=== PATIENT | female | born 1955 | race Caucasian/White ===

== ENCOUNTER 2016-08-13 11:50 | Outpatient (CLI) | payer MEDICARE, MEDICAID | END 2016-08-13 11:51 | disposition home or self-care (01) | DX: R10.9 Unspecified abdominal pain (principal); R11.0 Nausea ==

== ENCOUNTER 2016-09-14 15:40 | Outpatient (CLI) | payer MEDICARE, MEDICAID | END 2016-09-14 15:41 | disposition home or self-care (01) | DX: Z12.31 Encounter for screening mammogram for malignant neoplasm of breast (principal) ==

== ENCOUNTER 2016-11-23 16:10 | Outpatient (CLI) | payer MEDICARE, MEDICAID ==
[2016-11-23 16:45] LABS: ALBUMIN/GLOBULIN RATIO 1.3 (1.0-2.2); BILIRUBIN,TOTAL 0.2 mg/dL (0.2-1.0); CALCIUM 9.1 mg/dL (8.5-10.3); CREATININE 0.9 mg/dL (0.4-1.0); EOSINOPHILS # (AUTO) 0.2 10^3/uL (0.0-0.7); EOSINOPHILS % (AUTO) 5.1 %; HCT - HEMATOCRIT 35.8 % (37.0-47.0); HGB - HEMOGLOBIN 11.8 g/dL (12.0-16.0); LYMPHOCYTES # (AUTO) 1.1 10^3/uL (1.5-3.5); LYMPHOCYTES % (AUTO) 24.5 %; MEAN CORPUSCULAR HGB CONC 33.1 g/dL (32.0-36.0); MEAN CORPUSCULAR VOLUME 87.8 fL (81.0-99.0); MEAN PLATELET VOLUME 9.3 fL (7.9-10.8); MONOCYTES # (AUTO) 0.7 10^3/uL (0.0-1.0); MONOCYTES % (AUTO) 14.9 %; NEUTROPHILS # (AUTO) 2.5 10^3/uL (1.5-6.6); NEUTROPHILS % (AUTO) 54.5 %; POTASSIUM 3.9 mmol/L (3.5-5.0); RED BLOOD COUNT 4.08 10^6/uL (4.20-5.40); RED CELL DISTRIBUTION WIDTH 13.9 % (12.0-15.0); UNCORRECTED WHITE BLOOD COUNT 4.6 x10^3/uL; WHITE BLOOD COUNT 4.6 x10^3/uL (4.8-10.8)
== END 2016-11-23 16:11 | disposition home or self-care (01) ==
LOC: LAB 16:10
PROVIDERS: ATTEND Physician Assistant Medical
DX: B35.1 Tinea unguium (principal); Z79.899 Other long term (current) drug therapy
CPT/HCPCS: 36415; 80053; 85025

== ENCOUNTER 2017-01-08 16:54 | Outpatient (CLI) | payer MEDICARE, MEDICAID | END 2017-01-08 16:55 | disposition home or self-care (01) | LOC: LAB 16:54 | PROVIDERS: ATTEND Physician Assistant Medical | DX: B35.1 Tinea unguium (principal); Z79.899 Other long term (current) drug therapy | CPT/HCPCS: 84450; 84460 ==

== ENCOUNTER 2017-10-18 23:40 | Emergency (ER) | payer MEDICARE, MEDICAID ==
[2017-10-18 23:55] VITALS: BP 111/58
[2017-10-19 01:05] LABS: BASOPHILS % (AUTO) 0.5 %; EOSINOPHILS # (AUTO) 0.2 10^3/uL (0.0-0.7); EOSINOPHILS % (AUTO) 2.9 %; HGB - HEMOGLOBIN 11.9 g/dL (12.0-16.0); LYMPHOCYTES % (AUTO) 17.1 %; MEAN CORPUSCULAR HEMOGLOBIN 29.1 pg (27.0-31.0); MEAN CORPUSCULAR HGB CONC 32.6 g/dL (32.0-36.0); MEAN CORPUSCULAR VOLUME 89.3 fL (81.0-99.0); MEAN PLATELET VOLUME 9.6 fL (7.9-10.8); MONOCYTES # (AUTO) 0.8 10^3/uL (0.0-1.0); MONOCYTES % (AUTO) 13.7 %; NEUTROPHILS # (AUTO) 3.8 10^3/uL (1.5-6.6); NEUTROPHILS % (AUTO) 65.8 %; PLT - PLATELET COUNT 166 10^3/uL (130-450); RED BLOOD COUNT 4.09 10^6/uL (4.20-5.40); RED CELL DISTRIBUTION WIDTH 13.6 % (12.0-15.0); WHITE BLOOD COUNT 5.8 x10^3/uL (4.8-10.8)
[2017-10-19 01:16] LABS: ALBUMIN 4.2 g/dL (3.2-5.5); ALBUMIN/GLOBULIN RATIO 1.2 (1.0-2.2); BILIRUBIN,TOTAL 0.3 mg/dL (0.2-1.0); CALCIUM 9.3 mg/dL (8.5-10.3); TOTAL PROTEIN 7.7 g/dL (6.7-8.2)
--- NOTE | 2017-10-19 01:55 | ED Physician Documentation ---
PD HPI ABD PAIN - Stated complaint Stated Complaint: ABDOMINAL PAIN,DIARRHEA - Chief complaint Chief Complaint: Abd Pain - History obtained from History obtained from: Patient - History of Present Illness Timing - onset: How many days ago (2-3) Timing - duration: Days Timing - details: Abrupt onset, Intermittant Pain level max: 0 Pain level now: 0 Quality: Cramping Location: All over / everywhere Improved by: Other (no ameliorating factors) Worsened by: Other (no exacerbating factors) Associated symptoms: Nausea (mild), Diarrhea. No: Fever, Vomiting, Constipation Similar symptoms before: Diagnosis (similar to previous bout of c. diff colitis) - Additional information Additional information: c/o diarrhea with mild abdominal cramping x 2-3 days. tonight she noticed small amt. blood in stool and she feels this is increasingly similar to bout of c. diff she had in the past Review of Systems Constitutional: reports: Reviewed and negative Cardiac: reports: Reviewed and negative Respiratory: reports: Reviewed and negative GI: reports: Nausea, Diarrhea, Bloody / black stool. 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, Endometrial ablation, Tubal ligation - Present Medications Home Medications: Ambulatory Orders Medication Instructions Recorded Confirmed Albuterol [Ventolin Hfa] 2 puffs INH Q4H PRN 08/30/13 03/11/14 Ascorbic Acid [Vitamin C] 100 mg PO 08/30/13 03/11/14 Baclofen [Lioresal] 10 mg PO TID 08/30/13 03/11/14 Calcium Carbonate [Calcium] 250 mg PO 08/30/13 03/11/14 Cholecalciferol (Vitamin D3) 5,000 unit PO DAILY 08/30/13 03/11/14 [Vitamin D-3] Ciclesonide [Omnaris] 12.5 gm NS DAILY 08/30/13 03/11/14 Gabapentin [Neurontin] 400 mg PO TID 08/30/13 03/11/14 Hydrocodone/Acetaminophen 1 each PO PRN 08/30/13 03/11/14 [Hydrocodon-Acetaminophen 5-500] Interferon Beta-1A [Avonex] 30 mcg IM 08/30/13 03/11/14 Magnesium Oxide/Mag Aa Chelate 300 mg PO DAILY 08/30/13 03/11/14 [Magnesium 300 mg Capsule] Montelukast [Singulair] 10 mg PO QPM 08/30/13 03/11/14 Multivitamin [Multivitamins] 1 each PO 08/30/13 03/11/14 Omeprazole [PriLOSEC] 20 mg PO DAILY 08/30/13 03/11/14 Pregabalin [Lyrica] 50 mg PO TID 08/30/13 03/11/14 Vitamin B Complex [B Complete] 1 each PO BID 08/30/13 03/11/14 tiZANidine [Zanaflex] 4 mg PO DAILY 08/30/13 03/11/14 predniSONE [Deltasone] 40 mg PO DAILY 2 Days tablet 03/11/14 Vancomycin [Vancocin] 125 mg PO QID #39 capsule 10/19/17 - Allergies Allergies/Adverse Reactions: Allergies Allergy/AdvReac Type Severity Reaction Status Date / Time Penicillins Allergy Mild Rash Verified 10/18/17 23:55 Sulfa (Sulfonamide Allergy Mild Rash Verified 10/18/17 23:55 Antibiotics) - Social History Does the pt smoke?: No Smoking Status: Never smoker Does the pt drink ETOH?: No Does the pt have substance abuse?: No - Immunizations Immunizations are current?: Yes - POLST Patient has POLST: No PD ED PE NORMAL - Vitals Vital signs reviewed: Yes - General General: Alert and oriented X 3, No acute distress, Well developed/nourished - HEENT HEENT: Moist mucous membranes - Cardiac Cardiac: RRR, No murmur - Respiratory Respiratory: No respiratory distress, Clear bilaterally - Abdomen Abdomen: Normal bowel sounds, Soft, Non tender, Non distended Results - Vitals Vitals: Vital Signs - 24 hr 10/18/17 10/19/17 23:53 01:05 Temperature 36.1 C L Heart Rate 58 L Respiratory 18 16 Rate Blood Pressure 111/58 L O2 Saturation 97 Oxygen O2 Source Room air - Labs Labs: Microbiology 10/18/17 22:45 Clostridium difficile (PCR) - Final Stool Laboratory Tests 10/19/17 10/19/17 00:35 00:35 WBC 5.8 RBC 4.09 L Hgb 11.9 L Hct 36.5 L MCV 89.3 MCH 29.1 MCHC 32.6 RDW 13.6 Plt Count 166 MPV 9.6 Neut # 3.8 Lymph # 1.0 L Starr # 0.8 Eos # 0.2 Baso # 0.0 Absolute Nucleated RBC 0.00 Nucleated RBC % 0.0 Sodium 139 Potassium 3.6 Chloride 101 Carbon Dioxide 30 Anion Gap 8.0 BUN 13 Creatinine 1.0 Estimated GFR (MDRD) 56 L Glucose 78 Calcium 9.3 Total Bilirubin 0.3 AST 45 H ALT 37 Alkaline Phosphatase 91 Total Protein 7.7 Albumin 4.2 Globulin 3.5 Albumin/Globulin Ratio 1.2 Lipase 46 PD MEDICAL DECISION MAKING - ED course Complexity details: reviewed results, re-evaluated patient, considered differential, d/w patient Departure - Departure Disposition: 01 Home, Self Care Clinical Impression: Clostridium difficile diarrhea Condition: Good Instructions: ED Gastroenteritis Bacterial Follow-Up: Siena Hoffman MD [Primary Care Provider] - Prescriptions: Vancomycin [Vancocin] 125 mg PO QID #39 capsule Discharge Date/Time: 10/19/17 02:47
[2017-10-19] MEDS ORDERED: VANCOMYCIN 125 MG CAPSULE PO STA (02:24)
== END 2017-10-19 02:47 | disposition home or self-care (01) ==
LOC: ED 23:40
DX: A04.72 Enterocolitis due to Clostridium difficile, not specified as recurrent (principal); J45.909 Unspecified asthma, uncomplicated
CPT/HCPCS: 36415; 80053; 83690; 85025; 87493; 99283; J8499

== ENCOUNTER 2017-10-29 08:00 | Outpatient (CLI) | payer MEDICARE, MEDICAID | END 2017-10-29 08:01 | disposition home or self-care (01) | LOC: LAB.R 08:00 | PROVIDERS: ATTEND Internal Medicine | DX: R19.7 Diarrhea, unspecified (principal) | CPT/HCPCS: 87493 ==

== ENCOUNTER 2017-11-02 08:00 | Outpatient (CLI) | payer MEDICARE, MEDICAID | END 2017-11-02 08:01 | disposition home or self-care (01) | LOC: LAB.R 08:00 | PROVIDERS: ATTEND Internal Medicine | DX: R19.5 Other fecal abnormalities (principal) | CPT/HCPCS: 87493 ==

== ENCOUNTER 2017-11-16 11:56 | Emergency (ER) | payer MEDICARE, MEDICAID ==
[2017-11-16 12:10] VITALS: BP 132/72
--- NOTE | 2017-11-16 13:04 | ED Physician Documentation ---
PD HPI HEENT - Stated complaint Stated Complaint: MOUTH PAIN - Chief complaint Chief Complaint: Heent - History obtained from History obtained from: Patient - History of Present Illness Timing - onset: How many days ago (5) Timing - duration: Days (5) Timing - details: Gradual onset, Still present Location: Mouth Improves: Nothing Associated symptoms: Facial swelling Similar symptoms before: Diagnosis (dental abscess) Recently seen: Surgery - Additional information Additional information: 62-year-old female has had a recent gum graft to her left lower gums she has subsequently developed swelling, pain and a foul taste in her mouth. She relates that she was not put on antibiotic because she developed C. Diff with the clindamycin previously prescribed. She recovered with the use of vancomycin. Review of Systems Constitutional: reports: Fatigue. 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, Endometrial ablation, Tubal ligation - Present Medications Home Medications: Ambulatory Orders Medication Instructions Recorded Confirmed Albuterol [Ventolin Hfa] 2 puffs INH Q4H PRN 08/30/13 03/11/14 Cholecalciferol (Vitamin D3) 5,000 unit PO DAILY 08/30/13 03/11/14 [Vitamin D-3] Gabapentin [Neurontin] 400 mg PO TID 08/30/13 03/11/14 Interferon Beta-1A [Avonex] 30 mcg IM 08/30/13 03/11/14 Magnesium Oxide/Mag Aa Chelate 300 mg PO DAILY 08/30/13 03/11/14 [Magnesium 300 mg Capsule] Multivitamin [Multivitamins] 1 each PO 08/30/13 03/11/14 Vitamin B Complex [B Complete] 1 each PO BID 08/30/13 03/11/14 tiZANidine [Zanaflex] 4 mg PO DAILY 08/30/13 03/11/14 Cephalexin [Keflex] 500 mg PO QID #28 capsule 11/16/17 oxyCODONE [Roxicodone] 10 mg PO Q6H PRN 11/16/17 11/16/17 - Allergies Allergies/Adverse Reactions: Allergies Allergy/AdvReac Type Severity Reaction Status Date / Time Penicillins Allergy Mild Rash Verified 10/18/17 23:55 Sulfa (Sulfonamide Allergy Mild Rash Verified 10/18/17 23:55 Antibiotics) - Social History Does the pt smoke?: No Smoking Status: Never smoker Does the pt drink ETOH?: No Does the pt have substance abuse?: No - Immunizations Immunizations are current?: Yes - POLST Patient has POLST: No PD ED PE NORMAL - Vitals Vital signs reviewed: Yes (hypertensive ) - General General: Alert and oriented X 3, No acute distress, Well developed/nourished - HEENT HEENT: Atraumatic, PERRL, EOMI, Ears normal, Other (There is swelling to the left mandible from the chin to the ramus and this is firm without fluctuance. ) - Neck Neck: Supple, no meningeal sign, No bony TTP - Respiratory Respiratory: No respiratory distress - Neuro Neuro: Alert and oriented X 3, hoop expander 2-12 intact, No motor deficit, No sensory deficit, Normal speech Eye Opening: Spontaneous Motor: Obeys Commands Verbal: Oriented GCS Score: 15 - Psych Psych: Normal mood, Normal affect Results - Vitals Vitals: Vital Signs - 24 hr 11/16/17 12:04 Temperature 36.8 C Heart Rate 70 Respiratory 16 Rate Blood Pressure 132/72 H O2 Saturation 96 Oxygen O2 Source Room air PD MEDICAL DECISION MAKING - ED course Complexity details: re-evaluated patient, considered differential, d/w patient ED course: 62-year-old female with a recent gum graft appears to have a dental infection and she is put on some antibiotic. She has taken Keflex previously without difficulty. She is on probiotics already and yogurt. - Sepsis Event Vital Signs: Vital Signs - 24 hr 11/16/17 12:04 Temperature 36.8 C Heart Rate 70 Respiratory 16 Rate Blood Pressure 132/72 H O2 Saturation 96 Oxygen O2 Source Room air Departure - Departure Disposition: 01 Home, Self Care Clinical Impression: Dental infection Condition: Stable Instructions: ED Abscess Dental Follow-Up: Siena Hoffman MD [Primary Care Provider] - Prescriptions: Cephalexin [Keflex] 500 mg PO QID #28 capsule Discharge Date/Time: 11/16/17 13:34
[2017-11-16] MEDS: cephALEXin 250 MG CAPSULE PO STA (13:06)
== END 2017-11-16 13:34 | disposition home or self-care (01) ==
LOC: ED 11:56
DX: K04.7 Periapical abscess without sinus (principal)
CPT/HCPCS: 99283; A9270

== ENCOUNTER 2017-11-30 16:00 | Outpatient (CLI) | payer MEDICARE, MEDICAID | END 2017-11-30 16:01 | disposition home or self-care (01) | LOC: LAB.R 16:00 | PROVIDERS: ATTEND Internal Medicine | DX: R19.7 Diarrhea, unspecified (principal); Z86.19 Personal history of other infectious and parasitic diseases | CPT/HCPCS: 87493 ==

== ENCOUNTER 2018-05-12 15:06 | Outpatient (CLI) | payer MEDICARE, MEDICAID | END 2018-05-12 15:07 | disposition critical access hospital (66) | LOC: EMS 15:06 | PROVIDERS: ATTEND Surgery | DX: R42 Dizziness and giddiness (principal); R11.0 Nausea; R55 Syncope and collapse; R05 Cough | CPT/HCPCS: A0425; A0429 ==

== ENCOUNTER 2018-05-12 15:10 | Inpatient (IN) | payer MEDICARE, MEDICAID ==
[2018-05-12] MEDS ORDERED: SODIUM CHLORIDE 0.9% 1,000 ML IV ONE (15:30)
[2018-05-12] MEDS ORDERED: ALBUTEROL NEB 2.5 MG/3 ML INH STA (15:30)
--- NOTE | 2018-05-12 15:32 | ED Physician Documentation ---
History of Present Illness - Stated complaint Stated Complaint: FEVER, COUGH - Chief complaint Chief Complaint: Fever - History obtained from History obtained from: Patient - History of Present Illness Timing: Other (62-year-old woman with history of MS and asthma presents with 6 days of illness with cough productive of sputum and some hemoptysis with fevers, with a maximum temperature of 102.9 today. She feels completely tired and wiped out and has been falling a lot. 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, Endometrial ablation, Tubal ligation - Present Medications Home Medications: Ambulatory Orders Medication Instructions Recorded Confirmed Albuterol [Ventolin Hfa] 2 puffs INH Q4H PRN 08/30/13 03/11/14 Cholecalciferol (Vitamin D3) 5,000 unit PO DAILY 08/30/13 03/11/14 [Vitamin D-3] Gabapentin [Neurontin] 400 mg PO TID 08/30/13 03/11/14 Interferon Beta-1A [Avonex] 30 mcg IM 08/30/13 03/11/14 Magnesium Oxide/Mag Aa Chelate 300 mg PO DAILY 08/30/13 03/11/14 [Magnesium 300 mg Capsule] Multivitamin [Multivitamins] 1 each PO 08/30/13 03/11/14 Vitamin B Complex [B Complete] 1 each PO BID 08/30/13 03/11/14 tiZANidine [Zanaflex] 4 mg PO DAILY 08/30/13 03/11/14 Cephalexin [Keflex] 500 mg PO QID #28 capsule 11/16/17 oxyCODONE [Roxicodone] 10 mg PO Q6H PRN 11/16/17 11/16/17 - Allergies Allergies/Adverse Reactions: Allergies Allergy/AdvReac Type Severity Reaction Status Date / Time Penicillins Allergy Mild Rash Verified 05/12/18 15:15 Sulfa (Sulfonamide Allergy Mild Rash Verified 05/12/18 15:15 Antibiotics) - Social History Does the pt smoke?: No Smoking Status: Never smoker Does the pt drink ETOH?: No Does the pt have substance abuse?: No - Family History Family history: reports: Unknown - Immunizations Immunizations are current?: Yes - POLST Patient has POLST: No PD ED PE NORMAL - Vitals Vital signs reviewed: Yes - General General: Alert and oriented X 3, No acute distress - HEENT HEENT: PERRL, EOMI, Ears normal, Pharynx benign - Neck Neck: Supple, no meningeal sign, No bony TTP - Cardiac Cardiac: RRR, No murmur - Respiratory Respiratory: Other (Diminished at the right base) - Abdomen Abdomen: Non tender - Back Back: No CVA TTP, No spinal TTP - Derm Derm: Normal color, Warm and dry - Neuro Neuro: Alert and oriented X 3, Normal speech - Psych Psych: Normal mood, Normal affect Results - Vitals Vitals: Vital Signs - 24 hr 05/12/18 05/12/18 15:15 16:00 Temperature 37.4 C Heart Rate 110 H 84 Respiratory 16 18 Rate Blood Pressure 113/60 O2 Saturation 95 Oxygen O2 Source Room air - Labs Labs: Laboratory Tests 05/12/18 05/12/18 05/12/18 15:57 15:57 15:57 WBC 15.3 H RBC 3.96 L Hgb 11.7 L Hct 34.5 L MCV 86.9 MCH 29.5 MCHC 33.9 RDW 14.7 Plt Count 311 MPV 8.2 Neut # (Auto) 13.6 H Lymph # (Auto) 0.5 L Laurens # (Auto) 1.1 H Eos # (Auto) 0.0 Baso # (Auto) 0.0 Absolute Nucleated RBC 0.00 Nucleated RBC % 0.0 Sodium 136 Potassium 3.8 Chloride 96 L Carbon Dioxide 27 Anion Gap 13.0 BUN 7 Creatinine 0.9 Estimated GFR (MDRD) 63 L Glucose 113 H Lactic Acid 1.0 Calcium 9.4 Total Bilirubin 0.6 AST 35 ALT 29 Alkaline Phosphatase 113 Total Protein 9.6 H Albumin 4.2 Globulin 5.4 H Albumin/Globulin Ratio 0.8 L Lipase 34 Influenza A (Rapid) Influenza B (Rapid) 05/12/18 15:57 WBC RBC Hgb Hct MCV MCH MCHC RDW Plt Count MPV Neut # (Auto) Lymph # (Auto) Laurens # (Auto) Eos # (Auto) Baso # (Auto) Absolute Nucleated RBC Nucleated RBC % Sodium Potassium Chloride Carbon Dioxide Anion Gap BUN Creatinine Estimated GFR (MDRD) Glucose Lactic Acid Calcium Total Bilirubin AST ALT Alkaline Phosphatase Total Protein Albumin Globulin Albumin/Globulin Ratio Lipase Influenza A (Rapid) Negative Influenza B (Rapid) Negative - Rads (name of study) 2v chest Radiology: EMP read contemporaneously (Right upper lobe cavitary lesion) PD MEDICAL DECISION MAKING - ED course ED course: This is a 62-year-old woman with history of multiple sclerosis and asthma who presents with signs and symptoms of pneumonia. Chest x-ray reported as cavitary lesion in the right upper lobe at which point given the hemoptysis I asked the charge nurse to move her to a private negative pressure room. CT was ordered. She is never been exposed to TB but she has had international travel in the past but not recently. Last TB test was in [address] of the chest is concerning for cavitary pneumonia versus TB. She has had C. difficile before and did not want to take clindamycin, vancomycin seems reasonable as if it is a more standard pneumonia Staphylococcus would be at the high end of the differential. Call the hospitalist for admission at 6:45 PM. Departure - Departure Disposition: [facility] DC/Xfer Clinical Impression: Cavitary pneumonia Pneumonia Qualifiers: Pneumonia type: due to unspecified organism Laterality: right Lung location: upper lobe of lung Qualified Code(s): J18.1 - Lobar pneumonia, unspecified organism Condition: Serious
[2018-05-12 16:06] LABS: BASOPHILS % (AUTO) 0.3 %; EOSINOPHILS % (AUTO) 0.2 %; HGB - HEMOGLOBIN 11.7 g/dL (12.0-16.0); LYMPHOCYTES # (AUTO) 0.5 10^3/uL (1.5-3.5); LYMPHOCYTES % (AUTO) 3.5 %; MEAN CORPUSCULAR HEMOGLOBIN 29.5 pg (27.0-31.0); MEAN CORPUSCULAR HGB CONC 33.9 g/dL (32.0-36.0); MEAN CORPUSCULAR VOLUME 86.9 fL (81.0-99.0); MEAN PLATELET VOLUME 8.2 fL (7.9-10.8); MONOCYTES # (AUTO) 1.1 10^3/uL (0.0-1.0); MONOCYTES % (AUTO) 7.1 %; NEUTROPHILS # (AUTO) 13.6 10^3/uL (1.5-6.6); NEUTROPHILS % (AUTO) 88.9 %; PLT - PLATELET COUNT 311 10^3/uL (130-450); RED BLOOD COUNT 3.96 10^6/uL (4.20-5.40); RED CELL DISTRIBUTION WIDTH 14.7 % (12.0-15.0); WHITE BLOOD COUNT 15.3 x10^3/uL (4.8-10.8)
[2018-05-12 16:17] LABS: ALBUMIN 4.2 g/dL (3.2-5.5); ALBUMIN/GLOBULIN RATIO 0.8 (1.0-2.2); BILIRUBIN,TOTAL 0.6 mg/dL (0.2-1.0); CALCIUM 9.4 mg/dL (8.5-10.3); CREATININE 0.9 mg/dL (0.4-1.0); TOTAL PROTEIN 9.6 g/dL (6.7-8.2)
--- NOTE | 2018-05-12 16:47 | XRAY Report ---
Reason: couugh Procedure Date: 05/12/2018 Accession Number: [id number] / [id number] Procedure: XR - Chest 2 View X-Ray CPT Code: 60107 FULL RESULT: EXAM: CHEST RADIOGRAPHY EXAM DATE: 05/12/2018 04:34 PM. CLINICAL HISTORY: Cough. COMPARISON: CHEST 2 VIEW PA/LAT 08/13/2016 12:36 PM. TECHNIQUE: 2 views. FINDINGS: Lungs/Pleura: Large area of increased density in the right upper lobe with cavitation and small air-fluid level. Otherwise clear. No effusion or pneumothorax. Mediastinum: Heart and mediastinal contours are unremarkable. Other: Scoliosis. IMPRESSION: Right upper lobe cavitary lesion. Depending on clinical setting, further evaluation with CT scan may be helpful. RADIA
[2018-05-12] MEDS ORDERED: IOVERSOL 320 100 ML VIAL IVP ONE ×2 (17:01→17:47)
--- NOTE | 2018-05-12 18:37 | CT Report ---
Reason: RULQ cavitary lesion Procedure Date: 05/12/2018 Accession Number: [id number] / [id number] Procedure: CT - Chest W/ CPT Code: FULL RESULT: EXAM: CT CHEST EXAM DATE: 05/12/2018 05:49 PM. CLINICAL HISTORY: Right upper lobe cavitary lesion. COMPARISONS: CHEST 2 VIEW 05/12/2018 4:18 PM CHEST 2 VIEW PA/LAT 08/13/2016 12:36 PM. TECHNIQUE: Routine helical CT imaging was performed through the chest. IV contrast: 80 mL Optiray 320. Reconstructions: Coronal and sagittal. In accordance with CT protocol optimization, one or more of the following dose reduction techniques were utilized for this exam: automated exposure control, adjustment of mA and/or KV based on patient size, or use of iterative reconstructive technique. FINDINGS: Mediastinum: Paratracheal prominent lymph node measuring 8 mm. Right hilar lymphadenopathy measuring 1.1 cm. A group of right hilar lymph nodes are noted. Normal heart size. No thoracic aortic aneurysm or dissection. Some fluid is noted in the esophagus. Lungs: Right upper lobe cavitary mass measuring 4.5 x 5.9 x 5.3 cm. Adjacent airspace disease and consolidation with air bronchograms. This consolidation extends to the right hilum. No pleural effusion or pneumothorax. Upper abdomen: No acute findings are seen. Bones: No acute bone findings are seen. Severe left-sided L2-L3 degenerative disk disease with disk height loss, sclerosis, osteophytes and mild rightward subluxation. Moderate thoracolumbar scoliosis. IMPRESSION: 1. Right upper lobe cavitary mass with adjacent airspace disease and consolidation. This could be infection versus primary lung malignancy and further workup is recommended. Secondary tuberculosis is possible. Correlate clinically. Right hilar lymphadenopathy. 2. See above. RADIA
[2018-05-12] MEDS ORDERED: CLINDAMYCIN 600 MG/50 ML 50 ML IV ONE (18:41)
[2018-05-12] MEDS ORDERED: VANCOMYCIN INJ 1.5 GM in SODIUM CHLORIDE 0.9% 500 ML IV STA (18:50)
[2018-05-12] MEDS ORDERED: LOPERAMIDE 2 MG CAPSULE PO STA (19:01)
[2018-05-12] MEDS ORDERED: TEMAZEPAM 15 MG CAPSULE PO PRN (20:26)
[2018-05-12] MEDS ORDERED: PROCHLORPERAZINE 10 MG/2 ML VIAL IVP PRN (20:26)
[2018-05-12] MEDS: ACETAMINOPHEN 325 MG TABLET PO PRN (21:56)
[2018-05-12] MEDS ORDERED: GABAPENTIN 400 MG CAPSULE PO SCH (22:00)
[2018-05-12] MEDS: D5NS W/20 MEQ KCL 1,000 ML IV SCH (22:05)
[2018-05-12] MEDS: MEROPENEM 1 GM in SODIUM CHLORIDE 0.9% MINIBAG 100 ML IV SCH (22:06)
[2018-05-12] MEDS: GABAPENTIN 400 MG CAPSULE PO SCH (22:41)
[2018-05-12] MEDS: oxyCODONE 5 MG TABLET PO PRN (23:24)
[2018-05-13 00:12] LABS: BILIRUBIN,URINE NEGATIVE (NEGATIVE); GLUCOSE, URINE (UA) NEGATIVE (NEGATIVE); KETONES,URINE (UA) NEGATIVE (NEGATIVE); LEUKOCYTE ESTERASE, URINE NEGATIVE (NEGATIVE); NITRITE,URINE NEGATIVE (NEGATIVE); OCCULT BLOOD,URINE TRACE-LYSE (NEGATIVE); PH,URINE 6.5 PH (5.0-7.5); PROTEIN,URINE NEGATIVE (NEGATIVE); UROBILINOGEN,URINE 0.2 (NORMAL) E.U./dL (NORMAL)
[2018-05-13 00:27] LABS: CLARITY,URINE CLEAR (CLEAR)
--- NOTE | 2018-05-13 01:49 | HISTORY & PHYSICAL EXAMINATION ---
DATE OF SERVICE: 05/12/2018 Physician: Tanisha Shrestha MD HISTORY OF PRESENT ILLNESS: This is a 62-year-old white female with a history of multiple sclerosis on Avonex (Interferon beta) weekly and history of asthma on p.r.n. inhalers. The patient has had six days of an illness consisting of a cough productive of sputum, occasional fever and intermittent hemoptysis. She had a high temperature of 102.9 today and was exhausted and started falling a lot. Because of these new complaints, she presented to the emergency room. Her evaluation shows an abnormal chest x-ray with lymphadenopathy as well as a cavitary lesion and pneumonia. She underwent a CT scan, which confirms a cavitary lesion of the lung in the right upper lobe along with air bronchograms surrounding this, and she is being admitted for management of her pulmonary pathology. She has had no nausea, vomiting or diarrhea. PAST MEDICAL HISTORY 1. Multiple sclerosis on interferon. 2. Asthma on p.r.n. inhalers. 3. Osteoporosis. 4. Past Clostridium difficile infection when she took Clindamycin. PAST SURGICAL HISTORY 1. Tubal ligation. 2. Appendectomy. 3. in the past. ALLERGIES: PENICILLIN WHICH CAUSED A RASH, AND SULFA WHICH CAUSED A RASH. MEDICATIONS 1. Ventolin inhaler p.r.n. 2. Vitamin D3 5000 units daily. 3. Neurontin 800 mg t.i.d. 4. Interferon beta 30 mcg intramuscular weekly. 5. Magnesium oxide 300 mg daily. 6. Multivitamin daily. 7. Vitamin B 1 tablet b.i.d. 8. Zanaflex 4 mg daily. 9. Oxycodone p.r.n. FAMILY HISTORY: No inherited diseases. SOCIAL HISTORY: The patient is a nonsmoker, never smoked. Drinks no alcohol. Uses no illicit drugs. She is on disability for MS. 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 Her of cancer 5 yeras ago. She has three sons. She lives alone, has a dog. REVIEW OF SYSTEMS: A comprehensive review of systems was performed and the pertinent positives are in the HPI, the rest are negative. PHYSICAL EXAMINATION GENERAL: Thin white female. She appears thin and has muscle wasting.. VITAL SIGNS: Blood pressure 128/90, heart rate 103 in sinus tachycardia, currently afebrile at 37.4, and room air saturation 98%. HEENT: Shows mild oral mucosa dryness. NECK: Without JVD or carotid bruits. CHEST: Diminished breath sounds of the right side. No wheezes. Left is clear. CARDIOVASCULAR: Heart sounds distant. ABDOMEN: Soft, nontender. No organomegaly. EXTREMITIES: No clubbing, cyanosis, edema. NEUROLOGIC: Grossly intact. Muscle strength normal. LABORATORY DATA: White blood count 15.3 with a left shift, hemoglobin 11.7, platelet count normal at 311. Normal electrolytes, normal BUN and creatinine. Normal liver tests. Normal lipase. Influenza A and B are negative. No INR was done. No EKG was done. IMAGING STUDIES: Chest x-ray: Normal mediastinal size, right upper lobe cavitary lesion. CT scan of the chest: Large right upper lobe cavitary lesion measuring 4.5 x 5.9 x 5.3 cm. There is adjacent airspace disease and consolidation with air bronchograms that extends to the right hilum. There are multiple lymph nodes, mostly in the right hilar region. IMPRESSION/DIAGNOSES/and PLAN: 1. Hemoptysis. This is likely from the abnormal finding on chest exam and could be a sign of tuberculosis or malignancy or cavitart pneumonia. 2. Lung abscess. Since it does not seem that the patient would have aspiration problems, this is of concern that she has a streptococcal organism or TB. The emergency room doctor was able to question her about travel and she remembered being in the [place], but this was in 2004, and her other exposure is that to a homeless son. We will start treatment empirically with Meropenem since she is PENICILLIN ALLERGIC and since Clindamycin would have been a fair choice, but she declined this because of the past C. difficile when she was on Clindamycin. She may have gotten one dose of Vancomycin in place of Clinda, while in the ER; however, UpToDate recommends the use of beta lactam. Will order Isolation precautions for possible TB and collect 3 morning sputa for AFB stain and cultures. 3. Community-acquired pneumonia. Because of the severe findings on chest x- ray, the choice of antibiotic will be as above. Cultures will be requested for aerobic and anaerobic bacteria as well as acid-fast bacilli from each morning specimen x3. Mucinex for expectoration. Florastor for bowel health. 4. Multiple sclerosis. Her Interferon dose can be used, if needed with the patient's own dose, while here. 5. Asthma. We will order p.r.n. DuoNeb treatments while here. Since she is not in respiratory distress, no steroids will be ordered. 6. Deep venous thrombosis prophylaxis: SCDs. CODE STATUS: FULL CODE. ATTESTATION: The patient is expected to be discharged or transferred to another facility within 96 hours: Yes. TD: 05/12/2018 23:26 [email or web address]
[2018-05-13] MEDS: SODIUM CHLORIDE FLUSH 0.9% 10 ML SYRINGE IVP SCH ×3 (02:33→16:06)
[2018-05-13] MEDS: MEROPENEM 1 GM in SODIUM CHLORIDE 0.9% MINIBAG 100 ML IV SCH ×3 (04:49→21:48)
[2018-05-13 04:58] LABS: BASOPHILS % (AUTO) 0.2 %; EOSINOPHILS # (AUTO) 0.1 10^3/uL (0.0-0.7); HGB - HEMOGLOBIN 9.6 g/dL (12.0-16.0); LYMPHOCYTES # (AUTO) 0.8 10^3/uL (1.5-3.5); LYMPHOCYTES % (AUTO) 8.6 %; MEAN CORPUSCULAR HEMOGLOBIN 29.1 pg (27.0-31.0); MEAN CORPUSCULAR HGB CONC 32.5 g/dL (32.0-36.0); MEAN CORPUSCULAR VOLUME 89.7 fL (81.0-99.0); MEAN PLATELET VOLUME 7.8 fL (7.9-10.8); MONOCYTES # (AUTO) 1.1 10^3/uL (0.0-1.0); MONOCYTES % (AUTO) 12.4 %; NEUTROPHILS % (AUTO) 77.8 %; PLT - PLATELET COUNT 229 10^3/uL (130-450); RED BLOOD COUNT 3.29 10^6/uL (4.20-5.40); RED CELL DISTRIBUTION WIDTH 15.3 % (12.0-15.0)
[2018-05-13 05:03] LABS: CALCIUM 8.3 mg/dL (8.5-10.3); CREATININE 0.9 mg/dL (0.4-1.0)
[2018-05-13] MEDS: GABAPENTIN 400 MG CAPSULE PO SCH ×3 (05:54→21:49)
[2018-05-13] MEDS: PANTOPRAZOLE 40 MG TABLET PO SCH (05:59)
[2018-05-13] MEDS: ACETAMINOPHEN 325 MG TABLET PO PRN ×2 (05:59→12:30)
[2018-05-13] MEDS: SACCHAROMYCES BOULARDII 250 MG CAPSULE PO SCH ×2 (08:15→16:51)
[2018-05-13] MEDS: CHOLECALCIFEROL 5,000 UNIT CAPSULE PO SCH (08:52)
[2018-05-13] MEDS: tiZANidine 4 MG TABLET PO SCH ×2 (08:52→12:31)
[2018-05-13] MEDS: guaiFENesin 600 MG TABLET PO SCH ×2 (08:52→21:50)
[2018-05-13] MEDS: MULTIVITAMIN TABLET PO SCH (08:52)
[2018-05-13] MEDS: POLYETHYLENE GLYCOL 3350 17 GM PACKET PO SCH (12:31)
--- NOTE | 2018-05-13 12:37 | PROVIDER PROGRESS NOTE ---
Assessment/Plan - Problem List (1) Cavitating mass in right upper lung lobe Assessment/Plan: Patient presented with 6 days of fevers, cough, hemoptysis and night sweats. The patient has also been having frequent falls and has 10 pound weight loss. The patient's chest x-ray and CT scan showed a right cavitary mass with surrounding air bronchograms and right-sided lymph nodes. This finding was concerning for possibility of tuberculosis. Patient could also have possible lung abscess, lung infection or cancer. Patient was admitted to the medical hein under negative pressure isolation for rule out of TB and treatment with IV antibiotics. Plan: AFB x3 Negative pressure isolation Broad-spectrum IV antibiotics with vancomycin and meropenem Infectious disease was consulted and recommended that we do not stop the patient's treatment for multiple sclerosis as it is not an immunosuppressive agent. They agreed with getting AFB testing and continuing broad-spectrum antibiotics. They recommended transfer for a bronchoscopy if AFBs were negative. (2) Cavitary pneumonia Assessment/Plan: Patient presented with fever, shortness of breath, cough, hemoptysis, weight loss, night sweats and had a cavitary lesion in the right upper lobe on her chest x-ray and CT. There was air bronchograms surrounding the cavitary lesion concerning for possible infection. Patient had a leukocytosis and fever on presentation. Given these findings patient will be treated for presumed pneumonia with broad-spectrum antibiotics and will undergo testing for TB. Plan: IV antibiotics with vancomycin and meropenem AFB testing x3 If AFB testing is negative patient will need bronchoscopy and will need to be transferred. (3) Asthma Qualifiers: Asthma severity: mild Asthma persistence: intermittent Asthma complication type: with acute exacerbation Qualified Code(s): J45.21 - Mild intermittent asthma with (acute) exacerbation Assessment/Plan: Patient has asthma exacerbation secondary to ongoing cavitary pneumonia. Pedrito duran will be placed on nebs along with antibiotics while she is hospitalized. (4) Multiple sclerosis Assessment/Plan: The patient has a history of multiple sclerosis and is on Avonex at home. After discussion with infectious disease it was decided to continue medication while she was hospitalized. Infectious disease did not feel that this is a immunosupp ressive medication. They were also concerned that in the setting of infection multiple sclerosis can worsen. This is likely why patient has been having multiple falls over the last week as she likely has worsening of her multiple sclerosis with ongoing infection. For now we will continue the patient's Aggrenox. Patient also had a Stiles catheter inserted as she has a neurogenic bladder due to her multiple sclerosis. - Current Meds Current Meds: Current Medications Generic Name Dose Route Start Last Admin Trade Name Freq PRN Reason Stop Dose Admin Acetaminophen 650 mg 05/12/18 20:26 05/13/18 12:30 Tylenol PO 650 mg Q4HR PRN Administration Pain or Fever > 38C (100.4F) Cholecalciferol 5,000 unit 05/13/18 09:00 05/13/18 08:52 Vitamin D3 PO 5,000 unit DAILY PAIGE Administration Gabapentin 800 mg 05/12/18 23:00 05/13/18 05:54 Neurontin PO 800 mg TID PAIGE Administration Guaifenesin 600 mg 05/13/18 09:00 05/13/18 08:52 Mucinex PO 600 mg BID PAIGE Administration Potassium Chloride/Dextrose/Sod Cl 1,000 mls @ 60 mls/hr 05/12/18 21:00 05/13/18 12:31 IV 60 mls/hr .[id number] PAIGE Infusion Meropenem 1 gm/ Sodium 100 mls @ 200 mls/hr 05/12/18 21:00 05/13/18 05:27 Chloride IV Infused Q8H PAIGE Infusion Multivitamins 1 tab 05/13/18 09:00 05/13/18 08:52 Theragran PO 1 tab DAILY PAIGE Administration Oxycodone HCl 10 mg 05/12/18 20:36 05/12/18 23:24 Roxicodone PO 10 mg Q6H PRN Administration Analgesia Pantoprazole Sodium 40 mg 05/13/18 07:00 05/13/18 05:59 Protonix PO 40 mg QDAC PAIGE Administration Polyethylene Glycol 17 gm 05/13/18 09:00 05/13/18 12:31 Miralax PO Not Given DAILY PAIGE Saccharomyces Boulardii 250 mg 05/13/18 08:00 05/13/18 08:15 Florastor PO 250 mg BIDWM PAIGE Administration Sodium Chloride 10 ml 05/13/18 01:00 05/13/18 12:31 Normal Saline Flush 0.9% IVP Not Given 0100,0900,1700 PAIGE Tizanidine HCl 4 mg 05/13/18 09:00 05/13/18 12:31 Zanaflex PO Not Given DAILY PAIGE - Lab Result Lab results reviewed: Yes Fish Bone Diagrams: 05/13/18 04:35 05/13/18 04:35 - Diagnostic Imaging Results Diagnostic Imaging Results: Final report reviewed - Additional Planning Condition/Complexity: Guarded My Orders: My Active Orders 05/13/18 Lunch Regular Diet [DIET] Plan Discussed with:: Patient Time Spent: 31-60 minutes Subjective - Subjective Patient Reports: Cough (With hemoptysis), Chest Pain (Right sided), Fever, Shortness of Breath (With excertion), Other (Night sweats) Nursing Reports: No Complaints Objective Vital Signs: Vital Signs - 24 hr 05/12/18 05/12/18 05/12/18 15:15 16:00 19:56 Temperature 37.4 C Heart Rate 110 H 84 103 H Heart Rate [ Monitoring electrodes] Respiratory 16 18 16 Rate Blood Pressure 113/60 128/90 H Blood Pressure [Right Brachial artery] O2 Saturation 95 98 05/12/18 05/12/18 05/13/18 21:25 23:00 04:45 Temperature 38.0 C H 36.9 C 36.9 C Heart Rate Heart Rate [ 84 Monitoring electrodes] Respiratory 16 Rate Blood Pressure Blood Pressure 116/84 H [Right Brachial artery] O2 Saturation 95 05/13/18 05/13/18 07:57 12:31 Temperature 37.5 C 38.1 C H Heart Rate Heart Rate [ 86 Monitoring electrodes] Respiratory 18 Rate Blood Pressure Blood Pressure 108/64 [Right Brachial artery] O2 Saturation 96 Oxygen O2 Source Room air I&O (Last 24 Hrs): Intake and Output Totals x24h 05/11/18 05/12/18 05/13/18 23:59 23:59 23:59 Intake Total 1900 2406 Output Total 400 1200 Balance 1500 1206 General: Alert, Oriented x3, Cooperative, Mild distress, Other (Cachectic appearing) HEENT: Atraumatic, PERRLA, EOMI, Other (Dry) Neck: Supple, No JVD, No thyromegaly, +2 carotid pulse wo bruit, No LAD Lymphatic: no adenopathy Neuro: Alert, Non Focal, CN 2-12 Grossly Intact, Oriented Times 3 Cardiovascular: Regular rate, Normal S1, Normal S2, No murmurs Respiratory: Chest non-tender, Wheezes (Bilateral expiratory), Rhonchi (Right u pper lung) Abdomen: Normal bowel sounds, Soft, No tenderness, No hepatospenomegaly Extremities: No clubbing, No cyanosis, No edema, Normal pulses Skin: No rashes, No breakdown - Results Results: Laboratory Results WBC 9.0 x10^3/uL (4.8-10.8) 05/13/18 04:35 RBC 3.29 10^6/uL (4.20-5.40) L 05/13/18 04:35 Hgb 9.6 g/dL (12.0-16.0) L 05/13/18 04:35 Hct 29.5 % (37.0-47.0) L 05/13/18 04:35 MCV 89.7 fL (81.0-99.0) 05/13/18 04:35 MCH 29.1 pg (27.0-31.0) 05/13/18 04:35 MCHC 32.5 g/dL (32.0-36.0) 05/13/18 04:35 RDW 15.3 % (12.0-15.0) H 05/13/18 04:35 Plt Count 229 10^3/uL (130-450) 05/13/18 04:35 MPV 7.8 fL (7.9-10.8) L 05/13/18 04:35 Neut # (Auto) 7.0 10^3/uL (1.5-6.6) H 05/13/18 04:35 Lymph # (Auto) 0.8 10^3/uL (1.5-3.5) L 05/13/18 04:35 [place] # (Auto) 1.1 10^3/uL (0.0-1.0) H 05/13/18 04:35 Eos # (Auto) 0.1 10^3/uL (0.0-0.7) 05/13/18 04:35 Baso # (Auto) 0.0 10^3/uL (0.0-0.1) 05/13/18 04:35 Absolute Nucleated RBC 0.00 x10^3/uL 05/13/18 04:35 Nucleated RBC % 0.0 /100WBC 05/13/18 04:35 Sodium 139 mmol/L (135-145) 05/13/18 04:35 Potassium 3.8 mmol/L (3.5-5.0) 05/13/18 04:35 Chloride 105 mmol/L (101-111) 05/13/18 04:35 Carbon Dioxide 28 mmol/L (21-32) 05/13/18 04:35 Anion Gap 6.0 (6-13) 05/13/18 04:35 BUN 7 mg/dL (6-20) 05/13/18 04:35 Creatinine 0.9 mg/dL (0.4-1.0) 05/13/18 04:35 Estimated GFR (MDRD) 63 (>89) L 05/13/18 04:35 Glucose 112 mg/dL (70-100) H 05/13/18 04:35 Lactic Acid 1.0 mmol/L (0.5-2.2) 05/12/18 15:57 Calcium 8.3 mg/dL (8.5-10.3) L 05/13/18 04:35 Total Bilirubin 0.6 mg/dL (0.2-1.0) 05/12/18 15:57 AST 35 IU/L (10-42) 05/12/18 15:57 ALT 29 IU/L (10-60) 05/12/18 15:57 Alkaline Phosphatase 113 IU/L (42-121) 05/12/18 15:57 Total Protein 9.6 g/dL (6.7-8.2) H 05/12/18 15:57 Albumin 4.2 g/dL (3.2-5.5) 05/12/18 15:57 Globulin 5.4 g/dL (2.1-4.2) H 05/12/18 15:57 Albumin/Globulin Ratio 0.8 (1.0-2.2) L 05/12/18 15:57 Lipase 34 U/L (22-51) 05/12/18 15:57 Urine Color LT. YELLOW 05/12/18 23:40 Urine Clarity CLEAR (CLEAR) 05/12/18 23:40 Urine pH 6.5 PH (5.0-7.5) 05/12/18 23:40 Ur Specific [place] <=1.005 (1.002-1.030) 05/12/18 23:40 Urine Protein NEGATIVE mg/dL (NEGATIVE) 05/12/18 23:40 Urine Glucose (UA) NEGATIVE mg/dL (NEGATIVE) 05/12/18 23:40 Urine Ketones NEGATIVE mg/dL (NEGATIVE) 05/12/18 23:40 Urine Occult Blood TRACE-LYSE (NEGATIVE) 05/12/18 23:40 Urine Nitrite NEGATIVE (NEGATIVE) 05/12/18 23:40 Urine Bilirubin NEGATIVE (NEGATIVE) 05/12/18 23:40 Urine Urobilinogen 0.2 (NORMAL) E.U./dL (NORMAL) 05/12/18 23:40 Ur Leukocyte Esterase NEGATIVE (NEGATIVE) 05/12/18 23:40 Ur Microscopic Review NOT INDICATED 05/12/18 23:40 Urine Culture Comments NOT INDICATED 05/12/18 23:40 Influenza A (Rapid) Negative (Negative) 05/12/18 15:57 Influenza B (Rapid) Negative (Negative) 05/12/18 15:57 - Procedures Procedures: Procedures PARTIAL HIP REPLACEMENT (08/30/13) ABX Reporting Has patient been on IV antibiotics over the past 48 hours?: No Current Medications - Current Medications Current Medications: Active Medications Generic Name Dose Route Start Last Admin Trade Name Freq PRN Reason Stop Dose Admin Acetaminophen 650 mg 05/12/18 20:26 05/13/18 12:30 Tylenol PO 650 mg Q4HR PRN Administration Pain or Fever > 38C (100.4F) Albuterol/Ipratropium 3 ml 05/12/18 20:37 Duoneb INH Q4HR PRN Wheezing Cholecalciferol 5,000 unit 05/13/18 09:00 05/13/18 08:52 Vitamin D3 PO 5,000 unit DAILY PAIGE Administration Gabapentin 800 mg 05/12/18 23:00 05/13/18 05:54 Neurontin PO 800 mg TID PAIGE Administration Guaifenesin 600 mg 05/13/18 09:00 05/13/18 08:52 Mucinex PO 600 mg BID PAIGE Administration Potassium Chloride/Dextrose/Sod Cl 1,000 mls @ 60 mls/hr 05/12/18 21:00 05/13/18 12:33 IV 0 mls/hr .[id number] PAIGE Infusion Meropenem 1 gm/ Sodium 100 mls @ 200 mls/hr 05/12/18 21:00 05/13/18 05:27 Chloride IV Infused Q8H PAIGE Infusion Magnesium Oxide 400 mg 05/13/18 14:00 Mag Ox PO DAILY PRN CONSTIPATION Multivitamins 1 tab 05/13/18 09:00 05/13/18 08:52 Theragran PO 1 tab DAILY PAIGE Administration Oxycodone HCl 10 mg 05/12/18 20:36 05/12/18 23:24 Roxicodone PO 10 mg Q6H PRN Administration Analgesia Pantoprazole Sodium 40 mg 05/13/18 07:00 05/13/18 05:59 Protonix PO 40 mg QDAC PAIGE Administration (Interferon Beta-1a 1 each 05/13/18 14:00 [Avonex] 30 Mcg) Inj IM Q7D PAIGE (Vitamin B Complex [ 1 each 05/13/18 14:00 B Complete] Tab) PO DAILY PAIGE Polyethylene Glycol 17 gm 05/13/18 09:00 05/13/18 12:31 Miralax PO Not Given DAILY PAIGE Prochlorperazine Edisylate 10 mg 05/12/18 20:26 Compazine Inj IVP Q6HR PRN Nausea / Vomiting Saccharomyces Boulardii 250 mg 05/13/18 08:00 05/13/18 08:15 Florastor PO 250 mg BIDWM PAIGE Administration Sodium Chloride 10 ml 05/12/18 20:26 Normal Saline Flush 0.9% IVP PRN PRN NEEDED PER PROVIDER ORDERS Sodium Chloride 10 ml 05/13/18 01:00 05/13/18 12:31 Normal Saline Flush 0.9% IVP Not Given 0100,0900,1700 COUNT INCLUDES THE [facility] Temazepam 15 mg 05/12/18 20:26 Restoril PO QPM PRN Insomnia Tizanidine HCl 4 mg 05/13/18 09:00 05/13/18 12:31 Zanaflex PO Not Given DAILY COUNT INCLUDES THE [facility] Gabapentin [Neurontin] 800 mg PO TID 08/30/13 Interferon Beta-1A [Avonex] 30 mcg IM Q7D 08/30/13 Cholecalciferol (Vitamin D3) [Vitamin D3] 5,000 units PO DAILY 05/13/18 Magnesium 500 mg PO DAILY PRN 05/13/18 Naproxen 250 mg PO DAILY PRN 05/13/18 Neurocet 1 cap PO DAILY 05/13/18 Oxycodone HCl/Acetaminophen [Oxycodone-Acetaminophen 5-325] 0.5 tab PO QPM 05/13/18 Vitamin B Complex 1 tab PO DAILY 05/13/18
[2018-05-13] MEDS ORDERED: VANCOMYCIN PER PHARMACY 1 GM in SODIUM CHLORIDE 0.9% 250 ML IV SCH (13:00)
[2018-05-13] MEDS ORDERED: MAGNESIUM OXIDE 400 MG TABLET PO PRN (14:00)
[2018-05-13] MEDS ORDERED: VANCOMYCIN INJ 1 GM in SODIUM CHLORIDE 0.9% 250 ML IV SCH (14:00)
[2018-05-13] MEDS: VANCOMYCIN INJ 1 GM in SODIUM CHLORIDE 0.9% 250 ML IV SCH (16:04)
[2018-05-13] MEDS: INTERFERON BETA 30 MCG IM SCH (16:19)
[2018-05-13] MEDS: D5NS W/20 MEQ KCL 1,000 ML IV SCH (17:36)
[2018-05-13] MEDS: VITAMIN B COMPLEX PO SCH (17:37)
[2018-05-13] MEDS: IPRATROPIUM/ALBUTEROL 3 ML NEB INH PRN (21:30)
[2018-05-13] MEDS: oxyCODONE 5 MG TABLET PO PRN (21:49)
[2018-05-14] MEDS: IPRATROPIUM/ALBUTEROL 3 ML NEB INH PRN ×2 (02:27→20:52)
[2018-05-14] MEDS: VANCOMYCIN INJ 1 GM in SODIUM CHLORIDE 0.9% 250 ML IV SCH ×2 (04:25→16:45)
[2018-05-14] MEDS: MEROPENEM 1 GM in SODIUM CHLORIDE 0.9% MINIBAG 100 ML IV SCH ×3 (04:31→21:36)
[2018-05-14] MEDS: SODIUM CHLORIDE FLUSH 0.9% 10 ML SYRINGE IVP SCH ×3 (04:41→16:46)
[2018-05-14] MEDS: ACETAMINOPHEN 325 MG TABLET PO PRN ×3 (05:05→21:41)
[2018-05-14 06:04] LABS: BASOPHILS % (AUTO) 0.2 %; EOSINOPHILS # (AUTO) 0.1 10^3/uL (0.0-0.7); EOSINOPHILS % (AUTO) 0.9 %; HGB - HEMOGLOBIN 8.6 g/dL (12.0-16.0); LYMPHOCYTES # (AUTO) 0.6 10^3/uL (1.5-3.5); LYMPHOCYTES % (AUTO) 6.8 %; MEAN CORPUSCULAR HEMOGLOBIN 29.6 pg (27.0-31.0); MEAN CORPUSCULAR HGB CONC 33.3 g/dL (32.0-36.0); MEAN CORPUSCULAR VOLUME 88.9 fL (81.0-99.0); MEAN PLATELET VOLUME 7.8 fL (7.9-10.8); MONOCYTES % (AUTO) 11.4 %; NEUTROPHILS # (AUTO) 7.1 10^3/uL (1.5-6.6); NEUTROPHILS % (AUTO) 80.7 %; PLT - PLATELET COUNT 231 10^3/uL (130-450); RED BLOOD COUNT 2.91 10^6/uL (4.20-5.40); RED CELL DISTRIBUTION WIDTH 14.8 % (12.0-15.0); WHITE BLOOD COUNT 8.8 x10^3/uL (4.8-10.8)
[2018-05-14 06:29] LABS: BUN - BLOOD UREA NITROGEN < 5 mg/dL (6-20); CALCIUM 8.4 mg/dL (8.5-10.3); CARBON DIOXIDE - CO2 27 mmol/L (21-32); CHLORIDE 103 mmol/L (101-111); CREATININE 0.8 mg/dL (0.4-1.0); GFR - MDRD 72 (>89); GLUCOSE 105 mg/dL (70-100); SODIUM 137 mmol/L (135-145)
[2018-05-14] MEDS: PANTOPRAZOLE 40 MG TABLET PO SCH (06:29)
[2018-05-14] MEDS: GABAPENTIN 400 MG CAPSULE PO SCH ×3 (06:29→21:40)
[2018-05-14] MEDS ORDERED: POTASSIUM CHLORIDE 20 MEQ TABLET PO SCH (07:42)
--- NOTE | 2018-05-14 07:49 | PROVIDER PROGRESS NOTE ---
Assessment/Plan - Problem List (1) Cavitating mass in right upper lung lobe Assessment/Plan: Patient presented with 6 days of fevers, cough, hemoptysis and night sweats. The patient has also been having frequent falls and has 10 pound weight loss. The patient's chest x-ray and CT scan showed a right cavitary mass with surrounding air bronchograms and right-sided lymph nodes. This finding was concerning for possibility of tuberculosis. Patient could also have possible lung abscess, lung infection or cancer. Patient was admitted to the medical hein under negative pressure isolation for rule out of TB and treatment with IV antibiotics. Plan: AFB x3 Negative pressure isolation Broad-spectrum IV antibiotics with vancomycin and meropenem day 2 Infectious disease was consulted and recommended that we do not stop the patient's treatment for multiple sclerosis as it is not an immunosuppressive ag ent. They agreed with getting AFB testing and continuing broad-spectrum antibiotics. They recommended transfer for a bronchoscopy if AFBs were negative. (2) Cavitary pneumonia Assessment/Plan: Patient presented with fever, shortness of breath, cough, hemoptysis, weight loss, night sweats and had a cavitary lesion in the right upper lobe on her chest x-ray and CT. There was air bronchograms surrounding the cavitary lesion concerning for possible infection. Patient had a leukocytosis and fever on presentation. Given these findings patient will be treated for presumed pneumonia with broad-spectrum antibiotics and will undergo testing for TB. Plan: IV antibiotics with vancomycin and meropenem AFB testing x3 If AFB testing is negative patient will need bronchoscopy and will need to be transferred. (3) Asthma Qualifiers: Asthma severity: mild Asthma persistence: intermittent Asthma complication type: with acute exacerbation Qualified Code(s): J45.21 - Mild intermittent asthma with (acute) exacerbation Assessment/Plan: Patient has asthma exacerbation secondary to ongoing cavitary pneumonia. Patient will be placed on nebs along with antibiotics while she is hospitalized. (4) Multiple sclerosis Assessment/Plan: The patient has a history of multiple sclerosis and is on Avonex at home. After discussion with infectious disease it was decided to continue medication while she was hospitalized. Infectious disease did not feel that this is a immu nosuppressive medication. They were also concerned that in the setting of infection multiple sclerosis can worsen. This is likely why patient has been having multiple falls over the last week as she likely has worsening of her multiple sclerosis with ongoing infection. For now we will continue the patient's Aggrenox. Patient also had a Stiles catheter inserted as she has a neurogenic bladder due to her multiple sclerosis. (5) Hypokalemia Assessment/Plan: Replace K Monitor K (6) Anemia Assessment/Plan: Likely secondary to blood loss from hemoptysis Hb is 8.6 today from 11.7 Hemoptysis improving Monitor Hb - Current Meds Current Meds: Current Medications Generic Name Dose Route Start Last Admin Trade Name Freq PRN Reason Stop Dose Admin Acetaminophen 650 mg 05/12/18 20:26 05/14/18 05:05 Tylenol PO 650 mg Q4HR PRN Administration Pain or Fever > 38C (100.4F) Albuterol/Ipratropium 3 ml 05/12/18 20:37 05/14/18 02:27 Duoneb INH 3 ml Q4HR PRN Administration Wheezing Cholecalciferol 5,000 unit 05/13/18 09:00 05/13/18 08:52 Vitamin D3 PO 5,000 unit DAILY PAIGE Administration Gabapentin 800 mg 05/12/18 23:00 05/14/18 06:29 Neurontin PO 800 mg TID PAIGE Administration Guaifenesin 600 mg 05/13/18 09:00 05/13/18 21:50 Mucinex PO 600 mg BID PAIGE Administration Potassium Chloride/Dextrose/Sod Cl 1,000 mls @ 60 mls/hr 05/12/18 21:00 05/14/18 05:55 IV 60 mls/hr .[id number] PAIGE Infusion Meropenem 1 gm/ Sodium 100 mls @ 200 mls/hr 05/12/18 21:00 05/14/18 05:04 Chloride IV Infused Q8H PAIGE Infusion Vancomycin HCl 1 gm/ Sodium 250 mls @ 167 mls/hr 05/13/18 16:00 05/14/18 05:55 Chloride IV Infused Q12H PAIGE Infusion Multivitamins 1 tab 05/13/18 09:00 05/13/18 08:52 Theragran PO 1 tab DAILY PAIGE Administration Oxycodone HCl 10 mg 05/12/18 20:36 05/13/18 21:49 Roxicodone PO 10 mg Q6H PRN Administration Analgesia Pantoprazole Sodium 40 mg 05/13/18 07:00 05/14/18 06:29 Protonix PO 40 mg QDAC PAIGE Administration (Interferon Beta-1a 1 each 05/13/18 14:00 05/13/18 16:19 [Avonex] 30 Mcg) Inj IM Not Given Q7D PAIGE (Vitamin B Complex [ 1 each 05/13/18 14:00 05/13/18 17:37 B Complete] Tab) PO 1 each DAILY PAIGE Administration Polyethylene Glycol 17 gm 05/13/18 09:00 05/13/18 12:31 Miralax PO Not Given DAILY PAIGE Saccharomyces Boulardii 250 mg 05/13/18 08:00 05/13/18 16:51 Florastor PO 250 mg BIDWM PAIGE Administration Sodium Chloride 10 ml 05/13/18 01:00 05/14/18 04:41 Normal Saline Flush 0.9% IVP Not Given 0100,0900,1700 PAIGE Tizanidine HCl 4 mg 05/13/18 09:00 05/13/18 12:31 Zanaflex PO Not Given DAILY PAIGE - Lab Result Lab results reviewed: Yes Fish Bone Diagrams: 05/14/18 05:44 05/14/18 05:44 - Diagnostic Imaging Results Diagnostic Imaging Results: Final report reviewed - Additional Planning Condition/Complexity: Guarded My Orders: My Active Orders 05/13/18 13:36 RT [Nebulizer/MDI Tx.] [RC] .q4prn 05/13/18 16:00 Vancomycin Inj [Vancomycin] 1 gm Sodium Chloride 0.9% [Normal Saline 0.9%] 250 ml IV Q12H 05/13/18 Lunch Regular Diet [DIET] 05/14/18 07:42 Potassium Chloride [K-Dur] 40 meq PO ONCE ONE 05/15/18 03:30 VANCOMYCIN TROUGH [CHEM] Timed Time Spent: 31-60 minutes Subjective - Subjective Patient Reports: Feeling Better, Resting Comfortably, Cough (Improved, no hemoptysis overnight), Shortness of Breath (Improved), Other (No fevers or night sweats overnight) Nursing Reports: No Complaints Objective Vital Signs: Vital Signs - 24 hr 05/13/18 05/13/18 05/13/18 07:57 12:31 16:00 Temperature 37.5 C 38.1 C H 36.9 C Heart Rate Heart Rate [ 86 80 Monitoring electrodes] Respiratory 18 16 Rate Blood Pressure 108/64 108/69 [Right Brachial artery] O2 Saturation 96 98 05/13/18 05/13/18 05/14/18 21:30 23:40 02:27 Temperature 37.3 C Heart Rate 86 88 Heart Rate [ 89 Monitoring electrodes] Respiratory 16 16 16 Rate Blood Pressure 120/81 H [Right Brachial artery] O2 Saturation 93 Oxygen O2 Source Room air I&O (Last 24 Hrs): Intake and Output Totals x24h 05/12/18 05/13/18 05/14/18 23:59 23:59 23:59 Intake Total 1900 4528 1499 Output Total 400 2050 1100 Balance 1500 2478 399 General: Alert, Oriented x3, Cooperative, No acute distress, Other (Very thin) HEENT: Atraumatic, PERRLA, EOMI, Mucous membr. moist/pink Neck: Supple, No JVD, No thyromegaly, +2 carotid pulse wo bruit, No LAD Lymphatic: no adenopathy Neuro: Alert, Non Focal, CN 2-12 Grossly Intact, Oriented Times 3 Cardiovascular: Regular rate, Normal S1, Normal S2, No murmurs Respiratory: Chest non-tender, Rales, Rhonchi (Right lung) Abdomen: Normal bowel sounds, Soft, No tenderness, No hepatospenomegaly Extremities: No clubbing, No cyanosis, No edema, Normal pulses, No tenderness/swelling Skin: No rashes, No breakdown - Results Results: Laboratory Results WBC 8.8 x10^3/uL (4.8-10.8) 05/14/18 05:44 RBC 2.91 10^6/uL (4.20-5.40) L 05/14/18 05:44 Hgb 8.6 g/dL (12.0-16.0) L 05/14/18 05:44 Hct 25.9 % (37.0-47.0) L 05/14/18 05:44 MCV 88.9 fL (81.0-99.0) 05/14/18 05:44 MCH 29.6 pg (27.0-31.0) 05/14/18 05:44 MCHC 33.3 g/dL (32.0-36.0) 05/14/18 05:44 RDW 14.8 % (12.0-15.0) 05/14/18 05:44 Plt Count 231 10^3/uL (130-450) 05/14/18 05:44 MPV 7.8 fL (7.9-10.8) L 05/14/18 05:44 Neut # (Auto) 7.1 10^3/uL (1.5-6.6) H 05/14/18 05:44 Lymph # (Auto) 0.6 10^3/uL (1.5-3.5) L 05/14/18 05:44 [place] # (Auto) 1.0 10^3/uL (0.0-1.0) 05/14/18 05:44 Eos # (Auto) 0.1 10^3/uL (0.0-0.7) 05/14/18 05:44 Baso # (Auto) 0.0 10^3/uL (0.0-0.1) 05/14/18 05:44 Absolute Nucleated RBC 0.00 x10^3/uL 05/14/18 05:44 Nucleated RBC % 0.0 /100WBC 05/14/18 05:44 Sodium 137 mmol/L (135-145) 05/14/18 05:44 Potassium 3.2 mmol/L (3.5-5.0) L 05/14/18 05:44 Chloride 103 mmol/L (101-111) 05/14/18 05:44 Carbon Dioxide 27 mmol/L (21-32) 05/14/18 05:44 Anion Gap 7.0 (6-13) 05/14/18 05:44 BUN < 5 mg/dL (6-20) L 05/14/18 05:44 Creatinine 0.8 mg/dL (0.4-1.0) 05/14/18 05:44 Estimated GFR (MDRD) 72 (>89) L 05/14/18 05:44 Glucose 105 mg/dL (70-100) H 05/14/18 05:44 Lactic Acid 1.0 mmol/L (0.5-2.2) 05/12/18 15:57 Calcium 8.4 mg/dL (8.5-10.3) L 05/14/18 05:44 Total Bilirubin 0.6 mg/dL (0.2-1.0) 05/12/18 15:57 AST 35 IU/L (10-42) 05/12/18 15:57 ALT 29 IU/L (10-60) 05/12/18 15:57 Alkaline Phosphatase 113 IU/L (42-121) 05/12/18 15:57 Total Protein 9.6 g/dL (6.7-8.2) H 05/12/18 15:57 Albumin 4.2 g/dL (3.2-5.5) 05/12/18 15:57 Globulin 5.4 g/dL (2.1-4.2) H 05/12/18 15:57 Albumin/Globulin Ratio 0.8 (1.0-2.2) L 05/12/18 15:57 Lipase 34 U/L (22-51) 05/12/18 15:57 Urine Color LT. YELLOW 05/12/18 23:40 Urine Clarity CLEAR (CLEAR) 05/12/18 23:40 Urine pH 6.5 PH (5.0-7.5) 05/12/18 23:40 Ur Specific [place] <=1.005 (1.002-1.030) 05/12/18 23:40 Urine Protein NEGATIVE mg/dL (NEGATIVE) 05/12/18 23:40 Urine Glucose (UA) NEGATIVE mg/dL (NEGATIVE) 05/12/18 23:40 Urine Ketones NEGATIVE mg/dL (NEGATIVE) 05/12/18 23:40 Urine Occult Blood TRACE-LYSE (NEGATIVE) 05/12/18 23:40 Urine Nitrite NEGATIVE (NEGATIVE) 05/12/18 23:40 Urine Bilirubin NEGATIVE (NEGATIVE) 05/12/18 23:40 Urine Urobilinogen 0.2 (NORMAL) E.U./dL (NORMAL) 05/12/18 23:40 Ur Leukocyte Esterase NEGATIVE (NEGATIVE) 05/12/18 23:40 Ur Microscopic Review NOT INDICATED 05/12/18 23:40 Urine Culture Comments NOT INDICATED 05/12/18 23:40 Influenza A (Rapid) Negative (Negative) 05/12/18 15:57 Influenza B (Rapid) Negative (Negative) 05/12/18 15:57 - Procedures Procedures: Procedures PARTIAL HIP REPLACEMENT (08/30/13) ABX Reporting Has patient been on IV antibiotics over the past 48 hours?: No Current Medications - Current Medications Current Medications: Active Medications Generic Name Dose Route Start Last Admin Trade Name Freq PRN Reason Stop Dose Admin Acetaminophen 650 mg 05/12/18 20:26 05/14/18 05:05 Tylenol PO 650 mg Q4HR PRN Administration Pain or Fever > 38C (100.4F) Albuterol/Ipratropium 3 ml 05/12/18 20:37 05/14/18 02:27 Duoneb INH 3 ml Q4HR PRN Administration Wheezing Cholecalciferol 5,000 unit 05/13/18 09:00 05/14/18 09:31 Vitamin D3 PO 5,000 unit DAILY PAIGE Administration Gabapentin 800 mg 05/12/18 23:00 05/14/18 13:30 Neurontin PO 800 mg TID PAIGE Administration Guaifenesin 600 mg 05/13/18 09:00 05/14/18 09:31 Mucinex PO 600 mg BID PAIGE Administration Meropenem 1 gm/ Sodium 100 mls @ 200 mls/hr 05/12/18 21:00 05/14/18 14:19 Chloride IV Infused Q8H PAIGE Infusion Vancomycin HCl 1 gm/ Sodium 250 mls @ 167 mls/hr 05/13/18 16:00 05/14/18 05:55 Chloride IV Infused Q12H PAIGE Infusion Magnesium Oxide 400 mg 05/13/18 14:00 05/14/18 09:31 Mag Ox PO 400 mg DAILY PRN Administration CONSTIPATION Multivitamins 1 tab 05/13/18 09:00 05/14/18 09:31 Theragran PO 1 tab DAILY PAIGE Administration Oxycodone HCl 10 mg 05/12/18 20:36 05/13/18 21:49 Roxicodone PO 10 mg Q6H PRN Administration Analgesia Pantoprazole Sodium 40 mg 05/13/18 07:00 05/14/18 06:29 Protonix PO 40 mg QDAC PAIGE Administration (Interferon Beta-1a 1 each 05/13/18 14:00 05/14/18 11:38 [Avonex] 30 Mcg) Inj IM 1 each Q7D PAIGE Administration (Vitamin B Complex [ 1 each 05/13/18 14:00 05/14/18 09:31 B Complete] Tab) PO 1 each DAILY PAIGE Administration Polyethylene Glycol 17 gm 05/13/18 09:00 05/14/18 09:31 Miralax PO Not Given DAILY PAIGE Prochlorperazine Edisylate 10 mg 05/12/18 20:26 Compazine Inj IVP Q6HR PRN Nausea / Vomiting Saccharomyces Boulardii 250 mg 05/13/18 08:00 05/14/18 09:30 Florastor PO 250 mg BIDWM PAIGE Administration Sodium Chloride 10 ml 05/12/18 20:26 05/14/18 13:30 Normal Saline Flush 0.9% IVP 10 ml PRN PRN Administration NEEDED PER PROVIDER ORDERS Sodium Chloride 10 ml 05/13/18 01:00 05/14/18 09:31 Normal Saline Flush 0.9% IVP Not Given 0100,0900,1700 PAIGE Temazepam 15 mg 05/12/18 20:26 Restoril PO QPM PRN Insomnia Tizanidine HCl 4 mg 05/13/18 09:00 05/14/18 09:31 Zanaflex PO 4 mg DAILY PAIGE Administration Gabapentin [Neurontin] 800 mg PO TID 08/30/13 Interferon Beta-1A [Avonex] 30 mcg IM Q7D 08/30/13 Cholecalciferol (Vitamin D3) [Vitamin D3] 5,000 units PO DAILY 05/13/18 Magnesium 500 mg PO DAILY PRN 05/13/18 Naproxen 250 mg PO DAILY PRN 05/13/18 Neurocet 1 cap PO DAILY 05/13/18 Oxycodone HCl/Acetaminophen [Oxycodone-Acetaminophen 5-325] 0.5 tab PO QPM 05/13/18 Vitamin B Complex 1 tab PO DAILY 05/13/18
[2018-05-14] MEDS: SACCHAROMYCES BOULARDII 250 MG CAPSULE PO SCH ×2 (09:30→16:46)
[2018-05-14] MEDS: POLYETHYLENE GLYCOL 3350 17 GM PACKET PO SCH (09:31)
[2018-05-14] MEDS: CHOLECALCIFEROL 5,000 UNIT CAPSULE PO SCH (09:31)
[2018-05-14] MEDS: guaiFENesin 600 MG TABLET PO SCH ×2 (09:31→21:40)
[2018-05-14] MEDS: VITAMIN B COMPLEX PO SCH (09:31)
[2018-05-14] MEDS: tiZANidine 4 MG TABLET PO SCH (09:31)
[2018-05-14] MEDS: MULTIVITAMIN TABLET PO SCH (09:31)
[2018-05-14] MEDS: INTERFERON BETA 30 MCG IM SCH (11:38)
[2018-05-14] MEDS: SODIUM CHLORIDE FLUSH 0.9% 10 ML SYRINGE IVP PRN ×2 (13:30→21:37)
[2018-05-14] MEDS: oxyCODONE 5 MG TABLET PO PRN (21:41)
[2018-05-15] MEDS: SODIUM CHLORIDE FLUSH 0.9% 10 ML SYRINGE IVP SCH ×3 (03:45→17:08)
[2018-05-15] MEDS: VANCOMYCIN INJ 1 GM in SODIUM CHLORIDE 0.9% 250 ML IV SCH ×2 (03:46→16:45)
[2018-05-15] MEDS: oxyCODONE 5 MG TABLET PO PRN (03:49)
[2018-05-15 03:52] LABS: BASOPHILS # (AUTO) 0.1 10^3/uL (0.0-0.1); BASOPHILS % (AUTO) 0.9 %; EOSINOPHILS # (AUTO) 0.2 10^3/uL (0.0-0.7); HGB - HEMOGLOBIN 9.7 g/dL (12.0-16.0); LYMPHOCYTES # (AUTO) 0.8 10^3/uL (1.5-3.5); LYMPHOCYTES % (AUTO) 10.7 %; MEAN CORPUSCULAR HEMOGLOBIN 29.6 pg (27.0-31.0); MEAN CORPUSCULAR HGB CONC 33.4 g/dL (32.0-36.0); MEAN CORPUSCULAR VOLUME 88.6 fL (81.0-99.0); MEAN PLATELET VOLUME 7.8 fL (7.9-10.8); MONOCYTES # (AUTO) 0.9 10^3/uL (0.0-1.0); MONOCYTES % (AUTO) 11.8 %; NEUTROPHILS # (AUTO) 5.4 10^3/uL (1.5-6.6); NEUTROPHILS % (AUTO) 73.6 %; PLT - PLATELET COUNT 303 10^3/uL (130-450); RED BLOOD COUNT 3.28 10^6/uL (4.20-5.40); RED CELL DISTRIBUTION WIDTH 14.9 % (12.0-15.0); WHITE BLOOD COUNT 7.3 x10^3/uL (4.8-10.8)
[2018-05-15 03:57] LABS: CREATININE 0.9 mg/dL (0.4-1.0)
[2018-05-15 04:01] LABS: VANCOMYCIN,TROUGH 16.5 ug/mL (10.0-20.0)
[2018-05-15 04:14] LABS: % IRON SATURATION 8 % (20-50); IRON 14 ug/dL (28-170); TOTAL IRON BINDING CAPACITY 175 ug/dL (250-450); TRANSFERRIN 125 mg/dL (192-382)
[2018-05-15] MEDS: IPRATROPIUM/ALBUTEROL 3 ML NEB INH PRN ×2 (04:15→14:15)
[2018-05-15] MEDS: MEROPENEM 1 GM in SODIUM CHLORIDE 0.9% MINIBAG 100 ML IV SCH ×4 (07:26→22:33)
[2018-05-15] MEDS: GABAPENTIN 400 MG CAPSULE PO SCH ×3 (08:03→21:03)
[2018-05-15] MEDS: PANTOPRAZOLE 40 MG TABLET PO SCH (08:03)
[2018-05-15] MEDS: MULTIVITAMIN TABLET PO SCH (10:31)
[2018-05-15] MEDS: SACCHAROMYCES BOULARDII 250 MG CAPSULE PO SCH ×2 (10:31→17:06)
[2018-05-15] MEDS: FERROUS SULFATE 325 MG TABLET PO SCH ×2 (10:32→17:06)
[2018-05-15] MEDS: VITAMIN B COMPLEX PO SCH (10:32)
[2018-05-15] MEDS: CHOLECALCIFEROL 5,000 UNIT CAPSULE PO SCH (10:32)
[2018-05-15] MEDS: guaiFENesin 600 MG TABLET PO SCH ×2 (10:32→21:04)
[2018-05-15] MEDS: POLYETHYLENE GLYCOL 3350 17 GM PACKET PO SCH (10:32)
[2018-05-15] MEDS: tiZANidine 4 MG TABLET PO SCH (10:34)
[2018-05-15] MEDS: ACETAMINOPHEN 325 MG TABLET PO PRN (17:07)
[2018-05-15] MEDS: SODIUM CHLORIDE FLUSH 0.9% 10 ML SYRINGE IVP PRN (21:04)
[2018-05-16] MEDS: SODIUM CHLORIDE FLUSH 0.9% 10 ML SYRINGE IVP SCH ×3 (00:19→16:18)
[2018-05-16] MEDS: ACETAMINOPHEN 325 MG TABLET PO PRN (00:24)
[2018-05-16] MEDS: VANCOMYCIN INJ 1 GM in SODIUM CHLORIDE 0.9% 250 ML IV SCH ×2 (03:47→16:18)
[2018-05-16] MEDS: IPRATROPIUM/ALBUTEROL 3 ML NEB INH PRN ×3 (03:49→15:05)
[2018-05-16] MEDS: MEROPENEM 1 GM in SODIUM CHLORIDE 0.9% MINIBAG 100 ML IV SCH ×3 (05:32→21:06)
[2018-05-16 05:59] LABS: BASOPHILS % (AUTO) 0.5 %; EOSINOPHILS # (AUTO) 0.2 10^3/uL (0.0-0.7); HGB - HEMOGLOBIN 9.5 g/dL (12.0-16.0); LYMPHOCYTES # (AUTO) 0.6 10^3/uL (1.5-3.5); MEAN CORPUSCULAR HEMOGLOBIN 29.4 pg (27.0-31.0); MEAN CORPUSCULAR HGB CONC 32.9 g/dL (32.0-36.0); MEAN CORPUSCULAR VOLUME 89.5 fL (81.0-99.0); MEAN PLATELET VOLUME 7.7 fL (7.9-10.8); MONOCYTES # (AUTO) 0.8 10^3/uL (0.0-1.0); MONOCYTES % (AUTO) 12.1 %; NEUTROPHILS % (AUTO) 75.4 %; PLT - PLATELET COUNT 331 10^3/uL (130-450); RED BLOOD COUNT 3.24 10^6/uL (4.20-5.40); RED CELL DISTRIBUTION WIDTH 14.6 % (12.0-15.0); WHITE BLOOD COUNT 6.6 x10^3/uL (4.8-10.8)
[2018-05-16] MEDS: GABAPENTIN 400 MG CAPSULE PO SCH ×3 (06:25→21:06)
[2018-05-16] MEDS: PANTOPRAZOLE 40 MG TABLET PO SCH (06:26)
--- NOTE | 2018-05-16 08:37 | PROVIDER PROGRESS NOTE ---
Assessment/Plan - Problem List (1) Cavitating mass in right upper lung lobe Assessment/Plan: Patient presented with 6 days of fevers, cough, hemoptysis and night sweats. The patient has also been having frequent falls and has 10 pound weight loss. The patient's chest x-ray and CT scan showed a right cavitary mass with surrounding air bronchograms and right-sided lymph nodes. This finding was concerning for possibility of tuberculosis. Patient could also have possible lung abscess, lung infection or cancer. Patient was admitted to the medical hein under negative pressure isolation for rule out of TB and treatment with IV antibiotics. Plan: AFB x3 Negative pressure isolation Broad-spectrum IV antibiotics with vancomycin and meropenem day 3 Infectious disease was consulted and recommended that we do not stop the patient's treatment for multiple sclerosis as it is not an immunosuppressive age nt. They agreed with getting AFB testing and continuing broad-spectrum antibiotics. They recommended transfer for a bronchoscopy if AFBs were negative. First AFB is negative Resp cx growing chris sp which is usually not an invasive organism when seen in sputum and treatment not indicated (2) Cavitary pneumonia Assessment/Plan: Patient presented with fever, shortness of breath, cough, hemoptysis, weight loss, night sweats and had a cavitary lesion in the right upper lobe on her chest x-ray and CT. There was air bronchograms surrounding the cavitary lesion concerning for possible infection. Patient had a leukocytosis and fever on presentation. Given these findings patient will be treated for presumed pneumonia with broad-spectrum antibiotics and will undergo testing for TB. Plan: IV antibiotics with vancomycin and meropenem day 3 AFB testing x3 If AFB testing is negative patient will need bronchoscopy and will need to be transferred. (3) Asthma Qualifiers: Asthma severity: mild Asthma persistence: intermittent Asthma complication type: with acute exacerbation Qualified Code(s): J45.21 - Mild intermittent asthma with (acute) exacerbation Assessment/Plan: Patient has asthma exacerbation secondary to ongoing cavitary pneumonia. Patient will be placed on nebs along with antibiotics while she is hospitalized. (4) Multiple sclerosis Assessment/Plan: The patient has a history of multiple sclerosis and is on Avonex at home. After discussion with infectious disease it was decided to continue medication while she was hospitalized. Infectious disease did not feel that this is a immunosuppressive medication. They were also concerned that in the setting of infection multiple sclerosis can worsen. This is likely why patient has been having multiple falls over the last week as she likely has worsening of her multiple sclerosis with ongoing infection. For now we will continue the patient's Avenox. Patient also had a Stiles catheter inserted as she has a neurogenic bladder due to her multiple sclerosis. (5) Hypokalemia Assessment/Plan: Replace K Monitor K (6) Anemia Assessment/Plan: Patient has iron deficiency anemia with iron of 14 Start iron supplement Hb is 9.5 Hemoptysis improving Monitor Hb - Current Meds Current Meds: Current Medications Generic Name Dose Route Start Last Admin Trade Name Freq PRN Reason Stop Dose Admin Acetaminophen 650 mg 05/12/18 20:26 05/16/18 00:24 Tylenol PO 650 mg Q4HR PRN Administration Pain or Fever > 38C (100.4F) Albuterol/Ipratropium 3 ml 05/12/18 20:37 05/16/18 03:49 Duoneb INH 3 ml Q4HR PRN Administration Wheezing Cholecalciferol 5,000 unit 05/13/18 09:00 05/15/18 10:32 Vitamin D3 PO 5,000 unit DAILY PAIGE Administration Ferrous Sulfate 325 mg 05/15/18 08:00 05/15/18 17:06 Feosol PO 325 mg BIDWM PAIGE Administration Gabapentin 800 mg 05/12/18 23:00 05/16/18 06:25 Neurontin PO 800 mg TID PAIGE Administration Guaifenesin 600 mg 05/13/18 09:00 05/15/18 21:04 Mucinex PO 600 mg BID PAIGE Administration Meropenem 1 gm/ Sodium 100 mls @ 200 mls/hr 05/12/18 21:00 05/16/18 06:28 Chloride IV Infused Q8H PAIGE Infusion Vancomycin HCl 1 gm/ Sodium 250 mls @ 167 mls/hr 05/13/18 16:00 05/16/18 05:31 Chloride IV Infused Q12H PAIGE Infusion Magnesium Oxide 400 mg 05/13/18 14:00 05/14/18 09:31 Mag Ox PO 400 mg DAILY PRN Administration CONSTIPATION Multivitamins 1 tab 05/13/18 09:00 05/15/18 10:31 Theragran PO 1 tab DAILY PAIGE Administration Oxycodone HCl 10 mg 05/12/18 20:36 05/15/18 03:49 Roxicodone PO 10 mg Q6H PRN Administration Analgesia Pantoprazole Sodium 40 mg 05/13/18 07:00 05/16/18 06:26 Protonix PO 40 mg QDAC PAIGE Administration (Interferon Beta-1a 1 each 05/13/18 14:00 05/14/18 11:38 [Avonex] 30 Mcg) Inj IM 1 each Q7D PAIGE Administration (Vitamin B Complex [ 1 each 05/13/18 14:00 05/15/18 10:32 B Complete] Tab) PO 1 each DAILY PAIGE Administration Polyethylene Glycol 17 gm 05/13/18 09:00 05/15/18 10:32 Miralax PO Not Given DAILY PAIGE Saccharomyces Boulardii 250 mg 05/13/18 08:00 05/15/18 17:06 Florastor PO 250 mg BIDWM PAIGE Administration Sodium Chloride 10 ml 05/12/18 20:26 05/15/18 21:04 Normal Saline Flush 0.9% IVP 10 ml PRN PRN Administration NEEDED PER PROVIDER ORDERS Sodium Chloride 10 ml 05/13/18 01:00 05/16/18 00:19 Normal Saline Flush 0.9% IVP 10 ml 0100,0900,1700 PAIGE Administration Tizanidine HCl 4 mg 05/13/18 09:00 05/15/18 10:34 Zanaflex PO Not Given DAILY PAIGE - Lab Result Lab results reviewed: Yes Fish Bone Diagrams: 05/16/18 05:46 05/15/18 03:35 - Diagnostic Imaging Results Diagnostic Imaging Results: Final report reviewed - Additional Planning Condition/Complexity: Guarded My Orders: My Active Orders 05/15/18 08:00 Ferrous Sulfate [Feosol] 325 mg PO BIDWM Consult/Specialty: Infectious Disease Plan Discussed with:: Patient Time Spent: 31-60 minutes Subjective - Subjective Patient Reports: Feeling Better, Cough (Through the night with mild hemoptysis), Fever (Last night), Other (Feels weak) Nursing Reports: No Complaints Objective Vital Signs: Vital Signs - 24 hr 05/15/18 05/15/18 05/15/18 08:41 14:15 16:00 Temperature 37.8 C H 37 C Heart Rate 86 Heart Rate [ 104 H 90 Brachial] Respiratory 18 16 16 Rate Blood Pressure [Left Brachial artery] Blood Pressure 110/45 L [Right Brachial artery] O2 Saturation 98 05/16/18 05/16/18 00:25 08:25 Temperature 36.8 C 37.2 C Heart Rate Heart Rate [ 98 96 Brachial] Respiratory 18 18 Rate Blood Pressure 140/89 H 120/63 [Left Brachial artery] Blood Pressure [Right Brachial artery] O2 Saturation 100 94 Oxygen O2 Source Room air I&O (Last 24 Hrs): Intake and Output Totals x24h 05/14/18 05/15/18 05/16/18 23:59 23:59 23:59 Intake Total 3900 2150.0 850 Output Total 2600 700 600 Balance 1300 1450 250 General: Alert, Oriented x3, Cooperative, No acute distress, Other (Very thin and frail) HEENT: Atraumatic, PERRLA, EOMI, Mucous membr. moist/pink Neck: Supple, No JVD, No thyromegaly, +2 carotid pulse wo bruit, No LAD Lymphatic: no adenopathy Neuro: Alert, Non Focal, CN 2-12 Grossly Intact, Oriented Times 3 Cardiovascular: Regular rate, Normal S1, Normal S2, No murmurs Respiratory: Rales (Right lung), Rhonchi (Right lung) Abdomen: Normal bowel sounds, Soft, No tenderness, No hepatospenomegaly, No masses Extremities: No clubbing, No cyanosis, No edema, Normal pulses Skin: No rashes, No breakdown - Results Results: Laboratory Results WBC 6.6 x10^3/uL (4.8-10.8) 05/16/18 05:46 RBC 3.24 10^6/uL (4.20-5.40) L 05/16/18 05:46 Hgb 9.5 g/dL (12.0-16.0) L 05/16/18 05:46 Hct 29.0 % (37.0-47.0) L 05/16/18 05:46 MCV 89.5 fL (81.0-99.0) 05/16/18 05:46 MCH 29.4 pg (27.0-31.0) 05/16/18 05:46 MCHC 32.9 g/dL (32.0-36.0) 05/16/18 05:46 RDW 14.6 % (12.0-15.0) 05/16/18 05:46 Plt Count 331 10^3/uL (130-450) 05/16/18 05:46 MPV 7.7 fL (7.9-10.8) L 05/16/18 05:46 Neut # (Auto) 5.0 10^3/uL (1.5-6.6) 05/16/18 05:46 Lymph # (Auto) 0.6 10^3/uL (1.5-3.5) L 05/16/18 05:46 [place] # (Auto) 0.8 10^3/uL (0.0-1.0) 05/16/18 05:46 Eos # (Auto) 0.2 10^3/uL (0.0-0.7) 05/16/18 05:46 Baso # (Auto) 0.0 10^3/uL (0.0-0.1) 05/16/18 05:46 Absolute Nucleated RBC 0.00 x10^3/uL 05/16/18 05:46 Nucleated RBC % 0.0 /100WBC 05/16/18 05:46 Sodium 136 mmol/L (135-145) 05/15/18 03:35 Potassium 4.0 mmol/L (3.5-5.0) 05/15/18 03:35 Chloride 98 mmol/L (101-111) L 05/15/18 03:35 Carbon Dioxide 27 mmol/L (21-32) 05/15/18 03:35 Anion Gap 11.0 (6-13) 05/15/18 03:35 BUN 6 mg/dL (6-20) 05/15/18 03:35 Creatinine 0.9 mg/dL (0.4-1.0) 05/15/18 03:35 Estimated GFR (MDRD) 63 (>89) L 05/15/18 03:35 Glucose 92 mg/dL (70-100) 05/15/18 03:35 Lactic Acid 1.0 mmol/L (0.5-2.2) 05/12/18 15:57 Calcium 9.0 mg/dL (8.5-10.3) 05/15/18 03:35 Iron 14 ug/dL (28-170) L 05/15/18 03:35 TIBC 175 ug/dL (250-450) L 05/15/18 03:35 % Saturation 8 % (20-50) L 05/15/18 03:35 Transferrin 125 mg/dL (192-382) L 05/15/18 03:35 Ferritin 102.7 ng/mL (11.0-306.8) 05/15/18 03:35 Total Bilirubin 0.6 mg/dL (0.2-1.0) 05/12/18 15:57 AST 35 IU/L (10-42) 05/12/18 15:57 ALT 29 IU/L (10-60) 05/12/18 15:57 Alkaline Phosphatase 113 IU/L (42-121) 05/12/18 15:57 Total Protein 9.6 g/dL (6.7-8.2) H 05/12/18 15:57 Albumin 4.2 g/dL (3.2-5.5) 05/12/18 15:57 Globulin 5.4 g/dL (2.1-4.2) H 05/12/18 15:57 Albumin/Globulin Ratio 0.8 (1.0-2.2) L 05/12/18 15:57 Lipase 34 U/L (22-51) 05/12/18 15:57 Vitamin B12 5397 pg/mL (180-914) H 05/15/18 03:35 Folate 29.00 ng/mL (5.90 - >24.8) 05/15/18 03:35 Urine Color LT. YELLOW 05/12/18 23:40 Urine Clarity CLEAR (CLEAR) 05/12/18 23:40 Urine pH 6.5 PH (5.0-7.5) 05/12/18 23:40 Ur Specific [place] <=1.005 (1.002-1.030) 05/12/18 23:40 Urine Protein NEGATIVE mg/dL (NEGATIVE) 05/12/18 23:40 Urine Glucose (UA) NEGATIVE mg/dL (NEGATIVE) 05/12/18 23:40 Urine Ketones NEGATIVE mg/dL (NEGATIVE) 05/12/18 23:40 Urine Occult Blood TRACE-LYSE (NEGATIVE) 05/12/18 23:40 Urine Nitrite NEGATIVE (NEGATIVE) 05/12/18 23:40 Urine Bilirubin NEGATIVE (NEGATIVE) 05/12/18 23:40 Urine Urobilinogen 0.2 (NORMAL) E.U./dL (NORMAL) 05/12/18 23:40 Ur Leukocyte Esterase NEGATIVE (NEGATIVE) 05/12/18 23:40 Ur Microscopic Review NOT INDICATED 05/12/18 23:40 Urine Culture Comments NOT INDICATED 05/12/18 23:40 Last Dose Date UNK 05/15/18 03:35 Last Dose Time UNK 05/15/18 03:35 Vancomycin Trough 16.5 ug/mL (10.0-20.0) 05/15/18 03:35 Influenza A (Rapid) Negative (Negative) 05/12/18 15:57 Influenza B (Rapid) Negative (Negative) 05/12/18 15:57 - Procedures Procedures: Procedures PARTIAL HIP REPLACEMENT (08/30/13) ABX Reporting Has patient been on IV antibiotics over the past 48 hours?: Yes Current Medications - Current Medications Current Medications: Active Medications Generic Name Dose Route Start Last Admin Trade Name Freq PRN Reason Stop Dose Admin Acetaminophen 650 mg 05/12/18 20:26 05/16/18 00:24 Tylenol PO 650 mg Q4HR PRN Administration Pain or Fever > 38C (100.4F) Albuterol/Ipratropium 3 ml 05/12/18 20:37 05/16/18 03:49 Duoneb INH 3 ml Q4HR PRN Administration Wheezing Cholecalciferol 5,000 unit 05/13/18 09:00 05/15/18 10:32 Vitamin D3 PO 5,000 unit DAILY PAIGE Administration Ferrous Sulfate 325 mg 05/15/18 08:00 05/15/18 17:06 Feosol PO 325 mg BIDWM PAIGE Administration Gabapentin 800 mg 05/12/18 23:00 05/16/18 06:25 Neurontin PO 800 mg TID PAIGE Administration Guaifenesin 600 mg 05/13/18 09:00 05/15/18 21:04 Mucinex PO 600 mg BID PAIGE Administration Meropenem 1 gm/ Sodium 100 mls @ 200 mls/hr 05/12/18 21:00 05/16/18 06:28 Chloride IV Infused Q8H PAIGE Infusion Vancomycin HCl 1 gm/ Sodium 250 mls @ 167 mls/hr 05/13/18 16:00 05/16/18 05:31 Chloride IV Infused Q12H PAIGE Infusion Magnesium Oxide 400 mg 05/13/18 14:00 05/14/18 09:31 Mag Ox PO 400 mg DAILY PRN Administration CONSTIPATION Multivitamins 1 tab 05/13/18 09:00 05/15/18 10:31 Theragran PO 1 tab DAILY PAIGE Administration Oxycodone HCl 10 mg 05/12/18 20:36 05/15/18 03:49 Roxicodone PO 10 mg Q6H PRN Administration Analgesia Pantoprazole Sodium 40 mg 05/13/18 07:00 05/16/18 06:26 Protonix PO 40 mg QDAC PAIGE Administration (Interferon Beta-1a 1 each 05/13/18 14:00 05/14/18 11:38 [Avonex] 30 Mcg) Inj IM 1 each Q7D PAIGE Administration (Vitamin B Complex [ 1 each 05/13/18 14:00 05/15/18 10:32 B Complete] Tab) PO 1 each DAILY PAIGE Administration Polyethylene Glycol 17 gm 05/13/18 09:00 05/15/18 10:32 Miralax PO Not Given DAILY PAIGE Prochlorperazine Edisylate 10 mg 05/12/18 20:26 Compazine Inj IVP Q6HR PRN Nausea / Vomiting Saccharomyces Boulardii 250 mg 05/13/18 08:00 05/15/18 17:06 Florastor PO 250 mg BIDWM PAIGE Administration Sodium Chloride 10 ml 05/12/18 20:26 05/15/18 21:04 Normal Saline Flush 0.9% IVP 10 ml PRN PRN Administration NEEDED PER PROVIDER ORDERS Sodium Chloride 10 ml 05/13/18 01:00 05/16/18 00:19 Normal Saline Flush 0.9% IVP 10 ml 0100,0900,1700 PAIGE Administration Temazepam 15 mg 05/12/18 20:26 Restoril PO QPM PRN Insomnia Tizanidine HCl 4 mg 05/13/18 09:00 05/15/18 10:34 Zanaflex PO Not Given DAILY PAIGE Gabapentin [Neurontin] 800 mg PO TID 08/30/13 Interferon Beta-1A [Avonex] 30 mcg IM Q7D 08/30/13 Cholecalciferol (Vitamin D3) [Vitamin D3] 5,000 units PO DAILY 05/13/18 Magnesium 500 mg PO DAILY PRN 05/13/18 Naproxen 250 mg PO DAILY PRN 05/13/18 Neurocet 1 cap PO DAILY 05/13/18 Oxycodone HCl/Acetaminophen [Oxycodone-Acetaminophen 5-325] 0.5 tab PO QPM 05/13/18 Vitamin B Complex 1 tab PO DAILY 05/13/18
[2018-05-16] MEDS: guaiFENesin 600 MG TABLET PO SCH ×2 (08:47→21:03)
[2018-05-16] MEDS: MULTIVITAMIN TABLET PO SCH (08:47)
[2018-05-16] MEDS: SACCHAROMYCES BOULARDII 250 MG CAPSULE PO SCH ×2 (08:47→21:02)
[2018-05-16] MEDS: FERROUS SULFATE 325 MG TABLET PO SCH ×2 (08:47→16:50)
[2018-05-16] MEDS: POLYETHYLENE GLYCOL 3350 17 GM PACKET PO SCH (08:47)
[2018-05-16] MEDS: CHOLECALCIFEROL 5,000 UNIT CAPSULE PO SCH (08:47)
[2018-05-16] MEDS: tiZANidine 4 MG TABLET PO SCH (08:47)
[2018-05-16] MEDS: VITAMIN B COMPLEX PO SCH (08:48)
[2018-05-16] MEDS ORDERED: VITAMIN B COMPLEX PO SCH (09:00)
--- NOTE | 2018-05-16 14:07 | PROVIDER PROGRESS NOTE ---
Assessment/Plan - Problem List (1) Cavitating mass in right upper lung lobe Assessment/Plan: Patient presented with 6 days of fevers, cough, hemoptysis and night sweats. The patient has also been having frequent falls and has 10 pound weight loss. The patient's chest x-ray and CT scan showed a right cavitary mass with surrounding air bronchograms and right-sided lymph nodes. This finding was concerning for possibility of tuberculosis. Patient could also have possible lung abscess, lung infection or cancer. Patient was admitted to the medical hein under negative pressure isolation for rule out of TB and treatment with IV antibiotics. Patient was afebrile yesterday after fevers for 3 days in a row and she states she feels better, no hemoptysis last night and coughing is improved. Negative pressure isolation Broad-spectrum IV antibiotics with vancomycin and meropenem day 4 Infectious disease was consulted and recommended that we do not stop the patient's treatment for multiple sclerosis as it is not an immunosuppressive agent. They agreed with getting AFB testing and continuing broad-spectrum antibiotics. They recommended transfer for a bronchoscopy if AFBs were negative. First AFB is negative from 05/13/18 awaiting 2nd negative before we can take her out of TB precautions Resp cx growing chris sp which is usually not an invasive organism when seen in sputum and treatment not indicated (2) Cavitary pneumonia Assessment/Plan: Patient presented with fever, shortness of breath, cough, hemoptysis, weight loss, night sweats and had a cavitary lesion in the right upper lobe on her chest x-ray and CT. There was air bronchograms surrounding the cavitary lesion concerning for possible infection. Patient had a leukocytosis and fever on presentation. Given these findings patient will be treated for presumed pneumonia with broad-spectrum antibiotics and will undergo testing for TB. Patient improving clinically Plan: IV antibiotics with vancomycin and meropenem day 4 AFB testing x3 If AFB testing is negative patient will need bronchoscopy and will need to be transferred. (3) Asthma Qualifiers: Asthma severity: mild Asthma persistence: intermittent Asthma complication type: with acute exacerbation Qualified Code(s): J45.21 - Mild intermittent asthma with (acute) exacerbation Assessment/Plan: Patient has asthma exacerbation secondary to ongoing cavitary pneumonia. On duonebs prn and IV abx (4) Multiple sclerosis Assessment/Plan: The patient has a history of multiple sclerosis and is on Avonex at home. After discussion with infectious disease it was decided to continue medication while she was hospitalized. Infectious disease did not feel that this is a immunosuppressive medication. They were also concerned that in the setting of infection multiple sclerosis can worsen. This is likely why patient has been having multiple falls over the last week as she likely has worsening of her multiple sclerosis with ongoing infection. For now we will continue the patient's Avenox once a week. Patient also had a Stiles catheter inserted as she has a neurogenic bladder due to her multiple sclerosis. (5) Hypokalemia Assessment/Plan: Resolved (6) Anemia Assessment/Plan: Patient has iron deficiency anemia with iron of 14 On iron supplement BID Hb is 9.5 Hemoptysis improving Monitor Hb - Current Meds Current Meds: Current Medications Generic Name Dose Route Start Last Admin Trade Name Freq PRN Reason Stop Dose Admin Acetaminophen 650 mg 05/12/18 20:26 05/16/18 00:24 Tylenol PO 650 mg Q4HR PRN Administration Pain or Fever > 38C (100.4F) Albuterol/Ipratropium 3 ml 05/12/18 20:37 05/16/18 10:03 Duoneb INH 3 ml Q4HR PRN Administration Wheezing Cholecalciferol 5,000 unit 05/13/18 09:00 05/16/18 08:47 Vitamin D3 PO 5,000 unit DAILY PAIGE Administration Ferrous Sulfate 325 mg 05/15/18 08:00 05/16/18 08:47 Feosol PO 325 mg BIDWM PAIGE Administration Gabapentin 800 mg 05/12/18 23:00 05/16/18 13:49 Neurontin PO 800 mg TID PAIGE Administration Guaifenesin 600 mg 05/13/18 09:00 05/16/18 08:47 Mucinex PO 600 mg BID PAIGE Administration Meropenem 1 gm/ Sodium 100 mls @ 200 mls/hr 05/12/18 21:00 05/16/18 13:44 Chloride IV 200 mls/hr Q8H PAIGE Administration Vancomycin HCl 1 gm/ Sodium 250 mls @ 167 mls/hr 05/13/18 16:00 05/16/18 05:31 Chloride IV Infused Q12H PAIGE Infusion Magnesium Oxide 400 mg 05/13/18 14:00 05/14/18 09:31 Mag Ox PO 400 mg DAILY PRN Administration CONSTIPATION Multivitamins 1 tab 05/13/18 09:00 05/16/18 08:47 Theragran PO 1 tab DAILY PAIGE Administration Oxycodone HCl 10 mg 05/12/18 20:36 05/15/18 03:49 Roxicodone PO 10 mg Q6H PRN Administration Analgesia Pantoprazole Sodium 40 mg 05/13/18 07:00 05/16/18 06:26 Protonix PO 40 mg QDAC PAIGE Administration (Interferon Beta-1a 1 each 05/13/18 14:00 05/14/18 11:38 [Avonex] 30 Mcg) Inj IM 1 each Q7D PAIGE Administration (Vitamin B Complex [ 1 each 05/13/18 14:00 05/16/18 08:48 B Complete] Tab) PO 1 each DAILY PAIGE Administration Polyethylene Glycol 17 gm 05/13/18 09:00 05/16/18 08:47 Miralax PO 17 gm DAILY PAIGE Administration Saccharomyces Boulardii 250 mg 05/13/18 08:00 05/16/18 08:47 Florastor PO 250 mg BIDWM PAIGE Administration Sodium Chloride 10 ml 05/12/18 20:26 05/15/18 21:04 Normal Saline Flush 0.9% IVP 10 ml PRN PRN Administration NEEDED PER PROVIDER ORDERS Sodium Chloride 10 ml 05/13/18 01:00 05/16/18 08:48 Normal Saline Flush 0.9% IVP 10 ml 0100,0900,1700 PAIGE Administration Tizanidine HCl 4 mg 05/13/18 09:00 05/16/18 08:47 Zanaflex PO 4 mg DAILY PAIGE Administration - Lab Result Lab results reviewed: Yes Fish Bone Diagrams: 05/16/18 05:46 05/15/18 03:35 - Diagnostic Imaging Results Diagnostic Imaging Results: Final report reviewed - Additional Planning Condition/Complexity: Improved Consult/Specialty: Infectious Disease Plan Discussed with:: Patient Time Spent: 31-60 minutes Subjective - Subjective Patient Reports: Other (The patient states that she is feeling better. She had no fevers or night sweats yesterday. She states that her cough is better and s he is no longer having hemoptysis. She states that she has been getting up and going to the bathroom and walking around the room and her breathing is improved.) Nursing Reports: No Complaints Objective Vital Signs: Vital Signs - 24 hr 05/15/18 05/15/18 05/16/18 14:15 16:00 00:25 Temperature 37 C 36.8 C Heart Rate 86 Heart Rate [ 90 98 Brachial] Respiratory 16 16 18 Rate Blood Pressure 140/89 H [Left Brachial artery] Blood Pressure 110/45 L [Right Brachial artery] O2 Saturation 98 100 05/16/18 05/16/18 08:25 10:03 Temperature 37.2 C Heart Rate 90 Heart Rate [ 96 Brachial] Respiratory 18 16 Rate Blood Pressure 120/63 [Left Brachial artery] Blood Pressure [Right Brachial artery] O2 Saturation 94 Oxygen O2 Source Room air I&O (Last 24 Hrs): Intake and Output Totals x24h 05/14/18 05/15/18 05/16/18 23:59 23:59 23:59 Intake Total 3900 2150.0 1760 Output Total 2600 700 1000 Balance 1300 1450 760 General: Alert, Oriented x3, Cooperative, No acute distress HEENT: Atraumatic, PERRLA, EOMI, Mucous membr. moist/pink Neck: Supple, No JVD, No thyromegaly, +2 carotid pulse wo bruit, No LAD Lymphatic: no adenopathy Neuro: Alert, Non Focal, CN 2-12 Grossly Intact, Oriented Times 3 Cardiovascular: Regular rate, Normal S1, Normal S2, No murmurs Respiratory: Chest non-tender, Rhonchi (Right upper lung) Abdomen: Normal bowel sounds, Soft, No tenderness, No hepatospenomegaly Extremities: No clubbing, No cyanosis, No edema, Normal pulses Skin: No rashes, No breakdown - Results Results: Laboratory Results WBC 6.6 x10^3/uL (4.8-10.8) 05/16/18 05:46 RBC 3.24 10^6/uL (4.20-5.40) L 05/16/18 05:46 Hgb 9.5 g/dL (12.0-16.0) L 05/16/18 05:46 Hct 29.0 % (37.0-47.0) L 05/16/18 05:46 MCV 89.5 fL (81.0-99.0) 05/16/18 05:46 MCH 29.4 pg (27.0-31.0) 05/16/18 05:46 MCHC 32.9 g/dL (32.0-36.0) 05/16/18 05:46 RDW 14.6 % (12.0-15.0) 05/16/18 05:46 Plt Count 331 10^3/uL (130-450) 05/16/18 05:46 MPV 7.7 fL (7.9-10.8) L 05/16/18 05:46 Neut # (Auto) 5.0 10^3/uL (1.5-6.6) 05/16/18 05:46 Lymph # (Auto) 0.6 10^3/uL (1.5-3.5) L 05/16/18 05:46 Beltrami # (Auto) 0.8 10^3/uL (0.0-1.0) 05/16/18 05:46 Eos # (Auto) 0.2 10^3/uL (0.0-0.7) 05/16/18 05:46 Baso # (Auto) 0.0 10^3/uL (0.0-0.1) 05/16/18 05:46 Absolute Nucleated RBC 0.00 x10^3/uL 05/16/18 05:46 Nucleated RBC % 0.0 /100WBC 05/16/18 05:46 Sodium 136 mmol/L (135-145) 05/15/18 03:35 Potassium 4.0 mmol/L (3.5-5.0) 05/15/18 03:35 Chloride 98 mmol/L (101-111) L 05/15/18 03:35 Carbon Dioxide 27 mmol/L (21-32) 05/15/18 03:35 Anion Gap 11.0 (6-13) 05/15/18 03:35 BUN 6 mg/dL (6-20) 05/15/18 03:35 Creatinine 0.9 mg/dL (0.4-1.0) 05/15/18 03:35 Estimated GFR (MDRD) 63 (>89) L 05/15/18 03:35 Glucose 92 mg/dL (70-100) 05/15/18 03:35 Lactic Acid 1.0 mmol/L (0.5-2.2) 05/12/18 15:57 Calcium 9.0 mg/dL (8.5-10.3) 05/15/18 03:35 Iron 14 ug/dL (28-170) L 05/15/18 03:35 TIBC 175 ug/dL (250-450) L 05/15/18 03:35 % Saturation 8 % (20-50) L 05/15/18 03:35 Transferrin 125 mg/dL (192-382) L 05/15/18 03:35 Ferritin 102.7 ng/mL (11.0-306.8) 05/15/18 03:35 Total Bilirubin 0.6 mg/dL (0.2-1.0) 05/12/18 15:57 AST 35 IU/L (10-42) 05/12/18 15:57 ALT 29 IU/L (10-60) 05/12/18 15:57 Alkaline Phosphatase 113 IU/L (42-121) 05/12/18 15:57 Total Protein 9.6 g/dL (6.7-8.2) H 05/12/18 15:57 Albumin 4.2 g/dL (3.2-5.5) 05/12/18 15:57 Globulin 5.4 g/dL (2.1-4.2) H 05/12/18 15:57 Albumin/Globulin Ratio 0.8 (1.0-2.2) L 05/12/18 15:57 Lipase 34 U/L (22-51) 05/12/18 15:57 Vitamin B12 5397 pg/mL (180-914) H 05/15/18 03:35 Folate 29.00 ng/mL (5.90 - >24.8) 05/15/18 03:35 Urine Color LT. YELLOW 05/12/18 23:40 Urine Clarity CLEAR (CLEAR) 05/12/18 23:40 Urine pH 6.5 PH (5.0-7.5) 05/12/18 23:40 Ur Specific [place] <=1.005 (1.002-1.030) 05/12/18 23:40 Urine Protein NEGATIVE mg/dL (NEGATIVE) 05/12/18 23:40 Urine Glucose (UA) NEGATIVE mg/dL (NEGATIVE) 05/12/18 23:40 Urine Ketones NEGATIVE mg/dL (NEGATIVE) 05/12/18 23:40 Urine Occult Blood TRACE-LYSE (NEGATIVE) 05/12/18 23:40 Urine Nitrite NEGATIVE (NEGATIVE) 05/12/18 23:40 Urine Bilirubin NEGATIVE (NEGATIVE) 05/12/18 23:40 Urine Urobilinogen 0.2 (NORMAL) E.U./dL (NORMAL) 05/12/18 23:40 Ur Leukocyte Esterase NEGATIVE (NEGATIVE) 05/12/18 23:40 Ur Microscopic Review NOT INDICATED 05/12/18 23:40 Urine Culture Comments NOT INDICATED 05/12/18 23:40 Last Dose Date UNK 05/15/18 03:35 Last Dose Time UNK 05/15/18 03:35 Vancomycin Trough 16.5 ug/mL (10.0-20.0) 05/15/18 03:35 Influenza A (Rapid) Negative (Negative) 05/12/18 15:57 Influenza B (Rapid) Negative (Negative) 05/12/18 15:57 - Procedures Procedures: Procedures PARTIAL HIP REPLACEMENT (08/30/13) ABX Reporting Has patient been on IV antibiotics over the past 48 hours?: Yes Current Medications - Current Medications Current Medications: Laboratory Results WBC 6.6 x10^3/uL (4.8-10.8) 05/16/18 05:46 RBC 3.24 10^6/uL (4.20-5.40) L 05/16/18 05:46 Hgb 9.5 g/dL (12.0-16.0) L 05/16/18 05:46 Hct 29.0 % (37.0-47.0) L 05/16/18 05:46 MCV 89.5 fL (81.0-99.0) 05/16/18 05:46 MCH 29.4 pg (27.0-31.0) 05/16/18 05:46 MCHC 32.9 g/dL (32.0-36.0) 05/16/18 05:46 RDW 14.6 % (12.0-15.0) 05/16/18 05:46 Plt Count 331 10^3/uL (130-450) 05/16/18 05:46 MPV 7.7 fL (7.9-10.8) L 05/16/18 05:46 Neut # (Auto) 5.0 10^3/uL (1.5-6.6) 05/16/18 05:46 Lymph # (Auto) 0.6 10^3/uL (1.5-3.5) L 05/16/18 05:46 Beltrami # (Auto) 0.8 10^3/uL (0.0-1.0) 05/16/18 05:46 Eos # (Auto) 0.2 10^3/uL (0.0-0.7) 05/16/18 05:46 Baso # (Auto) 0.0 10^3/uL (0.0-0.1) 05/16/18 05:46 Absolute Nucleated RBC 0.00 x10^3/uL 05/16/18 05:46 Nucleated RBC % 0.0 /100WBC 05/16/18 05:46 Sodium 136 mmol/L (135-145) 05/15/18 03:35 Potassium 4.0 mmol/L (3.5-5.0) 05/15/18 03:35 Chloride 98 mmol/L (101-111) L 05/15/18 03:35 Carbon Dioxide 27 mmol/L (21-32) 05/15/18 03:35 Anion Gap 11.0 (6-13) 05/15/18 03:35 BUN 6 mg/dL (6-20) 05/15/18 03:35 Creatinine 0.9 mg/dL (0.4-1.0) 05/15/18 03:35 Estimated GFR (MDRD) 63 (>89) L 05/15/18 03:35 Glucose 92 mg/dL (70-100) 05/15/18 03:35 Lactic Acid 1.0 mmol/L (0.5-2.2) 05/12/18 15:57 Calcium 9.0 mg/dL (8.5-10.3) 05/15/18 03:35 Iron 14 ug/dL (28-170) L 05/15/18 03:35 TIBC 175 ug/dL (250-450) L 05/15/18 03:35 % Saturation 8 % (20-50) L 05/15/18 03:35 Transferrin 125 mg/dL (192-382) L 05/15/18 03:35 Ferritin 102.7 ng/mL (11.0-306.8) 05/15/18 03:35 Total Bilirubin 0.6 mg/dL (0.2-1.0) 05/12/18 15:57 AST 35 IU/L (10-42) 05/12/18 15:57 ALT 29 IU/L (10-60) 05/12/18 15:57 Alkaline Phosphatase 113 IU/L (42-121) 05/12/18 15:57 Total Protein 9.6 g/dL (6.7-8.2) H 05/12/18 15:57 Albumin 4.2 g/dL (3.2-5.5) 05/12/18 15:57 Globulin 5.4 g/dL (2.1-4.2) H 05/12/18 15:57 Albumin/Globulin Ratio 0.8 (1.0-2.2) L 05/12/18 15:57 Lipase 34 U/L (22-51) 05/12/18 15:57 Vitamin B12 5397 pg/mL (180-914) H 05/15/18 03:35 Folate 29.00 ng/mL (5.90 - >24.8) 05/15/18 03:35 Urine Color LT. YELLOW 05/12/18 23:40 Urine Clarity CLEAR (CLEAR) 05/12/18 23:40 Urine pH 6.5 PH (5.0-7.5) 05/12/18 23:40 Ur Specific [place] <=1.005 (1.002-1.030) 05/12/18 23:40 Urine Protein NEGATIVE mg/dL (NEGATIVE) 05/12/18 23:40 Urine Glucose (UA) NEGATIVE mg/dL (NEGATIVE) 05/12/18 23:40 Urine Ketones NEGATIVE mg/dL (NEGATIVE) 05/12/18 23:40 Urine Occult Blood TRACE-LYSE (NEGATIVE) 05/12/18 23:40 Urine Nitrite NEGATIVE (NEGATIVE) 05/12/18 23:40 Urine Bilirubin NEGATIVE (NEGATIVE) 05/12/18 23:40 Urine Urobilinogen 0.2 (NORMAL) E.U./dL (NORMAL) 05/12/18 23:40 Ur Leukocyte Esterase NEGATIVE (NEGATIVE) 05/12/18 23:40 Ur Microscopic Review NOT INDICATED 05/12/18 23:40 Urine Culture Comments NOT INDICATED 05/12/18 23:40 Last Dose Date UNK 05/15/18 03:35 Last Dose Time UNK 05/15/18 03:35 Vancomycin Trough 16.5 ug/mL (10.0-20.0) 05/15/18 03:35 Influenza A (Rapid) Negative (Negative) 05/12/18 15:57 Influenza B (Rapid) Negative (Negative) 05/12/18 15:57 Active Medications Generic Name Dose Route Start Last Admin Trade Name Freq PRN Reason Stop Dose Admin Acetaminophen 650 mg 05/12/18 20:26 05/16/18 00:24 Tylenol PO 650 mg Q4HR PRN Administration Pain or Fever > 38C (100.4F) Albuterol/Ipratropium 3 ml 05/12/18 20:37 05/16/18 10:03 Duoneb INH 3 ml Q4HR PRN Administration Wheezing Cholecalciferol 5,000 unit 05/13/18 09:00 05/16/18 08:47 Vitamin D3 PO 5,000 unit DAILY PAIGE Administration Ferrous Sulfate 325 mg 05/15/18 08:00 05/16/18 08:47 Feosol PO 325 mg BIDWM PAIGE Administration Gabapentin 800 mg 05/12/18 23:00 05/16/18 13:49 Neurontin PO 800 mg TID PAIGE Administration Guaifenesin 600 mg 05/13/18 09:00 05/16/18 08:47 Mucinex PO 600 mg BID PAIGE Administration Meropenem 1 gm/ Sodium 100 mls @ 200 mls/hr 05/12/18 21:00 05/16/18 13:44 Chloride IV 200 mls/hr Q8H PAIGE Administration Vancomycin HCl 1 gm/ Sodium 250 mls @ 167 mls/hr 05/13/18 16:00 05/16/18 05:31 Chloride IV Infused Q12H PAIGE Infusion Magnesium Oxide 400 mg 05/13/18 14:00 05/14/18 09:31 Mag Ox PO 400 mg DAILY PRN Administration CONSTIPATION Multivitamins 1 tab 05/13/18 09:00 05/16/18 08:47 Theragran PO 1 tab DAILY PAIGE Administration Oxycodone HCl 10 mg 05/12/18 20:36 05/15/18 03:49 Roxicodone PO 10 mg Q6H PRN Administration Analgesia Pantoprazole Sodium 40 mg 05/13/18 07:00 05/16/18 06:26 Protonix PO 40 mg QDAC PAIGE Administration (Interferon Beta-1a 1 each 05/13/18 14:00 12/22/18 11:38 [Avonex] 30 Mcg) Inj IM 1 each Q7D PAIGE Administration (Vitamin B Complex [ 1 each 05/13/18 14:00 05/16/18 08:48 B Complete] Tab) PO 1 each DAILY PAIGE Administration Polyethylene Glycol 17 gm 05/13/18 09:00 05/16/18 08:47 Miralax PO 17 gm DAILY PAIGE Administration Prochlorperazine Edisylate 10 mg 05/12/18 20:26 Compazine Inj IVP Q6HR PRN Nausea / Vomiting Saccharomyces Boulardii 250 mg 05/13/18 08:00 05/16/18 08:47 Florastor PO 250 mg BIDWM PAIGE Administration Sodium Chloride 10 ml 05/12/18 20:26 05/15/18 21:04 Normal Saline Flush 0.9% IVP 10 ml PRN PRN Administration NEEDED PER PROVIDER ORDERS Sodium Chloride 10 ml 05/13/18 01:00 05/16/18 08:48 Normal Saline Flush 0.9% IVP 10 ml 0100,0900,1700 PAIGE Administration Temazepam 15 mg 05/12/18 20:26 Restoril PO QPM PRN Insomnia Tizanidine HCl 4 mg 05/13/18 09:00 05/16/18 08:47 Zanaflex PO 4 mg DAILY PAIGE Administration Gabapentin [Neurontin] 800 mg PO TID 08/30/13 Interferon Beta-1A [Avonex] 30 mcg IM Q7D 08/30/13 Cholecalciferol (Vitamin D3) [Vitamin D3] 5,000 units PO DAILY 05/13/18 Magnesium 500 mg PO DAILY PRN 05/13/18 Naproxen 250 mg PO DAILY PRN 05/13/18 Neurocet 1 cap PO DAILY 05/13/18 Oxycodone HCl/Acetaminophen [Oxycodone-Acetaminophen 5-325] 0.5 tab PO QPM 05/13/18 Vitamin B Complex 1 tab PO DAILY 05/13/18
[2018-05-16] MEDS: oxyCODONE 5 MG TABLET PO PRN (16:18)
[2018-05-16] MEDS: SODIUM CHLORIDE FLUSH 0.9% 10 ML SYRINGE IVP PRN (21:06)
[2018-05-17] MEDS: SODIUM CHLORIDE FLUSH 0.9% 10 ML SYRINGE IVP SCH ×3 (00:36→16:27)
[2018-05-17] MEDS: ACETAMINOPHEN 325 MG TABLET PO PRN (00:58)
[2018-05-17] MEDS: VANCOMYCIN INJ 1 GM in SODIUM CHLORIDE 0.9% 250 ML IV SCH ×2 (03:59→16:27)
[2018-05-17] MEDS: oxyCODONE 5 MG TABLET PO PRN ×2 (04:02→16:27)
[2018-05-17] MEDS: MEROPENEM 1 GM in SODIUM CHLORIDE 0.9% MINIBAG 100 ML IV SCH ×3 (05:45→22:07)
[2018-05-17 06:04] LABS: BASOPHILS % (AUTO) 0.6 %; EOSINOPHILS # (AUTO) 0.2 10^3/uL (0.0-0.7); EOSINOPHILS % (AUTO) 3.3 %; HGB - HEMOGLOBIN 9.2 g/dL (12.0-16.0); LYMPHOCYTES # (AUTO) 0.9 10^3/uL (1.5-3.5); LYMPHOCYTES % (AUTO) 13.1 %; MEAN CORPUSCULAR HEMOGLOBIN 29.4 pg (27.0-31.0); MEAN CORPUSCULAR HGB CONC 33.2 g/dL (32.0-36.0); MEAN CORPUSCULAR VOLUME 88.6 fL (81.0-99.0); MEAN PLATELET VOLUME 7.7 fL (7.9-10.8); MONOCYTES # (AUTO) 0.8 10^3/uL (0.0-1.0); MONOCYTES % (AUTO) 12.6 %; NEUTROPHILS # (AUTO) 4.6 10^3/uL (1.5-6.6); NEUTROPHILS % (AUTO) 70.4 %; PLT - PLATELET COUNT 339 10^3/uL (130-450); RED BLOOD COUNT 3.12 10^6/uL (4.20-5.40); RED CELL DISTRIBUTION WIDTH 14.6 % (12.0-15.0); WHITE BLOOD COUNT 6.6 x10^3/uL (4.8-10.8)
[2018-05-17] MEDS: GABAPENTIN 400 MG CAPSULE PO SCH ×3 (06:32→22:08)
[2018-05-17] MEDS: PANTOPRAZOLE 40 MG TABLET PO SCH (06:32)
[2018-05-17] MEDS: guaiFENesin 600 MG TABLET PO SCH ×2 (09:49→22:08)
[2018-05-17] MEDS: MULTIVITAMIN TABLET PO SCH (09:49)
[2018-05-17] MEDS: CHOLECALCIFEROL 5,000 UNIT CAPSULE PO SCH (09:49)
[2018-05-17] MEDS: SACCHAROMYCES BOULARDII 250 MG CAPSULE PO SCH ×2 (09:49→17:31)
[2018-05-17] MEDS: FERROUS SULFATE 325 MG TABLET PO SCH ×2 (09:49→17:31)
[2018-05-17] MEDS: tiZANidine 4 MG TABLET PO SCH ×2 (09:49→22:08)
[2018-05-17] MEDS: POLYETHYLENE GLYCOL 3350 17 GM PACKET PO SCH (09:50)
[2018-05-17] MEDS: VITAMIN B COMPLEX PO SCH (09:50)
--- NOTE | 2018-05-17 11:11 | PROVIDER PROGRESS NOTE ---
Assessment/Plan - Problem List (1) Cavitating mass in right upper lung lobe Assessment/Plan: Patient presented with 6 days of fevers, cough, hemoptysis and night sweats. The patient has also been having frequent falls and has 10 pound weight loss. The patient's chest x-ray and CT scan showed a right cavitary mass with surrounding air bronchograms and right-sided lymph nodes. This finding was concerning for possibility of tuberculosis. Patient could also have possible lung abscess, lung infection or cancer. Patient was admitted to the medical hein under negative pressure isolation for rule out of TB and treatment with IV antibiotics for possible pneumonia. Patient was afebrile last 2 days after fevers for 3 days Improving with decreased cough, decreased chest pain and improving shortness of breath Negative pressure isolation Broad-spectrum IV antibiotics with vancomycin and meropenem day 5 Infectious disease was consulted via telephone at the [facility] and recommended that we do not stop the patient's treatment for multiple sclerosis as it is not an immunosuppressive agent. They agreed with getting AFB testing and continuing broad-spectrum antibiotics. They recommended transfer for a bronchoscopy if AFBs were negative. First AFB is negative from 05/13/18 awaiting 2nd negative before we can take her out of TB precautions Resp cx growing chris sp which is usually not an invasive organism when seen in sputum and treatment not indicated 3rd AFB sample was handled improperly and therefore was void. We will get another AFB sample today (2) Cavitary pneumonia Assessment/Plan: Patient presented with fever, shortness of breath, cough, hemoptysis, weight loss, night sweats and had a cavitary lesion in the right upper lobe on her chest x-ray and CT. There was air bronchograms surrounding the cavitary lesion concerning for possible infection. Patient had a leukocytosis and fever on presentation. Given these findings patient will be treated for presumed pneumonia with broad-spectrum antibiotics and will undergo testing for TB. Patient improving clinically Plan: IV antibiotics with vancomycin and meropenem day 5 AFB testing x3 If AFB testing is negative patient will need bronchoscopy and will need to be transferred. Repeat CXR if testing is negative (3) Asthma Qualifiers: Asthma severity: mild Asthma persistence: intermittent Asthma complication type: with acute exacerbation Qualified Code(s): J45.21 - Mild intermittent asthma with (acute) exacerbation Assessment/Plan: Patient has asthma exacerbation secondary to ongoing cavitary pneumonia. On duonebs prn and IV abx (4) Multiple sclerosis Assessment/Plan: The patient has a history of multiple sclerosis and is on Avonex at home. After discussion with infectious disease it was decided to continue medication while she was hospitalized. Infectious disease did not feel that this is a immunosuppressive medication. They were also concerned that in the setting of infection multiple sclerosis can worsen. This is likely why patient has been having multiple falls over the last week as she likely has worsening of her multiple sclerosis with ongoing infection. For now we will continue the patient's Avenox once a week. Stable (5) Hypokalemia Assessment/Plan: Resolved (6) Anemia Assessment/Plan: Patient has iron deficiency anemia with iron of 14 On iron supplement BID Hb is 9.5 Hemoptysis resolved Monitor Hb - Current Meds Current Meds: Current Medications Generic Name Dose Route Start Last Admin Trade Name Freq PRN Reason Stop Dose Admin Acetaminophen 650 mg 05/12/18 20:26 05/17/18 00:58 Tylenol PO 650 mg Q4HR PRN Administration Pain or Fever > 38C (100.4F) Albuterol/Ipratropium 3 ml 05/12/18 20:37 05/16/18 15:05 Duoneb INH 3 ml Q4HR PRN Administration Wheezing Cholecalciferol 5,000 unit 05/13/18 09:00 05/17/18 09:49 Vitamin D3 PO 5,000 unit DAILY PAIGE Administration Ferrous Sulfate 325 mg 05/15/18 08:00 05/17/18 09:49 Feosol PO 325 mg BIDWM PAIGE Administration Gabapentin 800 mg 05/12/18 23:00 05/17/18 06:32 Neurontin PO 800 mg TID PAIGE Administration Guaifenesin 600 mg 05/13/18 09:00 05/17/18 09:49 Mucinex PO 600 mg BID PAIGE Administration Meropenem 1 gm/ Sodium 100 mls @ 200 mls/hr 05/12/18 21:00 05/17/18 06:34 Chloride IV Infused Q8H PAIGE Infusion Vancomycin HCl 1 gm/ Sodium 250 mls @ 167 mls/hr 05/13/18 16:00 05/17/18 05:45 Chloride IV Infused Q12H PAIGE Infusion Magnesium Oxide 400 mg 05/13/18 14:00 05/14/18 09:31 Mag Ox PO 400 mg DAILY PRN Administration CONSTIPATION Multivitamins 1 tab 05/13/18 09:00 05/17/18 09:49 Theragran PO 1 tab DAILY PAIGE Administration Oxycodone HCl 10 mg 05/12/18 20:36 05/17/18 04:02 Roxicodone PO 10 mg Q6H PRN Administration Analgesia Pantoprazole Sodium 40 mg 05/13/18 07:00 05/17/18 06:32 Protonix PO 40 mg QDAC PAIGE Administration (Interferon Beta-1a 1 each 05/13/18 14:00 05/14/18 11:38 [Avonex] 30 Mcg) Inj IM 1 each Q7D PAIGE Administration (Vitamin B Complex [ 1 each 05/13/18 14:00 05/17/18 09:50 B Complete] Tab) PO 1 each DAILY PAIGE Administration Polyethylene Glycol 17 gm 05/13/18 09:00 05/17/18 09:50 Miralax PO Not Given DAILY PAIGE Saccharomyces Boulardii 250 mg 05/13/18 08:00 05/17/18 09:49 Florastor PO 250 mg BIDWM PAIGE Administration Sodium Chloride 10 ml 05/12/18 20:26 05/16/18 21:06 Normal Saline Flush 0.9% IVP 10 ml PRN PRN Administration NEEDED PER PROVIDER ORDERS Sodium Chloride 10 ml 05/13/18 01:00 05/17/18 09:50 Normal Saline Flush 0.9% IVP 10 ml 0100,0900,1700 PAIGE Administration Tizanidine HCl 4 mg 05/13/18 09:00 05/17/18 09:49 Zanaflex PO 4 mg DAILY PAIGE Administration - Lab Result Lab results reviewed: Yes Fish Bone Diagrams: 05/17/18 05:24 05/15/18 03:35 - Diagnostic Imaging Results Diagnostic Imaging Results: Final report reviewed - Additional Planning Condition/Complexity: Guarded My Orders: My Active Orders 05/17/18 09:00 AFB CUL & SMEAR #3 ([id number]) Plan Discussed with:: Patient Time Spent: 31-60 minutes Subjective - Subjective Patient Reports: Cough (Improving and hemoptysis has resolved), Chest Pain (Improving), Shortness of Breath (Improved) Nursing Reports: No Complaints Objective Vital Signs: Vital Signs - 24 hr 05/16/18 05/16/18 05/17/18 15:09 15:57 00:00 Temperature 37.3 C 37.7 C H Heart Rate 88 Heart Rate [ 98 103 H Brachial] Respiratory 16 18 18 Rate Blood Pressure 104/54 L 125/63 [Left Brachial artery] O2 Saturation 98 95 Oxygen O2 Source Room air I&O (Last 24 Hrs): Intake and Output Totals x24h 05/15/18 05/16/18 05/17/18 23:59 23:59 23:59 Intake Total 2150.0 3440 1210 Output Total 700 1600 1500 Balance 1450 1840 -290 General: Alert, Oriented x3, Cooperative, No acute distress, Other (Thin, cachectic appearing) HEENT: Atraumatic, PERRLA, EOMI, Mucous membr. moist/pink Neck: Supple, No JVD, No thyromegaly, +2 carotid pulse wo bruit, No LAD Lymphatic: no adenopathy Neuro: Alert, Non Focal, CN 2-12 Grossly Intact, Oriented Times 3 Cardiovascular: Regular rate, Normal S1, Normal S2, No murmurs Respiratory: Chest non-tender, No respiratory distress, Wheezes (Mild, scattered), Rhonchi (Right upper lung) Abdomen: Normal bowel sounds, Soft, No tenderness, No hepatospenomegaly Extremities: No clubbing, No cyanosis, No edema, Normal pulses Skin: No rashes, No breakdown - Results Results: Laboratory Results WBC 6.6 x10^3/uL (4.8-10.8) 05/17/18 05:24 RBC 3.12 10^6/uL (4.20-5.40) L 05/17/18 05:24 Hgb 9.2 g/dL (12.0-16.0) L 05/17/18 05:24 Hct 27.6 % (37.0-47.0) L 05/17/18 05:24 MCV 88.6 fL (81.0-99.0) 05/17/18 05:24 MCH 29.4 pg (27.0-31.0) 05/17/18 05:24 MCHC 33.2 g/dL (32.0-36.0) 05/17/18 05:24 RDW 14.6 % (12.0-15.0) 05/17/18 05:24 Plt Count 339 10^3/uL (130-450) 05/17/18 05:24 MPV 7.7 fL (7.9-10.8) L 05/17/18 05:24 Neut # (Auto) 4.6 10^3/uL (1.5-6.6) 05/17/18 05:24 Lymph # (Auto) 0.9 10^3/uL (1.5-3.5) L 05/17/18 05:24 Coleman # (Auto) 0.8 10^3/uL (0.0-1.0) 05/17/18 05:24 Eos # (Auto) 0.2 10^3/uL (0.0-0.7) 05/17/18 05:24 Baso # (Auto) 0.0 10^3/uL (0.0-0.1) 05/17/18 05:24 Absolute Nucleated RBC 0.01 x10^3/uL 05/17/18 05:24 Nucleated RBC % 0.1 /100WBC 05/17/18 05:24 Sodium 136 mmol/L (135-145) 05/15/18 03:35 Potassium 4.0 mmol/L (3.5-5.0) 05/15/18 03:35 Chloride 98 mmol/L (101-111) L 05/15/18 03:35 Carbon Dioxide 27 mmol/L (21-32) 05/15/18 03:35 Anion Gap 11.0 (6-13) 05/15/18 03:35 BUN 6 mg/dL (6-20) 05/15/18 03:35 Creatinine 0.9 mg/dL (0.4-1.0) 05/15/18 03:35 Estimated GFR (MDRD) 63 (>89) L 05/15/18 03:35 Glucose 92 mg/dL (70-100) 05/15/18 03:35 Lactic Acid 1.0 mmol/L (0.5-2.2) 05/12/18 15:57 Calcium 9.0 mg/dL (8.5-10.3) 05/15/18 03:35 Iron 14 ug/dL (28-170) L 05/15/18 03:35 TIBC 175 ug/dL (250-450) L 05/15/18 03:35 % Saturation 8 % (20-50) L 05/15/18 03:35 Transferrin 125 mg/dL (192-382) L 05/15/18 03:35 Ferritin 102.7 ng/mL (11.0-306.8) 05/15/18 03:35 Total Bilirubin 0.6 mg/dL (0.2-1.0) 05/12/18 15:57 AST 35 IU/L (10-42) 05/12/18 15:57 ALT 29 IU/L (10-60) 05/12/18 15:57 Alkaline Phosphatase 113 IU/L (42-121) 05/12/18 15:57 Total Protein 9.6 g/dL (6.7-8.2) H 05/12/18 15:57 Albumin 4.2 g/dL (3.2-5.5) 05/12/18 15:57 Globulin 5.4 g/dL (2.1-4.2) H 05/12/18 15:57 Albumin/Globulin Ratio 0.8 (1.0-2.2) L 05/12/18 15:57 Lipase 34 U/L (22-51) 05/12/18 15:57 Vitamin B12 5397 pg/mL (180-914) H 05/15/18 03:35 Folate 29.00 ng/mL (5.90 - >24.8) 05/15/18 03:35 Urine Color LT. YELLOW 05/12/18 23:40 Urine Clarity CLEAR (CLEAR) 05/12/18 23:40 Urine pH 6.5 PH (5.0-7.5) 05/12/18 23:40 Ur Specific [place] <=1.005 (1.002-1.030) 05/12/18 23:40 Urine Protein NEGATIVE mg/dL (NEGATIVE) 05/12/18 23:40 Urine Glucose (UA) NEGATIVE mg/dL (NEGATIVE) 05/12/18 23:40 Urine Ketones NEGATIVE mg/dL (NEGATIVE) 05/12/18 23:40 Urine Occult Blood TRACE-LYSE (NEGATIVE) 05/12/18 23:40 Urine Nitrite NEGATIVE (NEGATIVE) 05/12/18 23:40 Urine Bilirubin NEGATIVE (NEGATIVE) 05/12/18 23:40 Urine Urobilinogen 0.2 (NORMAL) E.U./dL (NORMAL) 05/12/18 23:40 Ur Leukocyte Esterase NEGATIVE (NEGATIVE) 05/12/18 23:40 Ur Microscopic Review NOT INDICATED 05/12/18 23:40 Urine Culture Comments NOT INDICATED 05/12/18 23:40 Last Dose Date UNK 05/15/18 03:35 Last Dose Time UNK 05/15/18 03:35 Vancomycin Trough 16.5 ug/mL (10.0-20.0) 05/15/18 03:35 Influenza A (Rapid) Negative (Negative) 05/12/18 15:57 Influenza B (Rapid) Negative (Negative) 05/12/18 15:57 - Procedures Procedures: Procedures PARTIAL HIP REPLACEMENT (08/30/13) ABX Reporting Has patient been on IV antibiotics over the past 48 hours?: Yes Current Medications - Current Medications Current Medications: Active Medications Generic Name Dose Route Start Last Admin Trade Name Freq PRN Reason Stop Dose Admin Acetaminophen 650 mg 05/12/18 20:26 05/17/18 00:58 Tylenol PO 650 mg Q4HR PRN Administration Pain or Fever > 38C (100.4F) Albuterol/Ipratropium 3 ml 05/12/18 20:37 05/16/18 15:05 Duoneb INH 3 ml Q4HR PRN Administration Wheezing Cholecalciferol 5,000 unit 05/13/18 09:00 05/17/18 09:49 Vitamin D3 PO 5,000 unit DAILY PAIGE Administration Ferrous Sulfate 325 mg 05/15/18 08:00 05/17/18 09:49 Feosol PO 325 mg BIDWM PAIGE Administration Gabapentin 800 mg 05/12/18 23:00 05/17/18 06:32 Neurontin PO 800 mg TID PAIGE Administration Guaifenesin 600 mg 05/13/18 09:00 05/17/18 09:49 Mucinex PO 600 mg BID PAIGE Administration Meropenem 1 gm/ Sodium 100 mls @ 200 mls/hr 05/12/18 21:00 05/17/18 06:34 Chloride IV Infused Q8H PAIGE Infusion Vancomycin HCl 1 gm/ Sodium 250 mls @ 167 mls/hr 05/13/18 16:00 05/17/18 05:45 Chloride IV Infused Q12H PAIGE Infusion Magnesium Oxide 400 mg 05/13/18 14:00 05/14/18 09:31 Mag Ox PO 400 mg DAILY PRN Administration CONSTIPATION Multivitamins 1 tab 12/21/18 09:00 05/17/18 09:49 Theragran PO 1 tab DAILY PAIGE Administration Oxycodone HCl 10 mg 05/12/18 20:36 05/17/18 04:02 Roxicodone PO 10 mg Q6H PRN Administration Analgesia Pantoprazole Sodium 40 mg 05/13/18 07:00 05/17/18 06:32 Protonix PO 40 mg QDAC PAIGE Administration (Interferon Beta-1a 1 each 05/13/18 14:00 05/14/18 11:38 [Avonex] 30 Mcg) Inj IM 1 each Q7D PAIGE Administration (Vitamin B Complex [ 1 each 05/13/18 14:00 05/17/18 09:50 B Complete] Tab) PO 1 each DAILY PAIGE Administration Polyethylene Glycol 17 gm 05/13/18 09:00 05/17/18 09:50 Miralax PO Not Given DAILY PAIGE Prochlorperazine Edisylate 10 mg 05/12/18 20:26 Compazine Inj IVP Q6HR PRN Nausea / Vomiting Saccharomyces Boulardii 250 mg 05/13/18 08:00 05/17/18 09:49 Florastor PO 250 mg BIDWM PAIGE Administration Sodium Chloride 10 ml 05/12/18 20:26 05/16/18 21:06 Normal Saline Flush 0.9% IVP 10 ml PRN PRN Administration NEEDED PER PROVIDER ORDERS Sodium Chloride 10 ml 05/13/18 01:00 05/17/18 09:50 Normal Saline Flush 0.9% IVP 10 ml 0100,0900,1700 PAIGE Administration Temazepam 15 mg 05/12/18 20:26 Restoril PO QPM PRN Insomnia Tizanidine HCl 4 mg 05/13/18 09:00 05/17/18 09:49 Zanaflex PO 4 mg DAILY PAIGE Administration Gabapentin [Neurontin] 800 mg PO TID 08/30/13 Interferon Beta-1A [Avonex] 30 mcg IM Q7D 08/30/13 Cholecalciferol (Vitamin D3) [Vitamin D3] 5,000 units PO DAILY 05/13/18 Magnesium 500 mg PO DAILY PRN 05/13/18 Naproxen 250 mg PO DAILY PRN 05/13/18 Neurocet 1 cap PO DAILY 05/13/18 Oxycodone HCl/Acetaminophen [Oxycodone-Acetaminophen 5-325] 0.5 tab PO QPM 05/13/18 Vitamin B Complex 1 tab PO DAILY 05/13/18
[2018-05-17] MEDS ORDERED: COD LIVER OIL/ZINC OXIDE 113 GM TUBE TOP PRN (11:55)
[2018-05-17] MEDS: IPRATROPIUM/ALBUTEROL 3 ML NEB INH PRN (22:22)
[2018-05-18] MEDS: SODIUM CHLORIDE FLUSH 0.9% 10 ML SYRINGE IVP SCH ×3 (00:56→17:23)
[2018-05-18] MEDS: ACETAMINOPHEN 325 MG TABLET PO PRN ×3 (04:41→21:50)
[2018-05-18] MEDS: VANCOMYCIN INJ 1 GM in SODIUM CHLORIDE 0.9% 250 ML IV SCH ×2 (04:42→17:23)
[2018-05-18] MEDS: oxyCODONE 5 MG TABLET PO PRN ×3 (04:42→21:50)
[2018-05-18] MEDS: SODIUM CHLORIDE FLUSH 0.9% 10 ML SYRINGE IVP PRN ×2 (04:43→06:24)
[2018-05-18 05:53] LABS: BASOPHILS % (AUTO) 0.7 %; EOSINOPHILS # (AUTO) 0.2 10^3/uL (0.0-0.7); EOSINOPHILS % (AUTO) 2.4 %; HGB - HEMOGLOBIN 8.9 g/dL (12.0-16.0); LYMPHOCYTES # (AUTO) 0.6 10^3/uL (1.5-3.5); LYMPHOCYTES % (AUTO) 8.4 %; MEAN CORPUSCULAR HEMOGLOBIN 29.7 pg (27.0-31.0); MEAN CORPUSCULAR HGB CONC 34.1 g/dL (32.0-36.0); MEAN CORPUSCULAR VOLUME 86.9 fL (81.0-99.0); MEAN PLATELET VOLUME 7.3 fL (7.9-10.8); MONOCYTES # (AUTO) 0.6 10^3/uL (0.0-1.0); MONOCYTES % (AUTO) 8.2 %; NEUTROPHILS # (AUTO) 5.5 10^3/uL (1.5-6.6); NEUTROPHILS % (AUTO) 80.3 %; PLT - PLATELET COUNT 349 10^3/uL (130-450); RED BLOOD COUNT 2.99 10^6/uL (4.20-5.40); RED CELL DISTRIBUTION WIDTH 15.1 % (12.0-15.0); WHITE BLOOD COUNT 6.9 x10^3/uL (4.8-10.8)
[2018-05-18 06:07] LABS: ALBUMIN 2.8 g/dL (3.2-5.5); ALBUMIN/GLOBULIN RATIO 0.7 (1.0-2.2); ALKALINE PHOSPHATASE 69 IU/L (42-121); ALT ALANINE AMINOTRANSFERASE 29 IU/L (10-60); AST ASPARTATE AMINOTRANSFERASE 33 IU/L (10-42); BILIRUBIN,TOTAL 0.7 mg/dL (0.2-1.0); BUN - BLOOD UREA NITROGEN 5 mg/dL (6-20); CALCIUM 8.7 mg/dL (8.5-10.3); CARBON DIOXIDE - CO2 30 mmol/L (21-32); CHLORIDE 98 mmol/L (101-111); CREATININE 0.8 mg/dL (0.4-1.0); GFR - MDRD 72 (>89); GLUCOSE 103 mg/dL (70-100); MAGNESIUM 2.1 mg/dL (1.7-2.8); PHOSPHORUS 3.1 mg/dL (2.5-4.6); SODIUM 137 mmol/L (135-145); TOTAL PROTEIN 6.7 g/dL (6.7-8.2)
[2018-05-18] MEDS: GABAPENTIN 400 MG CAPSULE PO SCH ×3 (06:10→21:50)
[2018-05-18] MEDS: PANTOPRAZOLE 40 MG TABLET PO SCH (06:10)
[2018-05-18] MEDS: MEROPENEM 1 GM in SODIUM CHLORIDE 0.9% MINIBAG 100 ML IV SCH ×2 (06:23→16:43)
[2018-05-18] MEDS: MULTIVITAMIN TABLET PO SCH (08:15)
[2018-05-18] MEDS: FERROUS SULFATE 325 MG TABLET PO SCH ×2 (08:16→17:19)
[2018-05-18] MEDS: CHOLECALCIFEROL 5,000 UNIT CAPSULE PO SCH (08:16)
[2018-05-18] MEDS: SACCHAROMYCES BOULARDII 250 MG CAPSULE PO SCH ×2 (08:16→17:19)
[2018-05-18] MEDS: guaiFENesin 600 MG TABLET PO SCH ×2 (08:16→21:51)
[2018-05-18] MEDS: VITAMIN B COMPLEX PO SCH (08:16)
[2018-05-18] MEDS: POLYETHYLENE GLYCOL 3350 17 GM PACKET PO SCH (08:18)
--- NOTE | 2018-05-18 14:16 | PROVIDER PROGRESS NOTE ---
Assessment/Plan - Problem List (1) Cavitating mass in right upper lung lobe Assessment/Plan: Patient presented with 6 days of fevers, cough, hemoptysis and night sweats. The patient has also been having frequent falls and has 10 pound weight loss. The patient's chest x-ray and CT scan showed a right cavitary mass with surrounding air bronchograms and right-sided lymph nodes. This finding was concerning for possibility of tuberculosis. Patient could also have possible lung abscess, lung infection or cancer. Patient was admitted to the medical hein under negative pressure isolation for rule out of TB and treatment with IV antibiotics for possible pneumonia. The patient has travelled to the [facility], [place] and therefore could have been exposed to TB. Patient spiked fever last night to 38.6 she claims that she was dressed very warm and did not have a real fever Improving with decreased cough, decreased chest pain and improving shortness of breath Negative pressure isolation Broad-spectrum IV antibiotics with vancomycin and meropenem day 6 Infectious disease was consulted via telephone at the [facility] and recommended that we do not stop the patient's treatment for multiple scler osis as it is not an immunosuppressive agent. They agreed with getting AFB testing and continuing broad-spectrum antibiotics. They recommended transfer for a bronchoscopy if AFBs were negative. First AFB is negative from 05/13/18 awaiting 2 more AFBs before she is considered negative for TB. Resp cx growing chris sp which is usually not an invasive organism when seen in sputum and treatment not indicated 2nd and 3rd AFB sample wer handled improperly and therefore were void. They were suppose to be refrigerated in the lab but were not. Another AFB sample was obtained yesterday and we will get another one today. (2) Cavitary pneumonia Assessment/Plan: Patient presented with fever, shortness of breath, cough, hemoptysis, weight loss, night sweats and had a cavitary lesion in the right upper lobe on her chest x-ray and CT. There was air bronchograms surrounding the cavitary lesion concerning for possible infection. Patient had a leukocytosis and fever on presentation. Given these findings patient will be treated for presumed pneumonia with broad-spectrum antibiotics and will undergo testing for TB. Fever last night Patient improving clinically Plan: IV antibiotics with vancomycin and meropenem day 6 AFB testing x3 If AFB testing is negative patient will need bronchoscopy and will need to be transferred. Repeat CXR if testing is negative (3) Asthma Qualifiers: Asthma severity: mild Asthma persistence: intermittent Asthma complication type: with acute exacerbation Qualified Code(s): J45.21 - Mild intermittent asthma with (acute) exacerbation Assessment/Plan: Patient has asthma exacerbation secondary to ongoing cavitary pneumonia. Stable On duonebs prn and IV abx (4) Multiple sclerosis Assessment/Plan: The patient has a history of multiple sclerosis and is on Avonex at home. After discussion with infectious disease it was decided to continue medication while she was hospitalized. Infectious disease did not feel that this is a immunosuppressive medication. They were also concerned that in the setting of infection multiple sclerosis can worsen. This is likely why patient has been having multiple falls over the last week as she likely has worsening of her multiple sclerosis with ongoing infection. For now we will continue the patient's Avenox once a week. Stable (5) Hypokalemia Assessment/Plan: Resolved (6) Anemia Assessment/Plan: Patient has iron deficiency anemia with iron of 14 On iron supplement BID Hb is 8.9 Hemoptysis resolved Monitor Hb It will likely take 2-3 days more to get the AFB testing back. - Current Meds Current Meds: Current Medications Generic Name Dose Route Start Last Admin Trade Name Freq PRN Reason Stop Dose Admin Acetaminophen 650 mg 05/12/18 20:26 05/18/18 04:41 Tylenol PO 650 mg Q4HR PRN Administration Pain or Fever > 38C (100.4F) Albuterol/Ipratropium 3 ml 05/12/18 20:37 05/17/18 22:22 Duoneb INH 3 ml Q4HR PRN Administration Wheezing Cholecalciferol 5,000 unit 05/13/18 09:00 05/18/18 08:16 Vitamin D3 PO 5,000 unit DAILY PAIGE Administration Ferrous Sulfate 325 mg 05/15/18 08:00 05/18/18 08:16 Feosol PO 325 mg BIDWM PAIGE Administration Gabapentin 800 mg 05/12/18 23:00 05/18/18 06:10 Neurontin PO 800 mg TID PAIGE Administration Guaifenesin 600 mg 05/13/18 09:00 05/18/18 08:16 Mucinex PO 600 mg BID PAIGE Administration Meropenem 1 gm/ Sodium 100 mls @ 200 mls/hr 05/12/18 21:00 05/18/18 06:55 Chloride IV Infused Q8H PAIGE Infusion Vancomycin HCl 1 gm/ Sodium 250 mls @ 167 mls/hr 05/13/18 16:00 05/18/18 06:12 Chloride IV Infused Q12H PAIGE Infusion Magnesium Oxide 400 mg 05/13/18 14:00 05/14/18 09:31 Mag Ox PO 400 mg DAILY PRN Administration CONSTIPATION Multivitamins 1 tab 05/13/18 09:00 05/18/18 08:15 Theragran PO 1 tab DAILY PAIGE Administration Oxycodone HCl 10 mg 05/12/18 20:36 05/18/18 04:42 Roxicodone PO 10 mg Q6H PRN Administration Analgesia Pantoprazole Sodium 40 mg 05/13/18 07:00 05/18/18 06:10 Protonix PO 40 mg QDAC PAIGE Administration (Interferon Beta-1a 1 each 05/13/18 14:00 05/14/18 11:38 [Avonex] 30 Mcg) Inj IM 1 each Q7D PAIGE Administration (Vitamin B Complex [ 1 each 05/13/18 14:00 05/18/18 08:16 B Complete] Tab) PO 1 each DAILY PAIGE Administration Polyethylene Glycol 17 gm 05/13/18 09:00 05/18/18 08:18 Miralax PO Not Given DAILY PAIGE Saccharomyces Boulardii 250 mg 05/13/18 08:00 05/18/18 08:16 Florastor PO 250 mg BIDWM PAIGE Administration Sodium Chloride 10 ml 05/12/18 20:26 05/18/18 06:24 Normal Saline Flush 0.9% IVP 10 ml PRN PRN Administration NEEDED PER PROVIDER ORDERS Sodium Chloride 10 ml 05/13/18 01:00 05/18/18 06:50 Normal Saline Flush 0.9% IVP 10 ml 0100,0900,1700 PAIGE Administration Tizanidine HCl 4 mg 05/17/18 22:00 05/17/18 22:08 Zanaflex PO 4 mg 2200 PAIGE Administration - Lab Result Lab results reviewed: Yes Fish Bone Diagrams: 05/18/18 05:20 05/18/18 05:20 - Diagnostic Imaging Results Diagnostic Imaging Results: Final report reviewed - Additional Planning Condition/Complexity: Guarded My Orders: My Active Orders 05/17/18 22:00 tiZANidine [Zanaflex] 4 mg PO 2200 12/26/18 12:51 AFB CUL & SMEAR #3 ([facility]SDOHL) Urgent 05/19/18 05:00 CBC - COMP BLD CT W/AUTO DIFF [HEME] DAILYLAB CMP, RFLX TO IONIZED CA IF [CHEM] DAILYLAB MAGNESIUM [CHEM] DAILYLAB PHOSPHORUS [CHEM] DAILYLAB 05/20/18 05:00 CBC - COMP BLD CT W/AUTO DIFF [HEME] DAILYLAB CMP, RFLX TO IONIZED CA IF [CHEM] DAILYLAB MAGNESIUM [CHEM] DAILYLAB PHOSPHORUS [CHEM] DAILYLAB 05/21/18 05:00 CBC - COMP BLD CT W/AUTO DIFF [HEME] DAILYLAB CMP, RFLX TO IONIZED CA IF [CHEM] DAILYLAB MAGNESIUM [CHEM] DAILYLAB PHOSPHORUS [CHEM] DAILYLAB Consult/Specialty: Infectious Disease Plan Discussed with:: Patient Time Spent: 31-60 minutes Subjective - Subjective Patient Reports: Cough (Improved), Chest Pain (Improving), Shortness of Breath (Improved), Other (Patient had a fever last night but states it was because she was wearing multiple layers of clothing.) Nursing Reports: No Complaints Objective Vital Signs: Vital Signs - 24 hr 05/17/18 05/17/18 05/17/18 16:00 21:11 22:22 Temperature 36.6 C 36.6 C Heart Rate 82 82 Heart Rate [ 82 Brachial] Respiratory 16 16 16 Rate Blood Pressure [Left Brachial artery] Blood Pressure 91/61 [Right Brachial artery] O2 Saturation 95 95 05/18/18 05/18/18 05/18/18 00:00 04:45 06:48 Temperature 37.7 C H 38.6 C H 37.1 C Heart Rate Heart Rate [ 91 98 Brachial] Respiratory 18 16 Rate Blood Pressure 117/65 [Left Brachial artery] Blood Pressure 110/68 [Right Brachial artery] O2 Saturation 96 98 05/18/18 05/18/18 08:19 13:13 Temperature 36.8 C Heart Rate 84 Heart Rate [ 88 Brachial] Respiratory 18 18 Rate Blood Pressure [Left Brachial artery] Blood Pressure 91/59 L [Right Brachial artery] O2 Saturation 98 Oxygen O2 Source Room air I&O (Last 24 Hrs): Intake and Output Totals x24h 05/16/18 05/17/18 05/18/18 23:59 23:59 23:59 Intake Total 3440 2850 970 Output Total 1600 2000 500 Balance 1840 850 470 General: Alert, Oriented x3, Cooperative, No acute distress, Other (Cachectic appearing) HEENT: Atraumatic, PERRLA, EOMI, Mucous membr. moist/pink Neck: Supple, No JVD, No thyromegaly, +2 carotid pulse wo bruit, No LAD Lymphatic: no adenopathy Neuro: Alert, Non Focal, CN 2-12 Grossly Intact, Oriented Times 3 Cardiovascular: Regular rate, Normal S1, Normal S2, No murmurs Respiratory: No respiratory distress, Wheezes (Improved), Rhonchi (Right upper lobe) Abdomen: Normal bowel sounds, Soft, No tenderness, No hepatospenomegaly Extremities: No clubbing, No cyanosis, No edema, Normal pulses, No tenderness/swelling Skin: No rashes, No breakdown - Results Results: Laboratory Results WBC 6.9 x10^3/uL (4.8-10.8) 05/18/18 05:20 RBC 2.99 10^6/uL (4.20-5.40) L 05/18/18 05:20 Hgb 8.9 g/dL (12.0-16.0) L 05/18/18 05:20 Hct 26.0 % (37.0-47.0) L 05/18/18 05:20 MCV 86.9 fL (81.0-99.0) 05/18/18 05:20 MCH 29.7 pg (27.0-31.0) 05/18/18 05:20 MCHC 34.1 g/dL (32.0-36.0) 05/18/18 05:20 RDW 15.1 % (12.0-15.0) H 05/18/18 05:20 Plt Count 349 10^3/uL (130-450) 05/18/18 05:20 MPV 7.3 fL (7.9-10.8) L 05/18/18 05:20 Neut # (Auto) 5.5 10^3/uL (1.5-6.6) 05/18/18 05:20 Lymph # (Auto) 0.6 10^3/uL (1.5-3.5) L 05/18/18 05:20 [place] # (Auto) 0.6 10^3/uL (0.0-1.0) 05/18/18 05:20 Eos # (Auto) 0.2 10^3/uL (0.0-0.7) 05/18/18 05:20 Baso # (Auto) 0.0 10^3/uL (0.0-0.1) 05/18/18 05:20 Absolute Nucleated RBC 0.00 x10^3/uL 05/18/18 05:20 Nucleated RBC % 0.0 /100WBC 05/18/18 05:20 Sodium 137 mmol/L (135-145) 05/18/18 05:20 Potassium 3.9 mmol/L (3.5-5.0) 05/18/18 05:20 Chloride 98 mmol/L (101-111) L 05/18/18 05:20 Carbon Dioxide 30 mmol/L (21-32) 05/18/18 05:20 Anion Gap 9.0 (6-13) 05/18/18 05:20 BUN 5 mg/dL (6-20) L 05/18/18 05:20 Creatinine 0.8 mg/dL (0.4-1.0) 05/18/18 05:20 Estimated GFR (MDRD) 72 (>89) L 05/18/18 05:20 Glucose 103 mg/dL (70-100) H 05/18/18 05:20 Lactic Acid 1.0 mmol/L (0.5-2.2) 05/12/18 15:57 Calcium 8.7 mg/dL (8.5-10.3) 05/18/18 05:20 Ionized Calcium NO 05/18/18 05:20 Phosphorus 3.1 mg/dL (2.5-4.6) 05/18/18 05:20 Magnesium 2.1 mg/dL (1.7-2.8) 05/18/18 05:20 Iron 14 ug/dL (28-170) L 05/15/18 03:35 TIBC 175 ug/dL (250-450) L 05/15/18 03:35 % Saturation 8 % (20-50) L 05/15/18 03:35 Transferrin 125 mg/dL (192-382) L 05/15/18 03:35 Ferritin 102.7 ng/mL (11.0-306.8) 05/15/18 03:35 Total Bilirubin 0.7 mg/dL (0.2-1.0) 05/18/18 05:20 AST 33 IU/L (10-42) 05/18/18 05:20 ALT 29 IU/L (10-60) 05/18/18 05:20 Alkaline Phosphatase 69 IU/L (42-121) 05/18/18 05:20 Total Protein 6.7 g/dL (6.7-8.2) 05/18/18 05:20 Albumin 2.8 g/dL (3.2-5.5) L 05/18/18 05:20 Globulin 3.9 g/dL (2.1-4.2) 05/18/18 05:20 Albumin/Globulin Ratio 0.7 (1.0-2.2) L 05/18/18 05:20 Lipase 34 U/L (22-51) 05/12/18 15:57 Vitamin B12 5397 pg/mL (180-914) H 05/15/18 03:35 Folate 29.00 ng/mL (5.90 - >24.8) 05/15/18 03:35 Urine Color LT. YELLOW 05/12/18 23:40 Urine Clarity CLEAR (CLEAR) 05/12/18 23:40 Urine pH 6.5 PH (5.0-7.5) 05/12/18 23:40 Ur Specific [place] <=1.005 (1.002-1.030) 05/12/18 23:40 Urine Protein NEGATIVE mg/dL (NEGATIVE) 05/12/18 23:40 Urine Glucose (UA) NEGATIVE mg/dL (NEGATIVE) 05/12/18 23:40 Urine Ketones NEGATIVE mg/dL (NEGATIVE) 05/12/18 23:40 Urine Occult Blood TRACE-LYSE (NEGATIVE) 05/12/18 23:40 Urine Nitrite NEGATIVE (NEGATIVE) 05/12/18 23:40 Urine Bilirubin NEGATIVE (NEGATIVE) 05/12/18 23:40 Urine Urobilinogen 0.2 (NORMAL) E.U./dL (NORMAL) 05/12/18 23:40 Ur Leukocyte Esterase NEGATIVE (NEGATIVE) 05/12/18 23:40 Ur Microscopic Review NOT INDICATED 05/12/18 23:40 Urine Culture Comments NOT INDICATED 05/12/18 23:40 Last Dose Date UNK 05/15/18 03:35 Last Dose Time UNK 05/15/18 03:35 Vancomycin Trough 16.5 ug/mL (10.0-20.0) 05/15/18 03:35 Influenza A (Rapid) Negative (Negative) 05/12/18 15:57 Influenza B (Rapid) Negative (Negative) 05/12/18 15:57 - Procedures Procedures: Procedures PARTIAL HIP REPLACEMENT (08/30/13) ABX Reporting Has patient been on IV antibiotics over the past 48 hours?: Yes Current Medications - Current Medications Current Medications: Active Medications Generic Name Dose Route Start Last Admin Trade Name Freq PRN Reason Stop Dose Admin Acetaminophen 650 mg 05/12/18 20:26 05/18/18 04:41 Tylenol PO 650 mg Q4HR PRN Administration Pain or Fever > 38C (100.4F) Albuterol/Ipratropium 3 ml 05/12/18 20:37 05/17/18 22:22 Duoneb INH 3 ml Q4HR PRN Administration Wheezing Cholecalciferol 5,000 unit 05/13/18 09:00 05/18/18 08:16 Vitamin D3 PO 5,000 unit DAILY PAIGE Administration Ferrous Sulfate 325 mg 05/15/18 08:00 05/18/18 08:16 Feosol PO 325 mg BIDWM PAIGE Administration Gabapentin 800 mg 05/12/18 23:00 05/18/18 06:10 Neurontin PO 800 mg TID PAIGE Administration Guaifenesin 600 mg 05/13/18 09:00 05/18/18 08:16 Mucinex PO 600 mg BID PAIGE Administration Meropenem 1 gm/ Sodium 100 mls @ 200 mls/hr 05/12/18 21:00 05/18/18 06:55 Chloride IV Infused Q8H PAIGE Infusion Vancomycin HCl 1 gm/ Sodium 250 mls @ 167 mls/hr 05/13/18 16:00 05/18/18 06:12 Chloride IV Infused Q12H PAIGE Infusion Magnesium Oxide 400 mg 05/13/18 14:00 05/14/18 09:31 Mag Ox PO 400 mg DAILY PRN Administration CONSTIPATION Multivitamins 1 tab 05/13/18 09:00 05/18/18 08:15 Theragran PO 1 tab DAILY PAIGE Administration Oxycodone HCl 10 mg 05/12/18 20:36 05/18/18 04:42 Roxicodone PO 10 mg Q6H PRN Administration Analgesia Pantoprazole Sodium 40 mg 05/13/18 07:00 05/18/18 06:10 Protonix PO 40 mg QDAC PAIGE Administration (Interferon Beta-1a 1 each 05/13/18 14:00 05/14/18 11:38 [Avonex] 30 Mcg) Inj IM 1 each Q7D PAIGE Administration (Vitamin B Complex [ 1 each 05/13/18 14:00 05/18/18 08:16 B Complete] Tab) PO 1 each DAILY PAIGE Administration Polyethylene Glycol 17 gm 05/13/18 09:00 05/18/18 08:18 Miralax PO Not Given DAILY PAIGE Prochlorperazine Edisylate 10 mg 05/12/18 20:26 Compazine Inj IVP Q6HR PRN Nausea / Vomiting Saccharomyces Boulardii 250 mg 05/13/18 08:00 05/18/18 08:16 Florastor PO 250 mg BIDWM PAIGE Administration Sodium Chloride 10 ml 05/12/18 20:26 05/18/18 06:24 Normal Saline Flush 0.9% IVP 10 ml PRN PRN Administration NEEDED PER PROVIDER ORDERS Sodium Chloride 10 ml 05/13/18 01:00 05/18/18 06:50 Normal Saline Flush 0.9% IVP 10 ml 0100,0900,1700 PAIGE Administration Temazepam 15 mg 05/12/18 20:26 Restoril PO QPM PRN Insomnia Tizanidine HCl 4 mg 05/17/18 22:00 05/17/18 22:08 Zanaflex PO 4 mg 2200 PAIGE Administration Zinc Oxide 113 gm 05/17/18 11:55 Desitin TOP PRN PRN Skin Care Gabapentin [Neurontin] 800 mg PO TID 08/30/13 Interferon Beta-1A [Avonex] 30 mcg IM Q7D 08/30/13 Cholecalciferol (Vitamin D3) [Vitamin D3] 5,000 units PO DAILY 05/13/18 Magnesium 500 mg PO DAILY PRN 05/13/18 Naproxen 250 mg PO DAILY PRN 05/13/18 Neurocet 1 cap PO DAILY 05/13/18 Oxycodone HCl/Acetaminophen [Oxycodone-Acetaminophen 5-325] 0.5 tab PO QPM 05/13/18 Vitamin B Complex 1 tab PO DAILY 05/13/18
[2018-05-18] MEDS ORDERED: SODIUM CHLORIDE FLUSH 0.9% 10 ML SYRINGE ONE (14:51)
[2018-05-18] MEDS ORDERED: MEROPENEM 1 GM in SODIUM CHLORIDE 0.9% MINIBAG 100 ML IV SCH (21:00)
[2018-05-18] MEDS: tiZANidine 4 MG TABLET PO SCH (21:51)
[2018-05-19] MEDS: MEROPENEM 1 GM in SODIUM CHLORIDE 0.9% MINIBAG 100 ML IV SCH ×3 (01:20→16:22)
[2018-05-19] MEDS: SODIUM CHLORIDE FLUSH 0.9% 10 ML SYRINGE IVP SCH ×3 (01:21→16:23)
[2018-05-19] MEDS: GABAPENTIN 400 MG CAPSULE PO SCH ×3 (05:35→22:03)
[2018-05-19] MEDS: oxyCODONE 5 MG TABLET PO PRN ×3 (05:35→20:10)
[2018-05-19] MEDS: PANTOPRAZOLE 40 MG TABLET PO SCH (05:35)
[2018-05-19] MEDS: VANCOMYCIN INJ 1 GM in SODIUM CHLORIDE 0.9% 250 ML IV SCH ×2 (05:36→18:15)
[2018-05-19] MEDS: SODIUM CHLORIDE FLUSH 0.9% 10 ML SYRINGE IVP PRN (05:37)
[2018-05-19 06:05] LABS: BASOPHILS % (AUTO) 0.6 %; EOSINOPHILS # (AUTO) 0.2 10^3/uL (0.0-0.7); EOSINOPHILS % (AUTO) 3.6 %; HGB - HEMOGLOBIN 10.6 g/dL (12.0-16.0); LYMPHOCYTES # (AUTO) 0.8 10^3/uL (1.5-3.5); LYMPHOCYTES % (AUTO) 13.8 %; MEAN CORPUSCULAR HEMOGLOBIN 28.6 pg (27.0-31.0); MEAN CORPUSCULAR HGB CONC 32.2 g/dL (32.0-36.0); MEAN CORPUSCULAR VOLUME 88.8 fL (81.0-99.0); MEAN PLATELET VOLUME 7.6 fL (7.9-10.8); MONOCYTES # (AUTO) 0.4 10^3/uL (0.0-1.0); MONOCYTES % (AUTO) 7.5 %; NEUTROPHILS # (AUTO) 4.4 10^3/uL (1.5-6.6); NEUTROPHILS % (AUTO) 74.5 %; PLT - PLATELET COUNT 466 10^3/uL (130-450); WHITE BLOOD COUNT 5.9 x10^3/uL (4.8-10.8)
[2018-05-19 06:17] LABS: ALBUMIN/GLOBULIN RATIO 0.6 (1.0-2.2); ALKALINE PHOSPHATASE 74 IU/L (42-121); ALT ALANINE AMINOTRANSFERASE 29 IU/L (10-60); AST ASPARTATE AMINOTRANSFERASE 32 IU/L (10-42); BILIRUBIN,TOTAL < 0.2 mg/dL (0.2-1.0); BUN - BLOOD UREA NITROGEN 5 mg/dL (6-20); CALCIUM 8.9 mg/dL (8.5-10.3); CARBON DIOXIDE - CO2 32 mmol/L (21-32); CHLORIDE 99 mmol/L (101-111); CREATININE 0.7 mg/dL (0.4-1.0); GFR - MDRD 85 (>89); GLUCOSE 92 mg/dL (70-100); MAGNESIUM 2.5 mg/dL (1.7-2.8); PHOSPHORUS 2.9 mg/dL (2.5-4.6); SODIUM 140 mmol/L (135-145); TOTAL PROTEIN 7.9 g/dL (6.7-8.2)
[2018-05-19] MEDS ORDERED: oxyCODONE 5 MG TABLET PO PRN (07:28)
[2018-05-19] MEDS: FERROUS SULFATE 325 MG TABLET PO SCH ×2 (08:34→16:23)
[2018-05-19] MEDS: MULTIVITAMIN TABLET PO SCH (08:34)
[2018-05-19] MEDS: CHOLECALCIFEROL 5,000 UNIT CAPSULE PO SCH (08:34)
[2018-05-19] MEDS: guaiFENesin 600 MG TABLET PO SCH ×2 (08:34→20:09)
[2018-05-19] MEDS: SACCHAROMYCES BOULARDII 250 MG CAPSULE PO SCH ×2 (08:34→16:23)
[2018-05-19] MEDS: VITAMIN B COMPLEX PO SCH (08:35)
[2018-05-19] MEDS: SODIUM CHLORIDE 0.9% 1,000 ML IV SCH (08:45)
[2018-05-19] MEDS: POLYETHYLENE GLYCOL 3350 17 GM PACKET PO SCH (08:49)
--- NOTE | 2018-05-19 10:36 | PROVIDER PROGRESS NOTE ---
Assessment/Plan - Problem List (1) Cavitating mass in right upper lung lobe Assessment/Plan: Patient presented with 6 days of fevers, cough, hemoptysis and night sweats. The patient has also been having frequent falls and has 10 pound weight loss. The patient's chest x-ray and CT scan showed a right cavitary mass with surrounding air bronchograms and right-sided lymph nodes. This finding was concerning for possibility of tuberculosis. Patient could also have possible lung abscess, lung infection or cancer. Patient was admitted to the medical hein under negative pressure isolation for rule out of TB and treatment with IV antibiotics for possible pneumonia. The patient has travelled to the [facility] and therefore could have been exposed to TB. No fevers last night, she feels better Improving with decreased cough, decreased chest pain and improving shortness of breath Negative pressure isolation Broad-spectrum IV antibiotics with vancomycin and meropenem day 7 Infectious disease was consulted via telephone at the [facility] and recommended that we do not stop the patient's treatment for multiple sclerosis as it is not an immunosuppressive agent. They agreed with getting AFB testing and continuing broad-spectrum antibiotics. They recommended transfer for a bronchoscopy if AFBs were negative. First AFB is negative from 05/13/18 awaiting 2 more AFBs before she is consid ered negative for TB. Resp cx growing chris sp which is usually not an invasive organism when seen in sputum and treatment not indicated 2nd and 3rd AFB sample were handled improperly and therefore were void. They were suppose to be refrigerated in the lab but were not. Two sputum samples were sent for AFB testing yesterday and we should have the results in 1-2 days. (2) Cavitary pneumonia Assessment/Plan: Patient presented with fever, shortness of breath, cough, hemoptysis, weight loss, night sweats and had a cavitary lesion in the right upper lobe on her chest x-ray and CT. There was air bronchograms surrounding the cavitary lesion concerning for possible infection. Patient had a leukocytosis and fever on presentation. Given these findings patient will be treated for presumed pneumonia with broad-spectrum antibiotics and will undergo testing for TB. Fever last night Patient improving clinically Plan: IV antibiotics with vancomycin and meropenem day 7 AFB testing x3 If AFB testing is negative patient will need bronchoscopy and will need to be transferred. Repeat CXR if testing is negative (3) Asthma Qualifiers: Asthma severity: mild Asthma persistence: intermittent Asthma complication type: with acute exacerbation Qualified Code(s): J45.21 - Mild intermittent asthma with (acute) exacerbation Assessment/Plan: Patient has asthma exacerbation secondary to ongoing cavitary pneumonia. Stable On duonebs prn and IV abx (4) Multiple sclerosis Assessment/Plan: The patient has a history of multiple sclerosis and is on Avonex at home. After discussion with infectious disease it was decided to continue medication while she was hospitalized. Infectious disease did not feel that this is a immunosuppressive medication. They were also concerned that in the setting of infection multiple sclerosis can worsen. This is likely why patient has been having multiple falls over the last week as she likely has worsening of her multiple sclerosis with ongoing infection. For now we will continue the patient's Avenox once a week. Stable (5) Hypokalemia Assessment/Plan: Resolved (6) Anemia Assessment/Plan: Patient has iron deficiency anemia with iron of 14 On iron supplement BID Hb is 10.6 Hemoptysis resolved Monitor Hb It will likely take 1-2 days more to get the AFB testing back. - Current Meds Current Meds: Current Medications Generic Name Dose Route Start Last Admin Trade Name Freq PRN Reason Stop Dose Admin Acetaminophen 650 mg 05/12/18 20:26 05/18/18 21:50 Tylenol PO 650 mg Q4HR PRN Administration Pain or Fever > 38C (100.4F) Albuterol/Ipratropium 3 ml 05/12/18 20:37 05/17/18 22:22 Duoneb INH 3 ml Q4HR PRN Administration Wheezing Cholecalciferol 5,000 unit 05/13/18 09:00 05/19/18 08:34 Vitamin D3 PO 5,000 unit DAILY PAIGE Administration Ferrous Sulfate 325 mg 05/15/18 08:00 05/19/18 08:34 Feosol PO 325 mg BIDWM PAIGE Administration Gabapentin 800 mg 05/12/18 23:00 05/19/18 05:35 Neurontin PO 800 mg TID PAIGE Administration Guaifenesin 600 mg 05/13/18 09:00 05/19/18 08:34 Mucinex PO 600 mg BID PAIGE Administration Meropenem 1 gm/ Sodium 100 mls @ 200 mls/hr 05/19/18 00:00 05/19/18 09:15 Chloride IV Infused Q8H PAIGE Infusion Vancomycin HCl 1 gm/ Sodium 250 mls @ 167 mls/hr 05/18/18 17:00 05/19/18 07:10 Chloride IV Infused Q12H PAIGE Infusion Sodium Chloride 1,000 mls @ 0 mls/hr 05/19/18 09:00 05/19/18 08:45 Normal Saline 0.9% IV 20 mls/hr .Q0M PAIGE Administration TKO Magnesium Oxide 400 mg 05/13/18 14:00 05/14/18 09:31 Mag Ox PO 400 mg DAILY PRN Administration CONSTIPATION Multivitamins 1 tab 05/13/18 09:00 05/19/18 08:34 Theragran PO 1 tab DAILY PAIGE Administration Pantoprazole Sodium 40 mg 05/13/18 07:00 05/19/18 05:35 Protonix PO 40 mg QDAC PAIGE Administration (Interferon Beta-1a 1 each 05/13/18 14:00 05/14/18 11:38 [Avonex] 30 Mcg) Inj IM 1 each Q7D PAIGE Administration (Vitamin B Complex [ 1 each 05/13/18 14:00 05/19/18 08:35 B Complete] Tab) PO 1 each DAILY PAIGE Administration Polyethylene Glycol 17 gm 05/13/18 09:00 05/19/18 08:49 Miralax PO 17 gm DAILY PAIGE Administration Saccharomyces Boulardii 250 mg 05/13/18 08:00 05/19/18 08:34 Florastor PO 250 mg BIDWM PAIGE Administration Sodium Chloride 10 ml 05/12/18 20:26 05/19/18 05:37 Normal Saline Flush 0.9% IVP 10 ml PRN PRN Administration NEEDED PER PROVIDER ORDERS Sodium Chloride 10 ml 05/13/18 01:00 05/19/18 08:46 Normal Saline Flush 0.9% IVP Not Given 0100,0900,1700 PAIGE Tizanidine HCl 4 mg 05/17/18 22:00 05/18/18 21:51 Zanaflex PO 4 mg 2200 PAIGE Administration - Lab Result Lab results reviewed: Yes Fish Bone Diagrams: 05/19/18 05:40 05/19/18 05:40 - Diagnostic Imaging Results Diagnostic Imaging Results: Final report reviewed - Additional Planning Condition/Complexity: Improved My Orders: My Active Orders 05/18/18 12:57 CUL, AFB MYCOBACTERIA ([facility]) [REFLAB] Urgent 05/18/18 17:00 Vancomycin Inj [Vancomycin] 1 gm Sodium Chloride 0.9% [Normal Saline 0.9%] 250 ml IV Q12H 05/19/18 07:47 oxyCODONE [Roxicodone] 5 - 10 mg PO Q6HR PRN 05/19/18 09:00 Sodium Chloride 0.9% [Normal Saline 0.9%] 1,000 ml IV TKO 05/20/18 05:00 CBC - COMP BLD CT W/AUTO DIFF [HEME] DAILYLAB CMP, RFLX TO IONIZED CA IF [CHEM] DAILYLAB MAGNESIUM [CHEM] DAILYLAB PHOSPHORUS [CHEM] DAILYLAB 05/21/18 05:00 CBC - COMP BLD CT W/AUTO DIFF [HEME] DAILYLAB CMP, RFLX TO IONIZED CA IF [CHEM] DAILYLAB MAGNESIUM [CHEM] DAILYLAB PHOSPHORUS [CHEM] DAILYLAB Plan Discussed with:: Patient Time Spent: 31-60 minutes Subjective - Subjective Patient Reports: Feeling Better, Resting Comfortably, Cough (Improved with no further hemoptysis), Shortness of Breath (Improved), Other (No fevers overnight) Nursing Reports: No Complaints Objective Vital Signs: Vital Signs - 24 hr 05/18/18 05/18/18 05/18/18 13:13 15:52 22:22 Temperature 36.4 C L Heart Rate 84 84 Heart Rate [ 82 Brachial] Respiratory 18 18 18 Rate Blood Pressure 115/69 [Right Brachial artery] O2 Saturation 96 05/19/18 05/19/18 00:00 01:33 Temperature 36.8 C 36.6 C Heart Rate Heart Rate [ 78 73 Brachial] Respiratory 18 18 Rate Blood Pressure 90/60 100/58 L [Right Brachial artery] O2 Saturation 93 95 Oxygen O2 Source Room air I&O (Last 24 Hrs): Intake and Output Totals x24h 05/17/18 05/18/18 05/19/18 23:59 23:59 23:59 Intake Total 2850 2360 1150 Output Total 2000 500 1500 Balance 850 1860 -350 General: Alert, Oriented x3, Cooperative, No acute distress, Other (cachectic appearing) HEENT: Atraumatic, PERRLA, EOMI, Mucous membr. moist/pink Neck: Supple, No JVD, No thyromegaly, +2 carotid pulse wo bruit, No LAD Lymphatic: no adenopathy Neuro: Alert, Non Focal, CN 2-12 Grossly Intact, Oriented Times 3 Cardiovascular: Regular rate, Normal S1, Normal S2, No murmurs Respiratory: Chest non-tender, No respiratory distress, Rhonchi (Right upper lung) Abdomen: Normal bowel sounds, Soft, No tenderness, No hepatospenomegaly Extremities: No clubbing, No cyanosis, No edema, Normal pulses Skin: No rashes, No breakdown - Results Results: Laboratory Results WBC 5.9 x10^3/uL (4.8-10.8) 05/19/18 05:40 RBC 3.70 10^6/uL (4.20-5.40) L 05/19/18 05:40 Hgb 10.6 g/dL (12.0-16.0) L 05/19/18 05:40 Hct 32.9 % (37.0-47.0) L 05/19/18 05:40 MCV 88.8 fL (81.0-99.0) 05/19/18 05:40 MCH 28.6 pg (27.0-31.0) 05/19/18 05:40 MCHC 32.2 g/dL (32.0-36.0) 05/19/18 05:40 RDW 15.0 % (12.0-15.0) 05/19/18 05:40 Plt Count 466 10^3/uL (130-450) H 05/19/18 05:40 MPV 7.6 fL (7.9-10.8) L 05/19/18 05:40 Neut # (Auto) 4.4 10^3/uL (1.5-6.6) 05/19/18 05:40 Lymph # (Auto) 0.8 10^3/uL (1.5-3.5) L 05/19/18 05:40 [place] # (Auto) 0.4 10^3/uL (0.0-1.0) 05/19/18 05:40 Eos # (Auto) 0.2 10^3/uL (0.0-0.7) 05/19/18 05:40 Baso # (Auto) 0.0 10^3/uL (0.0-0.1) 05/19/18 05:40 Absolute Nucleated RBC 0.00 x10^3/uL 05/19/18 05:40 Nucleated RBC % 0.0 /100WBC 05/19/18 05:40 Sodium 140 mmol/L (135-145) 05/19/18 05:40 Potassium 3.9 mmol/L (3.5-5.0) 05/19/18 05:40 Chloride 99 mmol/L (101-111) L 05/19/18 05:40 Carbon Dioxide 32 mmol/L (21-32) 05/19/18 05:40 Anion Gap 9.0 (6-13) 05/19/18 05:40 BUN 5 mg/dL (6-20) L 05/19/18 05:40 Creatinine 0.7 mg/dL (0.4-1.0) 05/19/18 05:40 Estimated GFR (MDRD) 85 (>89) L 05/19/18 05:40 Glucose 92 mg/dL (70-100) 05/19/18 05:40 Lactic Acid 1.0 mmol/L (0.5-2.2) 05/12/18 15:57 Calcium 8.9 mg/dL (8.5-10.3) 05/19/18 05:40 Ionized Calcium NO 05/19/18 05:40 Phosphorus 2.9 mg/dL (2.5-4.6) 05/19/18 05:40 Magnesium 2.5 mg/dL (1.7-2.8) 05/19/18 05:40 Iron 14 ug/dL (28-170) L 05/15/18 03:35 TIBC 175 ug/dL (250-450) L 05/15/18 03:35 % Saturation 8 % (20-50) L 05/15/18 03:35 Transferrin 125 mg/dL (192-382) L 05/15/18 03:35 Ferritin 102.7 ng/mL (11.0-306.8) 05/15/18 03:35 Total Bilirubin < 0.2 mg/dL (0.2-1.0) L 05/19/18 05:40 AST 32 IU/L (10-42) 05/19/18 05:40 ALT 29 IU/L (10-60) 05/19/18 05:40 Alkaline Phosphatase 74 IU/L (42-121) 05/19/18 05:40 Total Protein 7.9 g/dL (6.7-8.2) 05/19/18 05:40 Albumin 3.0 g/dL (3.2-5.5) L 05/19/18 05:40 Globulin 4.9 g/dL (2.1-4.2) H 05/19/18 05:40 Albumin/Globulin Ratio 0.6 (1.0-2.2) L 05/19/18 05:40 Lipase 34 U/L (22-51) 05/12/18 15:57 Vitamin B12 5397 pg/mL (180-914) H 05/15/18 03:35 Folate 29.00 ng/mL (5.90 - >24.8) 05/15/18 03:35 Urine Color LT. YELLOW 05/12/18 23:40 Urine Clarity CLEAR (CLEAR) 05/12/18 23:40 Urine pH 6.5 PH (5.0-7.5) 05/12/18 23:40 Ur Specific [place] <=1.005 (1.002-1.030) 05/12/18 23:40 Urine Protein NEGATIVE mg/dL (NEGATIVE) 05/12/18 23:40 Urine Glucose (UA) NEGATIVE mg/dL (NEGATIVE) 05/12/18 23:40 Urine Ketones NEGATIVE mg/dL (NEGATIVE) 05/12/18 23:40 Urine Occult Blood TRACE-LYSE (NEGATIVE) 05/12/18 23:40 Urine Nitrite NEGATIVE (NEGATIVE) 05/12/18 23:40 Urine Bilirubin NEGATIVE (NEGATIVE) 05/12/18 23:40 Urine Urobilinogen 0.2 (NORMAL) E.U./dL (NORMAL) 05/12/18 23:40 Ur Leukocyte Esterase NEGATIVE (NEGATIVE) 05/12/18 23:40 Ur Microscopic Review NOT INDICATED 05/12/18 23:40 Urine Culture Comments NOT INDICATED 05/12/18 23:40 Last Dose Date UNK 05/15/18 03:35 Last Dose Time UNK 05/15/18 03:35 Vancomycin Trough 16.5 ug/mL (10.0-20.0) 05/15/18 03:35 Influenza A (Rapid) Negative (Negative) 05/12/18 15:57 Influenza B (Rapid) Negative (Negative) 05/12/18 15:57 - Procedures Procedures: Procedures PARTIAL HIP REPLACEMENT (08/30/13) ABX Reporting Has patient been on IV antibiotics over the past 48 hours?: Yes Current Medications - Current Medications Current Medications: Active Medications Generic Name Dose Route Start Last Admin Trade Name Freq PRN Reason Stop Dose Admin Acetaminophen 650 mg 05/12/18 20:26 05/18/18 21:50 Tylenol PO 650 mg Q4HR PRN Administration Pain or Fever > 38C (100.4F) Albuterol/Ipratropium 3 ml 05/12/18 20:37 05/17/18 22:22 Duoneb INH 3 ml Q4HR PRN Administration Wheezing Cholecalciferol 5,000 unit 05/13/18 09:00 05/19/18 08:34 Vitamin D3 PO 5,000 unit DAILY PAIGE Administration Ferrous Sulfate 325 mg 05/15/18 08:00 05/19/18 08:34 Feosol PO 325 mg BIDWM PAIGE Administration Gabapentin 800 mg 05/12/18 23:00 05/19/18 05:35 Neurontin PO 800 mg TID PAIGE Administration Guaifenesin 600 mg 05/13/18 09:00 05/19/18 08:34 Mucinex PO 600 mg BID PAIGE Administration Meropenem 1 gm/ Sodium 100 mls @ 200 mls/hr 05/19/18 00:00 05/19/18 09:15 Chloride IV Infused Q8H PAIGE Infusion Vancomycin HCl 1 gm/ Sodium 250 mls @ 167 mls/hr 05/18/18 17:00 05/19/18 07:10 Chloride IV Infused Q12H PAIGE Infusion Sodium Chloride 1,000 mls @ 0 mls/hr 05/19/18 09:00 05/19/18 08:45 Normal Saline 0.9% IV 20 mls/hr .Q0M PAIGE Administration TKO Magnesium Oxide 400 mg 05/13/18 14:00 05/14/18 09:31 Mag Ox PO 400 mg DAILY PRN Administration CONSTIPATION Multivitamins 1 tab 05/13/18 09:00 05/19/18 08:34 Theragran PO 1 tab DAILY PAIGE Administration Oxycodone HCl 5 - 10 mg 05/19/18 07:47 Roxicodone PO Q6HR PRN PAIN Pantoprazole Sodium 40 mg 05/13/18 07:00 05/19/18 05:35 Protonix PO 40 mg QDAC PAIGE Administration (Interferon Beta-1a 1 each 05/13/18 14:00 05/14/18 11:38 [Avonex] 30 Mcg) Inj IM 1 each Q7D PAIGE Administration (Vitamin B Complex [ 1 each 05/13/18 14:00 05/19/18 08:35 B Complete] Tab) PO 1 each DAILY PAIGE Administration Polyethylene Glycol 17 gm 05/13/18 09:00 05/19/18 08:49 Miralax PO 17 gm DAILY PAIGE Administration Prochlorperazine Edisylate 10 mg 05/12/18 20:26 Compazine Inj IVP Q6HR PRN Nausea / Vomiting Saccharomyces Boulardii 250 mg 05/13/18 08:00 05/19/18 08:34 Florastor PO 250 mg BIDWM PAIGE Administration Sodium Chloride 10 ml 05/12/18 20:26 05/19/18 05:37 Normal Saline Flush 0.9% IVP 10 ml PRN PRN Administration NEEDED PER PROVIDER ORDERS Sodium Chloride 10 ml 05/13/18 01:00 05/19/18 08:46 Normal Saline Flush 0.9% IVP Not Given 0100,0900,1700 PAIGE Temazepam 15 mg 05/12/18 20:26 Restoril PO QPM PRN Insomnia Tizanidine HCl 4 mg 05/17/18 22:00 05/18/18 21:51 Zanaflex PO 4 mg 2200 PAIGE Administration Zinc Oxide 113 gm 05/17/18 11:55 Desitin TOP PRN PRN Skin Care Gabapentin [Neurontin] 800 mg PO TID 08/30/13 Interferon Beta-1A [Avonex] 30 mcg IM Q7D 08/30/13 Cholecalciferol (Vitamin D3) [Vitamin D3] 5,000 units PO DAILY 05/13/18 Magnesium 500 mg PO DAILY PRN 05/13/18 Naproxen 250 mg PO DAILY PRN 05/13/18 Neurocet 1 cap PO DAILY 05/13/18 Oxycodone HCl/Acetaminophen [Oxycodone-Acetaminophen 5-325] 0.5 tab PO QPM 05/13/18 Vitamin B Complex 1 tab PO DAILY 05/13/18
[2018-05-19] MEDS: ACETAMINOPHEN 325 MG TABLET PO PRN ×2 (13:53→20:10)
[2018-05-19] MEDS: IPRATROPIUM/ALBUTEROL 3 ML NEB INH PRN (18:55)
[2018-05-19] MEDS: tiZANidine 4 MG TABLET PO SCH (22:03)
[2018-05-20] MEDS: MEROPENEM 1 GM in SODIUM CHLORIDE 0.9% MINIBAG 100 ML IV SCH ×2 (00:28→09:19)
[2018-05-20] MEDS ORDERED: SODIUM CHLORIDE 0.9% 500 ML IV ONE (00:54)
[2018-05-20] MEDS: SODIUM CHLORIDE FLUSH 0.9% 10 ML SYRINGE IVP SCH ×3 (02:44→17:26)
[2018-05-20] MEDS: VANCOMYCIN INJ 1 GM in SODIUM CHLORIDE 0.9% 250 ML IV SCH (04:59)
[2018-05-20 05:56] LABS: BASOPHILS % (AUTO) 0.6 %; EOSINOPHILS # (AUTO) 0.2 10^3/uL (0.0-0.7); EOSINOPHILS % (AUTO) 2.5 %; HGB - HEMOGLOBIN 9.7 g/dL (12.0-16.0); LYMPHOCYTES # (AUTO) 0.5 10^3/uL (1.5-3.5); LYMPHOCYTES % (AUTO) 7.1 %; MEAN CORPUSCULAR HEMOGLOBIN 28.7 pg (27.0-31.0); MEAN CORPUSCULAR HGB CONC 32.6 g/dL (32.0-36.0); MEAN CORPUSCULAR VOLUME 88.3 fL (81.0-99.0); MEAN PLATELET VOLUME 7.4 fL (7.9-10.8); MONOCYTES # (AUTO) 0.6 10^3/uL (0.0-1.0); MONOCYTES % (AUTO) 8.1 %; NEUTROPHILS # (AUTO) 5.7 10^3/uL (1.5-6.6); NEUTROPHILS % (AUTO) 81.7 %; PLT - PLATELET COUNT 454 10^3/uL (130-450); RED BLOOD COUNT 3.38 10^6/uL (4.20-5.40)
[2018-05-20] MEDS: PANTOPRAZOLE 40 MG TABLET PO SCH (06:06)
[2018-05-20] MEDS: GABAPENTIN 400 MG CAPSULE PO SCH ×3 (06:07→20:56)
[2018-05-20 06:13] LABS: ALBUMIN 2.8 g/dL (3.2-5.5); ALBUMIN/GLOBULIN RATIO 0.7 (1.0-2.2); ALKALINE PHOSPHATASE 65 IU/L (42-121); ALT ALANINE AMINOTRANSFERASE 23 IU/L (10-60); AST ASPARTATE AMINOTRANSFERASE 24 IU/L (10-42); BILIRUBIN,TOTAL 0.6 mg/dL (0.2-1.0); BUN - BLOOD UREA NITROGEN 5 mg/dL (6-20); CALCIUM 8.6 mg/dL (8.5-10.3); CARBON DIOXIDE - CO2 30 mmol/L (21-32); CHLORIDE 99 mmol/L (101-111); CREATININE 0.7 mg/dL (0.4-1.0); GFR - MDRD 85 (>89); GLUCOSE 95 mg/dL (70-100); MAGNESIUM 2.2 mg/dL (1.7-2.8); PHOSPHORUS 2.3 mg/dL (2.5-4.6); SODIUM 137 mmol/L (135-145); TOTAL PROTEIN 6.9 g/dL (6.7-8.2)
[2018-05-20] MEDS: FERROUS SULFATE 325 MG TABLET PO SCH ×2 (09:15→17:29)
[2018-05-20] MEDS: MULTIVITAMIN TABLET PO SCH (09:16)
[2018-05-20] MEDS: VITAMIN B COMPLEX PO SCH (09:16)
[2018-05-20] MEDS: oxyCODONE 5 MG TABLET PO PRN ×2 (09:17→20:11)
[2018-05-20] MEDS: CHOLECALCIFEROL 5,000 UNIT CAPSULE PO SCH (09:17)
[2018-05-20] MEDS: guaiFENesin 600 MG TABLET PO SCH ×2 (09:17→20:56)
[2018-05-20] MEDS: SACCHAROMYCES BOULARDII 250 MG CAPSULE PO SCH ×2 (09:17→20:13)
[2018-05-20] MEDS: POLYETHYLENE GLYCOL 3350 17 GM PACKET PO SCH (09:21)
[2018-05-20] MEDS: ACETAMINOPHEN 325 MG TABLET PO PRN ×3 (11:01→20:04)
[2018-05-20] MEDS: NEUTRA-PHOS 250 MG TABLET PO SCH ×2 (11:48→17:29)
--- NOTE | 2018-05-20 14:20 | PROVIDER PROGRESS NOTE ---
Assessment/Plan - Problem List (1) Cavitating mass in right upper lung lobe Assessment/Plan: Patient presented with 6 days of fevers, cough, hemoptysis and night sweats. The patient has also been having frequent falls and has 10 pound weight loss. The patient's chest x-ray and CT scan showed a right cavitary mass with surrounding air bronchograms and right-sided lymph nodes. This finding was concerning for possibility of tuberculosis. Patient could also have possible lung abscess, lung infection or cancer. Patient was admitted to the medical hein under negative pressure isolation for rule out of TB and treatment with IV antibiotics for possible pneumonia. The patient has travelled to the [facility] and therefore could have been exposed to TB. Improving Improving with decreased cough, decreased chest pain and improving shortness of breath Negative pressure isolation Broad-spectrum IV antibiotics with vancomycin and meropenem day 8 Infectious disease was consulted via telephone at the [facility] and recommended that we do not stop the patient's treatment for multiple sclero sis as it is not an immunosuppressive agent. They agreed with getting AFB testing and continuing broad-spectrum antibiotics. They recommended transfer for a bronchoscopy if AFBs were negative. First AFB is negative from 05/13/18 awaiting 2 more AFBs before she is considered negative for TB. Resp cx growing chris sp which is usually not an invasive organism when seen in sputum and treatment not indicated 2nd and 3rd AFB sample were handled improperly and therefore were void. They were suppose to be refrigerated in the lab but were not. Now have 2 negative AFBs need one more to rule out TB will likely have by this evening or tomorrow and then will call ID at for further recommendations (2) Cavitary pneumonia Assessment/Plan: Patient presented with fever, shortness of breath, cough, hemoptysis, weight loss, night sweats and had a cavitary lesion in the right upper lobe on her chest x-ray and CT. There was air bronchograms surrounding the cavitary lesion concerning for possible infection. Patient had a leukocytosis and fever on presentation. Given these findings patient will be treated for presumed pneumonia with broad-spectrum antibiotics and will undergo testing for TB. Fever last night Patient improving clinically Plan: IV antibiotics with vancomycin and meropenem day 8 AFB testing x3 If AFB testing is negative patient will need bronchoscopy and will need to be transferred. AFB negative x2 Repeat CXR if testing is negative (3) Asthma Qualifiers: Asthma severity: mild Asthma persistence: intermittent Asthma complication type: with acute exacerbation Qualified Code(s): J45.21 - Mild intermittent asthma with (acute) exacerbation Assessment/Plan: Patient has asthma exacerbation secondary to ongoing cavitary pneumonia. Stable On duonebs prn and IV abx (4) Multiple sclerosis Assessment/Plan: The patient has a history of multiple sclerosis and is on Avonex at home. After discussion with infectious disease it was decided to continue medication while she was hospitalized. Infectious disease did not feel that this is a i mmunosuppressive medication. They were also concerned that in the setting of infection multiple sclerosis can worsen. This is likely why patient has been having multiple falls over the last week as she likely has worsening of her multiple sclerosis with ongoing infection. For now we will continue the patient's Avenox once a week. Stable (5) Hypokalemia Assessment/Plan: Resolved (6) Anemia Assessment/Plan: Patient has iron deficiency anemia with iron of 14 On iron supplement BID Hb is 9.7 Hemoptysis resolved Monitor Hb - Current Meds Current Meds: Current Medications Generic Name Dose Route Start Last Admin Trade Name Freq PRN Reason Stop Dose Admin Acetaminophen 650 mg 05/12/18 20:26 05/20/18 11:01 Tylenol PO 650 mg Q4HR PRN Administration Pain or Fever > 38C (100.4F) Albuterol/Ipratropium 3 ml 05/12/18 20:37 05/19/18 18:55 Duoneb INH 3 ml Q4HR PRN Administration Wheezing Cholecalciferol 5,000 unit 05/13/18 09:00 05/20/18 09:17 Vitamin D3 PO 5,000 unit DAILY PAIGE Administration Ferrous Sulfate 325 mg 05/15/18 08:00 05/20/18 09:15 Feosol PO 325 mg BIDWM PAIGE Administration Gabapentin 800 mg 05/12/18 23:00 05/20/18 13:56 Neurontin PO 800 mg TID PAIGE Administration Guaifenesin 600 mg 05/13/18 09:00 05/20/18 09:17 Mucinex PO 600 mg BID PAIGE Administration Meropenem 1 gm/ Sodium 100 mls @ 200 mls/hr 05/19/18 00:00 05/20/18 10:41 Chloride IV Infused Q8H PAIGE Infusion Vancomycin HCl 1 gm/ Sodium 250 mls @ 167 mls/hr 05/18/18 17:00 05/20/18 06:29 Chloride IV Infused Q12H PAIGE Infusion Sodium Chloride 1,000 mls @ 0 mls/hr 05/19/18 09:00 05/20/18 06:29 Normal Saline 0.9% IV 20 mls/hr .Q0M PAIGE Infusion TKO Magnesium Oxide 400 mg 05/13/18 14:00 05/14/18 09:31 Mag Ox PO 400 mg DAILY PRN Administration CONSTIPATION Multivitamins 1 tab 05/13/18 09:00 05/20/18 09:16 Theragran PO 1 tab DAILY PAIGE Administration Oxycodone HCl 5 - 10 mg 05/19/18 07:47 05/20/18 09:17 Roxicodone PO 10 mg Q6HR PRN Administration PAIN Pantoprazole Sodium 40 mg 05/13/18 07:00 05/20/18 06:06 Protonix PO 40 mg QDAC PAIGE Administration (Interferon Beta-1a 1 each 05/13/18 14:00 05/14/18 11:38 [Avonex] 30 Mcg) Inj IM 1 each Q7D PAIGE Administration (Vitamin B Complex [ 1 each 05/13/18 14:00 05/20/18 09:16 B Complete] Tab) PO 1 each DAILY PAIGE Administration Polyethylene Glycol 17 gm 05/13/18 09:00 05/20/18 09:21 Miralax PO Not Given DAILY PAIGE Saccharomyces Boulardii 250 mg 05/13/18 08:00 05/20/18 09:17 Florastor PO 250 mg BIDWM PAIGE Administration Sodium Chloride 10 ml 05/12/18 20:26 05/19/18 05:37 Normal Saline Flush 0.9% IVP 10 ml PRN PRN Administration NEEDED PER PROVIDER ORDERS Sodium Chloride 10 ml 05/13/18 01:00 05/20/18 02:44 Normal Saline Flush 0.9% IVP Not Given 0100,0900,1700 PAIGE Sodium Phosphate 250 mg 05/20/18 12:00 05/20/18 11:48 K-Phos Neutral PO 250 mg TIDWM PAIGE Administration Tizanidine HCl 4 mg 05/17/18 22:00 05/19/18 22:03 Zanaflex PO 4 mg 2200 PAIGE Administration - Lab Result Lab results reviewed: Yes Fish Bone Diagrams: 05/20/18 05:35 05/20/18 05:35 - Diagnostic Imaging Results Diagnostic Imaging Results: Final report reviewed - Additional Planning Condition/Complexity: Guarded My Orders: My Active Orders 05/20/18 12:00 Neutra-Phos [K-Phos Neutral] 250 mg PO TIDWM 05/21/18 05:00 CBC - COMP BLD CT W/AUTO DIFF [HEME] DAILYLAB CMP, RFLX TO IONIZED CA IF [CHEM] DAILYLAB MAGNESIUM [CHEM] DAILYLAB PHOSPHORUS [CHEM] DAILYLAB Plan Discussed with:: Patient Time Spent: 31-60 minutes Subjective - Subjective Patient Reports: Cough (Improved), Chest Pain (Improved), Shortness of Breath (Improved) Nursing Reports: No Complaints Objective Vital Signs: Vital Signs - 24 hr 05/19/18 05/19/18 05/19/18 16:00 18:57 23:33 Temperature 36.6 C 36.3 C L Heart Rate 90 Heart Rate [ 73 69 Brachial] Respiratory 20 18 16 Rate Blood Pressure 93/64 [Left Brachial artery] Blood Pressure 81/49 L [Right Brachial artery] O2 Saturation 96 93 05/20/18 05/20/18 05/20/18 01:15 02:12 08:20 Temperature 36.6 C Heart Rate Heart Rate [ 76 72 94 Brachial] Respiratory 18 20 Rate Blood Pressure [Left Brachial artery] Blood Pressure 94/67 111/61 116/64 [Right Brachial artery] O2 Saturation 99 93 05/20/18 10:04 Temperature Heart Rate 98 Heart Rate [ Brachial] Respiratory 18 Rate Blood Pressure [Left Brachial artery] Blood Pressure [Right Brachial artery] O2 Saturation Oxygen O2 Source Room air I&O (Last 24 Hrs): Intake and Output Totals x24h 05/18/18 05/19/18 05/20/18 23:59 23:59 23:59 Intake Total 2360 3480 2525.000 Output Total 500 1500 1500 Balance 1860 1980 1025.000 General: Alert, Oriented x3, Cooperative, Other (cachectic) HEENT: Atraumatic, PERRLA, EOMI, Mucous membr. moist/pink Neck: Supple, No JVD, No thyromegaly, +2 carotid pulse wo bruit, No LAD Lymphatic: no adenopathy Neuro: Alert, Non Focal, CN 2-12 Grossly Intact, Oriented Times 3 Cardiovascular: Regular rate, Normal S1, Normal S2, No murmurs Respiratory: Chest non-tender, No respiratory distress, Breath sounds nml Abdomen: Normal bowel sounds, Soft, No tenderness, No hepatospenomegaly, No masses Extremities: No clubbing, No cyanosis, No edema, Normal pulses, No tenderness/swelling Skin: No rashes, No breakdown - Results Results: Laboratory Results WBC 7.0 x10^3/uL (4.8-10.8) 05/20/18 05:35 RBC 3.38 10^6/uL (4.20-5.40) L 05/20/18 05:35 Hgb 9.7 g/dL (12.0-16.0) L 05/20/18 05:35 Hct 29.8 % (37.0-47.0) L 05/20/18 05:35 MCV 88.3 fL (81.0-99.0) 05/20/18 05:35 MCH 28.7 pg (27.0-31.0) 05/20/18 05:35 MCHC 32.6 g/dL (32.0-36.0) 05/20/18 05:35 RDW 15.0 % (12.0-15.0) 05/20/18 05:35 Plt Count 454 10^3/uL (130-450) H 05/20/18 05:35 MPV 7.4 fL (7.9-10.8) L 05/20/18 05:35 Neut # (Auto) 5.7 10^3/uL (1.5-6.6) 05/20/18 05:35 Lymph # (Auto) 0.5 10^3/uL (1.5-3.5) L 05/20/18 05:35 [place] # (Auto) 0.6 10^3/uL (0.0-1.0) 05/20/18 05:35 Eos # (Auto) 0.2 10^3/uL (0.0-0.7) 05/20/18 05:35 Baso # (Auto) 0.0 10^3/uL (0.0-0.1) 05/20/18 05:35 Absolute Nucleated RBC 0.00 x10^3/uL 05/20/18 05:35 Nucleated RBC % 0.0 /100WBC 05/20/18 05:35 Sodium 137 mmol/L (135-145) 05/20/18 05:35 Potassium 3.9 mmol/L (3.5-5.0) 05/20/18 05:35 Chloride 99 mmol/L (101-111) L 05/20/18 05:35 Carbon Dioxide 30 mmol/L (21-32) 05/20/18 05:35 Anion Gap 8.0 (6-13) 05/20/18 05:35 BUN 5 mg/dL (6-20) L 05/20/18 05:35 Creatinine 0.7 mg/dL (0.4-1.0) 05/20/18 05:35 Estimated GFR (MDRD) 85 (>89) L 05/20/18 05:35 Glucose 95 mg/dL (70-100) 05/20/18 05:35 Lactic Acid 1.0 mmol/L (0.5-2.2) 05/12/18 15:57 Calcium 8.6 mg/dL (8.5-10.3) 05/20/18 05:35 Ionized Calcium NO 05/20/18 05:35 Phosphorus 2.3 mg/dL (2.5-4.6) L 05/20/18 05:35 Magnesium 2.2 mg/dL (1.7-2.8) 05/20/18 05:35 Iron 14 ug/dL (28-170) L 05/15/18 03:35 TIBC 175 ug/dL (250-450) L 05/15/18 03:35 % Saturation 8 % (20-50) L 05/15/18 03:35 Transferrin 125 mg/dL (192-382) L 05/15/18 03:35 Ferritin 102.7 ng/mL (11.0-306.8) 05/15/18 03:35 Total Bilirubin 0.6 mg/dL (0.2-1.0) 05/20/18 05:35 AST 24 IU/L (10-42) 05/20/18 05:35 ALT 23 IU/L (10-60) 05/20/18 05:35 Alkaline Phosphatase 65 IU/L (42-121) 05/20/18 05:35 Total Protein 6.9 g/dL (6.7-8.2) 05/20/18 05:35 Albumin 2.8 g/dL (3.2-5.5) L 05/20/18 05:35 Globulin 4.1 g/dL (2.1-4.2) 05/20/18 05:35 Albumin/Globulin Ratio 0.7 (1.0-2.2) L 05/20/18 05:35 Lipase 34 U/L (22-51) 05/12/18 15:57 Vitamin B12 5397 pg/mL (180-914) H 05/15/18 03:35 Folate 29.00 ng/mL (5.90 - >24.8) 05/15/18 03:35 Urine Color LT. YELLOW 05/12/18 23:40 Urine Clarity CLEAR (CLEAR) 05/12/18 23:40 Urine pH 6.5 PH (5.0-7.5) 05/12/18 23:40 Ur Specific [place] <=1.005 (1.002-1.030) 05/12/18 23:40 Urine Protein NEGATIVE mg/dL (NEGATIVE) 05/12/18 23:40 Urine Glucose (UA) NEGATIVE mg/dL (NEGATIVE) 05/12/18 23:40 Urine Ketones NEGATIVE mg/dL (NEGATIVE) 05/12/18 23:40 Urine Occult Blood TRACE-LYSE (NEGATIVE) 05/12/18 23:40 Urine Nitrite NEGATIVE (NEGATIVE) 05/12/18 23:40 Urine Bilirubin NEGATIVE (NEGATIVE) 05/12/18 23:40 Urine Urobilinogen 0.2 (NORMAL) E.U./dL (NORMAL) 05/12/18 23:40 Ur Leukocyte Esterase NEGATIVE (NEGATIVE) 05/12/18 23:40 Ur Microscopic Review NOT INDICATED 05/12/18 23:40 Urine Culture Comments NOT INDICATED 05/12/18 23:40 Last Dose Date UNK 05/15/18 03:35 Last Dose Time UNK 05/15/18 03:35 Vancomycin Trough 16.5 ug/mL (10.0-20.0) 05/15/18 03:35 Influenza A (Rapid) Negative (Negative) 05/12/18 15:57 Influenza B (Rapid) Negative (Negative) 05/12/18 15:57 - Procedures Procedures: Procedures PARTIAL HIP REPLACEMENT (08/30/13) ABX Reporting Has patient been on IV antibiotics over the past 48 hours?: Yes Current Medications - Current Medications Current Medications: Active Medications Generic Name Dose Route Start Last Admin Trade Name Freq PRN Reason Stop Dose Admin Acetaminophen 650 mg 05/12/18 20:26 05/20/18 11:01 Tylenol PO 650 mg Q4HR PRN Administration Pain or Fever > 38C (100.4F) Albuterol/Ipratropium 3 ml 05/12/18 20:37 05/19/18 18:55 Duoneb INH 3 ml Q4HR PRN Administration Wheezing Cholecalciferol 5,000 unit 05/13/18 09:00 05/20/18 09:17 Vitamin D3 PO 5,000 unit DAILY PAIGE Administration Ferrous Sulfate 325 mg 05/15/18 08:00 05/20/18 09:15 Feosol PO 325 mg BIDWM PAIGE Administration Gabapentin 800 mg 05/12/18 23:00 05/20/18 13:56 Neurontin PO 800 mg TID PAIGE Administration Guaifenesin 600 mg 05/13/18 09:00 05/20/18 09:17 Mucinex PO 600 mg BID PAIGE Administration Meropenem 1 gm/ Sodium 100 mls @ 200 mls/hr 05/19/18 00:00 05/20/18 10:41 Chloride IV Infused Q8H PAIGE Infusion Vancomycin HCl 1 gm/ Sodium 250 mls @ 167 mls/hr 05/18/18 17:00 05/20/18 06:29 Chloride IV Infused Q12H PAIGE Infusion Sodium Chloride 1,000 mls @ 0 mls/hr 05/19/18 09:00 05/20/18 06:29 Normal Saline 0.9% IV 20 mls/hr .Q0M PAIGE Infusion TKO Magnesium Oxide 400 mg 05/13/18 14:00 05/14/18 09:31 Mag Ox PO 400 mg DAILY PRN Administration CONSTIPATION Multivitamins 1 tab 05/13/18 09:00 05/20/18 09:16 Theragran PO 1 tab DAILY PAIGE Administration Oxycodone HCl 5 - 10 mg 05/19/18 07:47 05/20/18 09:17 Roxicodone PO 10 mg Q6HR PRN Administration PAIN Pantoprazole Sodium 40 mg 05/13/18 07:00 05/20/18 06:06 Protonix PO 40 mg QDAC PAIGE Administration (Interferon Beta-1a 1 each 05/13/18 14:00 05/14/18 11:38 [Avonex] 30 Mcg) Inj IM 1 each Q7D PAIGE Administration (Vitamin B Complex [ 1 each 05/13/18 14:00 05/20/18 09:16 B Complete] Tab) PO 1 each DAILY PAIGE Administration Polyethylene Glycol 17 gm 05/13/18 09:00 05/20/18 09:21 Miralax PO Not Given DAILY PAIGE Prochlorperazine Edisylate 10 mg 05/12/18 20:26 Compazine Inj IVP Q6HR PRN Nausea / Vomiting Saccharomyces Boulardii 250 mg 05/13/18 08:00 05/20/18 09:17 Florastor PO 250 mg BIDWM PAIGE Administration Sodium Chloride 10 ml 05/12/18 20:26 05/19/18 05:37 Normal Saline Flush 0.9% IVP 10 ml PRN PRN Administration NEEDED PER PROVIDER ORDERS Sodium Chloride 10 ml 05/13/18 01:00 05/20/18 02:44 Normal Saline Flush 0.9% IVP Not Given 0100,0900,1700 PAIGE Sodium Phosphate 250 mg 05/20/18 12:00 05/20/18 11:48 K-Phos Neutral PO 250 mg TIDWM PAIGE Administration Temazepam 15 mg 05/12/18 20:26 Restoril PO QPM PRN Insomnia Tizanidine HCl 4 mg 05/17/18 22:00 05/19/18 22:03 Zanaflex PO 4 mg 2200 PAIGE Administration Zinc Oxide 113 gm 05/17/18 11:55 Desitin TOP PRN PRN Skin Care Gabapentin [Neurontin] 800 mg PO TID 08/30/13 Interferon Beta-1A [Avonex] 30 mcg IM Q7D 08/30/13 Cholecalciferol (Vitamin D3) [Vitamin D3] 5,000 units PO DAILY 05/13/18 Magnesium 500 mg PO DAILY PRN 05/13/18 Naproxen 250 mg PO DAILY PRN 05/13/18 Neurocet 1 cap PO DAILY 05/13/18 Oxycodone HCl/Acetaminophen [Oxycodone-Acetaminophen 5-325] 0.5 tab PO QPM 05/13/18 Vitamin B Complex 1 tab PO DAILY 05/13/18
[2018-05-20] MEDS: INTERFERON BETA 30 MCG IM SCH (14:22)
--- NOTE | 2018-05-20 16:05 | PROVIDER PROGRESS NOTE ---
Hospitalist Cross-cover Note - Cross-Cover Note Cross-Cover Note: Patient had 3- AFB sputum samples and therefore I called the med consultation line at the [facility] and spoke with the infectious disease physician Dr. Rex Luque who discussed the entire case with me over the telephone. He stated that given the patient's history of multiple sclerosis and the findings on the CT he was highly suspicious that this was likely to be an aspiration pneumonia forming a pulmonary abscess. He stated that this was even more likely given that she responded to antibiotics and is now improving. He stated that the sputum culture growing [place] was likely a colonization. He felt that a postobstructive pneumonia is always in the differential but the correct course of treatment at this time would be to de-escalate the patient's antibiotics to treatment that would target anaerobes. He stated that since the patient had a negative MRSA nasal swab and did not have any staph aureus on her sputum cultures that staph aureus was unlikely to be a the infectious bacteria. Recommendations: Recommendation was to switch to IV Unasyn while the patient is hospitalized and then to oral Augmentin for discharge but given the patient's beta-lactam allergy we will need to switch to IV clindamycin and then oral clindamycin at discharge. The infectious disease physician also recommended we stop vancomycin and meropenem. He recommended at least 2 weeks of treatment and then follow-up with primary care physician for referral to pulmonology. He stated that she would likely need repeat imaging but he would defer to pulmonology as to the time. For repeat imaging. He stated that most of the time they like to wait for 1 month after initial imaging. He did not see any urgent need for transfer or for bronchoscopy at this time. Given the patient's clinical improvement he felt that it would be appropriate for the patient to be treated here while she needed hospitalization and then outpatient with oral antibiotics post hospitalization.
--- NOTE | 2018-05-20 16:30 | XRAY Report ---
Reason: Follow up cavitary lesion TB negative Procedure Date: 05/20/2018 Accession Number: [id number] / [id number] Procedure: XR - Chest 2 View X-Ray CPT Code: 01864 FULL RESULT: EXAM: CHEST RADIOGRAPHY EXAM DATE: 05/20/2018 04:02 PM. CLINICAL HISTORY: Follow up cavitary lesion TB negative. COMPARISON: CHEST 2 VIEW 05/12/2018 4:18 PM CHEST W/ 05/12/2018 5:21 PM. TECHNIQUE: 2 views. FINDINGS: Lungs/Pleura: Dense opacification in the right upper lobe with gaseous cavitation. No pneumothorax. Left lung is clear. Mediastinum: Heart and mediastinal contours are unremarkable. Other: None. IMPRESSION: Decrease gas within known large cavitary lesion, collapse versus partially fluid-filled since the prior. RADIA
[2018-05-20] MEDS: metroNIDAZOLE 500 MG/100 ML 500 MG/100 ML BAG IV SCH (17:29)
[2018-05-20] MEDS ORDERED: CLINDAMYCIN 600 MG/50 ML 50 ML IV SCH (18:00)
[2018-05-20] MEDS: SODIUM CHLORIDE 0.9% 1,000 ML IV SCH (18:42)
[2018-05-20] MEDS: tiZANidine 4 MG TABLET PO SCH (20:56)
[2018-05-21] MEDS: SODIUM CHLORIDE FLUSH 0.9% 10 ML SYRINGE IVP SCH ×3 (01:24→17:20)
[2018-05-21] MEDS: metroNIDAZOLE 500 MG/100 ML 500 MG/100 ML BAG IV SCH ×3 (01:24→16:34)
[2018-05-21 05:26] LABS: BASOPHILS % (AUTO) 0.9 %; EOSINOPHILS # (AUTO) 0.1 10^3/uL (0.0-0.7); EOSINOPHILS % (AUTO) 1.9 %; HGB - HEMOGLOBIN 9.7 g/dL (12.0-16.0); LYMPHOCYTES # (AUTO) 0.6 10^3/uL (1.5-3.5); LYMPHOCYTES % (AUTO) 12.3 %; MEAN CORPUSCULAR HGB CONC 32.6 g/dL (32.0-36.0); MEAN CORPUSCULAR VOLUME 88.9 fL (81.0-99.0); MEAN PLATELET VOLUME 7.7 fL (7.9-10.8); MONOCYTES # (AUTO) 0.6 10^3/uL (0.0-1.0); MONOCYTES % (AUTO) 12.1 %; NEUTROPHILS # (AUTO) 3.8 10^3/uL (1.5-6.6); NEUTROPHILS % (AUTO) 72.8 %; PLT - PLATELET COUNT 429 10^3/uL (130-450); RED BLOOD COUNT 3.33 10^6/uL (4.20-5.40); RED CELL DISTRIBUTION WIDTH 15.1 % (12.0-15.0); WHITE BLOOD COUNT 5.2 x10^3/uL (4.8-10.8)
[2018-05-21 05:36] LABS: ALBUMIN 2.8 g/dL (3.2-5.5); ALBUMIN/GLOBULIN RATIO 0.7 (1.0-2.2); ALKALINE PHOSPHATASE 63 IU/L (42-121); ALT ALANINE AMINOTRANSFERASE 21 IU/L (10-60); AST ASPARTATE AMINOTRANSFERASE 23 IU/L (10-42); BILIRUBIN,TOTAL 0.5 mg/dL (0.2-1.0); BUN - BLOOD UREA NITROGEN 7 mg/dL (6-20); CALCIUM 8.6 mg/dL (8.5-10.3); CARBON DIOXIDE - CO2 28 mmol/L (21-32); CHLORIDE 100 mmol/L (101-111); CREATININE 0.7 mg/dL (0.4-1.0); GFR - MDRD 85 (>89); GLUCOSE 93 mg/dL (70-100); MAGNESIUM 2.3 mg/dL (1.7-2.8); PHOSPHORUS 2.7 mg/dL (2.5-4.6); SODIUM 137 mmol/L (135-145); TOTAL PROTEIN 6.7 g/dL (6.7-8.2)
[2018-05-21] MEDS: PANTOPRAZOLE 40 MG TABLET PO SCH (06:57)
[2018-05-21] MEDS: ACETAMINOPHEN 325 MG TABLET PO PRN ×3 (06:57→21:41)
[2018-05-21] MEDS: oxyCODONE 5 MG TABLET PO PRN ×2 (06:57→18:15)
[2018-05-21] MEDS: GABAPENTIN 400 MG CAPSULE PO SCH ×3 (06:57→21:41)
[2018-05-21] MEDS: IPRATROPIUM/ALBUTEROL 3 ML NEB INH PRN ×2 (07:18→23:05)
[2018-05-21] MEDS: SACCHAROMYCES BOULARDII 250 MG CAPSULE PO SCH ×2 (08:10→18:15)
[2018-05-21] MEDS: guaiFENesin 600 MG TABLET PO SCH ×2 (08:11→21:41)
[2018-05-21] MEDS: FERROUS SULFATE 325 MG TABLET PO SCH ×2 (08:11→16:34)
[2018-05-21] MEDS: CHOLECALCIFEROL 5,000 UNIT CAPSULE PO SCH (08:11)
[2018-05-21] MEDS: NEUTRA-PHOS 250 MG TABLET PO SCH ×3 (08:11→18:15)
[2018-05-21] MEDS: MULTIVITAMIN TABLET PO SCH (08:11)
[2018-05-21] MEDS: VITAMIN B COMPLEX PO SCH (08:12)
[2018-05-21] MEDS: POLYETHYLENE GLYCOL 3350 17 GM PACKET PO SCH (08:13)
--- NOTE | 2018-05-21 12:54 | PROVIDER PROGRESS NOTE ---
Assessment/Plan - Problem List (1) Cavitating mass in right upper lung lobe Assessment/Plan: Patient presented with 6 days of fevers, cough, hemoptysis and night sweats. The patient has also been having frequent falls and has 10 pound weight loss. The patient's chest x-ray and CT scan showed a right cavitary mass with surrounding air bronchograms and right-sided lymph nodes. This finding was concerning for possibility of tuberculosis. Patient could also have possible lung abscess, lung infection or cancer. Patient was admitted to the medical hein under negative pressure isolation for rule out of TB and treatment with IV antibiotics for possible pneumonia. The patient has travelled to the [facility] and therefore could have been exposed to TB. Patient received IV vancomycin and meropenem for 8 days with significant improvement Repeat CXR with no significant improvement She has 3 negative sputum AFBs Yesterday I spoke with infectious disease at the [facility] Dr. Rex Luque who felt that given the patient's history of MS the most likely possibility given the negative AFB results would be aspiration pneumonia leading to a lung abscess in the right upper lobe. He suggested de-escalating the patient's antibiotics from vancomycin and meropenem to Unasyn and then oral Augmentin. The patient however has an allergy to penicillins as she develops a diffuse rash. The second line treatment for lung abscesses is clindamycin however the patient states that she developed severe C. difficile when she took clindamycin and therefore refuses to take it again. Therefore yesterday the patient was started on IV Flagyl and since this is not first or second line we would like to trial the Flagyl for 1-2 days to ensure that the patient does not have any worsening of her infection prior to switching to oral Flagyl. Infectious disease recommended treatment for at least 2 weeks with antibiotics and then follow-up with a primary care physician to decide whether to continue treatment. They also recommended referral to pulmonology for further workup including a repeat CT scan in about 1 month. The patient missed her dose of Flagyl at 1 AM and this morning had a low-grade fever of 37.8. It is unclear if this was just because she missed 1 dose of Flagyl or if Flagyl is not effective in treatment of her likely lung abscess from aspiration pneumonia. Therefore we will continue Flagyl for another 24 hours if patient remains afebrile we will continue Flagyl and consider discharging patient home on oral Flagyl. If the patient worsens then we will start the patient on IV Unasyn and monitor closely for rash. (2) Cavitary pneumonia Assessment/Plan: Likely secondary to aspiration pneumonia and lung abscess. Patient treated with IV vancomycin and meropenem times 8 days AFBs negative x3 Sputum culture no growth De-escalate to Flagyl given allergy to penicillins and history of severe C. difficile with clindamycin If patient does not respond to Flagyl we will consider giving her Unasyn and monitoring closely for development of allergy Patient had low-grade fever this morning Patient will need at least 2 weeks of treatment and then follow-up with primary care and pulmonology for follow-up imaging. Patient underwent evaluation from speech pathology and does have dysphasia. Her diet was changed per recommendations of speech pathology. (3) Dysphagia Assessment/Plan: Likely secondary to multiple sclerosis Likely cause for right upper lobe cavitary lesion which is likely lung abscess from aspiration pneumonia Speech pathology evaluation performed yesterday Recommendation that patient change diet to soft mechanical diet with nectar thick liquids with meals and snacks. Medication whole with applesauce. With aggressive oral care. Patient diet was changed yesterday Speech pathology also recommended outpatient barium swallow with esophagram. (4) Asthma Qualifiers: Asthma severity: mild Asthma persistence: intermittent Asthma complication type: with acute exacerbation Qualified Code(s): J45.21 - Mild intermittent asthma with (acute) exacerbation Assessment/Plan: Patient has asthma exacerbation secondary to ongoing cavitary pneumonia. Stable On duonebs prn and IV abx (5) Multiple sclerosis Assessment/Plan: The patient has a history of multiple sclerosis and is on Avonex at home. After discussion with infectious disease it was decided to continue medication while she was hospitalized. Infectious disease did not feel that this is a immunosuppressive medication. They were also concerned that in the setting of infection multiple sclerosis can worsen. This is likely why patient has been having multiple falls over the last week as she likely has worsening of her multiple sclerosis with ongoing infection. For now we will continue the patient's Avenox once a week. Dysphagia likely secondary to MS Stable (6) Hypokalemia Assessment/Plan: Resolved (7) Anemia Assessment/Plan: Patient has iron deficiency anemia with iron of 14 On iron supplement BID Hb is 9.7 Hemoptysis resolved Monitor Hb - Current Meds Current Meds: Current Medications Generic Name Dose Route Start Last Admin Trade Name Freq PRN Reason Stop Dose Admin Acetaminophen 650 mg 05/12/18 20:26 05/21/18 06:57 Tylenol PO 650 mg Q4HR PRN Administration Pain or Fever > 38C (100.4F) Albuterol/Ipratropium 3 ml 05/12/18 20:37 05/21/18 07:18 Duoneb INH 3 ml Q4HR PRN Administration Wheezing Cholecalciferol 5,000 unit 05/13/18 09:00 05/21/18 08:11 Vitamin D3 PO 5,000 unit DAILY PAIGE Administration Ferrous Sulfate 325 mg 05/15/18 08:00 05/21/18 08:11 Feosol PO 325 mg BIDWM PAIGE Administration Gabapentin 800 mg 05/12/18 23:00 05/21/18 06:57 Neurontin PO 800 mg TID PAIGE Administration Guaifenesin 600 mg 05/13/18 09:00 05/21/18 08:11 Mucinex PO 600 mg BID PAIGE Administration Sodium Chloride 1,000 mls @ 0 mls/hr 05/19/18 09:00 05/20/18 18:42 Normal Saline 0.9% IV 20 mls/hr .Q0M PAIGE Administration TKO Metronidazole 500 mg in 100 mls @ 100 mls/hr 05/20/18 17:00 05/21/18 08:12 Flagyl 500 Mg/100 Ml IV Not Given Q8H PAIGE Magnesium Oxide 400 mg 05/13/18 14:00 05/14/18 09:31 Mag Ox PO 400 mg DAILY PRN Administration CONSTIPATION Multivitamins 1 tab 05/13/18 09:00 05/21/18 08:11 Theragran PO 1 tab DAILY PAIGE Administration Oxycodone HCl 5 - 10 mg 05/19/18 07:47 05/21/18 06:57 Roxicodone PO 5 mg Q6HR PRN Administration PAIN Pantoprazole Sodium 40 mg 05/13/18 07:00 05/21/18 06:57 Protonix PO 40 mg QDAC PAIGE Administration (Interferon Beta-1a 1 each 05/13/18 14:00 05/20/18 14:22 [Avonex] 30 Mcg) Inj IM 1 each Q7D PAIGE Administration (Vitamin B Complex [ 1 each 05/13/18 14:00 05/21/18 08:12 B Complete] Tab) PO 1 each DAILY PAIGE Administration Polyethylene Glycol 17 gm 05/13/18 09:00 05/21/18 08:13 Miralax PO Not Given DAILY PAIGE Saccharomyces Boulardii 250 mg 05/13/18 08:00 05/21/18 08:10 Florastor PO 250 mg BIDWM PAIGE Administration Sodium Chloride 10 ml 05/12/18 20:26 05/19/18 05:37 Normal Saline Flush 0.9% IVP 10 ml PRN PRN Administration NEEDED PER PROVIDER ORDERS Sodium Chloride 10 ml 05/13/18 01:00 05/21/18 01:24 Normal Saline Flush 0.9% IVP Not Given 0100,0900,1700 PAIGE Sodium Phosphate 250 mg 05/20/18 12:00 05/21/18 08:11 K-Phos Neutral PO 250 mg TIDWM PAIGE Administration Tizanidine HCl 4 mg 05/17/18 22:00 05/20/18 20:56 Zanaflex PO 4 mg 2200 PAIGE Administration - Lab Result Lab results reviewed: Yes Fish Bone Diagrams: 05/21/18 04:50 05/21/18 04:50 - Diagnostic Imaging Results Diagnostic Imaging Results: Final report reviewed Diagnostic Imaging Results Comments: Chest x-ray 05/10/2018 Impression: Decreased gas within known large cavity lesion, collapse versus partially fluid- filled since the prior. - Additional Planning Condition/Complexity: Guarded My Orders: My Active Orders 05/20/18 12:00 Neutra-Phos [K-Phos Neutral] 250 mg PO TIDWM 05/20/18 16:57 Oral Care - Nursing [RC] BID 05/20/18 17:00 metroNIDAZOLE 500 MG/100 ML [Flagyl 500 mg/100 ml] 500 mg in 100 ml IV Q8H 05/21/18 Breakfast Soft Mechanical Diet [DIET] Consult/Specialty: Infectious Disease Plan Discussed with:: Patient Time Spent: 31-60 minutes Subjective - Subjective Patient Reports: Cough (Improved), Chest Pain (Improved), Fever ([place] cold this morning and then felt febrile.), Shortness of Breath (Improved) Nursing Reports: No Complaints Objective Vital Signs: Vital Signs - 24 hr 05/20/18 05/21/18 05/21/18 15:58 00:00 01:22 Temperature 36.9 C 37.3 C Heart Rate Heart Rate [ 76 73 Brachial] Heart Rate [ 73 Monitoring electrodes] Respiratory 16 16 Rate Blood Pressure 95/62 87/53 L 97/60 [Right Brachial artery] O2 Saturation 98 95 05/21/18 05/21/18 05/21/18 07:10 07:19 10:52 Temperature 37.8 C H 36.8 C Heart Rate 92 Heart Rate [ 90 Brachial] Heart Rate [ Monitoring electrodes] Respiratory 18 18 Rate Blood Pressure 131/80 H [Right Brachial artery] O2 Saturation 92 Oxygen O2 Source Room air I&O (Last 24 Hrs): Intake and Output Totals x24h 05/19/18 05/20/18 05/21/18 23:59 23:59 23:59 Intake Total 3480 3044.999 220 Output Total 1500 1500 400 Balance 1980 1544.999 -180 General: Alert, Oriented x3, Cooperative, Other (Cachectic) HEENT: Atraumatic, PERRLA, EOMI, Mucous membr. moist/pink Neck: Supple, No JVD, No thyromegaly, +2 carotid pulse wo bruit, No LAD Lymphatic: no adenopathy Neuro: Alert, Non Focal, CN 2-12 Grossly Intact, Oriented Times 3 Cardiovascular: Regular rate, Normal S1, Normal S2, No murmurs Respiratory: Wheezes (Mild), Rhonchi (Right upper lung diffuse) Abdomen: Normal bowel sounds, Soft, No tenderness, No hepatospenomegaly Extremities: No clubbing, No cyanosis, No edema, Normal pulses Skin: No rashes, No breakdown - Results Results: Laboratory Results WBC 5.2 x10^3/uL (4.8-10.8) 05/21/18 04:50 RBC 3.33 10^6/uL (4.20-5.40) L 05/21/18 04:50 Hgb 9.7 g/dL (12.0-16.0) L 05/21/18 04:50 Hct 29.6 % (37.0-47.0) L 05/21/18 04:50 MCV 88.9 fL (81.0-99.0) 05/21/18 04:50 MCH 29.0 pg (27.0-31.0) 05/21/18 04:50 MCHC 32.6 g/dL (32.0-36.0) 05/21/18 04:50 RDW 15.1 % (12.0-15.0) H 05/21/18 04:50 Plt Count 429 10^3/uL (130-450) 05/21/18 04:50 MPV 7.7 fL (7.9-10.8) L 05/21/18 04:50 Neut # (Auto) 3.8 10^3/uL (1.5-6.6) 05/21/18 04:50 Lymph # (Auto) 0.6 10^3/uL (1.5-3.5) L 05/21/18 04:50 Island # (Auto) 0.6 10^3/uL (0.0-1.0) 05/21/18 04:50 Eos # (Auto) 0.1 10^3/uL (0.0-0.7) 05/21/18 04:50 Baso # (Auto) 0.0 10^3/uL (0.0-0.1) 05/21/18 04:50 Absolute Nucleated RBC 0.00 x10^3/uL 05/21/18 04:50 Nucleated RBC % 0.1 /100WBC 05/21/18 04:50 Sodium 137 mmol/L (135-145) 05/21/18 04:50 Potassium 3.9 mmol/L (3.5-5.0) 05/21/18 04:50 Chloride 100 mmol/L (101-111) L 05/21/18 04:50 Carbon Dioxide 28 mmol/L (21-32) 05/21/18 04:50 Anion Gap 9.0 (6-13) 05/21/18 04:50 BUN 7 mg/dL (6-20) 05/21/18 04:50 Creatinine 0.7 mg/dL (0.4-1.0) 05/21/18 04:50 Estimated GFR (MDRD) 85 (>89) L 05/21/18 04:50 Glucose 93 mg/dL (70-100) 05/21/18 04:50 Lactic Acid 1.0 mmol/L (0.5-2.2) 05/12/18 15:57 Calcium 8.6 mg/dL (8.5-10.3) 05/21/18 04:50 Ionized Calcium NO 05/21/18 04:50 Phosphorus 2.7 mg/dL (2.5-4.6) 05/21/18 04:50 Magnesium 2.3 mg/dL (1.7-2.8) 05/21/18 04:50 Iron 14 ug/dL (28-170) L 05/15/18 03:35 TIBC 175 ug/dL (250-450) L 05/15/18 03:35 % Saturation 8 % (20-50) L 05/15/18 03:35 Transferrin 125 mg/dL (192-382) L 05/15/18 03:35 Ferritin 102.7 ng/mL (11.0-306.8) 05/15/18 03:35 Total Bilirubin 0.5 mg/dL (0.2-1.0) 05/21/18 04:50 AST 23 IU/L (10-42) 05/21/18 04:50 ALT 21 IU/L (10-60) 05/21/18 04:50 Alkaline Phosphatase 63 IU/L (42-121) 05/21/18 04:50 Total Protein 6.7 g/dL (6.7-8.2) 05/21/18 04:50 Albumin 2.8 g/dL (3.2-5.5) L 05/21/18 04:50 Globulin 3.9 g/dL (2.1-4.2) 05/21/18 04:50 Albumin/Globulin Ratio 0.7 (1.0-2.2) L 05/21/18 04:50 Lipase 34 U/L (22-51) 05/12/18 15:57 Vitamin B12 5397 pg/mL (180-914) H 05/15/18 03:35 Folate 29.00 ng/mL (5.90 - >24.8) 05/15/18 03:35 Urine Color LT. YELLOW 05/12/18 23:40 Urine Clarity CLEAR (CLEAR) 05/12/18 23:40 Urine pH 6.5 PH (5.0-7.5) 05/12/18 23:40 Ur Specific Mobile <=1.005 (1.002-1.030) 05/12/18 23:40 Urine Protein NEGATIVE mg/dL (NEGATIVE) 05/12/18 23:40 Urine Glucose (UA) NEGATIVE mg/dL (NEGATIVE) 05/12/18 23:40 Urine Ketones NEGATIVE mg/dL (NEGATIVE) 05/12/18 23:40 Urine Occult Blood TRACE-LYSE (NEGATIVE) 05/12/18 23:40 Urine Nitrite NEGATIVE (NEGATIVE) 05/12/18 23:40 Urine Bilirubin NEGATIVE (NEGATIVE) 05/12/18 23:40 Urine Urobilinogen 0.2 (NORMAL) E.U./dL (NORMAL) 05/12/18 23:40 Ur Leukocyte Esterase NEGATIVE (NEGATIVE) 05/12/18 23:40 Ur Microscopic Review NOT INDICATED 05/12/18 23:40 Urine Culture Comments NOT INDICATED 05/12/18 23:40 Last Dose Date UNK 05/15/18 03:35 Last Dose Time UNK 05/15/18 03:35 Vancomycin Trough 16.5 ug/mL (10.0-20.0) 05/15/18 03:35 Influenza A (Rapid) Negative (Negative) 05/12/18 15:57 Influenza B (Rapid) Negative (Negative) 05/12/18 15:57 - Procedures Procedures: Procedures PARTIAL HIP REPLACEMENT (08/30/13) ABX Reporting Has patient been on IV antibiotics over the past 48 hours?: Yes Current Medications - Current Medications Current Medications: Active Medications Generic Name Dose Route Start Last Admin Trade Name Freq PRN Reason Stop Dose Admin Acetaminophen 650 mg 05/12/18 20:26 05/21/18 06:57 Tylenol PO 650 mg Q4HR PRN Administration Pain or Fever > 38C (100.4F) Albuterol/Ipratropium 3 ml 05/12/18 20:37 05/21/18 07:18 Duoneb INH 3 ml Q4HR PRN Administration Wheezing Cholecalciferol 5,000 unit 05/13/18 09:00 05/21/18 08:11 Vitamin D3 PO 5,000 unit DAILY PAIGE Administration Ferrous Sulfate 325 mg 05/15/18 08:00 05/21/18 08:11 Feosol PO 325 mg BIDWM PAIGE Administration Gabapentin 800 mg 05/12/18 23:00 05/21/18 06:57 Neurontin PO 800 mg TID PAIGE Administration Guaifenesin 600 mg 05/13/18 09:00 05/21/18 08:11 Mucinex PO 600 mg BID PAIGE Administration Sodium Chloride 1,000 mls @ 0 mls/hr 05/19/18 09:00 05/20/18 18:42 Normal Saline 0.9% IV 20 mls/hr .Q0M PAIGE Administration TKO Metronidazole 500 mg in 100 mls @ 100 mls/hr 05/20/18 17:00 05/21/18 08:12 Flagyl 500 Mg/100 Ml IV Not Given Q8H PAIGE Magnesium Oxide 400 mg 05/13/18 14:00 05/14/18 09:31 Mag Ox PO 400 mg DAILY PRN Administration CONSTIPATION Multivitamins 1 tab 05/13/18 09:00 05/21/18 08:11 Theragran PO 1 tab DAILY PAIGE Administration Oxycodone HCl 5 - 10 mg 05/19/18 07:47 05/21/18 06:57 Roxicodone PO 5 mg Q6HR PRN Administration PAIN Pantoprazole Sodium 40 mg 05/13/18 07:00 05/21/18 06:57 Protonix PO 40 mg QDAC PAIGE Administration (Interferon Beta-1a 1 each 05/13/18 14:00 05/20/18 14:22 [Avonex] 30 Mcg) Inj IM 1 each Q7D PAIGE Administration (Vitamin B Complex [ 1 each 05/13/18 14:00 05/21/18 08:12 B Complete] Tab) PO 1 each DAILY PAIGE Administration Polyethylene Glycol 17 gm 05/13/18 09:00 05/21/18 08:13 Miralax PO Not Given DAILY PAIGE Prochlorperazine Edisylate 10 mg 05/12/18 20:26 Compazine Inj IVP Q6HR PRN Nausea / Vomiting Saccharomyces Boulardii 250 mg 05/13/18 08:00 05/21/18 08:10 Florastor PO 250 mg BIDWM PAIGE Administration Sodium Chloride 10 ml 05/12/18 20:26 05/19/18 05:37 Normal Saline Flush 0.9% IVP 10 ml PRN PRN Administration NEEDED PER PROVIDER ORDERS Sodium Chloride 10 ml 05/13/18 01:00 05/21/18 01:24 Normal Saline Flush 0.9% IVP Not Given 0100,0900,1700 PAIGE Sodium Phosphate 250 mg 05/20/18 12:00 05/21/18 11:42 K-Phos Neutral PO 250 mg TIDWM PAIGE Administration Temazepam 15 mg 05/12/18 20:26 Restoril PO QPM PRN Insomnia Tizanidine HCl 4 mg 05/17/18 22:00 05/20/18 20:56 Zanaflex PO 4 mg 2200 PAIGE Administration Zinc Oxide 113 gm 05/17/18 11:55 Desitin TOP PRN PRN Skin Care Gabapentin [Neurontin] 800 mg PO TID 08/30/13 Interferon Beta-1A [Avonex] 30 mcg IM Q7D 08/30/13 Cholecalciferol (Vitamin D3) [Vitamin D3] 5,000 units PO DAILY 05/13/18 Magnesium 500 mg PO DAILY PRN 05/13/18 Naproxen 250 mg PO DAILY PRN 05/13/18 Neurocet 1 cap PO DAILY 05/13/18 Oxycodone HCl/Acetaminophen [Oxycodone-Acetaminophen 5-325] 0.5 tab PO QPM 05/13/18 Vitamin B Complex 1 tab PO DAILY 05/13/18
[2018-05-21] MEDS: tiZANidine 4 MG TABLET PO SCH (21:40)
[2018-05-22] MEDS: metroNIDAZOLE 500 MG/100 ML 500 MG/100 ML BAG IV SCH (01:04)
[2018-05-22] MEDS: oxyCODONE 5 MG TABLET PO PRN ×3 (01:04→21:50)
[2018-05-22] MEDS: SODIUM CHLORIDE FLUSH 0.9% 10 ML SYRINGE IVP SCH ×4 (01:07→23:39)
[2018-05-22] MEDS: IPRATROPIUM/ALBUTEROL 3 ML NEB INH PRN (05:38)
[2018-05-22] MEDS: PANTOPRAZOLE 40 MG TABLET PO SCH (06:10)
[2018-05-22] MEDS: ACETAMINOPHEN 325 MG TABLET PO PRN ×3 (06:10→18:20)
[2018-05-22] MEDS: GABAPENTIN 400 MG CAPSULE PO SCH ×3 (06:10→21:50)
[2018-05-22 06:27] LABS: HGB - HEMOGLOBIN 10.1 g/dL (12.0-16.0); MEAN CORPUSCULAR HGB CONC 32.5 g/dL (32.0-36.0); MEAN CORPUSCULAR VOLUME 89.1 fL (81.0-99.0); MEAN PLATELET VOLUME 7.5 fL (7.9-10.8); RED BLOOD COUNT 3.49 10^6/uL (4.20-5.40); RED CELL DISTRIBUTION WIDTH 14.8 % (12.0-15.0); WHITE BLOOD COUNT 5.1 x10^3/uL (4.8-10.8)
[2018-05-22 06:41] LABS: ALBUMIN 3.1 g/dL (3.2-5.5); ALBUMIN/GLOBULIN RATIO 0.7 (1.0-2.2); ALKALINE PHOSPHATASE 69 IU/L (42-121); ALT ALANINE AMINOTRANSFERASE 22 IU/L (10-60); AST ASPARTATE AMINOTRANSFERASE 28 IU/L (10-42); BILIRUBIN,TOTAL 0.5 mg/dL (0.2-1.0); BUN - BLOOD UREA NITROGEN 6 mg/dL (6-20); CALCIUM 9.1 mg/dL (8.5-10.3); CARBON DIOXIDE - CO2 30 mmol/L (21-32); CHLORIDE 100 mmol/L (101-111); CREATININE 0.7 mg/dL (0.4-1.0); CRP - C-REACTIVE PROTEIN 4.7 mg/dL (0-1.0); GFR - MDRD 85 (>89); GLUCOSE 91 mg/dL (70-100); MAGNESIUM 2.5 mg/dL (1.7-2.8); PHOSPHORUS 3.4 mg/dL (2.5-4.6); SODIUM 139 mmol/L (135-145); TOTAL PROTEIN 7.4 g/dL (6.7-8.2)
[2018-05-22] MEDS: metroNIDAZOLE 250 MG TABLET PO SCH ×3 (08:29→23:39)
[2018-05-22] MEDS: SACCHAROMYCES BOULARDII 250 MG CAPSULE PO SCH ×2 (08:29→18:20)
[2018-05-22] MEDS: CHOLECALCIFEROL 5,000 UNIT CAPSULE PO SCH (08:29)
[2018-05-22] MEDS: MULTIVITAMIN TABLET PO SCH (08:30)
[2018-05-22] MEDS: VITAMIN B COMPLEX PO SCH (08:31)
[2018-05-22] MEDS: guaiFENesin 600 MG TABLET PO SCH ×2 (08:31→20:56)
[2018-05-22] MEDS: NEUTRA-PHOS 250 MG TABLET PO SCH ×3 (08:31→18:20)
[2018-05-22] MEDS: POLYETHYLENE GLYCOL 3350 17 GM PACKET PO SCH (08:32)
[2018-05-22] MEDS: cefUROXime axetil 250 MG TABLET PO SCH ×2 (08:59→20:56)
[2018-05-22] MEDS ORDERED: levoFLOXacin 250 MG TABLET PO SCH (09:00)
--- NOTE | 2018-05-22 09:08 | PROVIDER PROGRESS NOTE ---
Assessment/Plan - Problem List (1) Cavitating mass in right upper lung lobe Assessment/Plan: Patient presented with 6 days of fevers, cough, hemoptysis and night sweats. The patient has also been having frequent falls and has 10 pound weight loss. The patient's chest x-ray and CT scan showed a right cavitary mass with surrounding air bronchograms and right-sided lymph nodes. This finding was concerning for possibility of tuberculosis. Patient could also have possible lung abscess, lung infection or cancer. Patient was admitted to the medical hein under negative pressure isolation for rule out of TB and treatment with IV antibiotics for possible pneumonia. The patient has travelled to the [facility] and therefore could have been exposed to TB. Patient received IV vancomycin and meropenem for 8 days with significant improvement Repeat CXR with no significant improvement She has 3 negative sputum AFBs Case was discussed with infectious disease at the [facility] Dr. Rex Luque who felt that given the patient's history of MS the most likely possibility given the negative AFB results would be aspiration pneumonia leading to a lung abscess in the right upper lobe. He suggested de-escalating the patient's antibiotics from vancomycin and meropenem to Unasyn and then oral Augmentin. The patient however has an allergy to penicillins as she develops a diffuse rash. The second line treatment for lung abscesses is clindamycin however the patient states that she developed severe C. difficile when she took clindamycin and therefore refuses to take it again. Therefore the patient was started on IV Flagyl which the patient tolerated well yesterday and did not appear to have any worsening in her condition. Today we will switch to PO flagyl and PO ceftin to cover both anaerobes and typical organisms for pneumonia. Infectious disease recommended treatment for at least 2 weeks with antibiotics and then follow-up with a primary care physician to decide whether to continue treatment. They also recommended referral to pulmonology for further workup including a repeat CT scan in about 1 month. (2) Cavitary pneumonia Assessment/Plan: Likely secondary to aspiration pneumonia and lung abscess. Patient treated with IV vancomycin and meropenem times 8 days AFBs negative x3 Sputum culture no growth The escalated to IV Flagyl which patient tolerated well and now will be placed on oral Flagyl and oral Ceftin if she tolerates well does not have any decompensation she will be discharged home tomorrow. Patient will need at least 2 weeks of treatment and then follow-up with primary care and pulmonology for follow-up imaging. Patient underwent evaluation from speech pathology and does have dysphasia. Her diet was changed per recommendations of speech pathology. (3) Dysphagia Assessment/Plan: Likely secondary to multiple sclerosis Likely cause for right upper lobe cavitary lesion which is likely lung abscess from aspiration pneumonia Speech pathology evaluation performed Recommendation that patient change diet to soft mechanical diet with nectar thick liquids with meals and snacks. Medication whole with applesauce. With aggressive oral care. Patient diet was changed accordingly Speech pathology also recommended outpatient barium swallow with esophagram. (4) Asthma Qualifiers: Asthma severity: mild Asthma persistence: intermittent Asthma complication type: with acute exacerbation Qualified Code(s): J45.21 - Mild intermittent asthma with (acute) exacerbation Assessment/Plan: Patient has asthma exacerbation secondary to ongoing cavitary pneumonia. Stable On duonebs prn and IV abx (5) Multiple sclerosis Assessment/Plan: The patient has a history of multiple sclerosis and is on Avonex at home. After discussion with infectious disease it was decided to continue medication while she was hospitalized. Infectious disease did not feel that this is a immunosuppressive medication. They were also concerned that in the setting of infection multiple sclerosis can worsen. This is likely why patient has been having multiple falls over the last week as she likely has worsening of her multiple sclerosis with ongoing infection. For now we will continue the patient 's Avenox once a week. Dysphagia likely secondary to MS Stable (6) Hypokalemia Assessment/Plan: Resolved (7) Anemia Assessment/Plan: Patient has iron deficiency anemia with iron of 14 On iron supplement BID Hb is 10.1 Hemoptysis resolved Monitor Hb - Current Meds Current Meds: Current Medications Generic Name Dose Route Start Last Admin Trade Name Freq PRN Reason Stop Dose Admin Acetaminophen 650 mg 05/12/18 20:26 05/22/18 06:10 Tylenol PO 650 mg Q4HR PRN Administration Pain or Fever > 38C (100.4F) Albuterol/Ipratropium 3 ml 05/12/18 20:37 05/22/18 05:38 Duoneb INH 3 ml Q4HR PRN Administration Wheezing Cholecalciferol 5,000 unit 05/13/18 09:00 05/22/18 08:29 Vitamin D3 PO 5,000 unit DAILY PAIGE Administration Gabapentin 800 mg 05/12/18 23:00 05/22/18 06:10 Neurontin PO 800 mg TID PAIGE Administration Guaifenesin 600 mg 05/13/18 09:00 05/22/18 08:31 Mucinex PO 600 mg BID PAIGE Administration Sodium Chloride 1,000 mls @ 0 mls/hr 05/19/18 09:00 05/22/18 08:55 Normal Saline 0.9% IV Infused .Q0M PAIGE Infusion TKO Magnesium Oxide 400 mg 05/13/18 14:00 05/14/18 09:31 Mag Ox PO 400 mg DAILY PRN Administration CONSTIPATION Metronidazole 500 mg 05/22/18 08:00 05/22/18 08:29 Flagyl PO 500 mg Q8H PAIGE Administration Multivitamins 1 tab 05/13/18 09:00 05/22/18 08:30 Theragran PO 1 tab DAILY PAIGE Administration Oxycodone HCl 5 - 10 mg 05/19/18 07:47 05/22/18 01:04 Roxicodone PO 5 mg Q6HR PRN Administration PAIN Pantoprazole Sodium 40 mg 05/13/18 07:00 05/22/18 06:10 Protonix PO 40 mg QDAC PAIGE Administration (Interferon Beta-1a 1 each 05/13/18 14:00 05/20/18 14:22 [Avonex] 30 Mcg) Inj IM 1 each Q7D PAIGE Administration (Vitamin B Complex [ 1 each 05/13/18 14:00 05/22/18 08:31 B Complete] Tab) PO 1 each DAILY PAIGE Administration Polyethylene Glycol 17 gm 05/13/18 09:00 05/22/18 08:32 Miralax PO Not Given DAILY PAIGE Saccharomyces Boulardii 250 mg 05/13/18 08:00 05/22/18 08:29 Florastor PO 250 mg BIDWM PAIGE Administration Sodium Chloride 10 ml 05/12/18 20:26 05/19/18 05:37 Normal Saline Flush 0.9% IVP 10 ml PRN PRN Administration NEEDED PER PROVIDER ORDERS Sodium Chloride 10 ml 05/13/18 01:00 05/22/18 01:07 Normal Saline Flush 0.9% IVP Not Given 0100,0900,1700 PAIGE Sodium Phosphate 250 mg 05/20/18 12:00 05/22/18 08:31 K-Phos Neutral PO 250 mg TIDWM PAIGE Administration Tizanidine HCl 4 mg 05/17/18 22:00 05/21/18 21:40 Zanaflex PO 4 mg 2200 PAIGE Administration - Lab Result Lab results reviewed: Yes Fish Bone Diagrams: 05/22/18 06:00 05/22/18 06:00 - EKG Results EKG Interpreted Independently: Yes - Diagnostic Imaging Results Diagnostic Imaging Results: Final report reviewed - Additional Planning Condition/Complexity: Improved My Orders: My Active Orders 05/22/18 08:00 metroNIDAZOLE [Flagyl] 500 mg PO Q8H 05/22/18 09:00 cefUROXime axetil [Ceftin] 500 mg PO BID 05/22/18 12:00 Ferrous Sulfate [Feosol] 325 mg PO 1200,1700 05/23/18 05:00 CBC W/O DIFF (HEMOGRAM) [HEME] DAILYLAB CMP, RFLX TO IONIZED CA IF [CHEM] DAILYLAB CRP - C-REACTIVE PROTEIN [CHEM] DAILYLAB ESR- ERYTHROCYTE SEDIMENT RATE [HEME] DAILYLAB MAGNESIUM [CHEM] DAILYLAB PHOSPHORUS [CHEM] DAILYLAB Consult/Specialty: Infectious Disease Plan Discussed with:: Patient Time Spent: 31-60 minutes Subjective - Subjective Patient Reports: Resting Comfortably, Cough (Improved with no further hemoptysis), Chest Pain (Improved), Shortness of Breath (Resolved), Other (No fevers last night.) Nursing Reports: No Complaints Objective Vital Signs: Vital Signs - 24 hr 05/21/18 05/21/18 05/21/18 10:52 16:04 23:06 Temperature 36.8 C 36.6 C Heart Rate 59 L Heart Rate [ 72 Brachial] Respiratory 20 18 Rate Blood Pressure 114/70 [Right Brachial artery] O2 Saturation 97 05/22/18 05/22/18 05/22/18 00:00 05:21 05:39 Temperature 36.5 C Heart Rate Heart Rate [ 70 Brachial] Respiratory 16 18 Rate Blood Pressure 86/53 L 116/72 [Right Brachial artery] O2 Saturation 95 05/22/18 08:06 Temperature 37.1 C Heart Rate Heart Rate [ 86 Brachial] Respiratory 18 Rate Blood Pressure 98/58 L [Right Brachial artery] O2 Saturation 92 Oxygen O2 Source Room air I&O (Last 24 Hrs): Intake and Output Totals x24h 05/20/18 05/21/18 05/22/18 23:59 23:59 23:59 Intake Total 3044.999 1620 1580 Output Total 1500 400 Balance 3500.551 8176 1580 General: Alert, Oriented x3, Cooperative, No acute distress, Other (Cachectic appearing) HEENT: Atraumatic, PERRLA, EOMI, Mucous membr. moist/pink Neck: Supple, No JVD, No thyromegaly, +2 carotid pulse wo bruit, No LAD Lymphatic: no adenopathy Neuro: Alert, Non Focal, CN 2-12 Grossly Intact, Oriented Times 3 Cardiovascular: Regular rate, Normal S1, Normal S2, No murmurs Respiratory: Chest non-tender, No respiratory distress, Rhonchi (Right upper lobe) Abdomen: Normal bowel sounds, Soft, No tenderness, No hepatospenomegaly, No masses Extremities: No clubbing, No cyanosis, No edema, Normal pulses, No tenderness/swelling Skin: No rashes, No breakdown, No significant lesion - Results Results: Laboratory Results WBC 5.1 x10^3/uL (4.8-10.8) 05/22/18 06:00 RBC 3.49 10^6/uL (4.20-5.40) L 05/22/18 06:00 Hgb 10.1 g/dL (12.0-16.0) L 05/22/18 06:00 Hct 31.1 % (37.0-47.0) L 05/22/18 06:00 MCV 89.1 fL (81.0-99.0) 05/22/18 06:00 MCH 29.0 pg (27.0-31.0) 05/22/18 06:00 MCHC 32.5 g/dL (32.0-36.0) 05/22/18 06:00 RDW 14.8 % (12.0-15.0) 05/22/18 06:00 Plt Count 472 10^3/uL (130-450) H 05/22/18 06:00 MPV 7.5 fL (7.9-10.8) L 05/22/18 06:00 Neut # (Auto) 3.8 10^3/uL (1.5-6.6) 05/21/18 04:50 Lymph # (Auto) 0.6 10^3/uL (1.5-3.5) L 05/21/18 04:50 [place] # (Auto) 0.6 10^3/uL (0.0-1.0) 05/21/18 04:50 Eos # (Auto) 0.1 10^3/uL (0.0-0.7) 05/21/18 04:50 Baso # (Auto) 0.0 10^3/uL (0.0-0.1) 05/21/18 04:50 Absolute Nucleated RBC 0.00 x10^3/uL 05/21/18 04:50 Nucleated RBC % 0.1 /100WBC 05/21/18 04:50 ESR 80 mm/Hr (0-30) H 05/22/18 06:00 Sodium 139 mmol/L (135-145) 05/22/18 06:00 Potassium 3.6 mmol/L (3.5-5.0) 05/22/18 06:00 Chloride 100 mmol/L (101-111) L 05/22/18 06:00 Carbon Dioxide 30 mmol/L (21-32) 05/22/18 06:00 Anion Gap 9.0 (6-13) 05/22/18 06:00 BUN 6 mg/dL (6-20) 05/22/18 06:00 Creatinine 0.7 mg/dL (0.4-1.0) 05/22/18 06:00 Estimated GFR (MDRD) 85 (>89) L 05/22/18 06:00 Glucose 91 mg/dL (70-100) 05/22/18 06:00 Lactic Acid 1.0 mmol/L (0.5-2.2) 05/12/18 15:57 Calcium 9.1 mg/dL (8.5-10.3) 05/22/18 06:00 Ionized Calcium NO 05/22/18 06:00 Phosphorus 3.4 mg/dL (2.5-4.6) 05/22/18 06:00 Magnesium 2.5 mg/dL (1.7-2.8) 05/22/18 06:00 Iron 14 ug/dL (28-170) L 05/15/18 03:35 TIBC 175 ug/dL (250-450) L 05/15/18 03:35 % Saturation 8 % (20-50) L 05/15/18 03:35 Transferrin 125 mg/dL (192-382) L 05/15/18 03:35 Ferritin 102.7 ng/mL (11.0-306.8) 05/15/18 03:35 Total Bilirubin 0.5 mg/dL (0.2-1.0) 05/22/18 06:00 AST 28 IU/L (10-42) 05/22/18 06:00 ALT 22 IU/L (10-60) 05/22/18 06:00 Alkaline Phosphatase 69 IU/L (42-121) 05/22/18 06:00 C-Reactive Protein 4.7 mg/dL (0-1.0) H 05/22/18 06:00 Total Protein 7.4 g/dL (6.7-8.2) 05/22/18 06:00 Albumin 3.1 g/dL (3.2-5.5) L 05/22/18 06:00 Globulin 4.3 g/dL (2.1-4.2) H 05/22/18 06:00 Albumin/Globulin Ratio 0.7 (1.0-2.2) L 05/22/18 06:00 Lipase 34 U/L (22-51) 05/12/18 15:57 Vitamin B12 5397 pg/mL (180-914) H 05/15/18 03:35 Folate 29.00 ng/mL (5.90 - >24.8) 05/15/18 03:35 Urine Color LT. YELLOW 05/12/18 23:40 Urine Clarity CLEAR (CLEAR) 05/12/18 23:40 Urine pH 6.5 PH (5.0-7.5) 05/12/18 23:40 Ur Specific [place] <=1.005 (1.002-1.030) 05/12/18 23:40 Urine Protein NEGATIVE mg/dL (NEGATIVE) 05/12/18 23:40 Urine Glucose (UA) NEGATIVE mg/dL (NEGATIVE) 05/12/18 23:40 Urine Ketones NEGATIVE mg/dL (NEGATIVE) 05/12/18 23:40 Urine Occult Blood TRACE-LYSE (NEGATIVE) 05/12/18 23:40 Urine Nitrite NEGATIVE (NEGATIVE) 05/12/18 23:40 Urine Bilirubin NEGATIVE (NEGATIVE) 05/12/18 23:40 Urine Urobilinogen 0.2 (NORMAL) E.U./dL (NORMAL) 05/12/18 23:40 Ur Leukocyte Esterase NEGATIVE (NEGATIVE) 05/12/18 23:40 Ur Microscopic Review NOT INDICATED 05/12/18 23:40 Urine Culture Comments NOT INDICATED 05/12/18 23:40 Last Dose Date UNK 05/15/18 03:35 Last Dose Time UNK 05/15/18 03:35 Vancomycin Trough 16.5 ug/mL (10.0-20.0) 05/15/18 03:35 Influenza A (Rapid) Negative (Negative) 05/12/18 15:57 Influenza B (Rapid) Negative (Negative) 05/12/18 15:57 - Procedures Procedures: Procedures PARTIAL HIP REPLACEMENT (08/30/13) ABX Reporting Has patient been on IV antibiotics over the past 48 hours?: Yes Current Medications - Current Medications Current Medications: Laboratory Results WBC 5.1 x10^3/uL (4.8-10.8) 05/22/18 06:00 RBC 3.49 10^6/uL (4.20-5.40) L 05/22/18 06:00 Hgb 10.1 g/dL (12.0-16.0) L 05/22/18 06:00 Hct 31.1 % (37.0-47.0) L 05/22/18 06:00 MCV 89.1 fL (81.0-99.0) 05/22/18 06:00 MCH 29.0 pg (27.0-31.0) 05/22/18 06:00 MCHC 32.5 g/dL (32.0-36.0) 05/22/18 06:00 RDW 14.8 % (12.0-15.0) 05/22/18 06:00 Plt Count 472 10^3/uL (130-450) H 05/22/18 06:00 MPV 7.5 fL (7.9-10.8) L 05/22/18 06:00 Neut # (Auto) 3.8 10^3/uL (1.5-6.6) 05/21/18 04:50 Lymph # (Auto) 0.6 10^3/uL (1.5-3.5) L 05/21/18 04:50 [place] # (Auto) 0.6 10^3/uL (0.0-1.0) 05/21/18 04:50 Eos # (Auto) 0.1 10^3/uL (0.0-0.7) 05/21/18 04:50 Baso # (Auto) 0.0 10^3/uL (0.0-0.1) 05/21/18 04:50 Absolute Nucleated RBC 0.00 x10^3/uL 05/21/18 04:50 Nucleated RBC % 0.1 /100WBC 05/21/18 04:50 ESR 80 mm/Hr (0-30) H 05/22/18 06:00 Sodium 139 mmol/L (135-145) 05/22/18 06:00 Potassium 3.6 mmol/L (3.5-5.0) 05/22/18 06:00 Chloride 100 mmol/L (101-111) L 05/22/18 06:00 Carbon Dioxide 30 mmol/L (21-32) 05/22/18 06:00 Anion Gap 9.0 (6-13) 05/22/18 06:00 BUN 6 mg/dL (6-20) 05/22/18 06:00 Creatinine 0.7 mg/dL (0.4-1.0) 05/22/18 06:00 Estimated GFR (MDRD) 85 (>89) L 05/22/18 06:00 Glucose 91 mg/dL (70-100) 05/22/18 06:00 Lactic Acid 1.0 mmol/L (0.5-2.2) 05/12/18 15:57 Calcium 9.1 mg/dL (8.5-10.3) 05/22/18 06:00 Ionized Calcium NO 05/22/18 06:00 Phosphorus 3.4 mg/dL (2.5-4.6) 05/22/18 06:00 Magnesium 2.5 mg/dL (1.7-2.8) 05/22/18 06:00 Iron 14 ug/dL (28-170) L 05/15/18 03:35 TIBC 175 ug/dL (250-450) L 05/15/18 03:35 % Saturation 8 % (20-50) L 05/15/18 03:35 Transferrin 125 mg/dL (192-382) L 05/15/18 03:35 Ferritin 102.7 ng/mL (11.0-306.8) 05/15/18 03:35 Total Bilirubin 0.5 mg/dL (0.2-1.0) 05/22/18 06:00 AST 28 IU/L (10-42) 05/22/18 06:00 ALT 22 IU/L (10-60) 05/22/18 06:00 Alkaline Phosphatase 69 IU/L (42-121) 05/22/18 06:00 C-Reactive Protein 4.7 mg/dL (0-1.0) H 05/22/18 06:00 Total Protein 7.4 g/dL (6.7-8.2) 05/22/18 06:00 Albumin 3.1 g/dL (3.2-5.5) L 05/22/18 06:00 Globulin 4.3 g/dL (2.1-4.2) H 05/22/18 06:00 Albumin/Globulin Ratio 0.7 (1.0-2.2) L 05/22/18 06:00 Lipase 34 U/L (22-51) 05/12/18 15:57 Vitamin B12 5397 pg/mL (180-914) H 05/15/18 03:35 Folate 29.00 ng/mL (5.90 - >24.8) 05/15/18 03:35 Urine Color LT. YELLOW 05/12/18 23:40 Urine Clarity CLEAR (CLEAR) 05/12/18 23:40 Urine pH 6.5 PH (5.0-7.5) 05/12/18 23:40 Ur Specific [place] <=1.005 (1.002-1.030) 05/12/18 23:40 Urine Protein NEGATIVE mg/dL (NEGATIVE) 05/12/18 23:40 Urine Glucose (UA) NEGATIVE mg/dL (NEGATIVE) 05/12/18 23:40 Urine Ketones NEGATIVE mg/dL (NEGATIVE) 05/12/18 23:40 Urine Occult Blood TRACE-LYSE (NEGATIVE) 05/12/18 23:40 Urine Nitrite NEGATIVE (NEGATIVE) 05/12/18 23:40 Urine Bilirubin NEGATIVE (NEGATIVE) 05/12/18 23:40 Urine Urobilinogen 0.2 (NORMAL) E.U./dL (NORMAL) 05/12/18 23:40 Ur Leukocyte Esterase NEGATIVE (NEGATIVE) 05/12/18 23:40 Ur Microscopic Review NOT INDICATED 05/12/18 23:40 Urine Culture Comments NOT INDICATED 05/12/18 23:40 Last Dose Date UNK 05/15/18 03:35 Last Dose Time UNK 05/15/18 03:35 Vancomycin Trough 16.5 ug/mL (10.0-20.0) 05/15/18 03:35 Influenza A (Rapid) Negative (Negative) 05/12/18 15:57 Influenza B (Rapid) Negative (Negative) 05/12/18 15:57 Active Medications Generic Name Dose Route Start Last Admin Trade Name Freq PRN Reason Stop Dose Admin Acetaminophen 650 mg 05/12/18 20:26 05/22/18 06:10 Tylenol PO 650 mg Q4HR PRN Administration Pain or Fever > 38C (100.4F) Albuterol/Ipratropium 3 ml 05/12/18 20:37 05/22/18 05:38 Duoneb INH 3 ml Q4HR PRN Administration Wheezing Cefuroxime Axetil 500 mg 05/22/18 09:00 05/22/18 08:59 Ceftin PO 500 mg BID PAIGE Administration Cholecalciferol 5,000 unit 05/13/18 09:00 05/22/18 08:29 Vitamin D3 PO 5,000 unit DAILY PAIGE Administration Ferrous Sulfate 325 mg 05/22/18 12:00 Feosol PO 1200,1700 PAIGE Gabapentin 800 mg 05/12/18 23:00 05/22/18 06:10 Neurontin PO 800 mg TID PAIGE Administration Guaifenesin 600 mg 05/13/18 09:00 05/22/18 08:31 Mucinex PO 600 mg BID PAIGE Administration Sodium Chloride 1,000 mls @ 0 mls/hr 05/19/18 09:00 05/22/18 08:55 Normal Saline 0.9% IV Infused .Q0M PAIGE Infusion TKO Magnesium Oxide 400 mg 05/13/18 14:00 05/14/18 09:31 Mag Ox PO 400 mg DAILY PRN Administration CONSTIPATION Metronidazole 500 mg 05/22/18 08:00 05/22/18 08:29 Flagyl PO 500 mg Q8H PAIGE Administration Multivitamins 1 tab 05/13/18 09:00 05/22/18 08:30 Theragran PO 1 tab DAILY PAIGE Administration Oxycodone HCl 5 - 10 mg 05/19/18 07:47 05/22/18 01:04 Roxicodone PO 5 mg Q6HR PRN Administration PAIN Pantoprazole Sodium 40 mg 05/13/18 07:00 05/22/18 06:10 Protonix PO 40 mg QDAC PAIGE Administration (Interferon Beta-1a 1 each 05/13/18 14:00 05/20/18 14:22 [Avonex] 30 Mcg) Inj IM 1 each Q7D PAIGE Administration (Vitamin B Complex [ 1 each 05/13/18 14:00 05/22/18 08:31 B Complete] Tab) PO 1 each DAILY PAIGE Administration Polyethylene Glycol 17 gm 05/13/18 09:00 05/22/18 08:32 Miralax PO Not Given DAILY PAIGE Prochlorperazine Edisylate 10 mg 05/12/18 20:26 Compazine Inj IVP Q6HR PRN Nausea / Vomiting Saccharomyces Boulardii 250 mg 05/13/18 08:00 05/22/18 08:29 Florastor PO 250 mg BIDWM PAIGE Administration Sodium Chloride 10 ml 05/12/18 20:26 05/19/18 05:37 Normal Saline Flush 0.9% IVP 10 ml PRN PRN Administration NEEDED PER PROVIDER ORDERS Sodium Chloride 10 ml 05/13/18 01:00 05/22/18 01:07 Normal Saline Flush 0.9% IVP Not Given 0100,0900,1700 PAIGE Sodium Phosphate 250 mg 05/20/18 12:00 05/22/18 08:31 K-Phos Neutral PO 250 mg TIDWM PAIGE Administration Temazepam 15 mg 05/12/18 20:26 Restoril PO QPM PRN Insomnia Tizanidine HCl 4 mg 05/17/18 22:00 05/21/18 21:40 Zanaflex PO 4 mg 2200 PAIGE Administration Zinc Oxide 113 gm 05/17/18 11:55 Desitin TOP PRN PRN Skin Care Gabapentin [Neurontin] 800 mg PO TID 08/30/13 Interferon Beta-1A [Avonex] 30 mcg IM Q7D 08/30/13 Cholecalciferol (Vitamin D3) [Vitamin D3] 5,000 units PO DAILY 05/13/18 Magnesium 500 mg PO DAILY PRN 12/21/18 Naproxen 250 mg PO DAILY PRN 05/13/18 Neurocet 1 cap PO DAILY 05/13/18 Oxycodone HCl/Acetaminophen [Oxycodone-Acetaminophen 5-325] 0.5 tab PO QPM 05/13/18 Vitamin B Complex 1 tab PO DAILY 05/13/18
[2018-05-22] MEDS: FERROUS SULFATE 325 MG TABLET PO SCH ×2 (13:18→16:08)
[2018-05-22] MEDS: ONDANSETRON ODT 4 MG TABLET TL PRN ×2 (16:07→20:56)
[2018-05-22] MEDS: tiZANidine 4 MG TABLET PO SCH (21:50)
[2018-05-23] MEDS: IPRATROPIUM/ALBUTEROL 3 ML NEB INH PRN (03:34)
[2018-05-23] MEDS: GABAPENTIN 400 MG CAPSULE PO SCH (06:09)
[2018-05-23] MEDS: PANTOPRAZOLE 40 MG TABLET PO SCH (06:09)
[2018-05-23 06:10] LABS: HGB - HEMOGLOBIN 9.4 g/dL (12.0-16.0); MEAN CORPUSCULAR HEMOGLOBIN 29.2 pg (27.0-31.0); MEAN CORPUSCULAR HGB CONC 33.3 g/dL (32.0-36.0); MEAN CORPUSCULAR VOLUME 87.8 fL (81.0-99.0); MEAN PLATELET VOLUME 7.6 fL (7.9-10.8); RED BLOOD COUNT 3.22 10^6/uL (4.20-5.40); RED CELL DISTRIBUTION WIDTH 15.3 % (12.0-15.0); WHITE BLOOD COUNT 5.6 x10^3/uL (4.8-10.8)
[2018-05-23 06:24] LABS: ALBUMIN 2.7 g/dL (3.2-5.5); ALBUMIN/GLOBULIN RATIO 0.7 (1.0-2.2); ALKALINE PHOSPHATASE 58 IU/L (42-121); ALT ALANINE AMINOTRANSFERASE 17 IU/L (10-60); AST ASPARTATE AMINOTRANSFERASE 23 IU/L (10-42); BILIRUBIN,TOTAL 0.4 mg/dL (0.2-1.0); BUN - BLOOD UREA NITROGEN 6 mg/dL (6-20); CALCIUM 8.7 mg/dL (8.5-10.3); CARBON DIOXIDE - CO2 29 mmol/L (21-32); CHLORIDE 100 mmol/L (101-111); CREATININE 0.8 mg/dL (0.4-1.0); GFR - MDRD 72 (>89); GLUCOSE 100 mg/dL (70-100); MAGNESIUM 2.2 mg/dL (1.7-2.8); PHOSPHORUS 2.9 mg/dL (2.5-4.6); SODIUM 136 mmol/L (135-145); TOTAL PROTEIN 6.4 g/dL (6.7-8.2)
[2018-05-23] MEDS ORDERED: POTASSIUM CHLORIDE 20 MEQ TABLET PO ONE (07:34)
[2018-05-23] MEDS: MULTIVITAMIN TABLET PO SCH (08:36)
[2018-05-23] MEDS: guaiFENesin 600 MG TABLET PO SCH (08:37)
[2018-05-23] MEDS: metroNIDAZOLE 250 MG TABLET PO SCH (08:37)
[2018-05-23] MEDS: cefUROXime axetil 250 MG TABLET PO SCH (08:37)
[2018-05-23] MEDS: SACCHAROMYCES BOULARDII 250 MG CAPSULE PO SCH (08:38)
[2018-05-23] MEDS: NEUTRA-PHOS 250 MG TABLET PO SCH (08:41)
[2018-05-23] MEDS: VITAMIN B COMPLEX PO SCH (08:42)
[2018-05-23] MEDS: CHOLECALCIFEROL 5,000 UNIT CAPSULE PO SCH (08:44)
[2018-05-23] MEDS: POLYETHYLENE GLYCOL 3350 17 GM PACKET PO SCH (08:45)
[2018-05-23] MEDS: SODIUM CHLORIDE FLUSH 0.9% 10 ML SYRINGE IVP SCH (08:45)
[2018-05-23 08:47] VITALS: BP 98/82
--- NOTE | 2018-05-23 10:06 | Discharge Plan ---
Discharge Plan Disposition: Home, Self Care Condition: Fair Prescriptions: Ipratropium/Albuterol [Duoneb] 3 ml INH Q4HR PRN #5 neb PRN Reason: Wheezing Ondansetron Odt [Zofran Odt] 4 mg TL Q4HR PRN #30 tablet PRN Reason: Nausea / Vomiting cefUROXime axetil [Ceftin] 500 mg PO BID #56 tablet Ferrous Gluconate 324 mg PO DAILY #60 tablet metroNIDAZOLE [Flagyl] 500 mg PO QID #112 tablet Saccharomyces Boulardii [Florastor] 250 mg PO BID #28 capsule Diet: Soft (Soft diet with nectar thick liquids.) Activity Restrictions: Activity as Tolerated Shower Restrictions: No Driving Restrictions: No Weight Bearing: Full Weight Instruction Topics: Dysphagia Diet Altered Additional Instructions or Follow Up instructions: You presented to our emergency department with symptoms of cough, fever, blood in your sputum and shortness of breath. You were found to have a right cavitary lung lesion which initially was suspicious for tuberculosis. We put you in isolation and did sputum samples to rule out tuberculosis. These samples were negative. We spoke with infectious disease at the [facility] and they believe that your infection was due to aspiration pneumonia and you had a lung abscess. They recommended continuation of antibiotics for 2 additional weeks. We switch you over to oral antibiotics with Ceftin and Flagyl which you are tolerating well. You were also found to be iron deficient while you are hospitalized and I am prescribing you an iron pill. You are also being prescribed a pill for nausea and a probiotic. You need to follow-up with your primary care physician once you have completed 2 weeks of antibiotics. He will need a referral to a package dyer and will need a repeat CT scan to confirm that your infection is improving. You were also found to have dysphasia likely due to your MS which was causing you to aspirate and likely led to this pneumonia. We recommend that you have a soft diet with nectar thick liquids to prevent aspiration. You will also need to follow-up with speech therapy for further evaluation. Follow-Up Care: Outpatient Rehab - [facility] No Smoking: If you smoke, Please STOP! Call for help. Follow-up with: Siena Hoffman MD [Provider Admit Priv/Credential] -
[2018-05-23] MEDS: ACETAMINOPHEN 325 MG TABLET PO PRN (10:36)
--- NOTE | 2018-05-23 10:50 | DISCHARGE SUMMARY ---
"Discharge Summary Admit Date: 05/12/18 Discharge Date: 05/23/18 Discharging Provider: Nikunj Peña MD Primary Care Provider: Siena Hoffman Code Status: Attempt Resuscitation Condition at Discharge: Fair Discharge Disposition: 01 Home, Self Care - DIAGNOSES Admission Diagnoses: 1. Hemoptysis 2. Lung abscess 3. Community-acquired pneumonia 4. Multiple sclerosis 5. Asthma 6. Deep vein thrombosis prophylaxis Discharge Diagnoses with Status of Each Condition: 1. Cavitating mass in right upper lung lobe: Stable 2. Cavitary pneumonia: Stable 3. Dysphasia: Stable 4. Asthma: Stable 5. Multiple sclerosis: Stable 6. Hypokalemia: Resolved 7. Anemia: Stable 8. Hemoptysis: Resolved - HPI History of Present Illness: Patient is a 62-year-old white female with a past medical history significant for multiple sclerosis on Avonex, interferon beta, weekly and history of asthma on as needed inhalers. The patient has had 6 days of an illness consisting of cough productive of sputum, occasional fever and intermittent hemoptysis. She had a high temperature of 102.9 today and was exhausted and started falling a lot. Because of these new complaints she presented to the emergency room. Her evaluation showed an abnormal chest x-ray with lymphadenopathy as well as a cavitary lesion and pneumonia. She underwent a CT scan which confirms a cavitary lesion of the lung in the right upper lobe with air bronchogram surrounding this, and she is being admitted for management of pulmonary pathology. She has no nausea, vomiting or diarrhea. - CONSULTS | PROCEDURES Consultations: Infectious Disease on [facility] Consult line with - HOSPITAL COURSE Hospital Course: Patient presented with 6 days of fevers, cough, hemoptysis and night sweats. The patient has also been having frequent falls and has 10 pound weight loss. The patient's chest x-ray and CT scan showed a right cavitary mass with surrounding air bronchograms and right-sided lymph nodes. This finding was concerning for possibility of tuberculosis. Patient could also have possible lung abscess, lung infection or cancer. Patient was admitted to the medical hein under negative pressure isolation for rule out of TB and treatment with IV antibiotics. The patient was placed in negative pressure isolation and underwent sputum cultures for acid-fast bacilli. Infectious disease was consulted via telephone at the [facility] and recommended that we do not stop the patient's treatment for multiple sclerosis as it is not an immunosuppressive agent. They agreed with getting AFB testing and continuing broad-spectrum antibiotics. Unfortunately there was mishandling of the patient's sputum samples as they were not appropriately refrigerated and due to the holidays and having to send out the sputum samples it took a number of days for us to obtain 3 negative acid-fast bacilli samples. During this time the patient was treated with IV antibiotics vancomycin and meropenem. She received a total of 8 days of vancomycin and meropenem. The patients respiratory cx grew chris sp which is usually not an invasive organism when seen in sputum and treatment not indicated. The patients blood cultures were negative. Her AFB cultures were also negative x 3. Initially the patient was spiking daily fevers on 05/12/2018, 05/13/2018, 05/14/2018, 05/15/2018 after which she only spiked one additional fever on a day where she missed a dose of antibiotic which was on 05/18/2018. The patient has had no fevers since. After the patient had 3 negative tests for acid-fast bacilli I spoke with infectious disease at the [facility] Dr. Rex Luque who felt that given the patient's history of MS the most likely possibility given the negative AFB results would be aspiration pneumonia leading to a lung abscess in the right upper lobe. He suggested de-escalating the patient's antibiotics from vancomycin and meropenem to Unasyn and then oral Augmentin. The patient however has an allergy to penicillins as she develops a diffuse rash. The second line treatment for lung abscesses is clindamycin however the patient states that she developed severe C. difficile when she took clindamycin and t herefore refuses to take it again. Therefore the patient was started on IV Flagyl and since this is not first or second line we did a trial with Flagyl for 2 days to ensure that the patient does not have any worsening of her infection prior to switching to oral Flagyl. She tolerated this well and we added increased coverage when switching to PO antibiotics with ceftin. Infectious disease recommended treatment for at least 2 weeks with antibiotics and then follow-up with a primary care physician to decide whether to continue treatment. They also recommended referral to pulmonology for further workup including a repeat CT scan in about 1 month. Patient underwent evaluation from speech pathology and does have dysphasia. Her diet was changed per recommendations of speech pathology. The patient was also found to be iron deficient and was started on iron supplementation which she will continue as an outpatient. The patient is being discharged home with oral Ceftin and Flagyl which she will continue for 2 additional weeks. After that she will follow-up with her primary care physician to ensure that her infection has resolved if it is felt that the patient is continuing to have symptoms she may need to continue on antibiotics for a longer duration. The patient also needs a referral to pulmonology and will need a repeat CT scan in 1 month to follow-up on her cavitary lesion and to rule out possible malignancy. The patient was found to have dysphasia likely secondary to her MS. She was started on a soft mechanical diet with nectar thick liquids. The patient will continue this diet as an outpatient and will follow up with speech pathology for a barium swallow and esophagram. The patient was in stable condition at the time of discharge. If the patient does have worsening in her condition after discharge I would recommend that the patient be admitted to a facility with specialists as at this point the patient would need a bronchoscopy and likely needs to be somewhere with pulmonology and infectious disease services. - ALLERGIES Allergies/Adverse Reactions: Allergies Allergy/AdvReac Type Severity Reaction Status Date / Time Penicillins Allergy Mild Rash Verified 05/12/18 15:15 Sulfa (Sulfonamide Allergy Mild Rash Verified 05/12/18 15:15 Antibiotics) - MEDICATIONS Home Medications: Ambulatory Orders Medication Instructions Recorded Confirmed Gabapentin [Neurontin] 800 mg PO TID 08/30/13 05/13/18 Interferon Beta-1A [Avonex] 30 mcg IM Q7D 08/30/13 05/13/18 Cholecalciferol (Vitamin D3) 5,000 units PO DAILY 05/13/18 05/13/18 [Vitamin D3] Magnesium 500 mg PO DAILY PRN 05/13/18 05/13/18 Naproxen 250 mg PO DAILY PRN 05/13/18 05/13/18 Neurocet 1 cap PO DAILY 05/13/18 05/13/18 Oxycodone HCl/Acetaminophen 0.5 tab PO QPM 05/13/18 05/13/18 [Oxycodone-Acetaminophen 5-325] Vitamin B Complex 1 tab PO DAILY 05/13/18 05/13/18 Ferrous Gluconate 324 mg PO DAILY #60 tablet 05/23/18 Ipratropium/Albuterol [Duoneb] 3 ml INH Q4HR PRN #5 neb 05/23/18 Ondansetron Odt [Zofran Odt] 4 mg TL Q4HR PRN #30 tablet 05/23/18 Saccharomyces Boulardii [Florastor] 250 mg PO BID #28 capsule 05/23/18 cefUROXime axetil [Ceftin] 500 mg PO BID #56 tablet 05/23/18 metroNIDAZOLE [Flagyl] 500 mg PO QID #112 tablet 05/23/18 - PHYSICAL EXAM AT DISCHARGE General Appearance: positive: No acute distress, Alert, Other (Cachectic ) Eyes Bilateral: positive: Normal inspection, PERRL, EOMI, No lid inflammation, Conjunctivae nml, No scleral icterus ENT: positive: ENT inspection nml, Pharynx nml, No signs of dehydration. negative: Purulent nasal drainage, Pharyngeal erythema, Oral lesions Neck: positive: Nml inspection, Thyroid nml, No JVD. negative: Trachea midline, Thyromegaly, Lymphadenopathy (R), Lymphadenopathy (L), Stiff neck, Carotid br uit, Tracheal deviation Respiratory: positive: Chest non-tender, No respiratory distress, Rhonchi (Right lung improved) Cardiovascular: positive: Regular rate & rhythm, No murmur, No gallop Peripheral Pulses: positive: 2+ Abdomen: positive: Non-tender, No organomegaly, Nml bowel sounds, No distention. negative: Guarding, Rebound, Hepatomegaly Back: positive: Nml inspection. negative: CVA tenderness (R), CVA tenderness (L) Skin: positive: Color nml, No rash, Warm. negative: Cyanosis, Diaphoresis, Pallor Extremities: positive: Non-tender, Full ROM, Nml appearance, No pedal edema Neurologic/Psychiatric: positive: Oriented x3, CN's nml (2-12), Motor nml, Sensation nml, Mood/affect nml - LABS Result Diagrams: 05/23/18 05:30 05/23/18 05:30 Other Lab Results: Laboratory Results WBC 5.6 x10^3/uL (4.8-10.8) 05/23/18 05:30 RBC 3.22 10^6/uL (4.20-5.40) L 05/23/18 05:30 Hgb 9.4 g/dL (12.0-16.0) L 05/23/18 05:30 Hct 28.3 % (37.0-47.0) L 05/23/18 05:30 MCV 87.8 fL (81.0-99.0) 05/23/18 05:30 MCH 29.2 pg (27.0-31.0) 05/23/18 05:30 MCHC 33.3 g/dL (32.0-36.0) 05/23/18 05:30 RDW 15.3 % (12.0-15.0) H 05/23/18 05:30 Plt Count 419 10^3/uL (130-450) 05/23/18 05:30 MPV 7.6 fL (7.9-10.8) L 05/23/18 05:30 Neut # (Auto) 3.8 10^3/uL (1.5-6.6) 05/21/18 04:50 Lymph # (Auto) 0.6 10^3/uL (1.5-3.5) L 05/21/18 04:50 Casey # (Auto) 0.6 10^3/uL (0.0-1.0) 05/21/18 04:50 Eos # (Auto) 0.1 10^3/uL (0.0-0.7) 05/21/18 04:50 Baso # (Auto) 0.0 10^3/uL (0.0-0.1) 05/21/18 04:50 Absolute Nucleated RBC 0.00 x10^3/uL 05/21/18 04:50 Nucleated RBC % 0.1 /100WBC 05/21/18 04:50 ESR 69 mm/Hr (0-30) H 05/23/18 05:30 Sodium 136 mmol/L (135-145) 05/23/18 05:30 Potassium 3.3 mmol/L (3.5-5.0) L 05/23/18 05:30 Chloride 100 mmol/L (101-111) L 05/23/18 05:30 Carbon Dioxide 29 mmol/L (21-32) 05/23/18 05:30 Anion Gap 7.0 (6-13) 05/23/18 05:30 BUN 6 mg/dL (6-20) 05/23/18 05:30 Creatinine 0.8 mg/dL (0.4-1.0) 05/23/18 05:30 Estimated GFR (MDRD) 72 (>89) L 05/23/18 05:30 Glucose 100 mg/dL (70-100) 05/23/18 05:30 Lactic Acid 1.0 mmol/L (0.5-2.2) 05/12/18 15:57 Calcium 8.7 mg/dL (8.5-10.3) 05/23/18 05:30 Ionized Calcium NO 05/23/18 05:30 Phosphorus 2.9 mg/dL (2.5-4.6) 05/23/18 05:30 Magnesium 2.2 mg/dL (1.7-2.8) 05/23/18 05:30 Iron 14 ug/dL (28-170) L 05/15/18 03:35 TIBC 175 ug/dL (250-450) L 05/15/18 03:35 % Saturation 8 % (20-50) L 05/15/18 03:35 Transferrin 125 mg/dL (192-382) L 05/15/18 03:35 Ferritin 102.7 ng/mL (11.0-306.8) 05/15/18 03:35 Total Bilirubin 0.4 mg/dL (0.2-1.0) 05/23/18 05:30 AST 23 IU/L (10-42) 05/23/18 05:30 ALT 17 IU/L (10-60) 05/23/18 05:30 Alkaline Phosphatase 58 IU/L (42-121) 05/23/18 05:30 C-Reactive Protein 4.0 mg/dL (0-1.0) H 05/23/18 05:30 Total Protein 6.4 g/dL (6.7-8.2) L 05/23/18 05:30 Albumin 2.7 g/dL (3.2-5.5) L 05/23/18 05:30 Globulin 3.7 g/dL (2.1-4.2) 05/23/18 05:30 Albumin/Globulin Ratio 0.7 (1.0-2.2) L 05/23/18 05:30 Lipase 34 U/L (22-51) 05/12/18 15:57 Vitamin B12 5397 pg/mL (180-914) H 05/15/18 03:35 Folate 29.00 ng/mL (5.90 - >24.8) 05/15/18 03:35 Urine Color LT. YELLOW 05/12/18 23:40 Urine Clarity CLEAR (CLEAR) 05/12/18 23:40 Urine pH 6.5 PH (5.0-7.5) 05/12/18 23:40 Ur Specific Maynard <=1.005 (1.002-1.030) 05/12/18 23:40 Urine Protein NEGATIVE mg/dL (NEGATIVE) 05/12/18 23:40 Urine Glucose (UA) NEGATIVE mg/dL (NEGATIVE) 05/12/18 23:40 Urine Ketones NEGATIVE mg/dL (NEGATIVE) 05/12/18 23:40 Urine Occult Blood TRACE-LYSE (NEGATIVE) 05/12/18 23:40 Urine Nitrite NEGATIVE (NEGATIVE) 05/12/18 23:40 Urine Bilirubin NEGATIVE (NEGATIVE) 05/12/18 23:40 Urine Urobilinogen 0.2 (NORMAL) E.U./dL (NORMAL) 05/12/18 23:40 Ur Leukocyte Esterase NEGATIVE (NEGATIVE) 05/12/18 23:40 Ur Microscopic Review NOT INDICATED 05/12/18 23:40 Urine Culture Comments NOT INDICATED 05/12/18 23:40 Last Dose Date UNK 05/15/18 03:35 Last Dose Time UNK 05/15/18 03:35 Vancomycin Trough 16.5 ug/mL (10.0-20.0) 05/15/18 03:35 Influenza A (Rapid) Negative (Negative) 05/12/18 15:57 Influenza B (Rapid) Negative (Negative) 05/12/18 15:57 - DIAGNOSTIC IMAGING Diagnostic Imaging Results: Final report reviewed Diagnostic Imaging Results Comments: Chest x-ray Impression: Right upper lobe cavitary lesion. Depending on clinical setting, further evaluation with CT scan may be helpful. Chest CT Impression: 1. Right upper lobe cavitary mass with adjacent airspace disease and consolidation. This could be infection versus primary lung malignancy and further workup is recommended. Secondary tuberculosis is possible. Correlate clinically. Right hilar lymphadenopathy. Chest x-ray Impression: Decreased gas within known large cavitary lesion, collapse versus partially fluid-filled since the prior. - FOLLOW UP Follow Up: Patient will continue on oral antibiotics with Ceftin and Flagyl for aspiration pneumonia with likely right upper lobe abscess. She will continue these for 2 weeks and then follow-up with her primary care physician and then decision will need to be made whether to continue antibiotics or to stop at that time. The patient will also need to have a referral for pulmonology and will need a repeat CT scan in 1 month to ensure that she does have resolution of her pneumonia and that there is no underlying malignancy. The patient will also follow-up with speech therapy as she does have dysphasia. The patient was also given prescription for iron as she was iron deficient. - TIME SPENT Time Spent in Discharge (Minutes): 55"
== END 2018-05-23 14:39 | disposition home or self-care (01) | DRG 177 ==
LOC: EDUNIT# → ED 15:10 → ICU 20:26 → MS2 05-13 15:27
PROVIDERS: ADMIT Internal Medicine; ATTEND Internal Medicine
DX: J18.1 Lobar pneumonia, unspecified organism (principal); J69.0 Pneumonitis due to inhalation of food and vomit; J85.1 Abscess of lung with pneumonia; R04.2 Hemoptysis; J45.21 Mild intermittent asthma with (acute) exacerbation; Z87.01 Personal history of pneumonia (recurrent); R64 Cachexia; Z68.1 Body mass index [BMI] 19.9 or less, adult; G35 Multiple sclerosis; E87.6 Hypokalemia; T37.3X6A Underdosing of other antiprotozoal drugs, initial encounter; Y92.230 Patient room in hospital as the place of occurrence of the external cause; R13.10 Dysphagia, unspecified; N31.9 Neuromuscular dysfunction of bladder, unspecified; D50.9 Iron deficiency anemia, unspecified; Z20.1 Contact with and (suspected) exposure to tuberculosis; Z91.81 History of falling; Z86.19 Personal history of other infectious and parasitic diseases; Z88.0 Allergy status to penicillin; Z79.899 Other long term (current) drug therapy
CPT/HCPCS: 36415; 71046; 71260; 80048; 80053; 80202; 81001; 81003; 82607; 82728; 82746; 83540; 83605; 83690; 83735; 84100; 84466; 85025; 85027; 85651; 86140; 87040; 87070; 87086; 87150; 87205; 87275; 87276; 94640; 96361; 96365; 99284

== ENCOUNTER 2018-07-08 11:15 | Outpatient (CLI) | payer MEDICARE, MEDICAID | END 2018-07-08 11:16 | disposition home or self-care (01) | LOC: NS 11:15 | PROVIDERS: ATTEND Internal Medicine | DX: Z71.3 Dietary counseling and surveillance (principal); R63.6 Underweight; J69.0 Pneumonitis due to inhalation of food and vomit; K21.0 Gastro-esophageal reflux disease with esophagitis; Z68.1 Body mass index [BMI] 19.9 or less, adult | CPT/HCPCS: 97802 ==

== ENCOUNTER 2018-08-01 13:07 | Outpatient (CLI) | payer MEDICARE, MEDICAID ==
--- NOTE | 2018-08-02 09:10 | XRAY Report ---
Reason: DYSPHAGIA Procedure Date: 08/01/2018 Accession Number: [id number] / [id number] Procedure: FL - Modified Barium Swallow W/SP CPT Code: FULL RESULT: EXAM: MODIFIED BARIUM SWALLOW EXAM DATE: 08/01/2018 02:07 PM. CLINICAL HISTORY: Dysphagia. COMPARISON: None. TECHNIQUE: Under the direction of speech pathology, patient swallowed various consistencies of barium under lateral fluoroscopic observation of the neck. Fluoroscopy Time: 80 seconds. Number of Images: 84. FINDINGS: Swallowing Mechanism: Borderline prolonged oral phase due to dry mouth. Otherwise normal swallowing reflex. Airway Protection: Normal epiglottic motion. No episodes of tracheal penetration or aspiration with all consistencies of barium. Pharynx: Normal. No significant vallecular or piriform sinus contrast pooling. Other: None. IMPRESSION: Normal modified barium swallow. No aspiration identified. RADIA
== END 2018-08-01 13:08 | disposition home or self-care (01) ==
LOC: DI 13:07
PROVIDERS: ATTEND Internal Medicine
DX: R13.10 Dysphagia, unspecified (principal)
CPT/HCPCS: 74230

== ENCOUNTER 2018-09-26 13:37 | Outpatient (CLI) | payer MEDICARE, MEDICAID ==
[2018-09-26 13:55] LABS: BASOPHILS # (AUTO) 0.1 10^3/uL (0.0-0.1); BASOPHILS % (AUTO) 1.5 %; EOSINOPHILS # (AUTO) 0.2 10^3/uL (0.0-0.7); EOSINOPHILS % (AUTO) 3.9 %; HGB - HEMOGLOBIN 12.7 g/dL (12.0-16.0); LYMPHOCYTES # (AUTO) 1.2 10^3/uL (1.5-3.5); LYMPHOCYTES % (AUTO) 23.5 %; MEAN CORPUSCULAR HEMOGLOBIN 28.9 pg (27.0-31.0); MEAN CORPUSCULAR HGB CONC 32.9 g/dL (32.0-36.0); MEAN CORPUSCULAR VOLUME 87.7 fL (81.0-99.0); MEAN PLATELET VOLUME 8.1 fL (7.9-10.8); MONOCYTES # (AUTO) 0.5 10^3/uL (0.0-1.0); NEUTROPHILS # (AUTO) 3.1 10^3/uL (1.5-6.6); NEUTROPHILS % (AUTO) 61.1 %; PLT - PLATELET COUNT 247 10^3/uL (130-450); RED CELL DISTRIBUTION WIDTH 13.7 % (12.0-15.0); WHITE BLOOD COUNT 5.1 x10^3/uL (4.8-10.8)
[2018-09-26 14:40] LABS: ALBUMIN 4.3 g/dL (3.2-5.5); ALBUMIN/GLOBULIN RATIO 1.4 (1.0-2.2); ALKALINE PHOSPHATASE 91 IU/L (42-121); ALT ALANINE AMINOTRANSFERASE 24 IU/L (10-60); AST ASPARTATE AMINOTRANSFERASE 32 IU/L (10-42); BILIRUBIN,TOTAL 0.7 mg/dL (0.2-1.0); BUN - BLOOD UREA NITROGEN 12 mg/dL (6-20); CALCIUM 9.3 mg/dL (8.5-10.3); CARBON DIOXIDE - CO2 27 mmol/L (21-32); CHLORIDE 102 mmol/L (101-111); CHOL/HDL RATIO 2.1 (<4.4); CHOLESTEROL 142 mg/dL; CREATININE 0.9 mg/dL (0.4-1.0); GFR - MDRD 63 (>89); GLUCOSE 90 mg/dL (70-100); HDL CHOLESTEROL 69 mg/dL; LDL CHOLESTEROL,CALCULATED 56 mg/dL; LDL/HDL RATIO 0.8 (<4.4); SODIUM 138 mmol/L (135-145); TOTAL PROTEIN 7.4 g/dL (6.7-8.2); VLDL CHOLESTEROL 17 mg/dL
[2018-09-26 14:57] LABS: THYROID STIMULATING HORMONE 2.08 uIU/mL (0.34-5.60)
== END 2018-09-26 13:38 | disposition home or self-care (01) ==
LOC: LAB 13:37
PROVIDERS: ATTEND Internal Medicine
DX: M81.0 Age-related osteoporosis without current pathological fracture (principal); J69.0 Pneumonitis due to inhalation of food and vomit; G35 Multiple sclerosis; A60.9 Anogenital herpesviral infection, unspecified; C44.91 Basal cell carcinoma of skin, unspecified; M41.9 Scoliosis, unspecified; J45.909 Unspecified asthma, uncomplicated; J30.2 Other seasonal allergic rhinitis
CPT/HCPCS: 36415; 80053; 80061; 82306; 83721; 84443; 85025; 86735; 86762; 86765

== ENCOUNTER 2018-10-29 23:41 | Emergency (ER) | payer MEDICARE, MEDICAID ==
--- NOTE | 2018-10-30 03:22 | ED Physician Documentation ---
History of Present Illness - Stated complaint Stated Complaint: ITCHY - Chief complaint Chief Complaint: Allergic Rx - History obtained from History obtained from: Patient - History of Present Illness Timing: How many days ago (4-5) Pain level now: 0 Improved by: zyrtec - Additonal information Additional information: c/o episodic pruritus of neck, scalp, upper back x few days. had excision of skin lesion left upper back 10/20, and she feels as though the itching is related to application of mupirocin to the area. scheduled to have removal of sutures this coming Wednesday. 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 : Incontinence, Frequency HEENT: None Psych: None Musculoskeletal: Osteoporosis, Scoliosis Derm: None Other Past Medical History: MS - Past Surgical History Past Surgical History: Yes General: Appendectomy /CHURN DRILL OPERATOR: section, Endometrial ablation, Tubal ligation, Other - Present Medications Home Medications: Ambulatory Orders Medication Instructions Recorded Confirmed Gabapentin [Neurontin] 800 mg PO TID 08/30/13 05/13/18 Interferon Beta-1A [Avonex] 30 mcg IM Q7D 08/30/13 05/13/18 Cholecalciferol (Vitamin D3) 5,000 units PO DAILY 05/13/18 05/13/18 [Vitamin D3] Magnesium 500 mg PO DAILY PRN 05/13/18 05/13/18 Naproxen 250 mg PO DAILY PRN 05/13/18 05/13/18 Neurocet 1 cap PO DAILY 05/13/18 05/13/18 Oxycodone HCl/Acetaminophen 0.5 tab PO QPM 05/13/18 05/13/18 [Oxycodone-Acetaminophen 5-325] Vitamin B Complex 1 tab PO DAILY 05/13/18 05/13/18 Ferrous Gluconate 324 mg PO DAILY #60 tablet 05/23/18 Ipratropium/Albuterol [Duoneb] 3 ml INH Q4HR PRN #5 neb 05/23/18 Ondansetron Odt [Zofran Odt] 4 mg TL Q4HR PRN #30 tablet 05/23/18 Saccharomyces Boulardii [Florastor] 250 mg PO BID #28 capsule 05/23/18 cefUROXime axetil [Ceftin] 500 mg PO BID #56 tablet 05/23/18 metroNIDAZOLE [Flagyl] 500 mg PO QID #112 tablet 05/23/18 predniSONE [Prednisone] 40 mg PO DAILY 4 Days #8 tablet 10/30/18 - Allergies Allergies/Adverse Reactions: Allergies Allergy/AdvReac Type Severity Reaction Status Date / Time Penicillins Allergy Mild Rash Verified 05/12/18 15:15 Sulfa (Sulfonamide Allergy Mild Rash Verified 05/12/18 15:15 Antibiotics) - Social History Does the pt smoke?: No Smoking Status: Never smoker Does the pt drink ETOH?: No Does the pt have substance abuse?: No - Immunizations Immunizations are current?: Yes - POLST Patient has POLST: No PD ED PE NORMAL - Vitals Vital signs reviewed: Yes - General General: Alert and oriented X 3, No acute distress, Well developed/nourished - Respiratory Respiratory: No respiratory distress, Clear bilaterally - Derm Derm: Normal color, Warm and dry, No rash PD ED PE EXPANDED - Derm SKin visual: 1 - laceration (surigcal inciin site C/D/I with sutures in place, no erythema, swelling, tenderness) Results - Vitals Vitals: Oxygen O2 Source Room air PD MEDICAL DECISION MAKING - ED course Complexity details: considered differential, d/w patient Departure - Departure Disposition: 01 Home, Self Care Clinical Impression: Skin irritation Condition: Good Instructions: ED Allergic Reaction Local Other Follow-Up: Siena Hoffman MD [Primary Care Provider] - Prescriptions: predniSONE [Prednisone] 40 mg PO DAILY 4 Days #8 tablet Discharge Date/Time: 10/30/18 04:00
[2018-10-30 04:02] VITALS: BP 121/68
== END 2018-10-30 04:00 | disposition home or self-care (01) ==
LOC: ED 23:41
DX: L98.9 Disorder of the skin and subcutaneous tissue, unspecified (principal)
CPT/HCPCS: 99283

== ENCOUNTER 2018-11-22 16:46 | Outpatient (CLI) | payer MEDICARE, MEDICAID ==
--- NOTE | 2018-11-23 09:43 | Mammography Report ---
Reason: ANNUAL MAMMO SELF REF Procedure Date: 11/22/2018 Accession Number: [id number] / [id number] Procedure: MARVIN - Screening Mammo w/Haroon CPT Code: FULL RESULT: EXAM: Screening Mammo w/Haroon DATE: 11/22/2018 5:27 PM CLINICAL HISTORY: Routine screening TECHNIQUE: (B) - Bilateral CC and MLO views were obtained. COMPARISON: 09/14/2016, 08/08/2015, 05/11/2014 and 05/01/2013 PARENCHYMAL PATTERN: (A) - The breasts demonstrate scattered fibroglandular densities bilaterally. FINDINGS: No significant interval change. There are no suspicious masses, calcifications, or areas of distortion. IMPRESSION: Negative examination. BI-RADS category 1. RECOMMENDATION: (ANNUAL) - Recommend routine annual screening mammography. BI-RADS CATEGORY: (1) - Negative. STANDARD QUALIFYING STATEMENTS: 1. This examination was not reviewed with the aid of Computer-Aided Detection (CAD). 2. A negative or benign imaging report should not preclude biopsy if clinically suspicious findings are present. 3. Dense breasts may obscure an underlying neoplasm. 4. This examination was reviewed with the aid of 3D breast imaging (tomosynthesis).
== END 2018-11-22 16:47 | disposition home or self-care (01) ==
LOC: DI 16:46
DX: Z12.31 Encounter for screening mammogram for malignant neoplasm of breast (principal)
CPT/HCPCS: 77063; 77067

== ENCOUNTER 2018-12-27 08:00 | Outpatient (CLI) | payer MEDICARE, MEDICAID ==
[2018-12-27 14:27] LABS: BASOPHILS # (AUTO) 0.1 10^3/uL (0.0-0.1); BASOPHILS % (AUTO) 1.3 %; EOSINOPHILS # (AUTO) 0.2 10^3/uL (0.0-0.7); EOSINOPHILS % (AUTO) 3.6 %; HGB - HEMOGLOBIN 11.7 g/dL (12.0-16.0); LYMPHOCYTES % (AUTO) 19.5 %; MEAN CORPUSCULAR HEMOGLOBIN 30.2 pg (27.0-31.0); MEAN CORPUSCULAR HGB CONC 31.6 g/dL (32.0-36.0); MEAN CORPUSCULAR VOLUME 95.6 fL (81.0-99.0); MEAN PLATELET VOLUME 9.5 fL (7.9-10.8); MONOCYTES # (AUTO) 0.6 10^3/uL (0.0-1.0); MONOCYTES % (AUTO) 12.1 %; NEUTROPHILS # (AUTO) 3.4 10^3/uL (1.5-6.6); NEUTROPHILS % (AUTO) 63.3 %; PLT - PLATELET COUNT 439 10^3/uL (130-450); RED BLOOD COUNT 3.87 10^6/uL (4.20-5.40); RED CELL DISTRIBUTION WIDTH 16.7 % (12.0-15.0); WHITE BLOOD COUNT 5.3 x10^3/uL (4.8-10.8)
== END 2018-12-27 23:59 | disposition home or self-care (01) ==
LOC: LAB.R 08:00
PROVIDERS: ATTEND Internal Medicine
DX: D64.9 Anemia, unspecified (principal)
CPT/HCPCS: 85025

== ENCOUNTER 2019-01-24 17:28 | Outpatient (CLI) | payer MEDICARE, MEDICAID ==
--- NOTE | 2019-01-24 19:32 | Ultrasound Report ---
Reason: LOCALIZED EDEMA Procedure Date: 01/24/2019 Accession Number: [id number] / [id number] Procedure: US - Duplex Ext Veins Left CPT Code: FULL RESULT: EXAM: LEFT LOWER EXTREMITY VENOUS ULTRASOUND EXAM DATE: 01/24/2019 06:14 PM. CLINICAL HISTORY: LOCALIZED EDEMA left. COMPARISON: None. TECHNIQUE: Real-time sonographic vascular imaging was performed by the radio board operator through the lower extremity utilizing both color-flow and Doppler spectral analysis. Multiple b2b outside sales representative static images were saved for review. FINDINGS: Common Femoral Vein (CFV): Normal. CFV-GSV Junction: Normal. Profunda Femoral Vein (PFV): Normal. Femoral Vein (FV) Prox: Normal. Femoral Vein (FV) Mid: Normal. Femoral Vein (FV) Dist: Normal. Popliteal Vein: Normal. Posterior Tibial Veins: Normal. Peroneal Veins: Normal. Contralateral Side CFV: Normal. Other: None. IMPRESSION: No evidence for deep venous thrombosis. RADIA
== END 2019-01-24 17:29 | disposition home or self-care (01) ==
LOC: DI 17:28
PROVIDERS: ATTEND Internal Medicine
DX: R60.0 Localized edema (principal)

== ENCOUNTER 2019-02-02 14:05 | Outpatient (CLI) | payer MEDICARE, MEDICAID ==
[2019-02-02 14:29] LABS: BASOPHILS % (AUTO) 0.8 %; EOSINOPHILS # (AUTO) 0.3 10^3/uL (0.0-0.7); EOSINOPHILS % (AUTO) 5.7 %; HGB - HEMOGLOBIN 11.2 g/dL (12.0-16.0); LYMPHOCYTES # (AUTO) 1.1 10^3/uL (1.5-3.5); LYMPHOCYTES % (AUTO) 21.6 %; MEAN CORPUSCULAR HEMOGLOBIN 29.2 pg (27.0-31.0); MEAN CORPUSCULAR HGB CONC 31.6 g/dL (32.0-36.0); MEAN CORPUSCULAR VOLUME 92.2 fL (81.0-99.0); MEAN PLATELET VOLUME 10.7 fL (7.9-10.8); MONOCYTES # (AUTO) 0.5 10^3/uL (0.0-1.0); MONOCYTES % (AUTO) 9.9 %; NEUTROPHILS # (AUTO) 3.3 10^3/uL (1.5-6.6); NEUTROPHILS % (AUTO) 61.8 %; PLT - PLATELET COUNT 210 10^3/uL (130-450); RED BLOOD COUNT 3.84 10^6/uL (4.20-5.40); RED CELL DISTRIBUTION WIDTH 15.8 % (12.0-15.0); WHITE BLOOD COUNT 5.3 x10^3/uL (4.8-10.8)
[2019-02-02 15:00] LABS: ALBUMIN 4.1 g/dL (3.2-5.5); ALBUMIN/GLOBULIN RATIO 1.1 (1.0-2.2); BILIRUBIN,TOTAL 0.5 mg/dL (0.2-1.0); CALCIUM 9.5 mg/dL (8.5-10.3); CREATININE 0.8 mg/dL (0.4-1.0); TOTAL PROTEIN 7.7 g/dL (6.7-8.2)
== END 2019-02-02 14:06 | disposition home or self-care (01) ==
LOC: LAB 14:05
PROVIDERS: ATTEND Internal Medicine
DX: R60.9 Edema, unspecified (principal); R03.0 Elevated blood-pressure reading, without diagnosis of hypertension; D64.9 Anemia, unspecified; Z79.899 Other long term (current) drug therapy
CPT/HCPCS: 36415; 80053; 83880; 84443; 85025

== ENCOUNTER 2020-01-08 12:00 | Outpatient (CLI) | payer MEDICARE, MEDICAID ==
[2020-01-08 12:20] LABS: BASOPHILS # (AUTO) 0.1 10^3/uL (0.0-0.1); BASOPHILS % (AUTO) 0.9 %; EOSINOPHILS # (AUTO) 0.2 10^3/uL (0.0-0.7); EOSINOPHILS % (AUTO) 3.2 %; HGB - HEMOGLOBIN 13.6 g/dL (12.0-16.0); LYMPHOCYTES # (AUTO) 1.2 10^3/uL (1.5-3.5); LYMPHOCYTES % (AUTO) 21.9 %; MEAN CORPUSCULAR HGB CONC 33.7 g/dL (32.0-36.0); MEAN CORPUSCULAR VOLUME 91.8 fL (81.0-99.0); MEAN PLATELET VOLUME 10.3 fL (7.9-10.8); MONOCYTES # (AUTO) 0.6 10^3/uL (0.0-1.0); MONOCYTES % (AUTO) 11.7 %; NEUTROPHILS # (AUTO) 3.3 10^3/uL (1.5-6.6); NEUTROPHILS % (AUTO) 62.1 %; PLT - PLATELET COUNT 220 10^3/uL (130-450); RED BLOOD COUNT 4.39 10^6/uL (4.20-5.40); RED CELL DISTRIBUTION WIDTH 13.2 % (12.0-15.0); WHITE BLOOD COUNT 5.3 x10^3/uL (4.8-10.8)
[2020-01-08 12:58] LABS: ALBUMIN 4.5 g/dL (3.2-5.5); ALBUMIN/GLOBULIN RATIO 1.5 (1.0-2.2); ALKALINE PHOSPHATASE 104 IU/L (42-121); ALT ALANINE AMINOTRANSFERASE 34 IU/L (10-60); AST ASPARTATE AMINOTRANSFERASE 40 IU/L (10-42); BILIRUBIN,TOTAL 0.6 mg/dL (0.2-1.0); BUN - BLOOD UREA NITROGEN 16 mg/dL (6-20); CALCIUM 9.5 mg/dL (8.5-10.3); CARBON DIOXIDE - CO2 29 mmol/L (21-32); CHLORIDE 101 mmol/L (101-111); CHOL/HDL RATIO 1.8 (<4.4); CHOLESTEROL 135 mg/dL; CREATININE 0.9 mg/dL (0.4-1.0); GLUCOSE 84 mg/dL (70-100); HDL CHOLESTEROL 73 mg/dL; LDL CHOLESTEROL,CALCULATED 52 mg/dL; LDL/HDL RATIO 0.7 (<4.4); SODIUM 139 mmol/L (135-145); TOTAL PROTEIN 7.6 g/dL (6.7-8.2); VLDL CHOLESTEROL 10 mg/dL
== END 2020-01-08 12:01 | disposition home or self-care (01) ==
LOC: LAB 12:00
PROVIDERS: ATTEND Internal Medicine
DX: J45.909 Unspecified asthma, uncomplicated (principal); Z13.6 Encounter for screening for cardiovascular disorders; Z79.899 Other long term (current) drug therapy; G35 Multiple sclerosis; M81.0 Age-related osteoporosis without current pathological fracture; C44.91 Basal cell carcinoma of skin, unspecified; R74.8 Abnormal levels of other serum enzymes
CPT/HCPCS: 36415; 80053; 80061; 82306; 83721; 84443; 85025

== ENCOUNTER 2020-02-13 16:47 | Outpatient (CLI) | payer MEDICARE, MEDICAID ==
--- NOTE | 2020-02-14 13:05 | XRAY Report ---
PROCEDURE: Tib/Fib LT INDICATIONS: L FIBUALR PAIN AFTER TRAUMA TECHNIQUE: 2 views of the tibia and fibula were acquired. COMPARISON: None FINDINGS: Bones: No fractures or dislocations. No suspicious bony lesions. Soft tissues: No suspicious soft tissue calcifications or masses. IMPRESSION: No fracture. No osseous lesion. If there is continued clinical concern for pathology, then repeat da in film radiographs (7-10 days) or advanced imaging (CT, MR, bone scan) should be considered for furt her evaluation. Reviewed by: Carolyn Hogue MD, PhD on 02/14/2020 1:03 PM PDT Approved by: Carolyn Hogue MD, PhD on 02/14/2020 1:03 PM PDT Station ID: [id number]
== END 2020-02-13 16:48 | disposition home or self-care (01) ==
LOC: DI 16:47
PROVIDERS: ATTEND Internal Medicine
DX: M79.662 Pain in left lower leg (principal)

== ENCOUNTER 2020-03-16 21:51 | Outpatient (CLI) | payer MEDICARE, MEDICAID | END 2020-03-16 21:52 | disposition EMS.NT | LOC: EMS 21:51 | PROVIDERS: ATTEND Surgery | DX: R05 Cough (principal); R00.0 Tachycardia, unspecified ==

== ENCOUNTER 2020-04-15 09:23 | Outpatient (CLI) | payer MEDICARE, MEDICAID ==
--- NOTE | 2020-04-15 10:13 | Ultrasound Report ---
PROCEDURE: Abdomen Limited INDICATIONS: RUQ PAIN, ABDOMINAL DISCOMFORT TECHNIQUE: Real-time focused scanning was performed of the abdomen, with image documentation. COMPARISON: None. FINDINGS: Normal hepatic parenchymal echogenicity, echotexture, and contour. No intrahepatic or extra hepatic biliary ductal dilatation. Portal vein is normal in caliber. The gallbladder is normally distended. There is an approximately 8 mm mobile stone in the proximal ga llbladder body near the neck. No gallbladder wall thickening or pericholecystic fluid. Visualized proximal pancreas is within normal limits. Right kidney unremarkable. IMPRESSION: Cholelithiasis with a single mobile gallstone identified. No findings of cholecystitis. Reviewed by: Fredy Green MD on 04/15/2020 10:12 AM PST Approved by: Fredy Green MD on 04/15/2020 10:12 AM PST Station ID: [id number]
== END 2020-04-15 09:24 | disposition home or self-care (01) ==
LOC: DI 09:23
PROVIDERS: ATTEND Internal Medicine
DX: K80.20 Calculus of gallbladder without cholecystitis without obstruction (principal)
CPT/HCPCS: 76705

== ENCOUNTER 2020-05-03 15:36 | Outpatient (CLI) | payer MEDICARE, MEDICAID ==
--- NOTE | 2020-05-03 16:05 | CT Report ---
PROCEDURE: HEAD WO INDICATIONS: HEADACHE TECHNIQUE: Noncontrast 4.5 mm thick angled axial sections acquired from the foramen magnum to the vertex. For r adiation dose reduction, the following was used: automated exposure control, adjustment of mA and/or kV according to patient size. COMPARISON: None FINDINGS: Image quality: Excellent. CSF spaces: Basal cisterns are patent. No extra-axial fluid collections. The ventricles are symmet rohini in size and shape. Brain: No intracranial bleeds or masses. There is cerebral volume loss for age, with resultant vent ricular and sulcal prominence. There are periventricular and deep white matter chronic small vessel ischemic changes. There is intracranial internal carotid artery atherosclerosis. Skull and face: Calvarium and visualized facial bones appear intact, without suspicious lesions. Sinuses: Visualized sinuses and mastoids are clear. IMPRESSION: No acute intracranial disease process. Reviewed by: Carolyn Hogue MD, PhD on 05/03/2020 4:04 PM PST Approved by: Carolyn Hogue MD, PhD on 05/03/2020 4:04 PM PST Station ID: [id number]
== END 2020-05-03 15:37 | disposition home or self-care (01) ==
LOC: DI 15:36
PROVIDERS: ATTEND Internal Medicine
DX: R51.9 Headache, unspecified (principal)
CPT/HCPCS: 70450

== ENCOUNTER 2020-08-19 15:56 | Outpatient (CLI) | payer MEDICARE, MEDICAID ==
--- NOTE | 2020-08-19 16:19 | XRAY Report ---
PROCEDURE: Elbow 3 View LT INDICATIONS: L ELBOW PAIN TECHNIQUE: 3 views of the elbow were acquired. COMPARISON: None FINDINGS: Bones: No fractures or dislocations. No suspicious bony lesions. Soft tissues: No elbow joint effusion. No suspicious soft tissue calcifications. IMPRESSION: No visualized acute fracture or dislocation. However, occult injury cannot be excluded. Recommend twan rt interval imaging follow-up in 7-10 days as clinically indicated for additional evaluation. Reviewed by: Nalini Moreira MD on 08/19/2020 4:18 PM PDT Approved by: Nalini Moreira MD on 08/19/2020 4:18 PM PDT Station ID: [id number]
== END 2020-08-19 15:57 | disposition home or self-care (01) ==
LOC: DI 15:56
PROVIDERS: ATTEND Internal Medicine
DX: M25.522 Pain in left elbow (principal)

== ENCOUNTER 2020-09-10 14:33 | Outpatient (CLI) | payer MEDICARE, MEDICAID ==
[2020-09-10 15:32] VITALS: BP 98/71
--- NOTE | 2020-09-10 15:32 | SLEEP CARE CONSULTATION ---
Information from patient questionnaire entered by Anika Jimenez. I have reviewed and concur with the information entered by Anika Jimenez. This document represents the service I personally performed and the decisions made by me, Gretchen Ho ARNP. History of Present Illness Service Date and Time: 09/10/2020 1433 Reason for Visit: New patient Chief Complaint: reports: Unrefreshed sleep, Snoring, Excessive daytime sleepiness, Fatigue, Frequent awakenings at night Usual bedtime: 11:30 PM Time it takes to fall asleep: 20 minutes Observed to quit breathing while asleep: No Sleeps alone due to snoring: No (N/A) Number of times waking at night: 3 Reasons for waking at night: reports: Snoring, Pain, Bathroom, Other (shortness of breath) Toss, Turn, or Twitch while sleeping: Yes Recalls having dreams: Yes Usually gets out of bed at: 8-9 AM Feels refreshed in the morning: No Morning headache: No Sleepy or fatigued during the day: Yes (All day) Ever fallen asleep while driving: No Takes day naps: No Dreams during day naps: Yes (seldom) Prior sleep studies: No Additional HPI information: I had the pleasure of seeing SILVINA KOWALSKI today regarding the possibility of her having a sleep disorder. Her current complaints are excessive daytime sleepiness, fatigue, frequent night awakenings, insomnia and unrefreshed sleep. 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 The dentist suggested she follow up with her PCP because of this. She states she doesn't sleep good and wakes up feeling exhausted. She has woke up herself snoring. She sleeps alone. She has a history of MS. She feels in the last 7 months her fatigue has worsened. She has a history of low blood pressure. - Parasomnia Symptoms Ever been unable to move upon waking from sleep: Yes Walks in sleep: Yes (when on Ambien) Talks in sleep: Yes Ever acted out dreams in sleep: No Ever felt weak in the knees when startled or emotional: No Bothered by creepy, crawly, restless sensations in legs: Yes (M-S for 35 years) Problems with memory or concentration: Yes Subjective Initial [place] Sleepiness Scale score: 8 (in 2020) Past Medical History Past Medical History: reports: Asthma, Other (MS; gallbladder surgery in May 2020) Social History The patient's occupation is a retiree. Patient is and lives in [place]. Have you smoked in the past 12 months: No (Never!) Alcohol use: Yes Alcohol amount and frequency: Seldom, one drink only for a special occasion Caffeine use: Yes Caffeine amount and frequency: 1 1/2 - 2 cups coffee most mornings Family History Family Hx Sleep Apnea: Father: Snoring ( 2012), Sleep apnea - Treated (sister is 70), Sibling: Snoring, Sleep apnea - Treated Allergies and Home Medications Drug allergies reviewed: Yes (Penicillins, Sulfa, Levaquin) Home medication list reviewed: Yes Allergy and home medication list: Gabapentin Zyrtec B complex Magnesium [place] XL Albuterol sulfate HFA, as needed Review of Systems Weight gain over past 5 years: 10 Weight loss over past 5 years: 0 Respiratory: reports: shortness of breath Gastrointestinal: reports: heartburn, abdominal pain Urinary: reports: incontinence Neurological: reports: gait or balance problems Ear/Nose/Throat: reports: nasal congestion, sinus problems, dry mouth/throat, wisdom teeth removed. denies: tonsillectomy Endocrine: reports: excessive thirst Musculoskeletal: reports: back pain, muscle pain or cramping Immunologic: reports: sneezing (runny nose), itching, allergies to food or environment (food and environment - both) Physical Exam Blood Pressure: 98/71 Cuff size: wrist Heart Rate: 79 O2 Saturation: 99 Height: 5 ft 8 in Weight: 144 lb 9.6 oz Body Mass Index: 21.9 BMI Classification: Healthy weight Nostrils: patent to airflow Mouth and throat: narrow oropharynx Soft palate: long Hard palate: arched Uvula: normal Uvula visualization: 50% Mallampati Class II Tongue: normal in size Tonsils: 1+ Neck: normal w/o lymphadenopathy or thyromegaly Heart: regular rate and rhythm Lungs: clear bilaterally Impression and Plan 1. Suspected Obstructive Sleep Apnea-Hypopnea Syndrome, as suggested by a history of irregular snoring, frequent awakening during the night, unrefreshed sleep, cognitive impairment, and excessive daytime sleepiness. Narrow oropharynx and obesity are common predisposing factors for obstructive sleep apnea-hypopnea syndrome. I recommend proceeding to polysomnography to confirm the diagnosis and to assess severity. If the patient has significant sleep disordered breathing, a manual CPAP titration study will also be performed to find the optimal treatment pressure. I informed the patient of what the sleep studies involve and after some discussion, obtained agreement to proceed. The pathophysiology of obstructive sleep apnea-hypopnea syndrome was discussed with the patient and health risks of cardiovascular and cerebrovascular disease if not treated. Risks of drowsy driving discussed in detail and patient advised to avoid long distance driving and to hide puller at the first sign of drowsiness. Patient agreed to plan. * Schedule polysomnography +- manual CPAP titration study and return in 1-2 weeks after the study to discuss result and initiate therapy. * Avoid long distance driving or driving when feeling sleepy. * Avoid alcohol, sedative and muscle relaxant around bedtime. * Attempt to lose weight. * Review instructions provided by trained office staff on how to prepare for the sleep study. * Return for follow-up after sleep study completed. Counseling Topics: Weight control Visit Type: In Office Time Spent with Patient (minutes): 35 Provider Statement: I spent 100% of the Face to Face Visit with the patient with greater than 50% spent counseling the patient and coordination of care.
== END 2020-09-10 14:34 | disposition home or self-care (01) ==
LOC: SC 14:33
PROVIDERS: ATTEND Nurse Practitioner Family
DX: G47.8 Other sleep disorders (principal); R41.89 Other symptoms and signs involving cognitive functions and awareness; R06.83 Snoring
CPT/HCPCS: 99203; G0463; 99212

== ENCOUNTER 2020-09-23 17:07 | Outpatient (CLI) | payer MEDICARE, MEDICAID ==
--- NOTE | 2020-09-24 08:30 | XRAY Report ---
PROCEDURE: Ribs w/PA Chest RT INDICATIONS: RIGHT RIB PAIN TECHNIQUE: 3 views of the right ribs were acquired, along with a single view chest. COMPARISON: Chest radiograph dated 05/12/2018 FINDINGS: Surgical changes and devices: Surgical hardware in lower thoracic and lumbar spine is seen from exten sive lumbar spinal fusion.. Bones and chest wall: No definite rib fractures or dislocations. Subtle contour irregularity involv ing right posterior ninth and 10th ribs are seen. No suspicious bony lesions. Overlying soft tissues appear unremarkable. Moderate dextroscoliosis of lower thoracic spine centered at T11-12 level is s een. Lungs and pleura: No pleural effusions or pneumothorax. Lungs appear clear. Mediastinum: Mediastinal contours appear normal. Heart size is normal. IMPRESSION: No definite displaced right rib fracture. Subtle irregularity involving right posterior ninth and 10t h ribs which may represent subtle nondisplaced fractures, suggest clinical correlation. No acute card iopulmonary pathology. Scoliosis of thoracolumbar spine with extensive lumbar spine fusion as above. Reviewed by: Sushant Chavez MD on 09/24/2020 8:29 AM PDT Approved by: Sushant Chavez MD on 09/24/2020 8:29 AM PDT Station ID: [id number]
== END 2020-09-23 17:08 | disposition home or self-care (01) ==
LOC: DI 17:07
PROVIDERS: ATTEND Internal Medicine
DX: R93.7 Abnormal findings on diagnostic imaging of other parts of musculoskeletal system (principal)

== ENCOUNTER 2020-10-01 13:17 | Outpatient (CLI) | payer MEDICARE, MEDICAID | END 2020-10-01 13:18 | disposition home or self-care (01) | LOC: SC 13:17 | PROVIDERS: ATTEND Nurse Practitioner Family | DX: G47.33 Obstructive sleep apnea (adult) (pediatric) (principal); R09.02 Hypoxemia | CPT/HCPCS: G0399 ×2; 95806 ==

== ENCOUNTER 2020-10-15 13:22 | Outpatient (CLI) | payer MEDICARE, MEDICAID ==
--- NOTE | 2020-10-15 13:46 | SLEEP CARE CONSULTATION ---
Information from patient questionnaire entered by Aislinn Hansen. I have reviewed and concur with the information entered by Aislinn Hansen. This document represents the service I personally performed and the decisions made by , Gretchen Ho ARNP. History of Present Illness Service Date and Time: 10/15/2020 1322 Initial [place] Sleepiness Scale score: 8 (in 2020) Current [place] Sleepiness Scale score: 9 Additional HPI information: SILVINA KOWALSKI returns for follow up and results of the recently performed home sleep study. I explained the pathophysiology behind obstructive sleep apnea. We then spent quite a bit of time discussing different treatment options. For mild obstructive sleep apnea, surgery and oral appliance are alternatives to nasal CPAP therapy but in moderate or severe cases, nasal CPAP is the most effective and reliable treatment. I reviewed the impact of weight changes on sleep apnea and recommended maintaining a healthy weight. She denied alcohol use. Patient was cautioned about risks of drowsy driving until sleepiness symptoms resolve. Sleep Study - Results Type of Sleep Study: Home sleep study Prior sleep studies: No Polysomnography/Home Sleep Study results: Physician Impression: The quality of the study is fair due to partial loss of pulse oximetry signal. The length of the study is adequate (> 240 minutes). Please also see the tabulated and graphic data. 1. Obstructive Sleep Apnea-Hypopnea (ICD-10 G47.33), moderate, with an AHI of 20.2/hr and leidy SaO2 of 79%. During the study, the patient had 116 apneas (116 obstructive, 0 central, 0 mixed) and 18 hypopneas. The longest episode lasted 74.5 seconds. The respiratory events occurred independently of sleep stage and body position (supine AHI was 20.0 and non-supine, 22.50). 2. Hypoxemia (ICD-10 R09.02), moderate, with the lowest oxygen saturation of 79 % and 13.1 minutes with SaO2 under 90%. Baseline oxygen saturation was normal (Average oxygen saturation was 93%). Allergies and Home Medications Home medication list reviewed: Yes (Duloxetine for muscle pains from MS) Review of Systems Review of systems same as previous: Yes (no changes) Physical Exam Heart Rate: 75 O2 Saturation: 96 Height: 5 ft 8 in Weight: 146 lb Body Mass Index: 22.1 BMI Classification: Healthy weight Impression and Plan 1. Obstructive Sleep Apnea-Hypopnea Syndrome, moderate, with lowest oxygen saturation of 79%. Obviously this is the cause of the patients symptoms of unrefreshed sleep, and excessive daytime sleepiness. Positive pressure therapy could benefit her overall health and reduce risks for cardiovascular or cerebrovascular adverse events. She has a history of asthma and multiple sclerosis. Patient did not feel she would be compliant with the CPAP machine. The patient chose an oral appliance to treat her apnea. I reviewed with patient that insurance may not cover the oral appliance well and she states she will check this out. A 3 month follow up will be made to see if appliance has reduced symptoms. If so, another polysomnography will be ordered with use of the oral appliance to check efficacy in reducing apnea. Until patient is able to use the oral appliance, patient advised to elevate the head of her bed to try to reduce apneas since she is as equally severe on her back and sides. * Oral Appliance * Maintain a healthy weight. * The patient is again cautioned about driving until sleepiness completely reso lves. * Return in about 3 months for followup. I will assess response to therapy and compliance at that time. Counseling Topics: Weight control Visit Type: In Office Time Spent with Patient (minutes): 20 Provider Statement: I spent 100% of the Face to Face Visit with the patient with greater than 50% spent counseling the patient and coordination of care.
== END 2020-10-15 13:23 | disposition home or self-care (01) ==
LOC: SC 13:22
PROVIDERS: ATTEND Nurse Practitioner Family
DX: G47.33 Obstructive sleep apnea (adult) (pediatric) (principal)
CPT/HCPCS: 99213; G0463; 99212

== ENCOUNTER 2020-11-22 14:33 | Outpatient (CLI) | payer MEDICARE, MEDICAID ==
--- NOTE | 2020-11-22 15:05 | SLEEP CARE CONSULTATION ---
Information from patient questionnaire entered by Aislinn Hansen. I have reviewed and concur with the information entered by Aislinn Hansen. This document represents the service I personally performed and the decisions made by , Gretchen Ho ARNP. History of Present Illness Service Date and Time: 11/22/2020 1433 Previous diagnosis: Moderate, Obstructive Sleep Apnea-Hypopnea Syndrome AHI: 20.2 (in 2020) Reason for follow up: other (6 week, many questions, start CPAP) Prior sleep studies: Yes Year and Where: 2020 - [facility] Type of Sleep Study: Home sleep study HPI additional information: SILVINA KOWALSKI was diagnosed to have moderate, AHI 20.2, obstructive sleep apnea-hypopnea syndrome who had decided to try oral appliance therapy but returns today to initiate CPAP therapy. Subjective Initial [place] Sleepiness Scale score: 8 (in 2020) Current [place] Sleepiness Scale score: 3 Allergies and Home Medications Home medication list reviewed: Yes (duloxetine, started yesterday for pain (MS)) Review of Systems Review of systems same as previous: Yes (no changes) Physical Exam Heart Rate: 75 O2 Saturation: 98 Height: 5 ft 8 in Weight: 143 lb Weight change since last visit: 3 lb loss Body Mass Index: 21.7 BMI Classification: Healthy weight Impression and Plan 1. Obstructive Sleep Apnea-Hypopnea Syndrome, moderate. Patient trying to find a dentist that would take her insurance and have an oral appliance made but she could not find one in the area or within a short travel distance. She has decided that she wants to go ahead and try the CPAP machine because she did hear some good things about it from a friend of hers.The patient will be started on nasal autoCPAP therapy with pressure set at 4-15 cmH2O. A manual titration study will be completed if unable to find optimal treatment pressure with office adjustments. Compliance guidelines also reviewed. A copy of compliance guidelines will be given for reference at check out. Because the apnea is more severe supine, I instructed to avoid sleeping supine using pillow positioning until able to start CPAP use. Patient has lost 3 pounds since her last visit and was encouraged to continue to maintain a healthy weight. * Nasal auto CPAP therapy, pressure at 4-15 cm H2O. * Maintain a healthy weight. * Avoid alcohol consumption near bedtime. * Avoid supine sleep until using CPAP. * The patient is again cautioned about driving until sleepiness completely resolves. * Return one month after CPAP obtained. I will assess response to therapy and compliance at that time. Counseling Topics: Weight control Visit Type: In Office Time Spent with Patient (minutes): 22 Provider Statement: I spent 100% of the Face to Face Visit with the patient with greater than 50% spent counseling the patient and coordination of care.
== END 2020-11-22 14:34 | disposition home or self-care (01) ==
LOC: SC 14:33
PROVIDERS: ATTEND Nurse Practitioner Family
DX: G47.33 Obstructive sleep apnea (adult) (pediatric) (principal)
CPT/HCPCS: 99213; G0463; 99212

== ENCOUNTER 2021-01-17 13:16 | Outpatient (CLI) | payer MEDICARE, MEDICAID ==
--- NOTE | 2021-01-17 14:08 | SLEEP CARE CONSULTATION ---
Information from patient questionnaire entered by Aislinn Hansen. I have reviewed and concur with the information entered by Aislinn Hansen. This document represents the service I personally performed and the decisions made by , Gretchen Ho ARNP. History of Present Illness Service Date and Time: 01/17/2021 1316 Previous diagnosis: Moderate, Obstructive Sleep Apnea-Hypopnea Syndrome AHI: 20.2 (in 2020) Reason for follow up: first compliance Equipment type: CPAP Equipment obtained from: [employer] (getting supplies as needed) Mask style: Nasal Backup mask available: No (will keep old mask when replaced) Last cushion change: 6 weeks Prior sleep studies: Yes Year and Where: 2020 - [facility] Type of Sleep Study: Home sleep study HPI additional information: SILVINA KOWALSKI was diagnosed to have moderate, AHI 20.2, obstructive sleep apnea-hypopnea syndrome and returned today for CPAP therapy first compliance follow-up. CPAP Compliance Data - Data Reviewed with Patient Average duration of nightly device use: 5 hr 56 min Compliance rate %: 96.7 Current pressure setting (cmH2O): 4-15 (median 6.5, avg 9.0, peak 12.6) Humidity settin Heated hose settin Average residual AHI: 10.1 Central apnea: 2.9 Obstructive apnea: 3.9 Hypopnea: 3.3 Average large leak: 5 min 56 sec Subjective Patient concerns: reports: condensation in mask/hose, nasal congestion, dry mouth, nose, throat (dry nose). denies: aerophagia, mask discomfort, air blowing in eyes, mask leak noise, epistaxis, other Observed to snore while using device: No Current pressure setting perceived as: comfortable On therapy, patient: reports: sleeping better, awakening more refreshed, being more awake and alert during the day, more rested overall. denies: drowsiness while driving Initial [place] Sleepiness Scale score: 8 (in 2020) Current [place] Sleepiness Scale score: 3 Allergies and Home Medications Home medication list reviewed: Yes (duloxetine for MS pain) Review of Systems Review of systems same as previous: Yes (no changes) Physical Exam Heart Rate: 72 O2 Saturation: 97 Height: 5 ft 8 in Weight: 144 lb Body Mass Index: 21.9 BMI Classification: Healthy weight Impression and Plan 1. Obstructive Sleep Apnea-Hypopnea Syndrome, moderate, with good treatment compliance and fair apnea control with elevated residual AHI. On CPAP therapy, the patient has better sleep quality and is more rested overall. She has had some nasal dryness and tried to adjust the humidity and got some condensation in the hose. Nasal dryness can be reduced with increasing the CPAP humidity as shown on sample device and the heated hose can be increased if condensation. She was advised to increase her humidity again and then try to go up on heated hose if needed to decrease condensation. She has been using the nasal cushion mask but sometimes the material will close over a nostril and make it hard to breathe. She has to make sure the slit is just right. I advised her that she may like using a nasal pillows mask and she can talk to her DME about switching to the other mask when she is eligible for new shipment. She just received new supplies with mask cushions. The patients pressure will be changed to autoCPAP 7-11 cmH20 for elevation of residual AHI. Patient advised to contact me if pr essure change is uncomfortable so that it can be adjusted. Goals for apnea control discussed. Patient's apnea severity and rationale for treatment to reduce apnea, improve sleep quality and reduce cardiovascular and cerebrovascular events was reviewed. I also reviewed the benefit of consistent device use of CPAP for asthma and MS. Patient states she has gained a few pounds since her gallbladder surgery but she is still at a healthy weight. Patient is very satisfied with her CPAP therapy. * Change auto CPAP pressure to 7-11 cmH2O * Notify me if snoring with mask or feeling that the pressure is too much or too little * Maintain a healthy weight * Call this office if any problems using CPAP * Return for follow up in 1-2 months, or sooner if concerns arise Counseling Topics: Spare mask, Weight loss health impact Visit Type: In Office Time Spent with Patient (minutes): 21 Provider Statement: I spent 100% of the Face to Face Visit with the patient with greater than 50% spent counseling the patient and coordination of care.
== END 2021-01-17 13:17 | disposition home or self-care (01) ==
LOC: SC 13:16
PROVIDERS: ATTEND Nurse Practitioner Family
DX: G47.33 Obstructive sleep apnea (adult) (pediatric) (principal)
CPT/HCPCS: 99213; G0463; 99212

== ENCOUNTER 2021-02-07 09:20 | Outpatient (CLI) | payer MEDICARE, MEDICAID ==
[2021-02-07 09:44] LABS: BASOPHILS % (AUTO) 1.1 %; EOSINOPHILS # (AUTO) 0.2 10^3/uL (0.0-0.7); EOSINOPHILS % (AUTO) 4.2 %; HCT - HEMATOCRIT 42.6 % (37.0-47.0); HGB - HEMOGLOBIN 13.8 g/dL (12.0-16.0); LYMPHOCYTES # (AUTO) 0.9 10^3/uL (1.5-3.5); LYMPHOCYTES % (AUTO) 24.9 %; MEAN CORPUSCULAR HEMOGLOBIN 29.6 pg (27.0-31.0); MEAN CORPUSCULAR HGB CONC 32.4 g/dL (32.0-36.0); MEAN CORPUSCULAR VOLUME 91.4 fL (81.0-99.0); MEAN PLATELET VOLUME 10.3 fL (7.9-10.8); MONOCYTES # (AUTO) 0.5 10^3/uL (0.0-1.0); MONOCYTES % (AUTO) 12.5 %; NEUTROPHILS # (AUTO) 2.1 10^3/uL (1.5-6.6); NEUTROPHILS % (AUTO) 57.3 %; PLT - PLATELET COUNT 206 10^3/uL (130-450); RED BLOOD COUNT 4.66 10^6/uL (4.20-5.40); RED CELL DISTRIBUTION WIDTH 13.2 % (12.0-15.0); WHITE BLOOD COUNT 3.6 x10^3/uL (4.8-10.8)
[2021-02-07 10:10] LABS: ALBUMIN 4.6 g/dL (3.2-5.5); ALBUMIN/GLOBULIN RATIO 1.4 (1.0-2.2); ALKALINE PHOSPHATASE 99 IU/L (42-121); ALT ALANINE AMINOTRANSFERASE 21 IU/L (10-60); AST ASPARTATE AMINOTRANSFERASE 27 IU/L (10-42); BILIRUBIN,TOTAL 0.7 mg/dL (0.2-1.0); BUN - BLOOD UREA NITROGEN 15 mg/dL (6-20); CALCIUM 9.6 mg/dL (8.5-10.3); CARBON DIOXIDE - CO2 29 mmol/L (21-32); CHLORIDE 100 mmol/L (101-111); CHOL/HDL RATIO 2.2 (<4.4); CHOLESTEROL 150 mg/dL; CREATININE 0.9 mg/dL (0.4-1.0); GFR - MDRD 63 (>89); GLUCOSE 90 mg/dL (70-100); HDL CHOLESTEROL 69 mg/dL; LDL CHOLESTEROL,CALCULATED 65 mg/dL; LDL/HDL RATIO 0.9 (<4.4); POTASSIUM 3.7 mmol/L (3.5-5.0); SODIUM 140 mmol/L (135-145); TOTAL PROTEIN 7.8 g/dL (6.7-8.2); TRIGLYCERIDES 78 mg/dL; VLDL CHOLESTEROL 16 mg/dL
== END 2021-02-07 09:21 | disposition home or self-care (01) ==
LOC: LAB 09:20
PROVIDERS: ATTEND Internal Medicine
DX: Z13.6 Encounter for screening for cardiovascular disorders (principal); Z79.899 Other long term (current) drug therapy; G35 Multiple sclerosis; M41.9 Scoliosis, unspecified; M81.0 Age-related osteoporosis without current pathological fracture; A60.9 Anogenital herpesviral infection, unspecified; C44.91 Basal cell carcinoma of skin, unspecified
CPT/HCPCS: 36415; 80053; 80061; 82306; 83721; 84443; 85025

== ENCOUNTER 2021-02-19 12:48 | Outpatient (CLI) | payer MEDICARE, MEDICAID ==
[2021-02-19 13:31] VITALS: BP 118/74
--- NOTE | 2021-02-19 13:31 | SLEEP CARE CONSULTATION ---
Information from patient questionnaire entered by Natalie Pacheco. I have reviewed and concur with the information entered by Natalie Pacheco. This document represents the service I personally performed and the decisions made by me, Gretchen Ho ARNP. History of Present Illness Service Date and Time: 02/19/2021 1248 Previous diagnosis: Moderate, Obstructive Sleep Apnea-Hypopnea Syndrome AHI: 20.2 (in 2020) Reason for follow up: one month (with pressure change) Equipment obtained from: [employer] (getting supplies as needed) Mask style: Nasal Mask brand: Respironics Backup mask available: Yes (old mask) Last cushion change: last night Prior sleep studies: Yes Year and Where: 2020 - [facility] Type of Sleep Study: Home sleep study HPI additional information: SILVINA KOWALSKI was diagnosed to have moderate, AHI 20.2, obstructive sleep apnea-hypopnea syndrome and returned today for CPAP therapy one month with pressure change follow-up. Sleep Study - Results Type of Sleep Study: Home sleep study Prior sleep studies: Yes Year and Where: 2020 - [facility] CPAP Compliance Data - Data Reviewed with Patient Average duration of nightly device use: 5 hours 53 minutes Compliance rate %: 90 Current pressure setting (cmH2O): 7-11 (mean 7.7, avg 9.7, max 11.0) Humidity settin Heated hose settin Average residual AHI: 8.6 Central apnea: 1.6 Obstructive apnea: 3.9 Hypopnea: 3.1 Average large leak: 4 minutes 37 seconds Subjective Missed days of use due to: reports: family emergency Patient concerns: reports: mask leak noise, dry mouth, nose, throat (dry mouth, throat). denies: aerophagia, mask discomfort, air blowing in eyes, condensation in mask/hose, nasal congestion, epistaxis, other Observed to snore while using device: No Current pressure setting perceived as: too high On therapy, patient: reports: sleeping better, awakening more refreshed, being more awake and alert during the day, more rested overall. denies: drowsiness while driving Initial [place] Sleepiness Scale score: 8 (in 2020) Current [place] Sleepiness Scale score: 6 Allergies and Home Medications Home medication list reviewed: Yes (no changes) Review of Systems Review of systems same as previous: Yes (no changes) Physical Exam Blood Pressure: 118/74 Cuff size: wrist Heart Rate: 67 O2 Saturation: 92 Height: 5 ft 8 in Weight: 146 lb Body Mass Index: 22.1 BMI Classification: Healthy weight Impression and Plan 1. Obstructive Sleep Apnea-Hypopnea Syndrome, moderate, with good treatment compliance and fair apnea control with an elevated AHI. On CPAP therapy, the patient has better sleep quality and is more rested overall. The patients pressure will be changed to autoCPAP 8-11 cmH20 for elevation of residual AHI. Patient advised to contact me if pressure change is uncomfortable so that it can be adjusted. Goals for apnea control discussed. Patient is liking the nasal mask she is using. She has been trying to make sure she is wearing her mask every night. She feels the pressure is high when she wakes up in the middle of the night. I explained the use of the ramp button to decrease pressure so she can go to sleep. She has also been having some mouth and throat dryness since she increased the heated hose to keep her nose warm. Oral dryness can be reduced by adjusting humidity setting higher or heated hose lower or by adjusting both settings. Verbal instructions given on how to change humidity and heated hose settings with rationale explaining why to change. She voiced understanding. Patient's apnea severity and rationale for treatment to reduce apnea, improve sleep quality and reduce cardiovascular and cerebrovascular events was reviewed. I also reviewed the benefit of consistent device use of CPAP for asthma and MS. * Change auto CPAP pressure to 8-11 cmH2O * Notify me if snoring with mask or feeling that the pressure is too much or too little * Maintain a healthy weight * Call this office if any problems using CPAP * Return for follow up in 3 months, or sooner if concerns arise Counseling Topics: Spare mask, Weight control Visit Type: In Office Time Spent with Patient (minutes): 28 Provider Statement: I spent 100% of the Face to Face Visit with the patient with greater than 50% spent counseling the patient and coordination of care.
== END 2021-02-19 12:49 | disposition home or self-care (01) ==
LOC: SC 12:48
PROVIDERS: ATTEND Nurse Practitioner Family
DX: G47.33 Obstructive sleep apnea (adult) (pediatric) (principal)
CPT/HCPCS: 99213; G0463; 99212

== ENCOUNTER 2021-03-20 13:56 | Outpatient (CLI) | payer MEDICARE, MEDICAID ==
--- NOTE | 2021-03-21 09:11 | Mammography Report ---
BILATERAL DIGITAL SCREENING MAMMOGRAM 3D/2D: 03/20/2021 CLINICAL: Routine screening. Comparison is made to exams dated: 11/22/2018 mammogram, 08/07/2018, and 09/14/2016 mammogram - [facility]. There are scattered fibroglandular elements in both breasts. No significant masses, calcifications, or other findings are seen in either breast. There has been no significant interval change. IMPRESSION: NEGATIVE There is no mammographic evidence of malignancy. A 1 year screening mammogram is recommended. This exam was interpreted at Station ID: [id number]. NOTE: For mammograms, a report in lay terms will be sent to the patient. Approximately 15% of breast malignancies will not be visualized mammographically. In the management of a palpable breast mass, a negative mammogram must not discourage biopsy of a clinically suspicious lesion. Electronically Signed By: Marcell Carr M.D. slc/:03/20/2021 17:03:50 ACR BI-RADS Category 1: Negative [id number] PARENCHYMAL PATTERN: (A) - The breast(s) demonstrate(s) scattered fibroglandular densities. BI-RADS CATEGORY: (1) - 1 RECOMMENDATION: (ANNUAL) - Recommend routine annual screening mammography. [id number] 1 year screening LATERALITY: (B)
== END 2021-03-20 13:57 | disposition home or self-care (01) ==
LOC: DI 13:56
PROVIDERS: ATTEND Internal Medicine
DX: Z12.31 Encounter for screening mammogram for malignant neoplasm of breast (principal)

== ENCOUNTER 2021-05-28 14:11 | Outpatient (CLI) | payer MEDICARE, MEDICAID ==
[2021-05-28 15:05] VITALS: BP 124/88
--- NOTE | 2021-05-28 15:05 | SLEEP CARE CONSULTATION ---
Information from patient questionnaire entered by Shabana Lopez MA. I have reviewed and concur with the information entered by Shabana Lopez MA. This document represents the service I personally performed and the decisions made by , Gretchen Ho ARNP. History of Present Illness Service Date and Time: 05/28/2021 1411 Previous diagnosis: Moderate, Obstructive Sleep Apnea-Hypopnea Syndrome AHI: 20.2 (in 2020) Reason for follow up: three month Equipment type: CPAP Equipment obtained from: [employer] (getting supplies as needed) Mask style: Nasal Mask brand: Respironics (Dreamwear) Backup mask available: Yes (old mask) Last cushion change: yesterday Prior sleep studies: Yes Year and Where: 2020 - [facility] Type of Sleep Study: Home sleep study HPI additional information: SILVINA KOWALSKI was diagnosed to have moderate, AHI 20.2, obstructive sleep apnea-hypopnea syndrome and returned today for CPAP therapy three month follow- up. Sleep Study - Results Type of Sleep Study: Home sleep study Prior sleep studies: Yes [facility] Compliance Data - Data Reviewed with Patient Average duration of nightly device use: 5 hours 51 minutes Compliance rate %: 93.9 Current pressure setting (cmH2O): 8-11 (median 7.6, avg 9.7, max 12.6) Humidity settin Heated hose settin Average residual AHI: 9.2 Average large leak: 6 minutes 27 seconds Subjective Missed days of use due to: reports: illness Patient concerns: reports: air blowing in eyes, mask leak noise, condensation in mask/hose, dry mouth, nose, throat, other (nose and face get cold) Observed to snore while using device: No Current pressure setting perceived as: comfortable On therapy, patient: reports: sleeping better, awakening more refreshed, being more awake and alert during the day, more rested overall. denies: drowsiness while driving Initial [place] Sleepiness Scale score: 8 (in 2020) Current [place] Sleepiness Scale score: 5 (2021) Allergies and Home Medications Known drug allergies: Yes (levaquin, PNC and sulfas) Drug allergies reviewed: Yes Home medication list reviewed: Yes (no changes) Review of Systems Review of systems same as previous: Yes (no changes) Physical Exam Vital signs obtained and entered by: Anastasiya LOPEZ CMA, AAMA Blood Pressure: 124/88 (right) Cuff size: wrist Heart Rate: 70 O2 Saturation: 98 (with paper mask) Height: 5 ft 8 in Weight: 135 lb Body Mass Index: 20.5 BMI Classification: Healthy weight Impression and Plan 1. Obstructive Sleep Apnea-Hypopnea Syndrome, moderate, with good treatment compliance and fair apnea control with elevated residual AHI. On CPAP therapy, the patient has better sleep quality and is more rested overall. Patient continues to have elevated residual AHI at 9.2 today. I think it would be advantageous to have a titration study to try and find a better pressure setting to control her apneas. Patient agreed and I will try to get authorization for this. Patient will be called once we have authorization to set up a time for the study. Patient has some difficulty with getting used to the new headgear. She really likes it but sometimes movement will break the seal on her mask cushion and that she will have air leaking into her eyes and leak noises.She feels like her nose gets very cold and so she turned up her heated hose to try and warm up her face. I advised her to turn the heated hose down and her humidity up for the heated warm air to warm up her face. She voiced understanding. Patient's apnea severity and rationale for treatment to reduce apnea, improve sleep quality and reduce cardiovascular and cerebrovascular events was reviewed. I also reviewed the benefit of consistent device use of CPAP for asthma and MS. * Continue auto CPAP pressure at 8-11 cmH2O * Titration study * Notify me if snoring with mask or feeling that the pressure is too much or too little * Maintain a healthy weight * Call this office if any problems using CPAP * Return for follow up after Titration study complete, or sooner if concerns arise Counseling Topics: Spare mask, Weight loss health impact Visit Type: In Office Time Spent with Patient (minutes): 20 Provider Statement: I spent 100% of the Face to Face Visit with the patient with greater than 50% spent counseling the patient and coordination of care.
== END 2021-05-28 14:12 | disposition home or self-care (01) ==
LOC: SC 14:11
PROVIDERS: ATTEND Nurse Practitioner Family
DX: G47.33 Obstructive sleep apnea (adult) (pediatric) (principal)
CPT/HCPCS: 99213; G0463; 99212

== ENCOUNTER 2021-08-07 14:16 | Outpatient (CLI) | payer MEDICARE, MEDICAID ==
[2021-08-07] MEDS ORDERED: IOVERSOL 320 100 ML VIAL IVP ONE ×2 (14:33→17:01)
[2021-08-07] MEDS ORDERED: IOVERSOL 320 50 ML VIAL ONE (14:33)
[2021-08-07 14:58] LABS: CREATININE 0.9 mg/dL (0.4-1.0)
--- NOTE | 2021-08-07 16:50 | CT Report ---
PROCEDURE: Abdomen/Pelvis W INDICATIONS: POSTCOITAL AND CONTACT BLEEDING, UTI CONTRAST: IV CONTRAST: Optiray 320 ml: 100 PO CONTRAST: Optiray 320 ml50 TECHNIQUE: After the administration of oral and intravenous contrast, 5 mm thick sections acquired from the diap hragms to the symphysis. 5 mm thick coronal and sagittal reformats were acquired. For radiation dos e reduction, the following was used: automated exposure control, adjustment of mA and/or kV accordin g to patient size. COMPARISON: None. FINDINGS: Image quality: Excellent. ABDOMEN: Lung bases: Lung bases are clear. Heart size is normal. Solid organs: Liver and spleen are normal in size and enhancement. Gallbladder is surgically absent . Biliary system is non dilated. Pancreas enhances normally. No adrenal nodules. Kidneys demonstr ate normal size and enhancement, without hydronephrosis. Peritoneum and bowel: Bowel loops demonstrate normal wall thickness and caliber. No free fluid or a ir. Nodes and vessels: No retroperitoneal or mesenteric adenopathy by size criteria. Aorta and inferior vena cava are normal in size. Miscellaneous: No ventral hernias. PELVIS: Genitourinary: Bladder wall thickness is normal. Miscellaneous: No inguinal hernias or adenopathy. Bones: Extensive thoracolumbosacral surgical hardware. Posterior lateral murali and pedicle screw fixati on extending from T11 through S1 with bilateral rods and pedicle screws. Bilateral iliac fixation scr ews. No evidence of hardware failure or loosening. No evidence of acute bony abnormality. There is ar tifact from the metal. S-shaped thoracolumbar scoliosis. Right hip arthroplasty. IMPRESSION: 1. Extensive surgical hardware, with resultant metallic artifact. The artifact is most notable in the pelvis. 2. No findings suspicious for malignancy. 3. No evidence of acute abdominal process. Reviewed by: Devon Alvarez MD on 08/07/2021 4:49 PM PDT Approved by: Devon Alvarez MD on 08/07/2021 4:49 PM PDT Station ID: [id number]
[2021-08-07] MEDS ORDERED: IOVERSOL 320 50 ML VIAL PO ONE (17:02)
== END 2021-08-07 14:17 | disposition home or self-care (01) ==
LOC: LAB 14:16 → DI 14:17
PROVIDERS: ATTEND Internal Medicine
DX: N39.0 Urinary tract infection, site not specified (principal); N93.0 Postcoital and contact bleeding; Z79.899 Other long term (current) drug therapy
CPT/HCPCS: 36415; 74177; 82565; Q9967

== ENCOUNTER 2021-12-17 10:26 | Outpatient (CLI) | payer MEDICARE, MEDICAID ==
[2021-12-17 10:48] LABS: BASOPHILS # (AUTO) 0.1 10^3/uL (0.0-0.1); BASOPHILS % (AUTO) 1.2 %; EOSINOPHILS # (AUTO) 0.1 10^3/uL (0.0-0.7); EOSINOPHILS % (AUTO) 2.8 %; HCT - HEMATOCRIT 40.1 % (37.0-47.0); HGB - HEMOGLOBIN 13.2 g/dL (12.0-16.0); LYMPHOCYTES % (AUTO) 23.3 %; MEAN CORPUSCULAR HEMOGLOBIN 29.2 pg (27.0-31.0); MEAN CORPUSCULAR HGB CONC 32.9 g/dL (32.0-36.0); MEAN CORPUSCULAR VOLUME 88.7 fL (81.0-99.0); MEAN PLATELET VOLUME 9.8 fL (7.9-10.8); MONOCYTES # (AUTO) 0.5 10^3/uL (0.0-1.0); MONOCYTES % (AUTO) 11.1 %; NEUTROPHILS # (AUTO) 2.6 10^3/uL (1.5-6.6); NEUTROPHILS % (AUTO) 61.4 %; PLT - PLATELET COUNT 206 10^3/uL (130-450); RED BLOOD COUNT 4.52 10^6/uL (4.20-5.40); RED CELL DISTRIBUTION WIDTH 14.1 % (12.0-15.0); WHITE BLOOD COUNT 4.3 x10^3/uL (4.8-10.8)
[2021-12-17 11:08] LABS: ALBUMIN 4.7 g/dL (3.2-5.5); ALBUMIN/GLOBULIN RATIO 1.6 (1.0-2.2); ALKALINE PHOSPHATASE 86 IU/L (42-121); ALT ALANINE AMINOTRANSFERASE 34 IU/L (10-60); AST ASPARTATE AMINOTRANSFERASE 39 IU/L (10-42); BILIRUBIN,TOTAL 0.6 mg/dL (0.2-1.0); BUN - BLOOD UREA NITROGEN 19 mg/dL (6-20); CALCIUM 9.8 mg/dL (8.5-10.3); CARBON DIOXIDE - CO2 33 mmol/L (21-32); CHLORIDE 100 mmol/L (101-111); CHOL/HDL RATIO 2.1 (<4.4); CHOLESTEROL 175 mg/dL; CREATININE 0.9 mg/dL (0.4-1.0); GFR - MDRD 63 (>89); GLUCOSE 96 mg/dL (70-100); HDL CHOLESTEROL 84 mg/dL; LDL CHOLESTEROL,CALCULATED 78 mg/dL; LDL/HDL RATIO 0.9 (<4.4); SODIUM 141 mmol/L (135-145); TOTAL PROTEIN 7.7 g/dL (6.7-8.2); TRIGLYCERIDES 66 mg/dL; VLDL CHOLESTEROL 13 mg/dL
== END 2021-12-17 10:27 | disposition home or self-care (01) ==
LOC: LAB 10:26
PROVIDERS: ATTEND Internal Medicine
DX: Z00.00 Encounter for general adult medical examination without abnormal findings (principal); C44.91 Basal cell carcinoma of skin, unspecified; A60.9 Anogenital herpesviral infection, unspecified; D72.819 Decreased white blood cell count, unspecified; G35 Multiple sclerosis; G47.33 Obstructive sleep apnea (adult) (pediatric); M81.0 Age-related osteoporosis without current pathological fracture; J45.909 Unspecified asthma, uncomplicated; M41.9 Scoliosis, unspecified; Z79.899 Other long term (current) drug therapy
CPT/HCPCS: 36415; 80053; 80061; 82306; 83721; 84443; 85025

== ENCOUNTER 2022-03-12 14:44 | Outpatient (CLI) | payer MEDICARE, MEDICAID ==
[2022-03-12 16:09] LABS: BILIRUBIN,URINE NEGATIVE (NEGATIVE); GLUCOSE, URINE (UA) NEGATIVE (NEGATIVE); KETONES,URINE (UA) NEGATIVE (NEGATIVE); LEUKOCYTE ESTERASE, URINE NEGATIVE (NEGATIVE); NITRITE,URINE NEGATIVE (NEGATIVE); OCCULT BLOOD,URINE NEGATIVE (NEGATIVE); PH,URINE 7.5 PH (5.0-7.5); PROTEIN,URINE NEGATIVE (NEGATIVE); UROBILINOGEN,URINE 0.2 (NORMAL) E.U./dL (NORMAL)
[2022-03-12 16:11] LABS: CLARITY,URINE CLEAR (CLEAR)
[2022-03-12 16:50] LABS: BACTERIA,URINE None Seen /HPF (None Seen); RBC,URINE 0-5 /HPF (0-5); SQUAMOUS EPITHELIAL CELL,UR NONE SEEN (<= Few); WBC,URINE 0-3 /HPF (0-5)
== END 2022-03-12 23:59 | disposition home or self-care (01) ==
LOC: LAB.R 14:44
PROVIDERS: ATTEND Internal Medicine
DX: R39.9 Unspecified symptoms and signs involving the genitourinary system (principal)
CPT/HCPCS: 81001; 87086

== ENCOUNTER 2022-03-23 10:05 | Outpatient (CLI) | payer MEDICARE, MEDICAID ==
--- NOTE | 2022-03-24 11:14 | Mammography Report ---
BILATERAL DIGITAL SCREENING MAMMOGRAM 3D/2D: 03/23/2022 CLINICAL: Routine screening. Comparison is made to exams dated: 03/20/2021 mammogram, 11/22/2018 mammogram, and 09/14/2016 mammogram - [facility]. There are scattered areas of fibroglandular density in both breasts (category b / 25%-50% glandular t issue). No significant masses, calcifications, or other findings are seen in either breast. There has been no significant interval change. IMPRESSION: NEGATIVE There is no mammographic evidence of malignancy. A 1 year screening mammogram is recommended. Based on the Tyrer Cuzick model (a risk assessment model) the patients lifetime risk is 8.9% and her 10 year risk is 4.5%. According to the ACR, ACS, and NCCN guidelines, an annual breast MRI exam janes g with mammogram is recommended if the patients lifetime risk is 20% or greater. This exam was interpreted at Station ID: [id number]. NOTE: For mammograms, a report in lay terms will be sent to the patient. Approximately 15% of breast malignancies will not be visualized mammographically. In the management of a palpable breast mass, a negative mammogram must not discourage biopsy of a clinically suspicious lesion. Electronically Signed By: Aaron mast/arturo:03/23/2022 11:33:47 ACR BI-RADS Category 1: Negative 3341F PARENCHYMAL PATTERN: (A) - The breast(s) demonstrate(s) scattered fibroglandular densities. BI-RADS CATEGORY: (1) - 1 RECOMMENDATION: (ANNUAL) - Recommend routine annual screening mammography. [id number] 1 year screening LATERALITY: (B)
== END 2022-03-23 10:06 | disposition home or self-care (01) ==
LOC: DI 10:05
PROVIDERS: ATTEND Internal Medicine
DX: Z12.31 Encounter for screening mammogram for malignant neoplasm of breast (principal)

== ENCOUNTER 2022-03-31 13:48 | Outpatient (CLI) | payer MEDICARE, MEDICAID ==
--- NOTE | 2022-03-31 16:17 | Ultrasound Report ---
PROCEDURE: Pelvic w/Transvaginal INDICATIONS: PELVIC PAIN, ABD PAIN TECHNIQUE: Real-time scanning was performed of the pelvic organs, with image documentation. Additional endovagi nal scanning was necessary due to incomplete visualization of the adnexal and endometrial structures by transabdominal scanning. COMPARISON: CT abdomen and pelvis with, 08/07/2021. FINDINGS: Limited examination due to overlying bowel loops. Uterus: Uterus is anteverted and normal in size at 5.8 x 2.2 x 4.3 cm. The myometrium is heterogene ous. The endometrium measures 1.9 mm in combined thickness. There is a 1.4 x 0.9 x 1.1 cm intramura l fibroid in mid anterior uterine wall. There is a small amount of fluid in the endocervical canal. Ovaries: The right ovary is seen on transverse abdominal scan only and measures 2.6 x 1.1 x 1.9 cm, with a calculated ovarian volume of 2.8 cc. There is a simple appearing cyst in the right ovary jimena uring 1.5 x 1.1 x 1.9 cm. The left ovary is not visualized. Less than 12 follicles can be seen in the right ovary. No adnexal masses are seen. Other: No pathologic free abdominal or pelvic fluid. IMPRESSION: 1. Limited examination due to overlying bowel loops. 2. There is a small intramural fibroid in the mid anterior uterine wall. Uterus is otherwise normal. 3. A simple cyst in the right ovary. 4. Left ovary is not visualized. Reviewed by: Otf Garcia MD on 03/31/2022 4:15 PM PST Approved by: Otf Garcia MD on 03/31/2022 4:15 PM PST Station ID: [id number]
== END 2022-03-31 13:49 | disposition home or self-care (01) ==
LOC: DI 13:48
PROVIDERS: ATTEND Internal Medicine
DX: D25.1 Intramural leiomyoma of uterus (principal); N83.291 Other ovarian cyst, right side

== ENCOUNTER 2022-10-27 11:15 | Emergency (ER) | payer MEDICARE, MEDICAID ==
[2022-10-27 11:25] VITALS: BP 149/88
[2022-10-27] MEDS ORDERED: TETANUS/DIPHTHERIA/PERTUSSIS 0.5 ML SYRINGE IM ONE (11:38)
--- NOTE | 2022-10-27 11:54 | ED Physician Documentation ---
PD HPI UPPER EXT INJURY - Stated complaint Stated Complaint: RT FINGER DOG BITE - Chief complaint Chief Complaint: Laceration - History obtained from History obtained from: Patient - History of Present Illness Location: Right Where injury occurred: Home Pain level max: 0 Pain level now: 0 Recently seen: Not recently seen - Additonal information Additional information: Patient is a 67-year-old female who presents to the emergency department with a right index finger dog bite. Her dog was being attacked by a deer, she picked up her dog and it bit her. Her dog shortly thereafter. She has a laceration/bite to the right index finger. Unknown last tetanus shot. Occurred at home. She states her dog was up-to-date on immunizations. Patient is right- handed. She states she has a history of C. difficile and does not want to take antibiotics unless she has to. Patient is allergic to Levaquin, sulfa and penicillin. Review of Systems Constitutional: denies: Fever, Chills GI: denies: Vomiting, Diarrhea Skin: denies: Rash Musculoskeletal: denies: Neck pain, Back pain Neurologic: denies: Headache PD PAST MEDICAL HISTORY - Past Medical History Cardiovascular: None Respiratory: Asthma, Pneumonia Neuro: Other Endocrine/Autoimmune: None GI: C.difficile INFECTION CONTROL RN: None : Incontinence, Frequency HEENT: None Psych: None Musculoskeletal: Osteoporosis, Scoliosis Derm: None - Past Surgical History Past Surgical History: Yes General: Appendectomy /INFECTION CONTROL RN: section, Endometrial ablation, Tubal ligation, Other - Present Medications Home Medications: Ambulatory Orders Medication Instructions Recorded Confirmed Gabapentin [Neurontin] 800 mg PO TID 08/30/13 05/13/18 Interferon Beta-1A [Avonex] 30 mcg IM Q7D 08/30/13 05/13/18 Cholecalciferol (Vitamin D3) 5,000 units PO DAILY 05/13/18 05/13/18 [Vitamin D3] Magnesium 500 mg PO DAILY PRN 05/13/18 05/13/18 Naproxen 250 mg PO DAILY PRN 05/13/18 05/13/18 Neurocet 1 cap PO DAILY 05/13/18 05/13/18 Oxycodone HCl/Acetaminophen 0.5 tab PO QPM 05/13/18 05/13/18 [Oxycodone-Acetaminophen 5-325] Vitamin B Complex 1 tab PO DAILY 05/13/18 05/13/18 Ferrous Gluconate 324 mg PO DAILY #60 tablet 05/23/18 Ipratropium/Albuterol [Duoneb] 3 ml INH Q4HR PRN #5 neb 05/23/18 Ondansetron Odt [Zofran Odt] 4 mg TL Q4HR PRN #30 tablet 05/23/18 Saccharomyces Boulardii [Florastor] 250 mg PO BID #28 capsule 05/23/18 cefUROXime axetiL [Ceftin] 500 mg PO BID #56 tablet 05/23/18 metroNIDAZOLE [Flagyl] 500 mg PO QID #112 tablet 05/23/18 predniSONE [Prednisone] 40 mg PO DAILY 4 Days #8 tablet 10/30/18 Cefuroxime Axetil [Cefuroxime] 500 mg PO BID #14 tablet 10/27/22 metroNIDAZOLE [Flagyl] 500 mg PO TID 7 Days #21 tablet 10/27/22 - Allergies Allergies/Adverse Reactions: Allergies Allergy/AdvReac Type Severity Reaction Status Date / Time Penicillins Allergy Mild Rash Verified 10/27/22 11:22 Sulfa (Sulfonamide Allergy Mild Rash Verified 05/12/18 15:15 Antibiotics) levofloxacin [From Levaquin] Allergy Unknown Verified 10/27/22 11:22 - Social History Does the pt smoke?: No Smoking Status: Never smoker Does the pt drink ETOH?: No Does the pt have substance abuse?: No - Immunizations Immunizations are current?: Yes - POLST Patient has POLST: No PD ED PE NORMAL - Vitals Vital signs reviewed: Yes - General General: Alert and oriented X 3, No acute distress - HEENT HEENT: Moist mucous membranes - Neck Neck: Supple, no meningeal sign - Cardiac Cardiac: RRR, Strong equal pulses - Respiratory Respiratory: No respiratory distress, Clear bilaterally - Abdomen Abdomen: Soft, Non tender, Non distended - Derm Derm: Warm and dry - Extremities Extremities: Other (R index finger - 1cm curved laceration. NVI. lateral aspect near DIP joint) - Neuro Neuro: Alert and oriented X 3 Results - Vitals Vitals: Vital Signs - 24 hr 10/27/22 10/27/22 10/27/22 11:19 12:13 12:34 Temperature 36.7 C Heart Rate 98 Respiratory 18 17 17 Rate Blood Pressure 149/88 H O2 Saturation 100 Oxygen O2 Source Room air - Rads (name of study) R finger xray Relevant Findings:: Final report received, See rad report (no acute fracture) Procedures - Laceration (location) R index finger Length in cm: 1 Wound type: Curved, Into subcut fat, Clean Neurovascular status: Sensory intact, Motor intact, Vascular intact Tendon involvement: Tendon intact Wound preparation: Irrigated copiously NS, Wound explored, To the base Skin layer closure: Other (t ring closure system) Other: Patient tolerated well, No complications, Neurovascular intact, Tetanus booster given PD Medical Decision Making - ED course Complexity details: reviewed results, re-evaluated patient, considered differential, d/w patient ED course: 67-year-old female with a dog bite to the right finger. A T ring closure system was used. There was no glue placed over the wound, the skin appears too thin to suture. Patient has had C. difficile in the past, she states she had C. difficile from clindamycin. She has had cefuroxime and Flagyl in the past. This is an acceptable alternative for dog bites. We will place her on this. Tdap given. Warnings of infection and instructions on wound care given at bedside. Also counseled on how to minimize scarring. Patient counseled regarding signs and symptoms for which I believe and urgent re-evaluation would be necessary. Patient with good understanding of and agreement to plan and is comfortable going home at this time This document was made in part using voice recognition software. While efforts are made to proofread this document, sound alike and grammatical errors may occur. Departure - Departure Disposition: 01 Home, Self Care Clinical Impression: Dog bite Qualifiers: Encounter type: initial encounter Qualified Code(s): W54.0XXA - Bitten by dog, initial encounter Condition: Good Instructions: ED Bite Dog Follow-Up: Siena Hoffman MD [Primary Care Provider] - Within 1 week Prescriptions: Cefuroxime Axetil [Cefuroxime] 500 mg PO BID #14 tablet metroNIDAZOLE [Flagyl] 500 mg PO TID 7 Days #21 tablet Comments: Your prescription was sent to the [facility] pharmacy. Please take all antibiotics until gone. Please take both antibiotics as prescribed. Please return if you worsen. Keep the wound clean. The dressing will fall off on its own in a few days. You can change the outer dressing as needed
--- NOTE | 2022-10-27 12:58 | XRAY Report ---
PROCEDURE: Finger(s) RT INDICATIONS: dog bite vs finger TECHNIQUE: PA hand, 2 views of the index finger acquired. COMPARISON: None. FINDINGS: Bones: No acute fractures or dislocations. No suspicious bony lesions. Soft tissues: No suspicious soft tissue calcifications or masses. Skin irregularity at the radial aspect of the distal index finger is consistent with a laceration. No radiopaque foreign body. IMPRESSION: No acute osseous abnormality. No radiopaque foreign body. If there is clinical concern or persistent symptoms, additional imaging such as repeat radiographs or advanced imaging (e.g. CT, MRI) may be hel pful for further evaluation. Reviewed by: Aaron Gonzalez MD on 10/27/2022 12:56 PM PDT Approved by: Aaron Gonzalez MD on 10/27/2022 12:56 PM PDT Station ID: [id number]
== END 2022-10-27 12:35 | disposition home or self-care (01) ==
LOC: ED 11:15
DX: S61.250A Open bite of right index finger without damage to nail, initial encounter (principal); W54.0XXA Bitten by dog, initial encounter; Y93.K9 Activity, other involving animal care; Z23 Encounter for immunization; Z79.899 Other long term (current) drug therapy; Z88.1 Allergy status to other antibiotic agents; Z88.0 Allergy status to penicillin; Z88.2 Allergy status to sulfonamides
CPT/HCPCS: 12001; 90471; 99283

== ENCOUNTER 2022-12-17 11:37 | Outpatient (CLI) | payer MEDICARE, MEDICAID ==
[2022-12-17 12:16] LABS: ALBUMIN 4.7 g/dL (3.2-5.5); ALBUMIN/GLOBULIN RATIO 1.5 (1.0-2.2); BILIRUBIN,TOTAL 0.7 mg/dL (0.2-1.0); CALCIUM 10.3 mg/dL (8.5-10.3); POTASSIUM 4.2 mmol/L (3.5-4.5); TOTAL PROTEIN 7.9 g/dL (6.4-8.9)
== END 2022-12-17 11:38 | disposition home or self-care (01) ==
LOC: LAB 11:37
PROVIDERS: ATTEND Internal Medicine
DX: C44.91 Basal cell carcinoma of skin, unspecified (principal); R10.9 Unspecified abdominal pain; R06.00 Dyspnea, unspecified; R53.83 Other fatigue; G35 Multiple sclerosis; M81.0 Age-related osteoporosis without current pathological fracture; R00.2 Palpitations
CPT/HCPCS: 36415; 80053; 82150; 82306; 83690; 83880

== ENCOUNTER 2023-01-07 08:00 | Outpatient (CLI) | payer MEDICARE, MEDICAID ==
[2023-01-09 13:09] LABS: GIARDIA LAMBLIA AG EIA Negative (Negative)
== END 2023-01-07 23:59 | disposition home or self-care (01) ==
LOC: LAB.R 08:00
PROVIDERS: ATTEND Internal Medicine
DX: R19.7 Diarrhea, unspecified (principal)
CPT/HCPCS: 87045; 87046; 87177; 87329; 87427; 87493

== ENCOUNTER 2023-01-09 08:42 | Outpatient (CLI) | payer MEDICARE, MEDICAID ==
--- NOTE | 2023-01-09 11:59 | XRAY Report ---
PROCEDURE: Ribs w/PA Chest RT INDICATIONS: CONTUSION OF RIGHT FRONT WALL OF THORAX, INITIAL E TECHNIQUE: 2 views of the right ribs were acquired, along with a single view chest. COMPARISON: None. FINDINGS: Surgical changes and devices: None. Bones and chest wall: No fractures or dislocations. No suspicious bony lesions. Overlying soft tis sues appear unremarkable. No evidence of rib fracture. Thoracolumbar dextroscoliosis is present with generalized decreased osse ous mineralization large posterior thoracolumbar spinal construct Lungs and pleura: No pleural effusions or pneumothorax. Lungs appear clear. Mediastinum: Mediastinal contours appear normal. Heart size is normal. IMPRESSION: Osteopenia without fracture or pneumothorax. Thoracolumbar instrumented dextroscoliosis Reviewed by: Hunter Sutton MD on 01/09/2023 10:58 AM PONCHO Approved by: Hunter Sutton MD on 01/09/2023 10:58 AM [id number] Station ID: [id number]
== END 2023-01-09 08:43 | disposition home or self-care (01) ==
LOC: DI 08:42
PROVIDERS: ATTEND Emergency Medicine
DX: S20.211A Contusion of right front wall of thorax, initial encounter (principal); M85.88 Other specified disorders of bone density and structure, other site

== ENCOUNTER 2023-05-08 08:00 | Outpatient (CLI) | payer MEDICARE, MEDICAID | END 2023-05-08 23:59 | disposition home or self-care (01) | LOC: LAB.N 08:00 | PROVIDERS: ATTEND Registered Nurse | DX: R30.0 Dysuria (principal); R82.79 Other abnormal findings on microbiological examination of urine | CPT/HCPCS: 87086 ==

== ENCOUNTER 2023-05-23 06:39 | Emergency (ER) | payer MEDICARE, MEDICAID ==
[2023-05-23 07:07] VITALS: BP 136/79; O2SAT 98
[2023-05-23 08:08] LABS: B. PARAPERTUSSIS- RESP PCR PAN NOT DETECTED; B. PERTUSSIS- RESP PCR PANEL NOT DETECTED; C. PNEUMONIAE- RESP PCR PANEL NOT DETECTED; CORONAVIRUS 229E-RESP PCR NOT DETECTED; CORONAVIRUS HKU1-RESP PCR NOT DETECTED; CORONAVIRUS NL63-RESP PCR NOT DETECTED; CORONAVIRUS OC43-RESP PCR NOT DETECTED; HUMAN METAPNEUMOVIRUS NOT DETECTED; INFLUENZA A- RESP PCR PANEL NOT DETECTED; INFLUENZA B - RESP PCR PANEL NOT DETECTED; M. PNEUMONIAE- RESP PCR PANEL NOT DETECTED; PARAINFLUENZA VIRUS 1 NOT DETECTED; PARAINFLUENZA VIRUS 2 NOT DETECTED; PARAINFLUENZA VIRUS 3 NOT DETECTED; PARAINFLUENZA VIRUS 4 NOT DETECTED; RHINOVIRUS/ENTEROVIRUS NOT DETECTED; RSV- RESP PCR PANEL NOT DETECTED; SARS-CoV-2 -RESP PCR PANEL NOT DETECTED
[2023-05-23] MEDS ORDERED: predniSONE 20 MG TABLET PO STA (08:43)
[2023-05-23] MEDS ORDERED: BENZONATATE 100 MG CAPSULE PO STA (08:43)
--- NOTE | 2023-05-23 08:45 | ED Physician Documentation ---
PD HPI URI - Stated complaint Stated Complaint: SOA/COUGH/THROAT PX - Chief complaint Chief Complaint: Resp - History obtained from History obtained from: Patient - Additional information Additional information: 68-year-old woman with history of asthma has been sick for 6 days with productive cough and congestion. Denies fevers. Mostly worried because she has a new grandchild and wondering if she has RSV. PD PAST MEDICAL HISTORY - Past Medical History Past Medical History: Yes Cardiovascular: None Respiratory: Asthma, Pneumonia Neuro: Multiple sclerosis, Other Endocrine/Autoimmune: None GI: C.difficile, Pancreatitis LIMB DRIVER: None : Incontinence, Frequency HEENT: None Psych: None Musculoskeletal: Osteoporosis, Scoliosis Derm: None - Past Surgical History Past Surgical History: Yes General: Appendectomy /LIMB DRIVER: section, Endometrial ablation, Tubal ligation, Other - Present Medications Home Medications: Ambulatory Orders Medication Instructions Recorded Confirmed Gabapentin [Neurontin] 400 mg PO TID 08/30/13 05/23/23 Cholecalciferol (Vitamin D3) 5,000 units PO DAILY 05/13/18 05/23/23 [Vitamin D3] Magnesium 500 mg PO DAILY PRN 05/13/18 05/23/23 Naproxen 250 mg PO DAILY PRN 05/13/18 05/13/18 Oxycodone HCl/Acetaminophen 0.5 tab PO QPM 05/13/18 05/23/23 [Oxycodone-Acetaminophen 5-325] Vitamin B Complex 1 tab PO DAILY 05/13/18 05/23/23 Ipratropium/Albuterol [Duoneb] 3 ml INH Q4HR PRN #5 neb 05/23/18 05/23/23 Albuterol Sulf [Ventolin Hfa 1 - 2 puffs INH Q4HR PRN 05/23/23 05/23/23 Inhaler] Benzonatate [Tessalon] 200 mg PO TID PRN #20 cap 05/23/23 Cetirizine [ZyrTEC] 10 mg PO DAILY 05/23/23 05/23/23 predniSONE [Deltasone] 60 mg PO DAILY 5 Days #15 tablet 05/23/23 - Allergies Allergies/Adverse Reactions: Allergies Allergy/AdvReac Type Severity Reaction Status Date / Time Penicillins Allergy Mild Rash Verified 05/23/23 06:59 Sulfa (Sulfonamide Allergy Mild Rash Verified 05/23/23 06:59 Antibiotics) levofloxacin [From Levaquin] Allergy Unknown Verified 05/23/23 06:59 - Social History Does the pt smoke?: No Smoking Status: Never smoker Does the pt drink ETOH?: Yes Does the pt have substance abuse?: No - Immunizations Immunizations are current?: Yes Immunizations: TDAP >10years/unknown - POLST Patient has POLST: No PD ED PE NORMAL - Vitals Vital signs reviewed: Yes - General General: Alert and oriented X 3, No acute distress - HEENT HEENT: Pharynx benign - Respiratory Respiratory: No respiratory distress, Other (Mild expiratory wheezes, no focal findings) - Neuro Neuro: Alert and oriented X 3, Normal speech Results - Vitals Vitals: Vital Signs - 24 hr 05/23/23 06:59 Temperature 36.2 C L Heart Rate 66 Respiratory 18 Rate Blood Pressure 136/79 H O2 Saturation 98 Oxygen O2 Source Room air - Labs Labs: Laboratory Tests 05/23/23 07:10 Nasal Adenovirus (PCR) NOT DETECTED Nasal B. parapertussis DNA (PCR) NOT DETECTED Nasal Coronavir 229E PCR NOT DETECTED Nasal Coronavir HKU1 PCR NOT DETECTED Nasal Coronavir NL63 PCR NOT DETECTED Nasal Coronavir OC43 PCR NOT DETECTED Nasal Enterovir/Rhinovir PCR NOT DETECTED Nasal Influenza B PCR NOT DETECTED Nasal Influenza A PCR NOT DETECTED Nasal Parainfluen 1 PCR NOT DETECTED Nasal Parainfluen 2 PCR NOT DETECTED Nasal Parainfluen 3 PCR NOT DETECTED Nasal Parainfluen 4 PCR NOT DETECTED Nasal RSV (PCR) NOT DETECTED Nasal B.pertussis DNA PCR NOT DETECTED Nasal C.pneumoniae (PCR) NOT DETECTED Jacob Human Metapneumo PCR NOT DETECTED Nasal M.pneumoniae (PCR) NOT DETECTED Nasal SARS-CoV-2 (PCR) NOT DETECTED - Rads (name of study) 2 view chest x-ray without acute disease. Relevant Findings:: Final report received, EMP independent interpretation of test PD Medical Decision Making - ED course ED course: 68-year-old woman with viral respiratory illness, clear chest x-ray and negative viral panel. Will start on steroids and Tessalon. Departure - Departure Disposition: 01 Home, Self Care Clinical Impression: Viral respiratory illness Condition: Good Instructions: ED Viral Syndrome Prescriptions: predniSONE [Deltasone] 60 mg PO DAILY 5 Days #15 tablet Benzonatate [Tessalon] 200 mg PO TID PRN #20 cap PRN Reason: Cough Comments: I sent your prescriptions electronically to [facility] in [place]. Call your doctor to arrange a follow-up appointment, make the next available appointment. In the interim, return anytime if worse or if new symptoms develop. Forms: PCP List
--- NOTE | 2023-05-23 08:50 | XRAY Report ---
PROCEDURE: Chest 2V INDICATIONS: cough/SOA TECHNIQUE: 2 views of the chest were acquired. COMPARISON: Radiographs 01/09/2023 FINDINGS: Surgical changes and devices: Postsurgical changes are seen in the lower thoracic and lumbar spine. Lungs and pleura: No pleural effusions or pneumothorax. Lungs are clear. Mediastinum: Mediastinal contours appear normal. Heart size is normal. Bones and chest wall: Sclerotic curvature of the spine with postsurgical changes and generalized ost eopenia. IMPRESSION: No acute cardiopulmonary abnormality identified. Reviewed by: Aaron Gonzalez MD on 05/23/2023 8:48 AM PST Approved by: Aaron Gonzalez MD on 05/23/2023 8:48 AM PST Station ID: [id number]
== END 2023-05-23 09:06 | disposition home or self-care (01) ==
LOC: ED 06:39
DX: J98.8 Other specified respiratory disorders (principal); Z11.52 Encounter for screening for COVID-19
CPT/HCPCS: 71046; 87633; 99283; A9270; J7512

== ENCOUNTER 2023-06-03 05:36 | Emergency (ER) | payer MEDICARE, MEDICAID ==
[2023-06-03] MEDS ORDERED: IPRATROPIUM/ALBUTEROL 3 ML NEB INH STA (05:50)
[2023-06-03] MEDS ORDERED: IPRATROPIUM/ALBUTEROL 3 ML NEB INH ONE (05:55)
[2023-06-03 06:00] VITALS: BP 127/83; O2SAT 98
[2023-06-03 06:13] LABS: BASOPHILS # (AUTO) 0.1 10^3/uL (0.0-0.1); BASOPHILS % (AUTO) 0.8 %; EOSINOPHILS # (AUTO) 0.4 10^3/uL (0.0-0.7); EOSINOPHILS % (AUTO) 6.6 %; HCT - HEMATOCRIT 40.6 % (37.0-47.0); HGB - HEMOGLOBIN 13.3 g/dL (12.0-16.0); LYMPHOCYTES % (AUTO) 16.1 %; MEAN CORPUSCULAR HEMOGLOBIN 29.9 pg (27.0-31.0); MEAN CORPUSCULAR HGB CONC 32.8 g/dL (32.0-36.0); MEAN CORPUSCULAR VOLUME 91.2 fL (81.0-99.0); MEAN PLATELET VOLUME 10.2 fL (7.9-10.8); MONOCYTES # (AUTO) 1.1 10^3/uL (0.0-1.0); MONOCYTES % (AUTO) 17.5 %; NEUTROPHILS # (AUTO) 3.8 10^3/uL (1.5-6.6); NEUTROPHILS % (AUTO) 58.5 %; PLT - PLATELET COUNT 215 10^3/uL (130-450); RED BLOOD COUNT 4.45 10^6/uL (4.20-5.40); RED CELL DISTRIBUTION WIDTH 13.8 % (12.0-15.0); WHITE BLOOD COUNT 6.4 x10^3/uL (4.8-10.8)
[2023-06-03 06:23] LABS: VBG BASE EXCESS 3.8 mmol/L (-2 - +2); VBG HCO3 27.5 mmol/L (23-28); VBG OXYGEN SATURATION 95.8 % (60-80); VBG PCO2 38.3 mmHg (41-51); VBG PH 7.474 (7.31-7.41); VBG PO2 73.8 mmHg (25-47); VBG TOTAL CO2 28.7 mmol/L (24-29)
--- NOTE | 2023-06-03 06:25 | ED Physician Documentation ---
History of Present Illness - Stated complaint Stated Complaint: SOA/COUGH - Chief complaint Chief Complaint: Resp - History obtained from History obtained from: Patient - Additonal information Additional information: 68yF with pmh asthma presents with soa, wheezing, nonproductive cough and rib pain with cough worsening since 05/19/23. patient was seen in ed 05/23 and dx with viral URI but states she never got better. she is concerned her left lung is "filled with fluid". denies fever, n/v, cp. does endorse subjective dyspnea. 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 : Incontinence, Frequency HEENT: None Psych: None Musculoskeletal: Osteoporosis, Scoliosis Derm: None - Past Surgical History Past Surgical History: Yes General: Appendectomy /INCLINED RAILWAY OPERATOR: section, Endometrial ablation, Tubal ligation, Other - Present Medications Home Medications: Ambulatory Orders Medication Instructions Recorded Confirmed Gabapentin [Neurontin] 400 mg PO TID 08/30/13 06/03/23 Cholecalciferol (Vitamin D3) 5,000 units PO DAILY 05/13/18 06/03/23 [Vitamin D3] Magnesium 500 mg PO DAILY PRN 05/13/18 06/03/23 Naproxen 250 mg PO DAILY PRN 05/13/18 06/03/23 Oxycodone HCl/Acetaminophen 0.5 tab PO QPM PRN 05/13/18 06/03/23 [Oxycodone-Acetaminophen 5-325] Vitamin B Complex 1 tab PO DAILY 05/13/18 06/03/23 Ipratropium/Albuterol [Duoneb] 3 ml INH Q4HR PRN #5 neb 05/23/18 06/03/23 Albuterol Sulf [Ventolin Hfa 1 - 2 puffs INH Q4HR PRN 05/23/23 06/03/23 Inhaler] Cetirizine [ZyrTEC] 10 mg PO HS 05/23/23 06/03/23 Triamcinolone Acetonide [Nasacort] 1 spr NS HS 06/03/23 06/03/23 - Allergies Allergies/Adverse Reactions: Allergies Allergy/AdvReac Type Severity Reaction Status Date / Time Penicillins Allergy Mild Rash Verified 06/03/23 05:46 Sulfa (Sulfonamide Allergy Mild Rash Verified 06/03/23 05:46 Antibiotics) levofloxacin [From Levaquin] Allergy Unknown Verified 06/03/23 05:46 - Social History Does the pt smoke?: No Smoking Status: Never smoker Does the pt drink ETOH?: Yes Does the pt have substance abuse?: No - Immunizations Immunizations are current?: Yes Immunizations: TDAP >10years/unknown - POLST Patient has POLST: No PD ED PE NORMAL - Vitals Vital signs reviewed: Yes - General General: Alert and oriented X 3, No acute distress, Well developed/nourished - HEENT HEENT: Atraumatic, PERRL, EOMI, Moist mucous membranes, Pharynx benign - Neck Neck: Supple, no meningeal sign - Cardiac Cardiac: RRR - Respiratory Respiratory: Other (BL end expiratory wheezing) - Abdomen Abdomen: Non tender, Non distended - Derm Derm: Normal color, Warm and dry - Extremities Extremities: No edema Results - Vitals Vitals: Vital Signs - 24 hr 06/03/23 06/03/23 05:46 06:00 Temperature 36.6 C Heart Rate 80 84 Respiratory 18 24 Rate Blood Pressure 127/83 H O2 Saturation 98 Oxygen O2 Source Room air - EKG (time done) 0552 EKG releavant findings:: EKG personally interpreted by author of this note. Relevant findings are: Rate: Rate (enter#) (80) Rhythm: NSR Peytona: Normal Intervals: Normal MI QRS: Normal Ischemia: Normal ST segments - Labs Labs: Laboratory Tests 06/03/23 06/03/23 06/03/23 06:00 06:00 06:00 WBC 6.4 RBC 4.45 Hgb 13.3 Hct 40.6 MCV 91.2 MCH 29.9 MCHC 32.8 RDW 13.8 Plt Count 215 MPV 10.2 Neut # (Auto) 3.8 Lymph # (Auto) 1.0 L Imperial # (Auto) 1.1 H Eos # (Auto) 0.4 Baso # (Auto) 0.1 Absolute Nucleated RBC 0.00 Nucleated RBC % 0.0 VBG pH 7.474 H VBG pCO2 38.3 L VBG pO2 73.8 H VBG HCO3 27.5 VBG Total CO2 28.7 VBG O2 Saturation 95.8 H VBG Base Excess 3.8 H Sodium 138 Potassium 3.9 Chloride 104 Carbon Dioxide 30 Anion Gap 4.0 L BUN 12 Creatinine 1.0 Estimated GFR (MDRD) 55 L Glucose 80 Calcium 9.6 Total Bilirubin 0.5 AST 21 ALT 14 Alkaline Phosphatase 95 Total Protein 7.1 Albumin 4.2 Globulin 2.9 Albumin/Globulin Ratio 1.4 Lipase 57 PD Medical Decision Making - ED course ED course: 68yF presents to the ED with concern about persistent viral URI symptoms X 2 weeks. Vital signs and exam benign aside from end expiratory wheezing, resolving s/p duoneb. cbc, abdominal panel, vbg performed and look benign. no co2 retention. mild hyperventilatory pattern. cxr clear per my interpretation and that of outside radiologist. ekg benign. Symptomatic care discussed. strict return precautions given. plan to f/u with pcp. Departure - Departure Clinical Impression: Viral URI with cough Condition: Stable Instructions: ED Viral Syndrome Comments: You were seen in the emergency department for viral upper respiratory infection. Your chest xray showed no pneumonia or fluid buildup and your vital signs and physical exam were good. You did have some mild wheezing that improved after a breathing treatment. Your labwork was normal. Please follow-up with your primary care provider and return to the emergency department if you have any new or worsening symptoms or other concerns. Forms: PCP List
[2023-06-03 06:26] LABS: ALBUMIN 4.2 g/dL (3.2-5.5); ALBUMIN/GLOBULIN RATIO 1.4 (1.0-2.2); BILIRUBIN,TOTAL 0.5 mg/dL (0.2-1.0); CALCIUM 9.6 mg/dL (8.5-10.3); POTASSIUM 3.9 mmol/L (3.5-4.5); TOTAL PROTEIN 7.1 g/dL (6.4-8.9)
[2023-06-03 07:06] LABS: B. PARAPERTUSSIS- RESP PCR PAN NOT DETECTED; B. PERTUSSIS- RESP PCR PANEL NOT DETECTED; C. PNEUMONIAE- RESP PCR PANEL NOT DETECTED; CORONAVIRUS 229E-RESP PCR NOT DETECTED; CORONAVIRUS HKU1-RESP PCR NOT DETECTED; CORONAVIRUS NL63-RESP PCR NOT DETECTED; CORONAVIRUS OC43-RESP PCR NOT DETECTED; HUMAN METAPNEUMOVIRUS NOT DETECTED; INFLUENZA A- RESP PCR PANEL NOT DETECTED; INFLUENZA B - RESP PCR PANEL NOT DETECTED; M. PNEUMONIAE- RESP PCR PANEL NOT DETECTED; PARAINFLUENZA VIRUS 1 NOT DETECTED; PARAINFLUENZA VIRUS 2 NOT DETECTED; PARAINFLUENZA VIRUS 3 NOT DETECTED; PARAINFLUENZA VIRUS 4 NOT DETECTED; RHINOVIRUS/ENTEROVIRUS NOT DETECTED; RSV- RESP PCR PANEL NOT DETECTED; SARS-CoV-2 -RESP PCR PANEL NOT DETECTED
--- NOTE | 2023-06-03 07:44 | XRAY Report ---
PROCEDURE: Chest 1V INDICATIONS: Chest Pain TECHNIQUE: One view of the chest was acquired. COMPARISON: Chest x-ray 05/23/2023 FINDINGS: Surgical changes and devices: Thoracolumbar fixation rods. Lungs and pleura: No pleural effusions or pneumothorax. Lungs are clear. Mediastinum: Mediastinal contours appear normal. Heart size is normal. Bones and chest wall: No suspicious bony lesions. Overlying soft tissues appear unremarkable. IMPRESSION: No acute cardiopulmonary process. The above findings are concordant with preliminary report. Reviewed by: Nalini Moreira MD on 06/03/2023 7:42 AM PST Approved by: Nalini Moreira MD on 06/03/2023 7:42 AM PST Station ID: [id number]
== END 2023-06-03 07:18 | disposition home or self-care (01) ==
LOC: ED 05:36
DX: J06.9 Acute upper respiratory infection, unspecified (principal); G35 Multiple sclerosis; Z79.899 Other long term (current) drug therapy
CPT/HCPCS: 36415; 80053; 82803; 83690; 85025; 87633; 93005; 94640; 94664; 99283; 99284

== ENCOUNTER 2023-07-06 16:54 | Outpatient (CLI) | payer MEDICARE, MEDICAID ==
--- NOTE | 2023-07-06 22:27 | Ultrasound Report ---
PROCEDURE: Duplex Ext Veins Left INDICATIONS: EDEMA TECHNIQUE: Real-time imaging, as well as color and pulse Doppler interrogation, were performed of the lower extr emity deep veins from the inguinal ligament to the popliteal fossa. Attempted visualization of the ca lf veins was performed. COMPARISON: Left lower extremity venous ultrasound 01/24/2019 FINDINGS: The deep veins are normally c ompressible, and free of intraluminal thrombus. Color and pulse Doppler demonstrate normal phasic in traluminal flow. There is normal augmentation response to distal compression maneuver. The area of clinical concern along the lateral malleolus, there is a subcutaneous fluid collection me asuring approximately 4.4 x 0.5 x 1.6 cm. IMPRESSION: No deep venous thrombosis of the visualized lower extremity. Reviewed by: Gabi Smith MD on 07/06/2023 10:26 PM PST Approved by: Gabi Smith MD on 07/06/2023 10:26 PM PST Station ID: [id number]
== END 2023-07-06 16:55 | disposition home or self-care (01) ==
LOC: DI 16:54
PROVIDERS: ATTEND Internal Medicine
DX: R60.9 Edema, unspecified (principal)

== ENCOUNTER 2023-07-09 17:57 | Emergency (ER) | payer MEDICARE, MEDICAID ==
[2023-07-09 18:04] VITALS: BP 137/79; O2SAT 99
--- NOTE | 2023-07-09 18:22 | ED Physician Documentation ---
PD HPI LOWER EXT INJURY - Stated complaint Stated Complaint: LT LEG PX/SWELLING - Chief complaint Chief Complaint: Ext Problem - History obtained from History obtained from: Patient - Additional information Additional information: 68-year-old woman with history of MS not on immunomodulators developed pain of the lateral left ankle 8 days ago. She woke with it. There was no specific injury. She was seen by her physician who ordered a DVT study which was done and negative for DVT but it was noted that she had a "4.4 x 0.5 x 1.6 cm subcutaneous fluid collection near the lateral malleolus. It still hurting a lot. She denies fevers or chills. 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 : Incontinence, Frequency HEENT: None Psych: None Musculoskeletal: Osteoporosis, Scoliosis Derm: None - Past Surgical History Past Surgical History: Yes General: Appendectomy /COOKY MACHINE OPERATOR: section, Endometrial ablation, Tubal ligation, Other - Present Medications Home Medications: Ambulatory Orders Medication Instructions Recorded Confirmed Gabapentin [Neurontin] 400 mg PO TID 08/30/13 07/09/23 Magnesium 500 mg PO DAILY PRN 05/13/18 07/09/23 Naproxen 250 mg PO DAILY PRN 05/13/18 07/09/23 Ipratropium/Albuterol [Duoneb] 3 ml INH Q4HR PRN #5 neb 05/23/18 07/09/23 Albuterol Sulf [Ventolin Hfa 1 - 2 puffs INH Q4HR PRN 05/23/23 07/09/23 Inhaler] Cetirizine [ZyrTEC] 10 mg PO HS 05/23/23 07/09/23 Triamcinolone Acetonide [Nasacort] 1 spr NS HS 06/03/23 07/09/23 cephALEXin [Keflex] 500 mg PO Q6H #28 cap 07/09/23 - Allergies Allergies/Adverse Reactions: Allergies Allergy/AdvReac Type Severity Reaction Status Date / Time Penicillins Allergy Mild Rash Verified 07/09/23 17:59 Sulfa (Sulfonamide Allergy Mild Rash Verified 07/09/23 17:59 Antibiotics) levofloxacin [From Levaquin] Allergy Unknown Verified 07/09/23 17:59 - Social History Does the pt smoke?: No Smoking Status: Never smoker Does the pt drink ETOH?: Yes Does the pt have substance abuse?: No - Immunizations Immunizations are current?: Yes Immunizations: TDAP >10years/unknown - POLST Patient has POLST: No PD ED PE NORMAL - Vitals Vital signs reviewed: Yes - General General: Alert and oriented X 3, No acute distress - Extremities Extremities: Other (There is swelling, mild warmth but no real redness about the lateral malleolus and anterior to that. She has some pain with range of motion of the ankle but not exquisite. Normal pedal pulses. No calf tenderness or swelling.) - Neuro Neuro: Alert and oriented X 3, Normal speech - Psych Psych: Normal mood, Normal affect Results - Vitals Vitals: Vital Signs - 24 hr 07/09/23 17:59 Temperature 36.5 C Heart Rate 70 Respiratory 16 Rate Blood Pressure 137/79 H O2 Saturation 99 Oxygen O2 Source Room air - Rads (name of study) 3v L ankle XR Relevant Findings:: Final report received, EMP independent interpretation of test PD Medical Decision Making - ED course ED course: 68-year-old woman with swelling of the left ankle area. Subcutaneous fluid collection noted on prior ultrasound. I personally performed an ultrasound and this actually looks more like cobblestoning consistent with cellulitis to me. She clinically does not have an infected joint. X-ray was unremarkable. Will start with Keflex. Departure - Departure Disposition: 01 Home, Self Care Clinical Impression: Cellulitis Condition: Good Record reviewed to determine appropriate education?: Yes Instructions: Cellulitis Dc Prescriptions: cephALEXin [Keflex] 500 mg PO Q6H #28 cap Comments: Looks like you have cellulitis of that ankle, there is no blood clot on the ultrasound the other day. Elevate is much as possible and you can apply warm compress as well. Follow-up with Dr. Hoffman Wednesday or Wednesday for recheck. Return for new or worsening symptoms. Forms: PCP List Discharge Date/Time: 07/09/23 18:59
[2023-07-09] MEDS: cephALEXin 250 MG CAPSULE PO STA (18:57)
--- NOTE | 2023-07-09 19:33 | XRAY Report ---
PROCEDURE: Ankle 3+V LT INDICATIONS: left ankle pain TECHNIQUE: 3 views of the ankle were acquired. COMPARISON: None. FINDINGS: Bones: Decreased mineralization. No acute fractures. Intact ankle mortise. No suspicious bone lesion s. Soft tissues: No tibiotalar joint effusion. Achilles tendon appears normal. IMPRESSION: No acute bony abnormality. Reviewed by: Hattie Noel MD on 07/09/2023 7:31 PM PST Approved by: Hattie Noel MD on 07/09/2023 7:31 PM PST Station ID: [id number]
== END 2023-07-09 18:59 | disposition home or self-care (01) ==
LOC: ED 17:57
DX: L03.116 Cellulitis of left lower limb (principal); G35 Multiple sclerosis; Z79.899 Other long term (current) drug therapy
CPT/HCPCS: 73610; 99283; A9270

== ENCOUNTER 2023-08-04 12:32 | Outpatient (CLI) | payer MEDICARE, MEDICAID ==
--- NOTE | 2023-08-05 08:34 | Mammography Report ---
BILATERAL DIGITAL SCREENING MAMMOGRAM 3D/2D WITH LATEROMEDIAL OBLIQUE: 08/04/2023 CLINICAL: Routine screening. Comparison is made to exams dated: 03/23/2022 mammogram, 03/20/2021 mammogram, 11/22/2018 mammogram, a nd 09/14/2016 mammogram - [facility]. There are scattered areas of fibroglandular density in both breasts (category b / 25%-50% glandular t issue). No significant masses, calcifications, or other findings are seen in either breast. There has been no significant interval change. IMPRESSION: NEGATIVE There is no mammographic evidence of malignancy. A 1 year screening mammogram is recommended. Based on the Tyrer Cuzick model (a risk assessment model) the patient's lifetime risk is 8.0% and her 10 year risk is 4.5%. According to the ACR, ACS, and NCCN guidelines, an annual breast MRI exam janes g with mammogram is recommended if the patient's lifetime risk is 20% or greater. This exam was interpreted at Station ID: [id number]. NOTE: For mammograms, a report in lay terms will be sent to the patient. Approximately 15% of breast malignancies will not be visualized mammographically. In the management of a palpable breast mass, a negative mammogram must not discourage biopsy of a clinically suspicious lesion. Electronically Signed By: Marcell morton/penrad:08/04/2023 21:21:41 ACR BI-RADS Category 1: Negative 3341F PARENCHYMAL PATTERN: (A) - The breast(s) demonstrate(s) scattered fibroglandular densities. BI-RADS CATEGORY: (1) - 1 RECOMMENDATION: (ANNUAL) - Recommend routine annual screening mammography. [id number] 1 year screening LATERALITY: (B)
== END 2023-08-04 12:33 | disposition home or self-care (01) ==
LOC: DI 12:32
PROVIDERS: ATTEND Internal Medicine
DX: Z12.31 Encounter for screening mammogram for malignant neoplasm of breast (principal); R92.323 Mammographic fibroglandular density, bilateral breasts

== ENCOUNTER 2023-08-04 12:32 | Outpatient (CLI) | payer MEDICARE, MEDICAID ==
--- NOTE | 2023-08-04 15:33 | Ultrasound Report ---
PROCEDURE: Arterial Duplex Lwr Ext LT INDICATIONS: CELLULITIS TECHNIQUE: Color and pulse Doppler interrogation was performed of the left lower extremity arterial system, with image documentation. COMPARISON: None FINDINGS: Common femoral artery: 92.0 cm/sec, with triphasic flow. Deep femoral artery: 74.8 cm/sec, with triphasic flow. Proximal superficial femoral artery: 135.9 cm/sec, with triphasic flow. Mid superficial femoral artery: 120.0 cm/sec, with triphasic flow. Distal superficial femoral artery: 82.8 cm/sec, with triphasic flow. Popliteal artery: 55.2 cm/sec, with triphasic flow. Posterior tibial artery: 78.9 cm/sec, with triphasic flow. Anterior tibial artery/dorsalis pedis: 75.9/55.2 cm/sec, with biphasic/biphasic flow. Kwong-scale imaging description: There is wide patency from the common femoral through the popliteal w ithout evidence of inflow stenosis. Kwong scale imaging suggests a degree of distal runoff stenotic di sease involving the posterior tibial and anterior tibial arteries. However, normal waveforms are note d. IMPRESSION: 1. Wide patency through the popliteal artery. 2. Suggestion of a degree of distal disease involving the anterior tibial and posterior tibial arteri es. However, normal waveforms are present. Reviewed by: Devon Alvarez MD on 08/04/2023 3:32 PM PDT Approved by: Devon Alvarez MD on 08/04/2023 3:32 PM PDT Station ID: [id number]
== END 2023-08-04 12:33 | disposition home or self-care (01) ==
LOC: DI 12:32
PROVIDERS: ATTEND Internal Medicine
DX: L03.90 Cellulitis, unspecified (principal)

== ENCOUNTER 2023-08-28 12:30 | Outpatient (CLI) | payer MEDICARE, MEDICAID ==
[2023-08-28 12:48] LABS: BASOPHILS # (AUTO) 0.1 10^3/uL (0.0-0.1); BASOPHILS % (AUTO) 1.2 %; EOSINOPHILS # (AUTO) 0.3 10^3/uL (0.0-0.7); EOSINOPHILS % (AUTO) 4.6 %; HCT - HEMATOCRIT 45.2 % (37.0-47.0); HGB - HEMOGLOBIN 14.4 g/dL (12.0-16.0); LYMPHOCYTES # (AUTO) 1.1 10^3/uL (1.5-3.5); LYMPHOCYTES % (AUTO) 19.1 %; MEAN CORPUSCULAR HEMOGLOBIN 27.9 pg (27.0-31.0); MEAN CORPUSCULAR HGB CONC 31.9 g/dL (32.0-36.0); MEAN CORPUSCULAR VOLUME 87.6 fL (81.0-99.0); MEAN PLATELET VOLUME 10.4 fL (7.9-10.8); MONOCYTES # (AUTO) 0.6 10^3/uL (0.0-1.0); MONOCYTES % (AUTO) 9.7 %; NEUTROPHILS # (AUTO) 3.8 10^3/uL (1.5-6.6); NEUTROPHILS % (AUTO) 65.1 %; PLT - PLATELET COUNT 268 10^3/uL (130-450); RED BLOOD COUNT 5.16 10^6/uL (4.20-5.40); RED CELL DISTRIBUTION WIDTH 14.2 % (12.0-15.0); WHITE BLOOD COUNT 5.9 x10^3/uL (4.8-10.8)
[2023-08-28 13:05] LABS: ALBUMIN 4.6 g/dL (3.2-5.5); ALBUMIN/GLOBULIN RATIO 1.3 (1.0-2.2); ALKALINE PHOSPHATASE 106 IU/L (42-121); ALT ALANINE AMINOTRANSFERASE 20 IU/L (10-60); AST ASPARTATE AMINOTRANSFERASE 25 IU/L (10-42); BILIRUBIN,TOTAL 0.5 mg/dL (0.2-1.0); BUN - BLOOD UREA NITROGEN 19 mg/dL (6-20); CALCIUM 10.5 mg/dL (8.5-10.3); CARBON DIOXIDE - CO2 31 mmol/L (21-32); CHLORIDE 102 mmol/L (101-111); CHOLESTEROL 146 mg/dL; CRP - C-REACTIVE PROTEIN 0.5 mg/dL (<0.5); GFR - MDRD 55 (>89); GLUCOSE 87 mg/dL (74-104); HDL CHOLESTEROL 72 mg/dL; LDL CHOLESTEROL,CALCULATED 60 mg/dL; LDL/HDL RATIO 0.8 (<4.4); POTASSIUM 4.1 mmol/L (3.5-4.5); SODIUM 138 mmol/L (135-145); TOTAL PROTEIN 8.1 g/dL (6.4-8.9); TRIGLYCERIDES 72 mg/dL (48-352); URIC ACID 5.5 mg/dL (2.3-6.6); VLDL CHOLESTEROL 14 mg/dL
[2023-08-28 13:17] LABS: THYROID STIMULATING HORMONE 2.23 uIU/mL (0.34-5.60)
[2023-08-28 13:58] LABS: RHEUMATOID FACTOR NEGATIVE (Negative)
== END 2023-08-28 12:31 | disposition home or self-care (01) ==
LOC: LAB 12:30
PROVIDERS: ATTEND Internal Medicine
DX: M25.50 Pain in unspecified joint (principal); C44.91 Basal cell carcinoma of skin, unspecified; D72.819 Decreased white blood cell count, unspecified; G35 Multiple sclerosis; M81.0 Age-related osteoporosis without current pathological fracture; R21 Rash and other nonspecific skin eruption; Z79.899 Other long term (current) drug therapy
CPT/HCPCS: 36415; 80053; 80061; 82306; 83721; 84443; 84550; 85025; 85651; 86140; 86200; 86430